=== PATIENT | male | born 1950 | race Caucasian/White ===

== ENCOUNTER 2022-04-12 21:32 | Inpatient (IN) ==
--- NOTE | 2022-04-12 21:48 | DR.DIZZY ---
HPI Time seen Time Seen by Provider: 04/12/22 21:45 HPI Comment HPI Comment: PATIENT IS 71YR OLD MALE WITH HISTORY OF DM, HTN, COPD AND ARTHRTIS IN ER VIA EMS WITH SUDDEN ONSET IF DIZZINESS, ATAXIA, NAUSEA AND GENERALIZED WEAKNESS. PATIENT WENT TO THE KITCHEN TO MAKE SANDWICK AND STARTED TO FEEL DIZZY AND IMBALANCE. SLIGHT HEADACHE PRESENT AND HE IS NAUSEATED. NO FEVER, DYSURIA, VOMITING OR DIARRHEA. SLIGHT NONPRODUCTIVE COUGH. Complaint Chief Complaint Doctor Comments: DIZZINESS AND GENERALIZED WEAKNESS FOR FEW HOURS. COVID-19 Coronavirus risk:travel/contact w/high risk person: No Has patient experienced Coronavirus symptoms: No Nurses Notes Reviewed Nurses Notes Review: Yes Source History Provided: Patient Mode of Arrival Mode of Arrival: EMS Timing Came on: Suddenly Duration Duration: Constant Duration: Hours Location of Weakness Weakness Location: Generalized Context Onset: With light exertion History of: DM Stroke Symptoms: Dizziness Severity Severity: Normal activity level Modifying factors Worsens: Change in Position Associated signs and symptoms Associated Signs and Symptoms: Imbalance, Weak, Headache and Nausea Other history Other history: HTN, DM, COPD, ARTHRTIS/GOUT. PMH PMH Past Medical History: Arthritis, COPD, Diabetes, Gout and Hypertension Past Surgical History: Yes Surgical History: Ortho Surgery and Other Family History Family Medical History: Diabetes Mellitus, Cancer, [place], Heart Failure and Hypertension Social History Do you use any recreational Drugs:: No ROS Review of Systems Constitutional: See HPI, Weakness and Fatigue; negative Fever Eyes: No Symptoms Reported and See HPI; negative Blurred Vision and Diplopia ENTM: See HPI and Nose Congestion; negative Nose Discharge Respiratoy: See HPI and Non-Productive Cough; negative Short of Breath and Wheez ing Cardiovascular: No Symptoms Reported and See HPI; negative Chest Pain Gastrointestinal/Abdominal: See HPI, Abdominal Pain and Nausea; negative Diarrhea and Vomiting Genitourinary: No Symptoms Reported and See HPI; negative Dysuria Neurological: See HPI, Headache, Weakness and Dizziness Musculoskeletal: See HPI and Back Pain (CHRONIC) Integumentary: No Symptoms Reported and See HPI; negative Rash Hematologic/Lymphatic: Easy Bruising Endocrine: No Symptoms Reported and See HPI; negative Increased Thirst and Increased Urine Psychiatric: No Symptoms Reported and See HPI All Other Systems: Reviewed and Negative PE Vital Signs Vitals: Temperature 98.4 F Pulse Rate [Left Radial] 58 Pulse Rate 73 Respiratory Rate 18 Blood Pressure [Right Arm] 185/86 Blood Pressure [Left Arm] 135/65 Blood Pressure 130/63 O2 Sat by Pulse Oximetry 98 General Limitations: No Limitations General Appearance: Alert and In Distress Head Head Exam: Normal Inspection and Atraumatic Eyes Eye exam: Normal Appearance and PERRL; negative Scleral Icterus and Conjunctival Injection Pupils: Regular, Round: Bilateral and Reactive: Bilateral Sclera/Conjunctival: Normal Inspection: Bilateral ENT ENT Exam: Normal Exam, Normal Oropharynx, Normal External Ear Exam and TM's Normal Bilaterally Neck Neck Exam: Normal Inspection, Full ROM and Trachea Midline; negative Tenderness Chest Chest Inspection: Normal Inspection and Symmetric Chest Wall Rise; negative Tenderness Respiratory Respiratory Exam: Normal Lung Sounds Bilat; negative Accessory Muscle Use, Chest Wall Tenderness and Respiratory Distress Respiratory Exam: Bilateral: Rhonchi and Lower: Rhonchi Cardiovascular Cardiovascular Exam: Regular Rate, Normal Rhythm and Normal Heart Sounds; negative Systolic Murmur and Diastolic Murmur Abdominal Exam Abdominal Exam: Normal Inspection, Normal Bowel Sounds and Soft; negative Tenderness Rectal Rectal Exam: Deferred Extremeties Extremities Exam: Normal Inspection and Full ROM Back Back Exam: Normal Inspection and Full ROM Neurologic Neurological Exam: Alert and Oriented X3 Patient Oriented To: Person, Place and Time Speech: Fluid Speech Cranial Nerve Exam: EOM Function (II, III, IV, ): Normal, Facial Sensation (V): Normal, Facial Palsy (VII): Normal, Gag reflex (XI): Normal and Tongue Deviation: Normal Motor Strength - LUE: 5/5 Motor Strength - RUE: 5/5 Motor Strength - LLE: 5/5 Motor Strength - RLE: 5/5 Upper Motor Neuron Exam: Babinski Sign: Normal Psychiatric Psychiatric Exam: Normal Affect and Normal Mood Skin Skin Exam: Warm, Dry, Intact and Normal Color MDM Additional Information Obtained Additional Information Obtained From: Old Records Differential Diagnosis Differential Diagnosis: Anemia, CVA, Dehydration, Dysrhythmia, Electrolyte disorder, Hypoglycemia, Labyrinthitis, Myocardial infarction, TIA, Central Vertigo and Other (HYPOTENSION.) Differential Diagnosis Comment: OTITIS MEDIA, UTI, PNEUMONIA, COPD. COURSE Treatment Treatment: SEE ORDERS DONE WHILE PATIENT WAS IN ER. Education/Counseling Education/Counseling: Patient Educated On: Diagnosis and Needs for Follow Up Education Comments: DISCUSSED PATIENT WITH DR. EMMANUEL. HE WILL ADMIT PATIENT. ROR Labs Reviewed Laboratory Results Reviewed?: Yes Result Diagrams: 04/15/22 04:18 04/15/22 04:18 Laboratory: WBC 6.9 X10^3/uL (3.6-10.0) 04/12/22 22:04 RBC 3.58 X10^6/uL (4.7-6.0) L 04/12/22 22:04 Hgb 11.1 g/dL (13.5-18.0) L 04/12/22 22:04 Hct 32.2 % (42.0-54.0) L 04/12/22 22:04 MCV 89.9 fL (80.0-100.0) 04/12/22 22:04 MCH 31.0 pg (27.0-34.0) 04/12/22 22:04 MCHC 34.5 g/dL (33.0-35.0) 04/12/22 22:04 RDW 16.5 % (11.6-16.5) 04/12/22 22:04 Plt Count 175 X10^3/uL (150.0-450.0) 04/12/22 22:04 MPV 8.0 fL (7.4-11.0) 04/12/22 22:04 Neut % (Auto) 56.1 % (42.0-75.0) 04/12/22 22:04 Lymph % (Auto) 25.5 % (21.0-51.0) 04/12/22 22:04 [place] % (Auto) 11.2 % (0.0-13.0) 04/12/22 22:04 Eos % (Auto) 6.4 % (0.9-2.9) H 04/12/22 22:04 Baso % (Auto) 0.8 % (0.2-1.0) 04/12/22 22:04 Neut # (Auto) 3.9 x10^3/uL (2.2-4.8) 04/12/22 22:04 Lymph # (Auto) 1.8 X10^3/uL (1.3-2.9) 04/12/22 22:04 [place] # (Auto) 0.8 x10^3/uL (0.3-0.8) 04/12/22 22:04 Eos # (Auto) 0.4 x10^3/uL (0.0-0.2) H 04/12/22 22:04 Baso # (Auto) 0.1 X10^3/uL (0.0-0.1) 04/12/22 22:04 Absolute Nucleated RBC 0.1 /100WBC 04/12/22 22:04 Sodium 135 mmol/L (136-145) L 04/12/22 22:04 Corrected Sodium 138 mmol/L (136-145) 04/12/22 22:04 Potassium 3.9 mmol/L (3.5-5.1) 04/12/22 22:04 Chloride 99 mmol/L (98-107) 04/12/22 22:04 Carbon Dioxide 26.6 mmol/L (21-32) 04/12/22 22:04 BUN 66 mg/dL (7-18) H 04/12/22 22:04 Creatinine 3.56 mg/dL (0.70-1.30) H 04/12/22 22:04 Est GFR (MDRD) Af Amer 22 (>60) L 04/12/22 22:04 Est GFR (MDRD) Non-Af 18 (>60) L 04/12/22 22:04 Glucose 221 mg/dL (65-99) H 04/12/22 22:04 Calcium 8.7 mg/dL (8.5-10.1) 04/12/22 22:04 Corrected Calcium 9.3 mg/dL (8.5-10.1) 04/12/22 22:04 Total Bilirubin 0.60 mg/dL (0.2-1.0) 04/12/22 22:04 AST 13 Units/L (15-37) L 04/12/22 22:04 ALT 25 Units/L (12-78) 04/12/22 22:04 Alkaline Phosphatase 98 Units/L (46-116) 04/12/22 22:04 Creatine Kinase 48 Units/L (39-308) 04/12/22 22:04 CK-MB (CK-2) 0.7 ng/mL (0-4.0) 04/12/22 22:04 CK/CKMB % Calc 1.5 % (<4) 04/12/22 22:04 Troponin I High Sens 18.9 ng/L (4.0-60.0) 04/12/22 22:04 B-Natriuretic Peptide 42.8 pg/mL (0-79) 04/12/22 22:04 Total Protein 6.5 g/dL (6.4-8.2) 04/12/22 22:04 Albumin 3.2 g/dL (3.4-5.0) L 04/12/22 22:04 Globulin 3.3 g/dL (2.5-4.5) 04/12/22 22:04 Albumin/Globulin Ratio 1.0 Ratio (1.1-2.1) L 04/12/22 22:04 SARS-CoV-2 (PCR) Negative (NEGATIVE) 04/13/22 00:57 EKG Rate: 62 [place]: Normal Rhythm: NSR Block: RBBB Hypertrophy: None ST: Nonsp Opioid Opioid Risk Tool Age (Petr box if 16-45): No History of Preadolescent Sexual Abuse: No Total: 0 Total Score Risk Category: Low Risk Copyright: Beckett predicting aberrant behaviors Diagnosis Discharge Problem: Acute hypotension, Acute dehydration, Renal insufficiency Syncope Qualifiers: Syncope type: unspecified Qualified Code(s): R55 - Syncope and collapse Instructions Instructions: Food Choices for Gastroesophageal Reflux Disease, Adult Heartburn Near-Syncope, [id number] Near-Syncope Syncope, [id number] Forms: Excuse From Work or School Precautions for COVID19 [facility] Social Distancing
[2022-04-12 22:11] LABS: BASOPHILS # (AUTO) 0.1 X10^3/uL (0.0-0.1); BASOPHILS % (AUTO) 0.8 % (0.2-1.0); EOSINOPHILS # (AUTO) 0.4 x10^3/uL (0.0-0.2); EOSINOPHILS % (AUTO) 6.4 % (0.9-2.9); HEMATOCRIT 32.2 % (42.0-54.0); HEMOGLOBIN 11.1 g/dL (13.5-18.0); LYMPHOCYTES # (AUTO) 1.8 X10^3/uL (1.3-2.9); LYMPHOCYTES % (AUTO) 25.5 % (21.0-51.0); MEAN CORPUSCULAR HGB CONC 34.5 g/dL (33.0-35.0); MEAN CORPUSCULAR VOLUME 89.9 fL (80.0-100.0); MONOCYTES # (AUTO) 0.8 x10^3/uL (0.3-0.8); MONOCYTES % (AUTO) 11.2 % (0.0-13.0); NEUTROPHILS # (AUTO) 3.9 x10^3/uL (2.2-4.8); NEUTROPHILS % (AUTO) 56.1 % (42.0-75.0); RED BLOOD COUNT 3.58 X10^6/uL (4.7-6.0); RED CELL DISTRIBUTION WIDTH 16.5 % (11.6-16.5); WHITE BLOOD COUNT 6.9 X10^3/uL (3.6-10.0)
[2022-04-12 22:18] LABS: CALCIUM 8.7 mg/dL (8.5-10.1); CARBON DIOXIDE 26.6 mmol/L (21-32); CREATININE 3.56 mg/dL (0.70-1.30)
[2022-04-12 23:00] LABS: CKMB % 1.5 % (<4); CREATINE KINASE MB 0.7 ng/mL (0-4.0)
[2022-04-12 23:11] LABS: ALBUMIN 3.2 g/dL (3.4-5.0); COR CA(FOR HYPOALB) 9.3 mg/dL (8.5-10.1); TOTAL PROTEIN 6.5 g/dL (6.4-8.2)
[2022-04-12] MEDS: NS 1,000 ML IV 1,000 ML IV SCH (23:40)
[2022-04-12] MEDS ORDERED: NS 1,000 ML IV 1,000 ML ONE (23:42)
[2022-04-13] MEDS ORDERED: ZOFRAN INJ 4 MG VIAL IVP PRN (02:45)
[2022-04-13] MEDS ORDERED: NS 1,000 ML IV 1,000 ML IV SCH (03:00)
[2022-04-13 04:09] VITALS: BMI 30.8
[2022-04-13 05:26] LABS: ALBUMIN 2.9 g/dL (3.4-5.0); BASOPHILS # (AUTO) 0.1 X10^3/uL (0.0-0.1); CALCIUM 8.3 mg/dL (8.5-10.1); CARBON DIOXIDE 26.3 mmol/L (21-32); COR CA(FOR HYPOALB) 9.2 mg/dL (8.5-10.1); CREATININE 2.89 mg/dL (0.70-1.30); EOSINOPHILS # (AUTO) 0.5 x10^3/uL (0.0-0.2); EOSINOPHILS % (AUTO) 8.1 % (0.9-2.9); HEMATOCRIT 30.8 % (42.0-54.0); HEMOGLOBIN 10.7 g/dL (13.5-18.0); LYMPHOCYTES # (AUTO) 1.9 X10^3/uL (1.3-2.9); MEAN CORPUSCULAR HEMOGLOBIN 31.2 pg (27.0-34.0); MEAN CORPUSCULAR HGB CONC 34.8 g/dL (33.0-35.0); MEAN CORPUSCULAR VOLUME 89.7 fL (80.0-100.0); MEAN PLATELET VOLUME 8.4 fL (7.4-11.0); MONOCYTES # (AUTO) 0.7 x10^3/uL (0.3-0.8); MONOCYTES % (AUTO) 10.6 % (0.0-13.0); NEUTROPHILS # (AUTO) 3.4 x10^3/uL (2.2-4.8); NEUTROPHILS % (AUTO) 51.3 % (42.0-75.0); RED BLOOD COUNT 3.43 X10^6/uL (4.7-6.0); TOTAL PROTEIN 5.9 g/dL (6.4-8.2); WHITE BLOOD COUNT 6.7 X10^3/uL (3.6-10.0)
[2022-04-13 05:35] LABS: CKMB % 2.3 % (<4); CREATINE KINASE 43 Units/L (39-308); CREATINE KINASE MB < 1.0 ng/mL (0-4.0)
[2022-04-13] MEDS: NS 1,000 ML IV 1,000 ML IV SCH ×3 (06:44→23:14)
--- NOTE | 2022-04-13 08:51 | DR.H&P ---
H&P History & Physical for Day of: H&P Date: 04/13/22 Chief Complaint Chief Complaint: dizziness, weakness Allergies Allergies Allergy/AdvReac Type Severity Reaction Status Date / Time No Known Drug Allergies Allergy Verified 07/14/21 10:44 History of Present Illness History of Present Illness: Mr Wells is a 71y/o male with a PMH of Type 2 diabetes, HTN, CAD and GERD presented with dizziness and generalized weakness. He states he was standing up in the kitchen when he felt lightheaded. He did not pass out. He recently had cholecystectomy about a week ago in [place]. He reports not eating well since being discharged. He denies nausea or vomiting, reports some diarrhea. Denies fever or chills. He has a hx of DM, not on insulin, reports FSBG being elevated lately. He sees Dr Maria and had a stress test in January. Denies chest pain or SOB. He is feeling better this morning, ate his breakfast. Labs reviewed Stress test results reviewed, EF 50% no myocardial ischemia Plan: continue hydration with NS, monitor renal function. Follow one more set of cardiac enzymes. Resume home medications, hold nephrotoxic medicines. Order carotid U/S. Will check anemia panel. PT/OT as tolerated. Monitor AM labs. Past Medical History Past Medical History: Arthritis, COPD, Diabetes, Gout and Hypertension Past Surgical History Surgical History: Cholecystectomy Family History Family Medical History: Diabetes Mellitus, Cancer, [place], Sudden Cardiac and Hypertension Social History Does patient currently use any type of tobacco product: No Have you used tobacco products in the last 12 months: No Type of Tobacco Use: None Alcohol Use: None Drug Use: None Prescription drug monitoring program results: PDMP reviewed and no concerns i dentified Medications Home Medications: No Known Drug Allergies Allergy (Verified 07/14/21 10:44) CONTINUE taking the following medications allopurinol 200 mg PO DAILY 04/13/22 [History] aspirin 81 mg PO DAILY 04/13/22 [History] atorvastatin 40 mg PO QHS 04/13/22 [History] carvedilol 25 mg PO BID 04/13/22 [History] chlorthalidone 25 mg PO DAILY 04/13/22 [History] famotidine 40 mg PO DAILY 04/13/22 [History] furosemide 40 mg PO DAILY 04/13/22 [History] glipizide 10 mg PO QHS 04/13/22 [History] glipizide 20 mg PO QAM 04/13/22 [History] losartan 25 mg PO BID 04/13/22 [History] pioglitazone 15 mg PO DAILY 04/13/22 [History] Labs Result Diagrams: 04/13/22 04:35 04/13/22 04:35 Labs: Laboratory WBC 6.7 X10^3/uL (3.6-10.0) 04/13/22 04:35 RBC 3.43 X10^6/uL (4.7-6.0) L 04/13/22 04:35 Hgb 10.7 g/dL (13.5-18.0) L 04/13/22 04:35 Hct 30.8 % (42.0-54.0) L 04/13/22 04:35 MCV 89.7 fL (80.0-100.0) 04/13/22 04:35 MCH 31.2 pg (27.0-34.0) 04/13/22 04:35 MCHC 34.8 g/dL (33.0-35.0) 04/13/22 04:35 RDW 16.0 % (11.6-16.5) 04/13/22 04:35 Plt Count 174 X10^3/uL (150.0-450.0) 04/13/22 04:35 MPV 8.4 fL (7.4-11.0) 04/13/22 04:35 Neut % (Auto) 51.3 % (42.0-75.0) 04/13/22 04:35 Lymph % (Auto) 29.0 % (21.0-51.0) 04/13/22 04:35 [place] % (Auto) 10.6 % (0.0-13.0) 04/13/22 04:35 Eos % (Auto) 8.1 % (0.9-2.9) H 04/13/22 04:35 Baso % (Auto) 1.0 % (0.2-1.0) 04/13/22 04:35 Neut # (Auto) 3.4 x10^3/uL (2.2-4.8) 04/13/22 04:35 Lymph # (Auto) 1.9 X10^3/uL (1.3-2.9) 04/13/22 04:35 [place] # (Auto) 0.7 x10^3/uL (0.3-0.8) 04/13/22 04:35 Eos # (Auto) 0.5 x10^3/uL (0.0-0.2) H 04/13/22 04:35 Baso # (Auto) 0.1 X10^3/uL (0.0-0.1) 04/13/22 04:35 Absolute Nucleated RBC 0.0 /100WBC 04/13/22 04:35 Sodium 136 mmol/L (136-145) 04/13/22 04:35 Corrected Sodium 137 mmol/L (136-145) 04/13/22 04:35 Potassium 3.6 mmol/L (3.5-5.1) 04/13/22 04:35 Chloride 100 mmol/L (98-107) 04/13/22 04:35 Carbon Dioxide 26.3 mmol/L (21-32) 04/13/22 04:35 BUN 68 mg/dL (7-18) H 04/13/22 04:35 Creatinine 2.89 mg/dL (0.70-1.30) H 04/13/22 04:35 Est GFR (MDRD) Af Amer 28 (>60) L 04/13/22 04:35 Est GFR (MDRD) Non-Af 23 (>60) L 04/13/22 04:35 Glucose 147 mg/dL (65-99) H 04/13/22 04:35 POC Glucose (mg/dL) 144 mg/dL (65-99) H 04/13/22 05:18 Calcium 8.3 mg/dL (8.5-10.1) L 04/13/22 04:35 Corrected Calcium 9.2 mg/dL (8.5-10.1) 04/13/22 04:35 Total Bilirubin 0.50 mg/dL (0.2-1.0) 04/13/22 04:35 AST 14 Units/L (15-37) L 04/13/22 04:35 ALT 21 Units/L (12-78) 04/13/22 04:35 Alkaline Phosphatase 88 Units/L (46-116) 04/13/22 04:35 Creatine Kinase 43 Units/L (39-308) 04/13/22 04:35 CK-MB (CK-2) < 1.0 ng/mL (0-4.0) 04/13/22 04:35 CK/CKMB % Calc 2.3 % (<4) 04/13/22 04:35 Troponin I High Sens 25.5 ng/L (4.0-60.0) 04/13/22 04:35 B-Natriuretic Peptide 42.8 pg/mL (0-79) 04/12/22 22:04 Total Protein 5.9 g/dL (6.4-8.2) L 04/13/22 04:35 Albumin 2.9 g/dL (3.4-5.0) L 04/13/22 04:35 Globulin 3.0 g/dL (2.5-4.5) 04/13/22 04:35 Albumin/Globulin Ratio 1.0 Ratio (1.1-2.1) L 04/13/22 04:35 SARS-CoV-2 (PCR) Negative (NEGATIVE) 04/13/22 00:57 Review of Systems Constitutional: Weakness Eyes: No Symptoms Reported ENT: No Symptoms Reported Respiratory: No Symptoms Reported Cardiovascular: Light Headedness Gastrointestinal: Nausea and Diarrhea Genitourinary: No Symptoms Reported Musculoskeletal: No Symptoms Reported Skin: No Symptoms Reported Neurological: No Symptoms Reported Physical Exam Vital Signs: Temperature 97.8 F Pulse Rate [Left Radial] 69 Pulse Rate 73 Respiratory Rate 20 Blood Pressure [Right Arm] 185/86 Blood Pressure [Left Arm] 164/76 Blood Pressure 130/63 O2 Sat by Pulse Oximetry 95 Oriented: Normal Eyes: Normal Ear: Normal Nose: Normal Throat: Normal Respiratory: Diminished Throughout Cardiovascular: Normal and Edema Auscultation: Bowel Sounds: Normal Palpation: Normal Tenderness: Normal Skin: Decreased Turgur Musculoskeletal: Normal Psychiatric: Normal Mood Description: Calm Affect: Normal Speech Pattern: Clear and Appropriate Assessment/Plan (1) Pre-syncope: Status: Acute (2) AMARJIT (acute kidney injury): Status: Acute (3) Acute dehydration: Status: Acute (4) Acute hypotension: Status: Acute (5) Acute on chronic renal failure: Qualifiers: Acute renal failure type: unspecified Chronic kidney disease stage: unspecified stage Qualified Code(s): N17.9 - Acute kidney failure, unspecified; N18.9 - Chronic kidney disease, unspecified Status: Acute (6) History of cholecystectomy: Status: Acute (7) Type 2 diabetes mellitus: Qualifiers: Diabetes mellitus complication status: without complication Diabetes mellitus long-term insulin use: without manager intermediate use Qualified Code(s): E11.9 - Type 2 diabetes mellitus without complications Status: Acute (8) GERD (gastroesophageal reflux disease): Qualifiers: Esophagitis presence: esophagitis presence not specified Qualified Code(s): K21.9 - Gastro-esophageal reflux disease without esophagitis Status: Acute Review H&P Reviewed: Yes Patient was examined?: Yes
[2022-04-13] MEDS: ASPIRIN EC 81 MG PO SCH (10:13)
[2022-04-13] MEDS: COREG TAB 25 MG PO SCH ×2 (10:13→20:27)
[2022-04-13] MEDS: LOVENOX INJ 30 MG SYR SC SCH (10:13)
[2022-04-13] MEDS: PEPCID TAB 40 MG PO SCH (10:14)
[2022-04-13 11:26] LABS: CKMB % 2.4 % (<4); CREATINE KINASE 42 Units/L (39-308); CREATINE KINASE MB < 1.0 ng/mL (0-4.0)
--- NOTE | 2022-04-13 15:59 | VAS ---
HISTORYDIZZINESS, PRE-SYNCOPEConcern for carotid artery stenosis.EXAM: BILATERAL DOPPLER CAROTID ULTRASOUND EXAMTechnique: Multiple palmer scale and color flow Doppler images of the right and left carotid arterial system were obtained.The vertebral arterial system was evaluated as well.Findings:Nonocclusive color flow Doppler is seen throughout the right and left carotid arterial system.No hemodynamically significant carotid arterial stenosis is seen based on velocity criteria. There is moderate to severe bilateral carotid atherosclerosis and mixed atherosclerotic plaque formation of the bilateral carotid bulbs and ICAs with associated intimal thickening but [without] evidence for high-grade stenosis (>70%) or occlusion of the carotid arteries. The right and left vertebral artery demonstrate antegrade flow.IMPRESSION:Moderate to severe bilateral carotid atherosclerosis and mixed atherosclerotic plaque formation of the bilateral carotid bulbs and [in both] ICAs with [id number] associated carotid intimal thickening but without evidence for high-grade stenosis or occlusion of the carotid arteries, based on Doppler velocity criteria. Appropriate, antegrade, vertebral arterial flow.Peak right ICA velocity: 107 centimeter/seconds.Peak right CCA velocity: 91 centimeter/seconds.Peak left ICA velocity: 101 centimeter/seconds.Peak left CCA velocity: 105 centimeter/seconds.Right ICA to CCA ratio: 1.7.Left ICA to CCA ratio: 1.4.Electronically signed by: BORA YANG III (April 13, 2022 15:58:25)
[2022-04-13] MEDS: SNACK - Diabetic Appropriate PO SCH (20:27)
[2022-04-13] MEDS: LIPITOR TAB 40 MG PO SCH (20:28)
[2022-04-13] MEDS ORDERED: GLUCOTROL PO SCH (21:00)
[2022-04-14 05:20] LABS: BASOPHILS # (AUTO) 0.1 X10^3/uL (0.0-0.1); BASOPHILS % (AUTO) 0.9 % (0.2-1.0); EOSINOPHILS # (AUTO) 0.6 x10^3/uL (0.0-0.2); EOSINOPHILS % (AUTO) 8.2 % (0.9-2.9); HEMOGLOBIN 10.5 g/dL (13.5-18.0); LYMPHOCYTES # (AUTO) 1.8 X10^3/uL (1.3-2.9); LYMPHOCYTES % (AUTO) 26.2 % (21.0-51.0); MEAN CORPUSCULAR HEMOGLOBIN 31.3 pg (27.0-34.0); MEAN CORPUSCULAR HGB CONC 34.9 g/dL (33.0-35.0); MEAN CORPUSCULAR VOLUME 89.8 fL (80.0-100.0); MEAN PLATELET VOLUME 7.9 fL (7.4-11.0); MONOCYTES # (AUTO) 0.9 x10^3/uL (0.3-0.8); MONOCYTES % (AUTO) 12.2 % (0.0-13.0); NEUTROPHILS # (AUTO) 3.7 x10^3/uL (2.2-4.8); NEUTROPHILS % (AUTO) 52.5 % (42.0-75.0); RED BLOOD COUNT 3.34 X10^6/uL (4.7-6.0); RED CELL DISTRIBUTION WIDTH 16.3 % (11.6-16.5)
[2022-04-14 05:38] LABS: ALBUMIN 2.7 g/dL (3.4-5.0); CALCIUM 7.8 mg/dL (8.5-10.1); CARBON DIOXIDE 26.7 mmol/L (21-32); COR CA(FOR HYPOALB) 8.8 mg/dL (8.5-10.1); CREATININE 1.49 mg/dL (0.70-1.30); TOTAL PROTEIN 5.5 g/dL (6.4-8.2)
[2022-04-14] MEDS: NS 1,000 ML IV 1,000 ML IV SCH ×2 (07:35→18:28)
[2022-04-14] MEDS: COREG TAB 25 MG PO SCH ×2 (09:41→21:22)
[2022-04-14] MEDS: COZAAR PO SCH (09:41)
[2022-04-14] MEDS: ASPIRIN EC 81 MG PO SCH (09:42)
[2022-04-14] MEDS: GLUCOTROL PO SCH ×2 (09:42→21:22)
[2022-04-14] MEDS: PEPCID TAB 40 MG PO SCH (09:43)
[2022-04-14] MEDS: LOVENOX INJ 30 MG SYR SC SCH (09:44)
--- NOTE | 2022-04-14 14:29 | PCM.PROG ---
Progress Note Progress Note for Day of Date of Exam: 04/14/22 Subjective Subjective: Patient seen at bedside, no events overnight. He does feel slightly better. He denies N/V/D. His appetite has improved. He still feels dizzy when standing up and ambulating to the bathroom. Labs reviewed: renal function improved Carotid U/S results reviewed and discussed with patient Plan: consult PT/OT, decrease IVF to 75cc/hr. Increase glipizide to 10 mg BID. Resume losartan but 25 mg daily only. Advised patient to work with therapy and try to ambulate in the room and sit on the recliner. Encouraged PO intake. Monitor AM labs. Past Medical Family Social History Past Med/Fam/Surg Hx: No changes since H&P Allergies: Allergies No Known Drug Allergies Allergy (Verified 07/14/21 10:44) Review of Systems ROS: No change since H&P Vital Signs and I&O's Vital Signs: Temperature 98.2 F Pulse Rate [Left Radial] 58 Pulse Rate 73 Respiratory Rate 20 Blood Pressure [Right Arm] 185/86 Blood Pressure [Left Arm] 145/67 Blood Pressure 130/63 O2 Sat by Pulse Oximetry 98 Intake and Output: Intake & Output 04/11/22 04/12/22 04/13/22 04/14/22 23:59 23:59 23:59 23:59 Intake Total 3300 / 3300 1200 / 1200 Balance 3300 / 3300 1200 / 1200 Physical Exam Oriented: Normal Eyes: Normal Ear: Normal Nose: Normal Throat: Normal Respiratory: Normal Cardiovascular: Normal and Edema Auscultation: Bowel Sounds: Normal Tenderness: Normal and Other (incision sites noted, some brusing around the site, no signs of infection ) Skin: Decreased Turgur Musculoskeletal: Normal Psychiatric: Normal Mood Description: Calm Affect: Normal Speech Pattern: Clear and Appropriate Laboratory and Diagnostics Result Diagrams: 04/14/22 05:10 04/14/22 05:10 Labs: Laboratory WBC 7.0 X10^3/uL (3.6-10.0) 04/14/22 05:10 RBC 3.34 X10^6/uL (4.7-6.0) L 04/14/22 05:10 Hgb 10.5 g/dL (13.5-18.0) L 04/14/22 05:10 Hct 30.0 % (42.0-54.0) L 04/14/22 05:10 MCV 89.8 fL (80.0-100.0) 04/14/22 05:10 MCH 31.3 pg (27.0-34.0) 04/14/22 05:10 MCHC 34.9 g/dL (33.0-35.0) 04/14/22 05:10 RDW 16.3 % (11.6-16.5) 04/14/22 05:10 Plt Count 165 X10^3/uL (150.0-450.0) 04/14/22 05:10 MPV 7.9 fL (7.4-11.0) 04/14/22 05:10 Neut % (Auto) 52.5 % (42.0-75.0) 04/14/22 05:10 Lymph % (Auto) 26.2 % (21.0-51.0) 04/14/22 05:10 [place] % (Auto) 12.2 % (0.0-13.0) 04/14/22 05:10 Eos % (Auto) 8.2 % (0.9-2.9) H 04/14/22 05:10 Baso % (Auto) 0.9 % (0.2-1.0) 04/14/22 05:10 Neut # (Auto) 3.7 x10^3/uL (2.2-4.8) 04/14/22 05:10 Lymph # (Auto) 1.8 X10^3/uL (1.3-2.9) 04/14/22 05:10 [place] # (Auto) 0.9 x10^3/uL (0.3-0.8) H 04/14/22 05:10 Eos # (Auto) 0.6 x10^3/uL (0.0-0.2) H 04/14/22 05:10 Baso # (Auto) 0.1 X10^3/uL (0.0-0.1) 04/14/22 05:10 Absolute Nucleated RBC 0.0 /100WBC 04/14/22 05:10 Sodium 139 mmol/L (136-145) 04/14/22 05:10 Corrected Sodium 140 mmol/L (136-145) 04/14/22 05:10 Potassium 3.8 mmol/L (3.5-5.1) 04/14/22 05:10 Chloride 107 mmol/L (98-107) 04/14/22 05:10 Carbon Dioxide 26.7 mmol/L (21-32) 04/14/22 05:10 BUN 49 mg/dL (7-18) H 04/14/22 05:10 Creatinine 1.49 mg/dL (0.70-1.30) H 04/14/22 05:10 Est GFR (MDRD) Af Amer 60 (>60) 04/14/22 05:10 Est GFR (MDRD) Non-Af 49 (>60) L 04/14/22 05:10 Glucose 127 mg/dL (65-99) H 04/14/22 05:10 POC Glucose (mg/dL) 202 mg/dL (65-99) H 04/14/22 11:22 Calcium 7.8 mg/dL (8.5-10.1) L 04/14/22 05:10 Corrected Calcium 8.8 mg/dL (8.5-10.1) 04/14/22 05:10 Iron 44 ug/dL (50-175) L 04/13/22 04:35 Transferrin 169 mg/dL (202-364) L 04/13/22 04:35 Ferritin 514 ng/mL (26-388) H 04/13/22 04:35 Total Bilirubin 0.30 mg/dL (0.2-1.0) 04/14/22 05:10 AST 14 Units/L (15-37) L 04/14/22 05:10 ALT 21 Units/L (12-78) 04/14/22 05:10 Alkaline Phosphatase 86 Units/L (46-116) 04/14/22 05:10 Creatine Kinase 42 Units/L (39-308) 04/13/22 10:50 CK-MB (CK-2) < 1.0 ng/mL (0-4.0) 04/13/22 10:50 CK/CKMB % Calc 2.4 % (<4) 04/13/22 10:50 Troponin I High Sens 25.7 ng/L (4.0-60.0) 04/13/22 10:50 B-Natriuretic Peptide 42.8 pg/mL (0-79) 04/12/22 22:04 Total Protein 5.5 g/dL (6.4-8.2) L 04/14/22 05:10 Albumin 2.7 g/dL (3.4-5.0) L 04/14/22 05:10 Globulin 2.8 g/dL (2.5-4.5) 04/14/22 05:10 Albumin/Globulin Ratio 1.0 Ratio (1.1-2.1) L 04/14/22 05:10 Vitamin B12 730 pg/mL (193-986) 04/13/22 04:35 Folate 11.1 ng/mL (>8.6) 04/13/22 04:35 SARS-CoV-2 (PCR) Negative (NEGATIVE) 04/13/22 00:57 Plan (1) Pre-syncope: Status: Acute (2) AMARJIT (acute kidney injury): Status: Acute (3) Acute dehydration: Status: Acute (4) Acute hypotension: Status: Acute (5) Acute on chronic renal failure: Status: Acute Qualifiers: Acute renal failure type: unspecified Chronic kidney disease stage: unspecified stage Qualified Code(s): N17.9 - Acute kidney failure, unspecified; N18.9 - Chronic kidney disease, unspecified (6) History of cholecystectomy: Status: Acute (7) Type 2 diabetes mellitus: Status: Acute Qualifiers: Diabetes mellitus complication status: without complication 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
[2022-04-14] MEDS: SNACK - Diabetic Appropriate PO SCH (20:00)
[2022-04-14] MEDS: LIPITOR TAB 40 MG PO SCH (21:22)
[2022-04-15] MEDS: NS 1,000 ML IV 1,000 ML IV SCH ×2 (00:20→07:44)
[2022-04-15 04:51] LABS: BASOPHILS # (AUTO) 0.1 X10^3/uL (0.0-0.1); BASOPHILS % (AUTO) 1.1 % (0.2-1.0); EOSINOPHILS # (AUTO) 0.5 x10^3/uL (0.0-0.2); HEMATOCRIT 28.8 % (42.0-54.0); HEMOGLOBIN 10.3 g/dL (13.5-18.0); LYMPHOCYTES # (AUTO) 1.7 X10^3/uL (1.3-2.9); LYMPHOCYTES % (AUTO) 28.2 % (21.0-51.0); MEAN CORPUSCULAR HEMOGLOBIN 31.6 pg (27.0-34.0); MEAN CORPUSCULAR HGB CONC 35.6 g/dL (33.0-35.0); MEAN PLATELET VOLUME 8.2 fL (7.4-11.0); MONOCYTES # (AUTO) 0.7 x10^3/uL (0.3-0.8); MONOCYTES % (AUTO) 12.1 % (0.0-13.0); NEUTROPHILS % (AUTO) 49.6 % (42.0-75.0); RED BLOOD COUNT 3.24 X10^6/uL (4.7-6.0)
[2022-04-15 05:18] LABS: ALANINE AMINOTRANSFERASE 22 Units/L (12-78); ALBUMIN 2.6 g/dL (3.4-5.0); ALKALINE PHOSPHATASE 94 Units/L (46-116); ASPARTATE AMINO TRANSFERASE 15 Units/L (15-37); BLOOD UREA NITROGEN 37 mg/dL (7-18); CALCIUM 7.5 mg/dL (8.5-10.1); CARBON DIOXIDE 23.7 mmol/L (21-32); CHLORIDE 109 mmol/L (98-107); COR CA(FOR HYPOALB) 8.6 mg/dL (8.5-10.1); COR NA(FOR HYPERGLY) 141 mmol/L (136-145); CREATININE 1.32 mg/dL (0.70-1.30); SODIUM 140 mmol/L (136-145); TOTAL PROTEIN 5.5 g/dL (6.4-8.2); eGFR NON BLACK RACES 57 (>60)
[2022-04-15] MEDS: COREG TAB 25 MG PO SCH (08:14)
[2022-04-15] MEDS: COZAAR PO SCH (08:14)
[2022-04-15] MEDS: ASPIRIN EC 81 MG PO SCH (08:14)
[2022-04-15] MEDS: LOVENOX INJ 30 MG SYR SC SCH (08:15)
[2022-04-15] MEDS: GLUCOTROL PO SCH (08:15)
[2022-04-15] MEDS: PEPCID TAB 40 MG PO SCH (08:15)
--- NOTE | 2022-04-15 08:48 | W.DIS.FURT ---
Summary of Discharge Discharge Summary of Date Date of Exam: 04/15/22 Admission Date Date of Admission: 04/12/22 Admission Diagnosis Patient Problems (Updated 04/16/22 @ 10:11 by Cindy Ng) Acute hypotension (Acute) I95.9 Acute dehydration (Acute) E86.0 Hospital Course: Mr Wells is a 71y/o male with a PMH of Type 2 diabetes, HTN, CAD and GERD presented with dizziness and generalized weakness. He states he was standing up in the kitchen when he felt lightheaded. He did not pass out. He recently had cholecystectomy about a week ago in [place]. He reports not eating well since being discharged. He denies nausea or vomiting, reports some diarrhea. Denies fever or chills. He has a hx of DM, not on insulin, reports FSBG being elevated lately. He sees Dr Maria and had a stress test in January. Denies chest pain or SOB. ER work up showed worsening renal function with Cr 3.53. Cardiac enzymes were negative. He was started on IV hydration. Carotid U/S was also done which showed moderate plaque burden with no high grade stenosis. His renal function improved with hydration and he was tolerating PO intake. PT/OT was also consulted and patient was able to ambulate. He was stable for discharge. Patient's chlorthalidone was held on discharge. He sees Dr Yadav (nephro), will follow up with him and PCP as scheduled. He will need a repeat BMP to follow renal function. Vital Signs: Vital Signs (72 hours) 04/12/22 21:33 04/12/22 23:30 04/13/22 02:17 Temperature 98.4 F 98.4 F Pulse Rate 66 73 Pulse Rate [Left Radial] 58 L Respiratory Rate 20 16 18 Blood Pressure 123/61 130/63 Blood Pressure [Left Arm] 135/65 O2 Sat by Pulse Oximetry 96 98 98 04/13/22 02:50 04/13/22 08:00 04/13/22 12:00 Temperature 97.8 F 97.1 F L 98.0 F Pulse Rate Pulse Rate [Left Radial] 69 65 80 Respiratory Rate 20 18 18 Blood Pressure Blood Pressure [Left Arm] 164/76 136/64 139/69 O2 Sat by Pulse Oximetry 95 95 96 04/13/22 16:00 04/13/22 20:00 04/13/22 23:38 Temperature 98.1 F 98.0 F 98.2 F Pulse Rate Pulse Rate [Left Radial] 76 71 73 Respiratory Rate 18 20 18 Blood Pressure Blood Pressure [Left Arm] 142/68 145/67 152/81 O2 Sat by Pulse Oximetry 99 98 97 04/14/22 03:31 04/14/22 08:00 04/14/22 12:00 Temperature 98.1 F 98.1 F 98.2 F Pulse Rate Pulse Rate [Left Radial] 56 L 72 58 L Respiratory Rate 20 18 20 Blood Pressure Blood Pressure [Left Arm] 162/74 165/71 145/67 O2 Sat by Pulse Oximetry 96 97 98 04/14/22 16:00 04/14/22 20:00 04/15/22 00:00 Temperature 98.1 F 97.8 F 97.6 F Pulse Rate Pulse Rate [Left Radial] 57 L 71 71 Respiratory Rate 20 20 20 Blood Pressure Blood Pressure [Left Arm] 135/65 163/76 162/72 O2 Sat by Pulse Oximetry 99 98 97 04/15/22 04:00 Temperature 97.6 F Pulse Rate Pulse Rate [Left Radial] 71 Respiratory Rate 20 Blood Pressure Blood Pressure [Left Arm] 152/70 O2 Sat by Pulse Oximetry 98 Labs: Laboratory Last Values WBC 6.0 X10^3/uL (3.6-10.0) 04/15/22 04:18 RBC 3.24 X10^6/uL (4.7-6.0) L 04/15/22 04:18 Hgb 10.3 g/dL (13.5-18.0) L 04/15/22 04:18 Hct 28.8 % (42.0-54.0) L 04/15/22 04:18 MCV 89.0 fL (80.0-100.0) 04/15/22 04:18 MCH 31.6 pg (27.0-34.0) 04/15/22 04:18 MCHC 35.6 g/dL (33.0-35.0) H 04/15/22 04:18 RDW 16.0 % (11.6-16.5) 04/15/22 04:18 Plt Count 162 X10^3/uL (150.0-450.0) 04/15/22 04:18 MPV 8.2 fL (7.4-11.0) 04/15/22 04:18 Neut % (Auto) 49.6 % (42.0-75.0) 04/15/22 04:18 Lymph % (Auto) 28.2 % (21.0-51.0) 04/15/22 04:18 [place] % (Auto) 12.1 % (0.0-13.0) 04/15/22 04:18 Eos % (Auto) 9.0 % (0.9-2.9) H 04/15/22 04:18 Baso % (Auto) 1.1 % (0.2-1.0) H 04/15/22 04:18 Neut # (Auto) 3.0 x10^3/uL (2.2-4.8) 04/15/22 04:18 Lymph # (Auto) 1.7 X10^3/uL (1.3-2.9) 04/15/22 04:18 [place] # (Auto) 0.7 x10^3/uL (0.3-0.8) 04/15/22 04:18 Eos # (Auto) 0.5 x10^3/uL (0.0-0.2) H 04/15/22 04:18 Baso # (Auto) 0.1 X10^3/uL (0.0-0.1) 04/15/22 04:18 Absolute Nucleated RBC 0.0 /100WBC 04/15/22 04:18 Sodium 140 mmol/L (136-145) 04/15/22 04:18 Corrected Sodium 141 mmol/L (136-145) 04/15/22 04:18 Potassium 4.0 mmol/L (3.5-5.1) 04/15/22 04:18 Chloride 109 mmol/L (98-107) H 04/15/22 04:18 Carbon Dioxide 23.7 mmol/L (21-32) 04/15/22 04:18 BUN 37 mg/dL (7-18) H 04/15/22 04:18 Creatinine 1.32 mg/dL (0.70-1.30) H 04/15/22 04:18 Est GFR (MDRD) Af Amer > 60 (>60) 04/15/22 04:18 Est GFR (MDRD) Non-Af 57 (>60) L 04/15/22 04:18 Glucose 148 mg/dL (65-99) H 04/15/22 04:18 POC Glucose (mg/dL) 125 mg/dL (65-99) H 04/15/22 05:56 Calcium 7.5 mg/dL (8.5-10.1) L 04/15/22 04:18 Corrected Calcium 8.6 mg/dL (8.5-10.1) 04/15/22 04:18 Iron 44 ug/dL (50-175) L 04/13/22 04:35 Transferrin 169 mg/dL (202-364) L 04/13/22 04:35 Ferritin 514 ng/mL (26-388) H 04/13/22 04:35 Total Bilirubin 0.30 mg/dL (0.2-1.0) 04/15/22 04:18 AST 15 Units/L (15-37) 04/15/22 04:18 ALT 22 Units/L (12-78) 04/15/22 04:18 Alkaline Phosphatase 94 Units/L (46-116) 04/15/22 04:18 Creatine Kinase 42 Units/L (39-308) 04/13/22 10:50 CK-MB (CK-2) < 1.0 ng/mL (0-4.0) 04/13/22 10:50 CK/CKMB % Calc 2.4 % (<4) 04/13/22 10:50 Troponin I High Sens 25.7 ng/L (4.0-60.0) 04/13/22 10:50 B-Natriuretic Peptide 42.8 pg/mL (0-79) 04/12/22 22:04 Total Protein 5.5 g/dL (6.4-8.2) L 04/15/22 04:18 Albumin 2.6 g/dL (3.4-5.0) L 04/15/22 04:18 Globulin 2.9 g/dL (2.5-4.5) 04/15/22 04:18 Albumin/Globulin Ratio 0.9 Ratio (1.1-2.1) L 04/15/22 04:18 Vitamin B12 730 pg/mL (193-986) 04/13/22 04:35 Folate 11.1 ng/mL (>8.6) 04/13/22 04:35 SARS-CoV-2 (PCR) Negative (NEGATIVE) 04/13/22 00:57 Reason For Visit: SYNCOPAL EPISODE, HYPOTENSION, DEHYDRATION, RENAL Discharge Date Discharge Date: 04/15/22 Discharge Diagnosis All Active Problems (Updated 04/16/22 @ 10:11 by Cindy Ng) Pre-syncope (Acute) GERD (gastroesophageal reflux disease) (Chronic) Type 2 diabetes mellitus (Chronic) History of cholecystectomy (Acute) Acute on chronic renal failure (Acute) Acute hypotension (Acute) Acute dehydration (Acute) Plan of Treatment: Continue with present treatment and follow up plan. Pt is to keep follow up appointment as instructed and take medications as ordered. Discharge Medications Discharge Medications: No Known Drug Allergies Allergy (Verified 07/14/21 10:44) CONTINUE taking the following medications aspirin 81 mg PO DAILY 04/13/22 [History] atorvastatin 40 mg PO QHS 04/13/22 [History] carvedilol 25 mg PO BID 04/13/22 [History] famotidine 40 mg PO DAILY 04/13/22 [History] furosemide 40 mg PO DAILY 04/13/22 [History] glipizide 10 mg PO QHS 04/13/22 [History] glipizide 20 mg PO QAM 04/13/22 [History] losartan 25 mg PO BID 04/13/22 [History] pioglitazone 15 mg PO DAILY 04/13/22 [History] Follow up and Referral Follow Up: 1 Week (PCP) Discharge Disposition Discharge Disposition: Home Discharge Condition: Stable Discharge Plan Discharge Plan Hospital Course: Mr Wells is a 71y/o male with a PMH of Type 2 diabetes, HTN, CAD and GERD presented with dizziness and generalized weakness. He states he was standing up in the kitchen when he felt lightheaded. He did not pass out. He recently had cholecystectomy about a week ago in [place]. He reports not eating well since being discharged. He denies nausea or vomiting, reports some diarrhea. Denies fever or chills. He has a hx of DM, not on insulin, reports FSBG being elevated lately. He sees Dr Maria and had a stress test in January. Denies chest pain or SOB. ER work up showed worsening renal function with Cr 3.53. Cardiac enzymes were negative. He was started on IV hydration. Carotid U/S was also done which showed moderate plaque burden with no high grade stenosis. His renal function improved with hydration and he was tolerating PO intake. PT/OT was also consulted and patient was able to ambulate. He was stable for discharge. Patient's chlorthalidone was held on discharge. He sees Dr Yadav (nephro), will follow up with him and PCP as scheduled. He will need a repeat BMP to follow renal function. Patient Disposition: 01 HOME, SELF-CARE Condition: Stable Health Concerns: Post Hospitalization: new medications and changes needed to prevent readmission or further decline. Pt educated and given instructions on all concerns. Plan of Treatment: Continue with present treatment and follow up plan. Pt is to keep follow up appointment as instructed and take medications as ordered. Prescription drug monitoring program results: PDMP reviewed and no concerns identified Prescriptions: Continued furosemide 40 mg tablet 40 mg PO DAILY RF: 0 pioglitazone 15 mg tablet 15 mg PO DAILY RF: 0 atorvastatin 40 mg tablet 40 mg PO QHS RF: 0 carvedilol 25 mg tablet 25 mg PO BID RF: 0 glipizide 10 mg tablet 10 mg PO QHS RF: 0 glipizide 10 mg tablet 20 mg PO QAM RF: 0 famotidine 40 mg tablet 40 mg PO DAILY RF: 0 losartan 25 mg tablet 25 mg PO BID RF: 0 aspirin 81 mg Tablet 81 mg PO DAILY RF: 0 Discontinued chlorthalidone 25 mg tablet 25 mg PO DAILY RF: 0 allopurinol 100 mg tablet 200 mg PO DAILY RF: 0 Follow ups/Referrals Follow ups/Referrals: CLARA WONG [Primary Care Provider] - 04/21/22 1:30 pm MIKE YADAV [REFERRING] - 04/22/22 10:45 am Instructions Instructions: Food Choices for Gastroesophageal Reflux Disease, Adult, Heartburn, Near-Syncope, [id number], Near-Syncope, Syncope, [id number] Activity Restrictions/Additional Instructions: Do not take chlorthalidone and allopurinol until seen by Sary Wong, need to repeat BMP to follow renal function Can resume all other home medications as prescribed Stand Alone Forms: Excuse From Work or School, Precautions for COVID19, [facility], Patient Portal, Social Distancing
[2022-04-15 11:22] VITALS: BP 173/77
== END 2022-04-15 11:10 | disposition home or self-care (01) | DRG 312 ==
LOC: ER 21:32 → MED/SURG 04-13 02:20
PROVIDERS: ADMIT Family Medicine; ATTEND Family Medicine
DX: N13.2 Hydronephrosis with renal and ureteral calculous obstruction; K21.9 Gastro-esophageal reflux disease without esophagitis; N17.8 Other acute kidney failure; I13.0 Hypertensive heart and chronic kidney disease with heart failure and stage 1 through stage 4 chronic kidney disease, or unspecified chronic kidney disease; E83.52 Hypercalcemia; R55 Syncope and collapse; Z20.822 Contact with and (suspected) exposure to COVID-19; R26.89 Other abnormalities of gait and mobility; Z79.899 Other long term (current) drug therapy; I95.89 Other hypotension; E86.0 Dehydration; E11.65 Type 2 diabetes mellitus with hyperglycemia; R79.89 Other specified abnormal findings of blood chemistry

== ENCOUNTER 2023-05-30 12:20 | Observation (INO) ==
--- NOTE | 2023-05-30 13:20 | DR.GENAD ---
HPI Time Seen Time Seen by Provider: 05/30/23 13:19 PCP Primary Care Physician: Sary Wong Complaint/Symptoms Chief Complaint:: Pt states he has fluid build up in his legs, feet and hands. He noticed it last week. Pt says HR has been running from 48 -60. HR currently 71 in triage. Pt says 02 has dropped into the 70's a few times this past week. Denies ever being prescribed home 02. Current 02 96% on room air. Pt says he has a PMH of COPD and PNA. PT goes to pulmonary rehab twice a week. Self Treatment fo Chief Complaint: Nebs Source History Provided: Patient Mode of Arrival Mode of Arrival: Ambulatory Timing Onset of Chief Complaint: 05/23/23 PMH PMH Past Medical History: Yes Past Medical History: Arthritis, CHF, COPD, Diabetes, Gout and Hypertension Past Surgical History: Yes Surgical History: Cholecystectomy, Joint Replacement and Ortho Surgery Past Surgical History Comment: Ortho Back, bilat knee replacement, cataracts Family History History of Family Medical Conditions: Yes Family Medical History: Diabetes Mellitus and Cancer Social History Have you used tobacco products in the last 12 months: No Type of Tobacco Use: None Alcohol Use: None Do you use any recreational Drugs:: No Lives With: Spouse Lives Where: Home Infectious screening In the last 2 months have you had wt loss of >10#?: NO Have you traveled outside the country in the last 6 months?: No Isolation: Standard PE Vital Signs Vitals: Vital Signs Pulse Rate [Right] 84 Pulse Rate [Right] 87 Pulse Rate [Right] 75 Respiratory Rate 20 Respiratory Rate 20 Respiratory Rate 18 Blood Pressure [Right Arm] 152/79 Blood Pressure [Right Arm] 169/80 O2 Sat by Pulse Oximetry 92 O2 Sat by Pulse Oximetry 90 ROR Labs Reviewed Result Diagrams: 06/01/23 04:15 06/01/23 04:15 Laboratory: WBC 4.9 X10^3/uL (3.6-10.0) 05/30/23 14:10 RBC 3.19 X10^6/uL (4.7-6.0) L 05/30/23 14:10 Hgb 9.5 g/dL (13.5-18.0) L 05/30/23 14:10 Hct 27.7 % (42.0-54.0) L 05/30/23 14:10 MCV 86.9 fL (80.0-100.0) 05/30/23 14:10 MCH 29.6 pg (27.0-34.0) 05/30/23 14:10 MCHC 34.1 g/dL (33.0-35.0) 05/30/23 14:10 RDW 16.1 % (11.6-16.5) 05/30/23 14:10 Plt Count 177 X10^3/uL (150.0-450.0) 05/30/23 14:10 MPV 8.2 fL (7.4-11.0) 05/30/23 14:10 Neut % (Auto) 68.8 % (42.0-75.0) 05/30/23 14:10 Lymph % (Auto) 16.5 % (21.0-51.0) L 05/30/23 14:10 [place] % (Auto) 8.3 % (0.0-13.0) 05/30/23 14:10 Eos % (Auto) 4.6 % (0.9-2.9) H 05/30/23 14:10 Baso % (Auto) 1.8 % (0.2-1.0) H 05/30/23 14:10 Neut # (Auto) 3.4 x10^3/uL (2.2-4.8) 05/30/23 14:10 Lymph # (Auto) 0.8 X10^3/uL (1.3-2.9) L 05/30/23 14:10 [place] # (Auto) 0.4 x10^3/uL (0.3-0.8) 05/30/23 14:10 Eos # (Auto) 0.2 x10^3/uL (0.0-0.2) 05/30/23 14:10 Baso # (Auto) 0.1 X10^3/uL (0.0-0.1) 05/30/23 14:10 Absolute Nucleated RBC 0.0 /100WBC 05/30/23 14:10 Sodium 143 mmol/L (136-145) 05/30/23 14:10 Corrected Sodium 146 mmol/L (136-145) H 05/30/23 14:10 Potassium 4.4 mmol/L (3.5-5.1) 05/30/23 14:10 Chloride 105 mmol/L (98-107) 05/30/23 14:10 Carbon Dioxide 25.0 mmol/L (21-32) 05/30/23 14:10 BUN 48 mg/dL (7-18) H 05/30/23 14:10 Creatinine 1.84 mg/dL (0.70-1.30) H 05/30/23 14:10 Est GFR (MDRD) Af Amer 47 (>60) L 05/30/23 14:10 Est GFR (MDRD) Non-Af 39 (>60) L 05/30/23 14:10 Glucose 223 mg/dL (65-99) H 05/30/23 14:10 Calcium 8.2 mg/dL (8.5-10.1) L 05/30/23 14:10 Corrected Calcium TNP 05/30/23 14:10 Total Bilirubin 1.00 mg/dL (0.2-1.0) 05/30/23 14:10 AST 15 Units/L (15-37) 05/30/23 14:10 ALT 17 Units/L (12-78) 05/30/23 14:10 Alkaline Phosphatase 111 Units/L (46-116) 05/30/23 14:10 Creatine Kinase 89 Units/L (39-308) 05/30/23 14:10 Troponin I High Sens 22.7 ng/L (4.0-60.0) 05/30/23 14:10 B-Natriuretic Peptide 1410 pg/mL (0-79) H* 05/30/23 14:10 Total Protein 6.7 g/dL (6.4-8.2) 05/30/23 14:10 Albumin 3.7 g/dL (3.4-5.0) 05/30/23 14:10 Globulin 3.0 g/dL (2.5-4.5) 05/30/23 14:10 Albumin/Globulin Ratio 1.2 Ratio (1.1-2.1) 05/30/23 14:10 Opioid Opioid Risk Tool Age (Petr box if 16-45): No History of Preadolescent Sexual Abuse: No Total: 0 Total Score Risk Category: Low Risk Copyright: Sujit SIM predicting aberrant behaviors Discharge Plan Diagnosis Discharge Problem: CHF (congestive heart failure) Qualifiers: Heart failure type: unspecified Heart failure chronicity: acute on chronic Qualified Code(s): I50.9 - Heart failure, unspecified Discharge Plan Patient Disposition: ADMITTED INPATIENT Condition: Stable
[2023-05-30] MEDS ORDERED: LASIX IVP ONE ×2 (13:59→14:03)
[2023-05-30] MEDS ORDERED: LASIX ONE (14:03)
--- NOTE | 2023-05-30 14:16 | EKG ---
Test Reason : CHF Blood Pressure : */* mmHG Vent. Rate : 73 BPM Atrial Rate : 73 BPM P-R Int : 136 ms QRS Dur : 168 ms QT Int : 490 ms P-R-T Axes : 32 -29 85 degrees QTc Int : 539 ms Normal sinus rhythm Right bundle branch block Abnormal ECG No previous ECGs available Confirmed by Kenji Maria ([id number]) on 05/31/2023 5:51:53 PM Referred By: Confirmed By: Kenji Maria
[2023-05-30 14:22] LABS: BASOPHILS # (AUTO) 0.1 X10^3/uL (0.0-0.1); EOSINOPHILS # (AUTO) 0.2 x10^3/uL (0.0-0.2); MEAN CORPUSCULAR HEMOGLOBIN 29.6 pg (27.0-34.0); MEAN CORPUSCULAR HGB CONC 34.1 g/dL (33.0-35.0); MONOCYTES # (AUTO) 0.4 x10^3/uL (0.3-0.8); PLATELET COUNT 177 X10^3/uL (150.0-450.0); WHITE BLOOD COUNT 4.9 X10^3/uL (3.6-10.0)
[2023-05-30 14:25] LABS: BASOPHILS % (AUTO) 1.8 % (0.2-1.0); EOSINOPHILS % (AUTO) 4.6 % (0.9-2.9); HEMATOCRIT 27.7 % (42.0-54.0); HEMOGLOBIN 9.5 g/dL (13.5-18.0); LYMPHOCYTES # (AUTO) 0.8 X10^3/uL (1.3-2.9); LYMPHOCYTES % (AUTO) 16.5 % (21.0-51.0); MEAN CORPUSCULAR VOLUME 86.9 fL (80.0-100.0); MEAN PLATELET VOLUME 8.2 fL (7.4-11.0); MONOCYTES % (AUTO) 8.3 % (0.0-13.0); NEUTROPHILS # (AUTO) 3.4 x10^3/uL (2.2-4.8); NEUTROPHILS % (AUTO) 68.8 % (42.0-75.0); RED BLOOD COUNT 3.19 X10^6/uL (4.7-6.0); RED CELL DISTRIBUTION WIDTH 16.1 % (11.6-16.5)
[2023-05-30 14:35] LABS: ALANINE AMINOTRANSFERASE 17 Units/L (12-78); ALBUMIN 3.7 g/dL (3.4-5.0); ALKALINE PHOSPHATASE 111 Units/L (46-116); ASPARTATE AMINO TRANSFERASE 15 Units/L (15-37); BLOOD UREA NITROGEN 48 mg/dL (7-18); CALCIUM 8.2 mg/dL (8.5-10.1); CHLORIDE 105 mmol/L (98-107); COR NA(FOR HYPERGLY) 146 mmol/L (136-145); CREATINE KINASE 89 Units/L (39-308); CREATININE 1.84 mg/dL (0.70-1.30); GLUCOSE 223 mg/dL (65-99); POTASSIUM 4.4 mmol/L (3.5-5.1); SODIUM 143 mmol/L (136-145); TOTAL PROTEIN 6.7 g/dL (6.4-8.2); eGFR NON BLACK RACES 39 (>60)
[2023-05-30 23:11] VITALS: BMI 45.1
--- NOTE | 2023-05-31 01:00 | RAD ---
HISTORYfluid build up in his legs, feet and hands. Pt says HR has been running from 48 -60. HR currently 71 in triage. Pt says he has a PMH of COPD and PNA. PT goes to pulmonary rehab twice a week.STUDYCHEST, 1 VIEWCOMPARISONBanner [facility] Centeruary 2021TECHNIQUEChest radiographic imaging, AP portable projection, 1 imageFINDINGSModerate cardiomegaly.Hazy peripheral bilateral airspace opacities in the midlung.Mild increased interstitial markings.No pleural effusion.No pneumothorax.No acute osseous abnormality.IMPRESSIONFindings could represent mild acute cardiogenic edema and/or chronic changes. Hazy peripheral airspace opacities could be related to pulmonary edema; although a superimposed infectious process cannot be excluded.Electronically signed by: Adelso Campbell (May 31, 2023 00:59:08)
[2023-05-31 05:10] LABS: BASOPHILS # (AUTO) 0.1 X10^3/uL (0.0-0.1); BASOPHILS % (AUTO) 1.7 % (0.2-1.0); EOSINOPHILS # (AUTO) 0.3 x10^3/uL (0.0-0.2); EOSINOPHILS % (AUTO) 5.4 % (0.9-2.9); HEMATOCRIT 26.2 % (42.0-54.0); LYMPHOCYTES % (AUTO) 20.3 % (21.0-51.0); MEAN CORPUSCULAR HEMOGLOBIN 29.5 pg (27.0-34.0); MEAN CORPUSCULAR HGB CONC 34.4 g/dL (33.0-35.0); MEAN CORPUSCULAR VOLUME 85.8 fL (80.0-100.0); MEAN PLATELET VOLUME 8.3 fL (7.4-11.0); MONOCYTES # (AUTO) 0.5 x10^3/uL (0.3-0.8); MONOCYTES % (AUTO) 9.7 % (0.0-13.0); NEUTROPHILS % (AUTO) 62.9 % (42.0-75.0); PLATELET COUNT 191 X10^3/uL (150.0-450.0); RED BLOOD COUNT 3.05 X10^6/uL (4.7-6.0); RED CELL DISTRIBUTION WIDTH 15.9 % (11.6-16.5); WHITE BLOOD COUNT 4.8 X10^3/uL (3.6-10.0)
[2023-05-31 05:11] LABS: CALCIUM 8.7 mg/dL (8.5-10.1); CARBON DIOXIDE 24.8 mmol/L (21-32); CREATININE 1.53 mg/dL (0.70-1.30); POTASSIUM 3.6 mmol/L (3.5-5.1)
[2023-05-31] MEDS ORDERED: PHARMACY CONSULT - POTASSIUM & MAGNESIUM XX SCH (06:00)
[2023-05-31] MEDS ORDERED: LASIX IVP SCH (09:00)
[2023-05-31] MEDS ORDERED: PEPCID TAB 40 MG PO SCH (09:00)
[2023-05-31] MEDS ORDERED: PATIENT'S HOME MEDICATION (Magnesium Oxide 400 mg magnesium Tablet) PO SCH (09:00)
[2023-05-31] MEDS ORDERED: MICRO K EXTEN CAP 10 MEQ PO SCH (09:00)
[2023-05-31] MEDS: MAG-OX TAB PO SCH ×2 (09:04→20:30)
[2023-05-31] MEDS: PriLOSEC PO SCH (09:04)
[2023-05-31] MEDS: ACTOS PO SCH (09:04)
[2023-05-31] MEDS: AMARYL TAB 4 MG PO SCH ×2 (09:05→20:33)
[2023-05-31] MEDS: COREG TAB 25 MG PO SCH ×2 (09:05→20:30)
[2023-05-31] MEDS: LASIX IVP SCH ×2 (09:16→20:29)
[2023-05-31] MEDS: AMLODIPINE VALSARTAN PO SCH ×2 (09:44→12:58)
--- NOTE | 2023-05-31 17:06 | DR.H&P ---
H&P - History & Physical for Day of: H&P Date: 05/31/23 - Chief Complaint Chief Complaint: SHORT OF BREATH, SWELLING - History of Present Illness History of Present Illness: IS A 72 YEAR OLD PATIENT OF PAT makr. HE PRESENTED TO THE ER WITH COMPLAINTS OF SWELLING OF LOWER EXTREMITIES AND HIS HANDS. HE REPORTS THAT HIS SYMPTOMS STARTED LAST WEEK. HE REPORTS THAT HIS HR HAS BEEN RUNNING 48-60 BPM AND THAT HIS OXYGEN SATURATIONS HAVE BEEN IN THE 70s AND 80s. HE DENIES THE USE OF HOME OXYGEN. HIS PMH INCLUDES ARTHRITIS, CHF, COPD, DIABETES, GOUT, HTN, CHOLECYSTECTOMY, BACK SURGERY, BILATERAL KNEE REPLACEMENTS, CATARACTS. ON EXAMINATION, BILATERAL LUNGS WERE NOTED WITH RHONCHI. ON ARRIVAL, HIS VITALS WERE: 97.7-71-19-93%-130/60. LABS WERE OBTAINED. WBC 4.9, RBC 3.19, HGB 9.5, HCT 27.7, PLT COUNT 177, SODIUM 143, POTASSIUM 4.4, CHLORIDE 105, CARBON DIOXIDE 25.0, BUN 48, CREATININE 1.84, GLUCOSE 223, CALCIUM 8.2, AST 15, ALT 17, ALK PHOS 111, CREATINE KINASE 89, TROPONIN 22.7, BNP 1410, TOTAL PROTEIN 6.7, ALBUMIN 3.7. A CHEST XRAY WAS OBTAINED AND REVEALED: Findings could represent mild acute cardiogenic edema and/or chronic changes. Hazy peripheral airspace opacities could be related to pulmonary edema; although a superimposed infectious process cannot be excluded. EKG REVEALED NORMAL SINUS RHYTHM WITH HR 73 BPM. WHILE IN THE ER, HIS OXYGEN SATURATIONS DROPPED TO 88- 90%. HE WAS PLACED ON OXYGEN VIA NASAL CANNUAL AT 2 LPM. SATURATIONS INCREASED TO 97%. IN THE ER, HE WAS GIVEN LASIX 60MG IV X 1 DOSE. HE WAS ADMITTED TO THE HOSPITAL OBSERVATION STATUS FOR FURTHER EVALUATION AND TREATMENT OF CHF AND EDEMA. HE WAS STARTED ON LASIX 40MG IV BID. HIS HOME MEDICATIONS OF ECOTRIN, LIPITOR, COREG, PLAVIX, FERROUS GLUCONATE, AMARYL, MAG OX, PRILOSEC, AND ACTOS WERE RESUMED. OTHERWISE, WE PLAN TO FOLLOW UP WITH AM LABS AND CONTINUE TO MONITOR. TIME SPENT ON CLINICAL ASSESSMENT, REVIEWING LABS AND IMAGING, DECISION MAKING, AND DOCUMENTATION GREATER THAN 75 MINUTES. - Past Medical History Past Medical History: Hypertension, Diabetes, COPD, Arthritis, Gout, CHF - Past Surgical History Surgical History: Ortho Surgery - Family History Family Medical History: Diabetes Mellitus, Cancer - Social History Have you used tobacco products in the last 12 months: No Type of Tobacco Use: None Alcohol Use: None Drug Use: None - Review of Systems Constitutional: Weakness Eyes: No Symptoms Reported ENT: No Symptoms Reported Respiratory: Shortness of Breath Cardiovascular: Edema (BILATERAL LOWER EXTREMITIES ) Gastrointestinal: No Symptoms Reported Genitourinary: No Symptoms Reported Musculoskeletal: No Symptoms Reported Skin: No Symptoms Reported Neurological: Weakness - Physical Exam Vital Signs: Vital Signs Temperature 97.2 F Pulse Rate 72 Pulse Rate 63 Pulse Rate 71 Pulse Rate 75 Pulse Rate 75 Pulse Rate 79 Pulse Rate 81 Pulse Rate 78 Pulse Rate 80 Respiratory Rate 14 Respiratory Rate 25 Respiratory Rate 14 Respiratory Rate 17 Respiratory Rate 17 Respiratory Rate 19 Respiratory Rate 17 Respiratory Rate 15 Respiratory Rate 24 Blood Pressure 142/73 Blood Pressure 147/72 Blood Pressure 136/65 Blood Pressure 161/76 Blood Pressure 162/79 Blood Pressure 162/78 Blood Pressure 157/76 Blood Pressure 144/70 O2 Sat by Pulse Oximetry 93 O2 Sat by Pulse Oximetry 92 O2 Sat by Pulse Oximetry 92 O2 Sat by Pulse Oximetry 93 O2 Sat by Pulse Oximetry 93 O2 Sat by Pulse Oximetry 92 O2 Sat by Pulse Oximetry 86 O2 Sat by Pulse Oximetry 93 O2 Sat by Pulse Oximetry 90 Oriented: Normal Eyes: Normal Ear: Normal Nose: Normal Throat: Normal Respiratory: Rhonchi Throughout Cardiovascular: Edema (BLE T+ PITTING EDEMA ) : Normal Auscultation: Bowel Sounds: Normal Palpation: Normal Tenderness: Normal Skin: Normal Musculoskeletal: Back:Lumbar, Tender Psychiatric: Normal Affect: Quiet Speech Pattern: Clear - Assessment/Plan (1) CHF (congestive heart failure) Qualifiers: Heart failure type: unspecified Heart failure chronicity: acute on chronic Qualified Code(s): I50.9 - Heart failure, unspecified Status: Acute Plan: ADMIT, SUPPLEMENTAL OXYGEN, LASIX 40MG IV BID, CONTINUE HOME MEDS (2) Edema Qualifiers: Edema type: unspecified Qualified Code(s): R60.9 - Edema, unspecified Status: Acute (3) GERD (gastroesophageal reflux disease) Qualifiers: Esophagitis presence: esophagitis presence not specified Qualified Code(s): K21.9 - Gastro-esophageal reflux disease without esophagitis Status: Chronic (4) Type 2 diabetes mellitus Qualifiers: Diabetes mellitus fci insulin use: without fci use Diabetes mellitus complication status: without complication Qualified Code(s): E11.9 - Type 2 diabetes mellitus without complications Status: Chronic Plan: CONTINUE AMARYL, CONTINUE ACTOS (5) HTN (hypertension) Qualifiers: Hypertension type: primary hypertension Qualified Code(s): I10 - Essential (primary) hypertension Status: Chronic Plan: STABLE. CONTINUE COREG, ECOTRIN (6) COPD (chronic obstructive pulmonary disease) Qualifiers: COPD type: unspecified COPD Qualified Code(s): J44.9 - Chronic obstructive pulmonary disease, unspecified Status: Acute - Allergies Allergies/Adverse Reactions: Allergies Allergy/AdvReac Type Severity Reaction Status Date / Time No Known Drug Allergies Allergy Verified 07/14/21 10:44 - Medications Home Medications: Home Medications Medication Instructions Recorded Confirmed atorvastatin 40 mg tablet 40 mg PO QHS 04/13/22 05/30/23 carvedilol 25 mg tablet 25 mg PO BID 04/13/22 05/30/23 famotidine 40 mg tablet 40 mg PO QAM 04/13/22 05/30/23 pioglitazone 15 mg tablet 15 mg PO QAM 04/13/22 05/30/23 amlodipine 10 mg-valsartan 160 mg 1 tab PO QAM 05/30/23 05/30/23 tablet aspirin 81 mg tablet,delayed 81 mg PO QPM 05/30/23 05/30/23 release ferrous sulfate 324 mg (65 mg 324 mg PO QPM 05/30/23 05/30/23 iron) tablet,delayed release glimepiride 4 mg tablet 4 mg PO BID 05/30/23 05/30/23 magnesium oxide 400 mg PO BID 05/30/23 05/30/23 omeprazole 40 mg capsule,delayed 40 mg PO QAM 05/30/23 05/30/23 release torsemide 20 mg tablet 20 mg PO QAM 05/30/23 05/30/23
[2023-05-31] MEDS ORDERED: SNACK - Diabetic Appropriate PO SCH (20:00)
[2023-05-31] MEDS ORDERED: FERROUS GLUCONATE PO SCH (21:00)
[2023-05-31] MEDS ORDERED: FERROUS SULFATE PO SCH (21:00)
[2023-05-31] MEDS ORDERED: ASPIRIN EC 81 MG PO SCH (21:00)
[2023-05-31] MEDS ORDERED: LIPITOR TAB 40 MG PO SCH (21:00)
[2023-05-31] MEDS ORDERED: [UNRECOGNIZED DRUG - OTHER] PO SCH (21:00)
[2023-06-01 04:35] VITALS: TEMP 98.3
[2023-06-01 05:41] LABS: BASOPHILS # (AUTO) 0.1 X10^3/uL (0.0-0.1); BASOPHILS % (AUTO) 1.9 % (0.2-1.0); EOSINOPHILS # (AUTO) 0.2 x10^3/uL (0.0-0.2); HEMATOCRIT 26.3 % (42.0-54.0); HEMOGLOBIN 9.2 g/dL (13.5-18.0); LYMPHOCYTES # (AUTO) 1.2 X10^3/uL (1.3-2.9); LYMPHOCYTES % (AUTO) 22.1 % (21.0-51.0); MEAN CORPUSCULAR HEMOGLOBIN 29.6 pg (27.0-34.0); MEAN CORPUSCULAR HGB CONC 34.9 g/dL (33.0-35.0); MEAN CORPUSCULAR VOLUME 84.9 fL (80.0-100.0); MEAN PLATELET VOLUME 8.4 fL (7.4-11.0); MONOCYTES # (AUTO) 0.6 x10^3/uL (0.3-0.8); MONOCYTES % (AUTO) 10.7 % (0.0-13.0); NEUTROPHILS # (AUTO) 3.4 x10^3/uL (2.2-4.8); NEUTROPHILS % (AUTO) 62.3 % (42.0-75.0); PLATELET COUNT 182 X10^3/uL (150.0-450.0); RED CELL DISTRIBUTION WIDTH 16.3 % (11.6-16.5); WHITE BLOOD COUNT 5.4 X10^3/uL (3.6-10.0)
[2023-06-01 05:52] LABS: BLOOD UREA NITROGEN 35 mg/dL (7-18); CALCIUM 8.5 mg/dL (8.5-10.1); CARBON DIOXIDE 27.1 mmol/L (21-32); CHLORIDE 107 mmol/L (98-107); CREATININE 1.58 mg/dL (0.70-1.30); GLUCOSE 96 mg/dL (65-99); POTASSIUM 3.6 mmol/L (3.5-5.1); SODIUM 143 mmol/L (136-145); eGFR NON BLACK RACES 46 (>60)
[2023-06-01] MEDS: AMARYL TAB 4 MG PO SCH (08:17)
[2023-06-01] MEDS: LASIX IVP SCH (08:17)
[2023-06-01] MEDS: COREG TAB 25 MG PO SCH (08:17)
[2023-06-01] MEDS: ACTOS PO SCH (08:17)
[2023-06-01] MEDS: PriLOSEC PO SCH (08:18)
[2023-06-01] MEDS: AMLODIPINE VALSARTAN PO SCH (08:18)
[2023-06-01] MEDS: MAG-OX TAB PO SCH (08:18)
[2023-06-01] MEDS ORDERED: PEPCID TAB 20 MG PO SCH (09:00)
[2023-06-01] MEDS ORDERED: AMLODIPINE VALSARTAN PO SCH (09:00)
[2023-06-01] MEDS ORDERED: DIOVAN TAB 160 MG PO SCH (09:00)
[2023-06-01] MEDS ORDERED: NORVASC TAB 10 MG PO SCH (09:00)
[2023-06-01 11:17] VITALS: BP 146/76; PULSE 76; RESP 16; O2SAT 98
[2023-06-01 22:32] LABS: ALANINE AMINOTRANSFERASE 14 Units/L (12-78); ALBUMIN 3.2 g/dL (3.4-5.0); ALKALINE PHOSPHATASE 80 Units/L (46-116); ASPARTATE AMINO TRANSFERASE 14 Units/L (15-37); COR CA(FOR HYPOALB) 9.1 mg/dL (8.5-10.1)
--- NOTE | 2023-06-01 22:52 | RAD ---
HISTORYSOB Relevant Clinical InformationSTUDYCHEST, 1 [id number]/03/2023. 12/03/2021.FINDINGSThe trachea is midline. The cardiac silhouette is enlarged but stable. There is atherosclerosis in the tortuous aorta. There are chronic coarsened interstitial markings similar to the earlier study. There is no focal airspace opacity and no pleural effusion. The bony thorax is unremarkable.IMPRESSION1. Stable cardiomegaly. 2. Persistent prominence of the interstitial markings. Question chronic interstitial lung disease versus mild edema.Electronically signed by: Bertram No (Jun 01, 2023 22:51:08)
== END 2023-06-01 11:25 | disposition home health service (06) ==
LOC: ER 12:20 → ICU 12:20
PROVIDERS: ADMIT Internal Medicine; ATTEND Internal Medicine

== ENCOUNTER 2023-09-29 10:51 | Inpatient (IN) ==
--- NOTE | 2023-09-29 11:32 | EKG ---
Test Reason : SOB Blood Pressure : */* mmHG Vent. Rate : 70 BPM Atrial Rate : 70 BPM P-R Int : 162 ms QRS Dur : 168 ms QT Int : 472 ms P-R-T Axes : 20 -33 127 degrees QTc Int : 509 ms Normal sinus rhythm Left axis deviation Right bundle branch block T wave abnormality, consider lateral ischemia Abnormal ECG When compared with ECG of 30-MAY-2023 14:14, Inverted T waves have replaced nonspecific T wave abnormality in Anterolateral leads Referred By: Confirmed By:
[2023-09-29 11:35] LABS: BASOPHILS # (AUTO) 0.2 X10^3/uL (0.0-0.1); EOSINOPHILS # (AUTO) 0.4 x10^3/uL (0.0-0.2); EOSINOPHILS % (AUTO) 7.6 % (0.9-2.9); HEMATOCRIT 29.9 % (42.0-54.0); LYMPHOCYTES # (AUTO) 0.7 X10^3/uL (1.3-2.9); LYMPHOCYTES % (AUTO) 12.5 % (21.0-51.0); MEAN CORPUSCULAR HEMOGLOBIN 30.4 pg (27.0-34.0); MEAN CORPUSCULAR HGB CONC 33.3 g/dL (33.0-35.0); MEAN CORPUSCULAR VOLUME 91.1 fL (80.0-100.0); MEAN PLATELET VOLUME 8.9 fL (7.4-11.0); MONOCYTES # (AUTO) 0.3 x10^3/uL (0.3-0.8); NEUTROPHILS # (AUTO) 4.1 x10^3/uL (2.2-4.8); NEUTROPHILS % (AUTO) 70.9 % (42.0-75.0); PLATELET COUNT 157 X10^3/uL (150.0-450.0); RED BLOOD COUNT 3.29 X10^6/uL (4.7-6.0); RED CELL DISTRIBUTION WIDTH 20.7 % (11.6-16.5); WHITE BLOOD COUNT 5.8 X10^3/uL (3.6-10.0)
--- NOTE | 2023-09-29 11:35 | DR.SOBA ---
HPI Time Seen Time Seen by Provider: 09/29/23 11:33 Primary Care Physician Primary Care Physician: Sary Wong Complaints Chief Complaint Doctors Comments: 72-year-old male brought in by EMS for evaluation. Having worsening shortness of breath over the past few days. Does have a history of congestive heart failure. Has had worsening swelling of his l ower extremities, with a weight gain. Shortness of breath worse with exertion. Better with rest. Denies any fever, chills, upper respiratory symptoms. No significant coughing. Denies any bowel or bladder issues. Has recently established with Dr. Flaherty, cardiology. Chief Complaint:: Pt presents to ER via EMS stretcher w/ c/o shortness of breath, increasing over "last few days". Uses home O2 at HS at home, placed on 2L per EMS d/t O2 sats low on arrival. Pt denies pain at this time COVID-19 Coronavirus risk:travel/contact w/high risk person: No Has patient experienced Coronavirus symptoms: Yes Coronavirus symptoms experienced: Shortness of Breath Reviewed Nurses Notes Reviewed: Yes Source History Provided: Patient, Family Member and EMS Mode of Arrival Mode of Arrival: EMS Timing Onset of Chief Complaint: 09/29/23 PMH PMH Past Medical History: Yes Past Medical History: Arthritis, CHF, COPD, Diabetes, Dyslipidemia, GERD, Gout, Hypertension, Kidney Stones and Renal Disease Past Surgical History: Yes Surgical History: Cholecystectomy and Ortho Surgery Past Surgical History Comment: cataracts Family History History of Family Medical Conditions: Yes Family Medical History: Diabetes Mellitus and Cancer Social History Does patient currently use any type of tobacco product: No Have you used tobacco products in the last 12 months: No Type of Tobacco Use: None Does any household member use tobacco: No Alcohol Use: None Do you use any recreational Drugs:: No Lives With: Spouse Lives Where: Home Travel Risk Coronavirus risk:travel/contact w/high risk person: No Has patient experienced Coronavirus symptoms: Yes Coronavirus symptoms experienced: Shortness of Breath Infectious screening In the last 2 months have you had wt loss of >10#?: NO Have you had fever, night sweats or hemotysis?: No Have you traveled outside the country in the last 6 months?: No Isolation: Standard ROS Review of Systems Constitutional: Weakness Eyes: No Symptoms Reported ENTM: No Symptoms Reported Respiratoy: Short of Breath Cardiovascular: No Symptoms Reported Gastrointestinal/Abdominal: No Symptoms Reported Genitourinary: No Symptoms Reported Neurological: No Symptoms Reported Musculoskeletal: No Symptoms Reported Integumentary: No Symptoms Reported Hematologic/Lymphatic: No Symptoms Reported All Other Systems: Reviewed and Negative PE Vital Signs Vitals: Vital Signs Pulse Rate 56 Pulse Rate 62 Pulse Rate 66 Pulse Rate 69 Pulse Rate 70 Pulse Rate 70 Pulse Rate 73 Pulse Rate 77 Pulse Rate 74 Pulse Rate 75 Respiratory Rate 20 Blood Pressure 174/93 Blood Pressure 165/92 Blood Pressure 163/89 Blood Pressure 179/101 Blood Pressure 183/98 Blood Pressure 183/98 O2 Sat by Pulse Oximetry 99 O2 Sat by Pulse Oximetry 97 O2 Sat by Pulse Oximetry 95 O2 Sat by Pulse Oximetry 96 O2 Sat by Pulse Oximetry 97 O2 Sat by Pulse Oximetry 97 O2 Sat by Pulse Oximetry 97 O2 Sat by Pulse Oximetry 98 O2 Sat by Pulse Oximetry 97 O2 Sat by Pulse Oximetry 95 General General Appearance: Alert and In No Apparent Distress Eyes Eye exam: PERRL and EOMI ENT ENT Exam: Mucous Membranes Moist Neck Neck Exam: Normal Inspection Respiratory Respiratory Exam: Other (Has bibasilar rales); negative Accessory Muscle Use or Respiratory Distress Cardiovascular Cardiovascular Exam: Regular Rate, Normal Rhythm and Normal Heart Sounds Abdominal Exam Abdominal Exam: Normal Bowel Sounds, Soft and Tenderness Extremities Extremities Exam: Normal Inspection and Edema (+3 pitting edema bilateral lower exts) Back Back Exam: Normal Inspection Neurologic Neurological Exam: Alert, Oriented X3 and CN II-XII Intact; negative Motor Sensory Deficit Skin Skin Exam: Warm and Dry COURSE Treatment Treatment: 72-year-old male with worsening shortness of breath, edema over the past few days. Does have a history of congestive heart failure. Work-up initiated. Chest x-ray shows congestive heart failure. BNP elevated at 4270. Troponins negative. Given IV furosemide here, recommend admission. Notified his clinical support manager Dr. Flaherty, he will see him tomorrow. Will admit to medicine, Dr. Stovall engineering production liaison. [facility] Labs Reviewed Laboratory Results Reviewed?: Yes 09/29/23 11:30 09/29/23 11:30 Laboratory: WBC 5.8 X10^3/uL (3.6-10.0) 09/29/23 11:30 RBC 3.29 X10^6/uL (4.7-6.0) L 09/29/23 11:30 Hgb 10.0 g/dL (13.5-18.0) L 09/29/23 11:30 Hct 29.9 % (42.0-54.0) L 09/29/23 11:30 MCV 91.1 fL (80.0-100.0) 09/29/23 11:30 MCH 30.4 pg (27.0-34.0) 09/29/23 11:30 MCHC 33.3 g/dL (33.0-35.0) 09/29/23 11:30 RDW 20.7 % (11.6-16.5) H 09/29/23 11:30 Plt Count 157 X10^3/uL (150.0-450.0) 09/29/23 11:30 Plt Count Comment Adequate (ADEQUATE) 09/29/23 11:30 MPV 8.9 fL (7.4-11.0) 09/29/23 11:30 Neut % (Auto) 70.9 % (42.0-75.0) 09/29/23 11:30 Lymph % (Auto) 12.5 % (21.0-51.0) L 09/29/23 11:30 [place] % (Auto) 6.0 % (0.0-13.0) 09/29/23 11:30 Eos % (Auto) 7.6 % (0.9-2.9) H 09/29/23 11:30 Baso % (Auto) 3.0 % (0.2-1.0) H 09/29/23 11:30 Neut # (Auto) 4.1 x10^3/uL (2.2-4.8) 09/29/23 11:30 Lymph # (Auto) 0.7 X10^3/uL (1.3-2.9) L 09/29/23 11:30 [place] # (Auto) 0.3 x10^3/uL (0.3-0.8) 09/29/23 11:30 Eos # (Auto) 0.4 x10^3/uL (0.0-0.2) H 09/29/23 11:30 Baso # (Auto) 0.2 X10^3/uL (0.0-0.1) H 09/29/23 11:30 Absolute Nucleated RBC 0.2 /100WBC 09/29/23 11:30 Plt Morphology Comment Normal (NORMAL) 09/29/23 11:30 RBC Morphology Abnormal (NORMAL) 09/29/23 11:30 Anisocytosis 1+ A 09/29/23 11:30 Teresa Cells 1+ A 09/29/23 11:30 Sodium 141 mmol/L (136-145) 09/29/23 11:30 Corrected Sodium 142 mmol/L (136-145) 09/29/23 11:30 Potassium 3.7 mmol/L (3.5-5.1) 09/29/23 11:30 Chloride 105 mmol/L (98-107) 09/29/23 11:30 Carbon Dioxide 26.3 mmol/L (21-32) 09/29/23 11:30 BUN 27 mg/dL (7-18) H 09/29/23 11:30 Creatinine 1.57 mg/dL (0.70-1.30) H 09/29/23 11:30 Est GFR (MDRD) Af Amer 56 (>60) L 09/29/23 11:30 Est GFR (MDRD) Non-Af 46 (>60) L 09/29/23 11:30 Glucose 147 mg/dL (65-99) H 09/29/23 11:30 Calcium 7.2 mg/dL (8.5-10.1) L 09/29/23 11:30 Corrected Calcium 8.1 mg/dL (8.5-10.1) L 09/29/23 11:30 Total Bilirubin 1.60 mg/dL (0.2-1.0) H 09/29/23 11:30 AST 17 Units/L (15-37) 09/29/23 11:30 ALT 14 Units/L (12-78) 09/29/23 11:30 Alkaline Phosphatase 117 Units/L (46-116) H 09/29/23 11:30 Creatine Kinase 76 Units/L (39-308) 09/29/23 11:30 Troponin I High Sens 27.0 ng/L (4.0-60.0) 09/29/23 11:30 B-Natriuretic Peptide 4270 pg/mL (0-79) H 09/29/23 11:30 Total Protein 6.1 g/dL (6.4-8.2) L 09/29/23 11:30 Albumin 2.9 g/dL (3.4-5.0) L 09/29/23 11:30 Globulin 3.2 g/dL (2.5-4.5) 09/29/23 11:30 Albumin/Globulin Ratio 0.9 Ratio (1.1-2.1) L 09/29/23 11:30 SARS CoV-2 RNA Rapid YASMINE Negative (NEGATIVE) 09/29/23 11:44 Has mild anemia, hemoglobin 10.0. Elevated BNP, EKG Rate: 71 [place]: LAD Opioid Opioid Risk Tool Age (Petr box if 16-45): No History of Preadolescent Sexual Abuse: No Total: 0 Total Score Risk Category: Low Risk Copyright: Sujit SIM predicting aberrant behaviors Discharge Plan Diagnosis Discharge Problem: Acute exacerbation of CHF (congestive heart failure) Discharge Plan Patient Disposition: 09 ADMITTED INPATIENT Condition: Stable Orders to Discharge Patient Discharge Orders: Transfer (Routine); Ordered 09/29/23 Ordered By: Og Montoya
[2023-09-29 11:46] LABS: ANISOCYTOSIS 1+; BURR CELLS 1+; PLATELET MORPHOLOGY COMMENT NORMAL (NORMAL)
[2023-09-29 11:53] LABS: ALBUMIN 2.9 g/dL (3.4-5.0); CALCIUM 7.2 mg/dL (8.5-10.1); CARBON DIOXIDE 26.3 mmol/L (21-32); COR CA(FOR HYPOALB) 8.1 mg/dL (8.5-10.1); CREATININE 1.57 mg/dL (0.70-1.30); POTASSIUM 3.7 mmol/L (3.5-5.1); TOTAL PROTEIN 6.1 g/dL (6.4-8.2)
[2023-09-29] MEDS ORDERED: LASIX IVP ONE ×2 (12:28→12:31)
--- NOTE | 2023-09-29 14:34 | RAD ---
EXAM:CHEST, 1 VIEWHISTORY:SOB X 1 WEEK; Uses home O2 at HS at home, placed on 2L per EMS d/t O2 sats low on arrival.COMPARISON:06/01/2023FINDINGS:Th e lungs are not as well inflated as on prior baseline study. Linear areas in the right lung base are probably focal scarring, unchanged from prior study. No evidence for pneumonia or pleural effusion.Cardiomegaly is unchanged. There are calcifications in the arteries consistent with atherosclerosis.Degenerative changes in the right shoulder and to a lesser extent the left shoulder.IMPRESSION:1. No acute lung findings2. Stable right basilar focal scarring3. Stable cardiomegalyTHIS IS AN ELECTRONICALLY VERIFIED FINAL [id number]/29/2023 2:31 PM - Electronically signed by Yazan Morejon MD
[2023-09-29 15:05] VITALS: BMI 34.1
[2023-09-29] MEDS ORDERED: LASIX IVP SCH (17:00)
[2023-09-29] MEDS ORDERED: PULMICORT NEB TX 0.5 MG NEB ONE (19:53)
[2023-09-29] MEDS ORDERED: XOPENEX 1.25 MG/3 ML NEBULE NEB ONE (19:53)
[2023-09-29] MEDS: PULMICORT NEB TX 0.5 MG NEB SCH (20:03)
[2023-09-29] MEDS: XOPENEX 1.25 MG/3 ML NEBULE NEB SCH (20:03)
[2023-09-29] MEDS: ENTRESTO 49/51 MG TABLET PO SCH (20:12)
[2023-09-29] MEDS: AMARYL TAB 4 MG PO SCH (20:13)
[2023-09-29] MEDS: COREG TAB 25 MG PO SCH (20:13)
[2023-09-29] MEDS: ASPIRIN EC 81 MG PO SCH (20:13)
[2023-09-29] MEDS: DEMADEX PO SCH (20:13)
[2023-09-29] MEDS: FERROUS GLUCONATE PO SCH (20:13)
[2023-09-29] MEDS: SNACK - Diabetic Appropriate PO SCH (20:16)
[2023-09-29] MEDS ORDERED: MAG-OX TAB PO SCH (21:00)
[2023-09-30] MEDS: XOPENEX 1.25 MG/3 ML NEBULE NEB SCH ×4 (05:22→21:23)
[2023-09-30 05:25] LABS: BASOPHILS # (AUTO) 0.1 X10^3/uL (0.0-0.1); BASOPHILS % (AUTO) 1.8 % (0.2-1.0); EOSINOPHILS # (AUTO) 0.4 x10^3/uL (0.0-0.2); EOSINOPHILS % (AUTO) 7.1 % (0.9-2.9); HEMATOCRIT 28.3 % (42.0-54.0); HEMOGLOBIN 9.5 g/dL (13.5-18.0); LYMPHOCYTES # (AUTO) 0.9 X10^3/uL (1.3-2.9); LYMPHOCYTES % (AUTO) 15.2 % (21.0-51.0); MEAN CORPUSCULAR HEMOGLOBIN 30.1 pg (27.0-34.0); MEAN CORPUSCULAR HGB CONC 33.4 g/dL (33.0-35.0); MEAN CORPUSCULAR VOLUME 90.1 fL (80.0-100.0); MEAN PLATELET VOLUME 9.2 fL (7.4-11.0); MONOCYTES # (AUTO) 0.3 x10^3/uL (0.3-0.8); MONOCYTES % (AUTO) 5.2 % (0.0-13.0); NEUTROPHILS % (AUTO) 70.7 % (42.0-75.0); PLATELET COUNT 147 X10^3/uL (150.0-450.0); RED BLOOD COUNT 3.15 X10^6/uL (4.7-6.0); RED CELL DISTRIBUTION WIDTH 20.7 % (11.6-16.5); WHITE BLOOD COUNT 5.6 X10^3/uL (3.6-10.0)
[2023-09-30 05:42] LABS: ALBUMIN 2.8 g/dL (3.4-5.0); CALCIUM 7.1 mg/dL (8.5-10.1); CARBON DIOXIDE 27.9 mmol/L (21-32); COR CA(FOR HYPOALB) 8.1 mg/dL (8.5-10.1); CREATININE 1.64 mg/dL (0.70-1.30); POTASSIUM 3.5 mmol/L (3.5-5.1); TOTAL PROTEIN 5.8 g/dL (6.4-8.2)
[2023-09-30 05:53] LABS: ANISOCYTOSIS 1+; BURR CELLS PRESENT; PLATELET MORPHOLOGY COMMENT NORMAL (NORMAL)
[2023-09-30] MEDS: PULMICORT NEB TX 0.5 MG NEB SCH ×2 (08:29→21:23)
--- NOTE | 2023-09-30 08:47 | DR.CONSULT ---
CONSULT Consultation for Day of: Date: 09/30/23 Chief Complaint Chief Complaint: sob/edema Allergies Allergies Allergy/AdvReac Type Severity Reaction Status Date / Time No Known Drug Allergies Allergy Verified 09/19/23 13:28 History of Present Illness History of Present Illness: well known to me- was supposed to get cath ( ef 45% last cath 25 years ago- last garry stress : scar)- edema got better off catos/amlodipine and added entresto- cr 1.5 usually- last week- torsemide not causing diuresis as it usually did so wt up/ more sob/more edema- labs in ER: [id number] ,ct 1.57ekg: nsr rbbb cxr: CM- given iv lasix in er: -600- feels alittle better. k 3.5 Past Medical History Past Medical History: Arthritis, CHF, COPD, Diabetes, Dyslipidemia, GERD, Gout, Hypertension, Kidney Stones and Renal Disease Past Surgical History Surgical History: Cholecystectomy and Ortho Surgery Family History Family Medical History: Diabetes Mellitus and Cancer Social History Does patient currently use any type of tobacco product: No Have you used tobacco products in the last 12 months: No Type of Tobacco Use: None How many years tobacco product used: 20 Does any household member use tobacco: No Alcohol Use: None Drug Use: None Medications Home Medications: No Known Drug Allergies Allergy (Verified 09/19/23 13:28) CONTINUE taking the following medications atorvastatin 40 mg tablet 40 mg PO QDAY 09/29/23 [History] carvedilol 25 mg tablet 25 mg PO BID 09/29/23 [History] famotidine 40 mg tablet 40 mg PO QDAY 09/29/23 [History] glimepiride 4 mg tablet 4 mg PO BID 09/29/23 [History] omeprazole 40 mg capsule,delayed release 40 mg PO QDAY 09/29/23 [History] sacubitril 49 mg-valsartan 51 mg tablet (Entresto) 1 tab PO BID 09/29/23 [ History] torsemide 20 mg tablet 20 mg PO BID 09/29/23 [History] Physical Exam Vital Signs: Vital Signs Temperature 97.8 F Temperature 97.8 F Temperature 98.4 F Pulse Rate [Right Radial] 78 Pulse Rate [Right Radial] 78 Pulse Rate [Right Radial] 72 Respiratory Rate 20 Respiratory Rate 20 Respiratory Rate 20 Blood Pressure [Right Arm] 167/93 Blood Pressure [Right Arm] 136/79 O2 Sat by Pulse Oximetry 93 O2 Sat by Pulse Oximetry 94 alert ox3 nad elevated jvd, few crackles rrr soft jose antonio 1-2 plus edema other labs noted; low albumin2.8, hct 28 Plan (1) Acute exacerbation of CHF (congestive heart failure): Status: Acute Plan: back on bb/entresto- needs iv diureisis- replete K (2) Cardiomyopathy: Status: Acute (3) HTN (hypertension): Status: Chronic Qualifiers: Hypertension type: primary hypertension Qualified Code(s): I10 - Essential (primary) hypertension
[2023-09-30] MEDS: MAG-OX TAB PO SCH ×2 (08:57→20:42)
[2023-09-30] MEDS: AMARYL TAB 4 MG PO SCH ×2 (08:57→20:41)
[2023-09-30] MEDS: PriLOSEC PO SCH (08:59)
[2023-09-30] MEDS: PEPCID TAB 20 MG PO SCH (08:59)
[2023-09-30] MEDS: COREG TAB 25 MG PO SCH ×2 (08:59→20:42)
[2023-09-30] MEDS: ENTRESTO 49/51 MG TABLET PO SCH ×2 (08:59→20:43)
[2023-09-30] MEDS ORDERED: K-DUR TAB 20 MEQ PO NR (09:00)
[2023-09-30] MEDS ORDERED: LASIX IVP SCH (09:00)
[2023-09-30] MEDS: LIPITOR TAB 40 MG PO SCH (09:00)
[2023-09-30] MEDS: DEMADEX PO SCH ×2 (09:29→20:41)
[2023-09-30] MEDS: FERROUS GLUCONATE PO SCH (20:41)
[2023-09-30] MEDS: SNACK - Diabetic Appropriate PO SCH (20:43)
[2023-09-30] MEDS: ASPIRIN EC 81 MG PO SCH (20:43)
--- NOTE | 2023-09-30 21:54 | DR.H&P ---
H&P History & Physical for Day of: H&P Date: 09/30/23 Chief Complaint Chief Complaint: Shortness of breath Lower extremity edema Allergies Allergies Allergy/AdvReac Type Severity Reaction Status Date / Time No Known Drug Allergies Allergy Verified 09/19/23 13:28 History of Present Illness History of Present Illness: Patient is a 72-year-old male with a past medical history of CHF (EF+32%), hypertension, diabetes, COPD, presenting with increased shortness of breath and lower extremity edema for the past 2 to 3 days. He reports that symptoms have been progressively worsening. Labs/imaging: WBC 5.6, hemoglobin 9.5, platelets 147, sodium 140, potassium 3.5, creatinine 1.64, glucose 167, echo was performed on May/2023 that showed an ejection fraction of 32%. Checks x-ray no acute cardiopulmonary findings. BNP 4270. Patient was admitted for CHF exacerbation. He was started on IV Lasix 40 mg. This morning he was evaluated by cardiologyDrLashae Flaherty. Recommended another dose of IV Lasix and to continue home diuretics. Patient shows significant improvement this morning with breathing and lower extremity edema has significantly improved. We will restart home medications. Cardiology reports patient is stable and if continued improvement can be discharged over the weekend. Continue to closely monitor and follow-up labs in the morning. Past Medical History Past Medical History: Arthritis, CHF, COPD, Diabetes, Dyslipidemia, GERD, Gout, Hypertension, Kidney Stones and Renal Disease Past Surgical History Surgical History: Cholecystectomy and Ortho Surgery Family History Family Medical History: Diabetes Mellitus and Cancer Social History Does patient currently use any type of tobacco product: No Have you used tobacco products in the last 12 months: No Type of Tobacco Use: None How many years tobacco product used: 20 Does any household member use tobacco: No Alcohol Use: None Drug Use: None Medications Home Medications: Home Medications Medication Instructions Recorded Confirmed Type aspirin 81 mg tablet,delayed 81 mg PO QPM 05/30/23 09/29/23 History release ferrous sulfate 324 mg (65 mg 324 mg PO QPM 05/30/23 09/29/23 History iron) tablet,delayed release magnesium oxide 400 mg PO BID 05/30/23 09/29/23 History atorvastatin 40 mg tablet 40 mg PO QDAY 09/29/23 09/29/23 History carvedilol 25 mg tablet 25 mg PO BID 09/29/23 09/29/23 History famotidine 40 mg tablet 40 mg PO QDAY 09/29/23 09/29/23 History glimepiride 4 mg tablet 4 mg PO BID 09/29/23 09/29/23 History omeprazole 40 mg capsule,delayed 40 mg PO QDAY 09/29/23 09/29/23 History release sacubitril 49 mg-valsartan 51 mg 1 tab PO BID 09/29/23 09/29/23 History tablet (Entresto) torsemide 20 mg tablet 20 mg PO BID 09/29/23 09/29/23 History Labs 09/30/23 04:31 09/30/23 04:31 Labs: Laboratory WBC 5.6 X10^3/uL (3.6-10.0) 09/30/23 04:31 RBC 3.15 X10^6/uL (4.7-6.0) L 09/30/23 04:31 Hgb 9.5 g/dL (13.5-18.0) L 09/30/23 04:31 Hct 28.3 % (42.0-54.0) L 09/30/23 04:31 MCV 90.1 fL (80.0-100.0) 09/30/23 04:31 MCH 30.1 pg (27.0-34.0) 09/30/23 04:31 MCHC 33.4 g/dL (33.0-35.0) 09/30/23 04:31 RDW 20.7 % (11.6-16.5) H 09/30/23 04:31 Plt Count 147 X10^3/uL (150.0-450.0) L 09/30/23 04:31 Plt Count Comment Decreased (ADEQUATE) 09/30/23 04:31 MPV 9.2 fL (7.4-11.0) 09/30/23 04:31 Neut % (Auto) 70.7 % (42.0-75.0) 09/30/23 04:31 Lymph % (Auto) 15.2 % (21.0-51.0) L 09/30/23 04:31 [place] % (Auto) 5.2 % (0.0-13.0) 09/30/23 04:31 Eos % (Auto) 7.1 % (0.9-2.9) H 09/30/23 04:31 Baso % (Auto) 1.8 % (0.2-1.0) H 09/30/23 04:31 Neut # (Auto) 4.0 x10^3/uL (2.2-4.8) 09/30/23 04:31 Lymph # (Auto) 0.9 X10^3/uL (1.3-2.9) L 09/30/23 04:31 [place]manuel # (Auto) 0.3 x10^3/uL (0.3-0.8) 09/30/23 04:31 Eos # (Auto) 0.4 x10^3/uL (0.0-0.2) H 09/30/23 04:31 Baso # (Auto) 0.1 X10^3/uL (0.0-0.1) 09/30/23 04:31 Absolute Nucleated RBC 0.1 /100WBC 09/30/23 04:31 Plt Morphology Comment Normal (NORMAL) 09/30/23 04:31 RBC Morphology Abnormal (NORMAL) 09/30/23 04:31 Anisocytosis 1+ A 09/30/23 04:31 [place] Cells Present 09/30/23 04:31 Sodium 140 mmol/L (136-145) 09/30/23 04:31 Corrected Sodium 142 mmol/L (136-145) 09/30/23 04:31 Potassium 3.5 mmol/L (3.5-5.1) 09/30/23 04:31 Chloride 104 mmol/L (98-107) 09/30/23 04:31 Carbon Dioxide 27.9 mmol/L (21-32) 09/30/23 04:31 BUN 30 mg/dL (7-18) H 09/30/23 04:31 Creatinine 1.64 mg/dL (0.70-1.30) H 09/30/23 04:31 Est GFR (MDRD) Af Amer 53 (>60) L 09/30/23 04:31 Est GFR (MDRD) Non-Af 44 (>60) L 09/30/23 04:31 Glucose 167 mg/dL (65-99) H 09/30/23 04:31 POC Glucose (mg/dL) 164 mg/dL (65-99) H 09/30/23 11:29 Calcium 7.1 mg/dL (8.5-10.1) L 09/30/23 04:31 Corrected Calcium 8.1 mg/dL (8.5-10.1) L 09/30/23 04:31 Magnesium 1.1 mg/dL (2.0-2.9) L 09/30/23 04:31 Total Bilirubin 1.30 mg/dL (0.2-1.0) H 09/30/23 04:31 AST 15 Units/L (15-37) 09/30/23 04:31 ALT 15 Units/L (12-78) 09/30/23 04:31 Alkaline Phosphatase 101 Units/L (46-116) 09/30/23 04:31 Creatine Kinase 76 Units/L (39-308) 09/29/23 11:30 Troponin I High Sens 27.0 ng/L (4.0-60.0) 09/29/23 11:30 B-Natriuretic Peptide 4270 pg/mL (0-79) H 09/29/23 11:30 Total Protein 5.8 g/dL (6.4-8.2) L 09/30/23 04:31 Albumin 2.8 g/dL (3.4-5.0) L 09/30/23 04:31 Globulin 3.0 g/dL (2.5-4.5) 09/30/23 04:31 Albumin/Globulin Ratio 0.9 Ratio (1.1-2.1) L 09/30/23 04:31 SARS CoV-2 RNA Rapid YASMINE Negative (NEGATIVE) 09/29/23 11:44 Review of Systems Constitutional: No Symptoms Reported Eyes: No Symptoms Reported ENT: No Symptoms Reported Respiratory: Shortness of Breath Cardiovascular: Edema Gastrointestinal: No Symptoms Reported Genitourinary: No Symptoms Reported Musculoskeletal: No Symptoms Reported Skin: No Symptoms Reported Neurological: No Symptoms Reported Physical Exam Vital Signs: Vital Signs Temperature 97.8 F Temperature 97.8 F Temperature 97.8 F Pulse Rate [Right Radial] 66 Pulse Rate [Right Radial] 78 Pulse Rate [Right Radial] 78 Pulse Rate 71 Respiratory Rate 18 Respiratory Rate 20 Respiratory Rate 20 Blood Pressure [Right Arm] 137/75 Blood Pressure [Right Arm] 167/93 O2 Sat by Pulse Oximetry 96 O2 Sat by Pulse Oximetry 94 O2 Sat by Pulse Oximetry 93 Oriented: Normal Eyes: Normal Ear: Normal Nose: Normal Throat: Normal Respiratory: Clear Throughout Cardiovascular: Normal : Normal Auscultation: Bowel Sounds: Normal Palpation: Normal Tenderness: Normal Skin: Normal Musculoskeletal: Normal Psychiatric: Normal Mood Description: Calm and Appropriate Affect: Normal Speech Pattern: Clear and Appropriate Assessment/Plan (1) Acute exacerbation of CHF (congestive heart failure): Status: Acute (2) Cardiomyopathy: Status: Acute (3) HTN (hypertension): Qualifiers: Hypertension type: primary hypertension Qualified Code(s): I10 - Essential (primary) hypertension Status: Chronic Review H&P Reviewed: Yes Patient was examined?: Yes
[2023-10-01] MEDS: XOPENEX 1.25 MG/3 ML NEBULE NEB SCH ×4 (05:49→20:55)
[2023-10-01 06:12] LABS: BASOPHILS # (AUTO) 0.1 X10^3/uL (0.0-0.1); BASOPHILS % (AUTO) 1.4 % (0.2-1.0); EOSINOPHILS # (AUTO) 0.3 x10^3/uL (0.0-0.2); EOSINOPHILS % (AUTO) 6.1 % (0.9-2.9); HEMATOCRIT 28.2 % (42.0-54.0); HEMOGLOBIN 9.4 g/dL (13.5-18.0); LYMPHOCYTES # (AUTO) 0.8 X10^3/uL (1.3-2.9); LYMPHOCYTES % (AUTO) 13.7 % (21.0-51.0); MEAN CORPUSCULAR HEMOGLOBIN 30.4 pg (27.0-34.0); MEAN CORPUSCULAR HGB CONC 33.5 g/dL (33.0-35.0); MEAN CORPUSCULAR VOLUME 90.9 fL (80.0-100.0); MEAN PLATELET VOLUME 9.3 fL (7.4-11.0); MONOCYTES # (AUTO) 0.4 x10^3/uL (0.3-0.8); MONOCYTES % (AUTO) 7.4 % (0.0-13.0); NEUTROPHILS % (AUTO) 71.4 % (42.0-75.0); PLATELET COUNT 138 X10^3/uL (150.0-450.0); RED CELL DISTRIBUTION WIDTH 21.1 % (11.6-16.5); WHITE BLOOD COUNT 5.7 X10^3/uL (3.6-10.0)
[2023-10-01 06:23] LABS: ALBUMIN 2.6 g/dL (3.4-5.0); CARBON DIOXIDE 29.5 mmol/L (21-32); COR CA(FOR HYPOALB) 8.1 mg/dL (8.5-10.1); CREATININE 1.61 mg/dL (0.70-1.30); MAGNESIUM 1.2 mg/dL (2.0-2.9); POTASSIUM 3.5 mmol/L (3.5-5.1); TOTAL PROTEIN 5.6 g/dL (6.4-8.2)
[2023-10-01] MEDS ORDERED: CONSULT PHARMACY - POTASSIUM & MAGNESIUM XX SCH (07:00)
[2023-10-01 07:48] LABS: PLATELET MORPHOLOGY COMMENT NORMAL (NORMAL)
[2023-10-01 07:49] LABS: ANISOCYTOSIS 1+; BURR CELLS 1+; OVALOCYTES SLIGHT; STOMATOCYTES SLIGHT; TEAR DROP CELLS SLIGHT
[2023-10-01] MEDS ORDERED: K-DUR TAB 20 MEQ PO SCH (08:00)
[2023-10-01] MEDS: MAG-OX TAB PO SCH ×3 (08:05→10:54)
[2023-10-01] MEDS: AMARYL TAB 4 MG PO SCH ×2 (08:05→20:20)
[2023-10-01] MEDS: PEPCID TAB 20 MG PO SCH ×2 (08:06→09:06)
[2023-10-01] MEDS: COREG TAB 25 MG PO SCH ×2 (08:06→20:19)
[2023-10-01] MEDS: ENTRESTO 49/51 MG TABLET PO SCH ×3 (08:07→20:28)
[2023-10-01] MEDS: DEMADEX PO SCH ×2 (08:07→20:20)
[2023-10-01] MEDS: LIPITOR TAB 40 MG PO SCH ×2 (08:07→20:20)
[2023-10-01] MEDS: PULMICORT NEB TX 0.5 MG NEB SCH ×2 (08:48→20:55)
[2023-10-01] MEDS: PriLOSEC PO SCH (09:07)
[2023-10-01] MEDS ORDERED: ENTRESTO 24/26 MG TABLET PO SCH (09:45)
[2023-10-01] MEDS ORDERED: ENTRESTO 49/51 MG TABLET PO ONE (10:45)
[2023-10-01] MEDS: FARXIGA PO SCH (10:54)
[2023-10-01] MEDS: ASPIRIN EC 81 MG PO SCH (20:20)
[2023-10-01] MEDS: FERROUS GLUCONATE PO SCH (20:20)
[2023-10-01] MEDS: SNACK - Diabetic Appropriate PO SCH (20:30)
[2023-10-01] MEDS ORDERED: MAG-OX TAB PO SCH (21:00)
[2023-10-02 04:22] VITALS: RESP 20
[2023-10-02 05:22] LABS: BASOPHILS # (AUTO) 0.1 X10^3/uL (0.0-0.1); BASOPHILS % (AUTO) 1.1 % (0.2-1.0); EOSINOPHILS # (AUTO) 0.3 x10^3/uL (0.0-0.2); EOSINOPHILS % (AUTO) 5.2 % (0.9-2.9); HEMATOCRIT 27.3 % (42.0-54.0); HEMOGLOBIN 9.1 g/dL (13.5-18.0); LYMPHOCYTES # (AUTO) 0.7 X10^3/uL (1.3-2.9); LYMPHOCYTES % (AUTO) 11.3 % (21.0-51.0); MEAN CORPUSCULAR HEMOGLOBIN 30.3 pg (27.0-34.0); MEAN CORPUSCULAR HGB CONC 33.4 g/dL (33.0-35.0); MEAN CORPUSCULAR VOLUME 90.9 fL (80.0-100.0); MEAN PLATELET VOLUME 9.3 fL (7.4-11.0); MONOCYTES # (AUTO) 0.5 x10^3/uL (0.3-0.8); MONOCYTES % (AUTO) 8.5 % (0.0-13.0); NEUTROPHILS # (AUTO) 4.6 x10^3/uL (2.2-4.8); NEUTROPHILS % (AUTO) 73.9 % (42.0-75.0); PLATELET COUNT 148 X10^3/uL (150.0-450.0); RED CELL DISTRIBUTION WIDTH 21.2 % (11.6-16.5); WHITE BLOOD COUNT 6.2 X10^3/uL (3.6-10.0)
[2023-10-02 05:36] LABS: ANISOCYTOSIS 1+; PLATELET MORPHOLOGY COMMENT NORMAL (NORMAL)
[2023-10-02 05:37] LABS: BURR CELLS PRESENT; OVALOCYTES PRESENT
[2023-10-02 05:41] LABS: ALBUMIN 2.5 g/dL (3.4-5.0); CALCIUM 7.1 mg/dL (8.5-10.1); CARBON DIOXIDE 31.2 mmol/L (21-32); COR CA(FOR HYPOALB) 8.3 mg/dL (8.5-10.1); CREATININE 1.68 mg/dL (0.70-1.30); POTASSIUM 3.9 mmol/L (3.5-5.1); TOTAL PROTEIN 5.5 g/dL (6.4-8.2)
[2023-10-02] MEDS: XOPENEX 1.25 MG/3 ML NEBULE NEB SCH (05:57)
[2023-10-02] MEDS ORDERED: CONSULT PHARMACY - POTASSIUM & MAGNESIUM XX SCH (06:00)
[2023-10-02] MEDS: PULMICORT NEB TX 0.5 MG NEB SCH (08:35)
[2023-10-02] MEDS: DEMADEX PO SCH (08:45)
[2023-10-02] MEDS: PriLOSEC PO SCH (08:46)
[2023-10-02] MEDS: ENTRESTO 49/51 MG TABLET PO SCH (08:46)
[2023-10-02] MEDS: MAG-OX TAB PO SCH ×2 (08:47→08:48)
[2023-10-02] MEDS: LIPITOR TAB 40 MG PO SCH (08:47)
[2023-10-02] MEDS: AMARYL TAB 4 MG PO SCH (08:47)
[2023-10-02] MEDS: COREG TAB 25 MG PO SCH (08:47)
[2023-10-02] MEDS: PEPCID TAB 20 MG PO SCH (08:47)
[2023-10-02] MEDS: FARXIGA PO SCH (09:16)
[2023-10-02 09:17] VITALS: BP 141/71; PULSE 69; TEMP 99.4; O2SAT 95
[2023-10-02] MEDS ORDERED: MAG-OX TAB PO SCH (21:00)
== END 2023-10-02 10:00 | disposition home or self-care (01) | DRG 293 ==
LOC: ER 10:51 → MED/SURG 12:49
PROVIDERS: ADMIT Family Medicine; ATTEND Family Medicine
DX: M94.0 Chondrocostal junction syndrome [Tietze]; I42.8 Other cardiomyopathies; I11.0 Hypertensive heart disease with heart failure; Z20.822 Contact with and (suspected) exposure to COVID-19; R60.0 Localized edema; I50.9 Heart failure, unspecified; R06.02 Shortness of breath

== ENCOUNTER 2023-10-02 18:03 | Inpatient (IN) ==
--- NOTE | 2023-10-02 18:18 | DR.CP ---
HPI Time Seen Time Seen by Provider: 10/02/23 18:18 Complaint Chief Complaint Doctor Comments: 72-year-old male brought in via EMS for evaluation. Patient was seen here 3 days ago, admitted to the hospital for exacerbation of congestive heart failure. Patient was discharged from the hospital this a.m., reportedly feeling about the same. Since going home, patient feeling worse. Having generalized weakness, shortness of breath, worse with exertion. Now having some substernal chest pain, radiating to the left arm. Chest pain worse with coughing, better with rest. Patient now hoarse today. No fever, chills, bowel or bladder issues. Family had helped him out of the bathroom this evening. Reviewed Nurses Notes Review: Yes Source History Provided: Patient and Family Member PMH PMH Past Medical History: Arthritis, CHF, COPD, Diabetes, Dyslipidemia, GERD, Gout, Hypertension, Kidney Stones and Renal Disease Past Surgical History: Yes Surgical History: Cholecystectomy and Ortho Surgery Family History Family Medical History: Diabetes Mellitus and Cancer Social History Do you use any recreational Drugs:: No ROS Review of Systems Constitutional: Malaise and Weakness Eyes: No Symptoms Reported ENTM: No Symptoms Reported Respiratoy: Dry Cough and Short of Breath Cardiovascular: Chest Pain Gastrointestinal/Abdominal: No Symptoms Reported Genitourinary: No Symptoms Reported Neurological: Weakness Musculoskeletal: No Symptoms Reported Integumentary: No Symptoms Reported All Other Systems: Reviewed and Negative PE Vitals Vitals: Vital Signs Temperature 98.1 F Pulse Rate 61 Pulse Rate 74 Pulse Rate 78 Pulse Rate 74 Pulse Rate 77 Pulse Rate 80 Pulse Rate 79 Pulse Rate 83 Pulse Rate 78 Pulse Rate 75 Pulse Rate 77 Respiratory Rate 15 Respiratory Rate 12 Respiratory Rate 13 Respiratory Rate 13 Respiratory Rate 15 Respiratory Rate 14 Respiratory Rate 18 Respiratory Rate 18 Respiratory Rate 20 Respiratory Rate 17 Respiratory Rate 15 Blood Pressure 151/70 O2 Sat by Pulse Oximetry 98 O2 Sat by Pulse Oximetry 99 O2 Sat by Pulse Oximetry 97 O2 Sat by Pulse Oximetry 97 O2 Sat by Pulse Oximetry 98 O2 Sat by Pulse Oximetry 97 O2 Sat by Pulse Oximetry 97 O2 Sat by Pulse Oximetry 97 O2 Sat by Pulse Oximetry 96 O2 Sat by Pulse Oximetry 97 O2 Sat by Pulse Oximetry 96 General General Appearance: Alert, In No Apparent Distress and Other (appears weak) Eyes Eye exam: PERRL and EOMI ENT ENT Exam: Mucous Membranes Moist Respiratory Respiratory Exam: Other (decreased breath sounds at the bases. ) Cardiovascular Cardiovascular Exam: Regular Rate, Normal Rhythm and Normal Heart Sounds Abdominal Exam Abdominal Exam: Normal Bowel Sounds and Soft; negative Tenderness Extremities Extremities Exam: Edema (3+ bilateral lower exts.) Neurologic Neurological Exam: Alert, Oriented X3 and CN II-XII Intact; negative Motor Sensory Deficit Skin Skin Exam: Warm and Dry COURSE Treatment Treatment: 72-year-old male discharged this a.m. after being mated for exacerbation of CHF. Patient feeling worse on discharge. Now having chest pa in, worse with coughing. Has good pulse ox on O2 at the present time. Work-up initiated EKG without acute ischemic changes. Pt given IV lasix here. 1942 - patient had a brief run of V. tach on the monitor, 125 to 150 bpm, lasted few seconds. Labs showed the BNP to be higher than recent, greater than 5,000 (but is on Entresto). Chest x-ray with cardiomegaly and degree of pulmonary vascular congestion. Troponin is normal. Discussed with Dr. Jenkins, covering for admissions, will admit. Will consult with patient's information technology coordinator, Dr. Flaherty. [facility] Labs Reviewed 10/02/23 18:33 10/02/23 18:33 Laboratory: WBC 7.2 X10^3/uL (3.6-10.0) 10/02/23 18: RBC 3.35 X10^6/uL (4.7-6.0) L 10/02/23 18:33 Hgb 10.2 g/dL (13.5-18.0) L 10/02/23 18: Hct 30.4 % (42.0-54.0) L 10/02/23 18: MCV 90.7 fL (80.0-100.0) 10/02/23 18: MCH 30.3 pg (27.0-34.0) 10/02/23 18: MCHC 33.4 g/dL (33.0-35.0) 10/02/23 18: RDW 20.5 % (11.6-16.5) H 10/02/23 18: Plt Count 139 X10^3/uL (150.0-450.0) L 10/02/23 18: Plt Count Comment Decreased (ADEQUATE) 10/02/23 18: MPV 8.8 fL (7.4-11.0) 10/02/23 18: Neut % (Auto) 76.8 % (42.0-75.0) H 10/02/23 18: Lymph % (Auto) 10.4 % (21.0-51.0) L 10/02/23 18: [place] % (Auto) 7.9 % (0.0-13.0) 10/02/23 18: Eos % (Auto) 3.0 % (0.9-2.9) H 10/02/23 18: Baso % (Auto) 1.9 % (0.2-1.0) H 10/02/23 18: Neut # (Auto) 5.5 x10^3/uL (2.2-4.8) H 10/02/23 18: Lymph # (Auto) 0.7 X10^3/uL (1.3-2.9) L 10/02/23 18: [place] # (Auto) 0.6 x10^3/uL (0.3-0.8) 10/02/23 18: Eos # (Auto) 0.2 x10^3/uL (0.0-0.2) 10/02/23 18: Baso # (Auto) 0.1 X10^3/uL (0.0-0.1) 10/02/23 18: Absolute Nucleated RBC 0.0 /100WBC 10/02/23 18: Plt Morphology Comment Normal (NORMAL) 10/02/23 18: RBC Morphology Abnormal (NORMAL) 10/02/23 18: Anisocytosis 1+ A 10/02/23 18: Ovalocytes Present 10/02/23 18: [place] Cells Present 10/02/23 18: Sodium 139 mmol/L (136-145) 10/02/23 18: Corrected Sodium 140 mmol/L (136-145) 10/02/23 18: Potassium 4.1 mmol/L (3.5-5.1) 10/02/23 18: Chloride 102 mmol/L (98-107) 10/02/23 18: Carbon Dioxide 32.5 mmol/L (21-32) H 10/02/23 18:33 BUN 31 mg/dL (7-18) H 10/02/23 18:33 Creatinine 1.57 mg/dL (0.70-1.30) H 10/02/23 18:33 Est GFR (MDRD) Af Amer 56 (>60) L 10/02/23 18:33 Est GFR (MDRD) Non-Af 46 (>60) L 10/02/23 18:33 Glucose 145 mg/dL (65-99) H 10/02/23 18:33 Calcium 7.6 mg/dL (8.5-10.1) L 10/02/23 18:33 Corrected Calcium 8.6 mg/dL (8.5-10.1) 10/02/23 18:33 Total Bilirubin 1.40 mg/dL (0.2-1.0) H 10/02/23 18:33 AST 10 Units/L (15-37) L 10/02/23 18:33 ALT 11 Units/L (12-78) L 10/02/23 18:33 Alkaline Phosphatase 107 Units/L (46-116) 10/02/23 18:33 Troponin I High Sens 24.1 ng/L (4.0-60.0) 10/02/23 18:33 B-Natriuretic Peptide > 5000 pg/mL (0-79) H 10/02/23 18:33 Total Protein 6.2 g/dL (6.4-8.2) L 10/02/23 18:33 Albumin 2.8 g/dL (3.4-5.0) L 10/02/23 18:33 Globulin 3.4 g/dL (2.5-4.5) 10/02/23 18:33 Albumin/Globulin Ratio 0.8 Ratio (1.1-2.1) L 10/02/23 18:33 EKG Rate: 83 [place]: LAD Rhythm: NSR Block: RBBB ST: Nonsp (with baseline artifact) Opioid Opioid Risk Tool Age (Petr box if 16-45): No History of Preadolescent Sexual Abuse: No Total: 0 Total Score Risk Category: Low Risk Copyright: Sujit SIM predicting aberrant behaviors Discharge Plan Diagnosis Discharge Problem: Acute exacerbation of CHF (congestive heart failure), Chest pain, Ventricular tachycardia (paroxysmal) Discharge Plan Patient Disposition: ADMITTED INPATIENT Condition: Stable Orders to Discharge Patient Discharge Orders: Transfer (Routine); Ordered 10/02/23 Ordered By: Og Montoya
--- NOTE | 2023-10-02 18:26 | EKG ---
Test Reason : chest pain Blood Pressure : */* mmHG Vent. Rate : 83 BPM Atrial Rate : 83 BPM P-R Int : 130 ms QRS Dur : 164 ms QT Int : 450 ms P-R-T Axes : 42 -37 145 degrees QTc Int : 528 ms Suspicious for coarse atrial fibrillation with a regular ventricular response. Left axis deviation Right bundle branch block T wave abnormality, consider lateral ischemia Abnormal ECG Rule out digoxin toxicity. When compared with ECG of 29-SEP-2023 11:30, No significant change was found Confirmed by Kenji Maria ([id number]) on 10/03/2023 10:01:12 AM Referred By: Confirmed By: Kenji Maria
[2023-10-02] MEDS ORDERED: LASIX IVP ONE ×2 (18:28→18:53)
[2023-10-02 18:42] LABS: BASOPHILS # (AUTO) 0.1 X10^3/uL (0.0-0.1); BASOPHILS % (AUTO) 1.9 % (0.2-1.0); EOSINOPHILS # (AUTO) 0.2 x10^3/uL (0.0-0.2); HEMATOCRIT 30.4 % (42.0-54.0); HEMOGLOBIN 10.2 g/dL (13.5-18.0); LYMPHOCYTES # (AUTO) 0.7 X10^3/uL (1.3-2.9); LYMPHOCYTES % (AUTO) 10.4 % (21.0-51.0); MEAN CORPUSCULAR HEMOGLOBIN 30.3 pg (27.0-34.0); MEAN CORPUSCULAR HGB CONC 33.4 g/dL (33.0-35.0); MEAN CORPUSCULAR VOLUME 90.7 fL (80.0-100.0); MEAN PLATELET VOLUME 8.8 fL (7.4-11.0); MONOCYTES # (AUTO) 0.6 x10^3/uL (0.3-0.8); MONOCYTES % (AUTO) 7.9 % (0.0-13.0); NEUTROPHILS # (AUTO) 5.5 x10^3/uL (2.2-4.8); NEUTROPHILS % (AUTO) 76.8 % (42.0-75.0); PLATELET COUNT 139 X10^3/uL (150.0-450.0); RED BLOOD COUNT 3.35 X10^6/uL (4.7-6.0); RED CELL DISTRIBUTION WIDTH 20.5 % (11.6-16.5); WHITE BLOOD COUNT 7.2 X10^3/uL (3.6-10.0)
--- NOTE | 2023-10-02 18:43 | RAD ---
EXAM:CHEST, 1 VIEWHISTORY:chest pains, sob; chf, copdCOMPARISON:Similar to September 29, 2023.FINDINGS:Moderate cardiomegaly.No acute airspace disease.No pneumothorax or effusion.The bony thorax appears age appropriate.IMPRESSION:Moderate cardiomegaly similar.THIS IS AN ELECTRONICALLY VERIFIED FINAL [id number]/02/2023 6:39 PM - Electronically signed by Sai Thorpe DO
[2023-10-02 18:56] LABS: ANISOCYTOSIS 1+; BURR CELLS PRESENT; OVALOCYTES PRESENT; PLATELET MORPHOLOGY COMMENT NORMAL (NORMAL)
[2023-10-02 18:57] LABS: ALANINE AMINOTRANSFERASE 11 Units/L (12-78); ALBUMIN 2.8 g/dL (3.4-5.0); ALKALINE PHOSPHATASE 107 Units/L (46-116); ASPARTATE AMINO TRANSFERASE 10 Units/L (15-37); BLOOD UREA NITROGEN 31 mg/dL (7-18); CALCIUM 7.6 mg/dL (8.5-10.1); CARBON DIOXIDE 32.5 mmol/L (21-32); CHLORIDE 102 mmol/L (98-107); COR CA(FOR HYPOALB) 8.6 mg/dL (8.5-10.1); COR NA(FOR HYPERGLY) 140 mmol/L (136-145); CREATININE 1.57 mg/dL (0.70-1.30); GLUCOSE 145 mg/dL (65-99); POTASSIUM 4.1 mmol/L (3.5-5.1); SODIUM 139 mmol/L (136-145); TOTAL PROTEIN 6.2 g/dL (6.4-8.2); eGFR NON BLACK RACES 46 (>60)
[2023-10-02] MEDS ORDERED: CONSULT PHARMACY - POTASSIUM & MAGNESIUM XX SCH (21:03)
[2023-10-02 21:10] VITALS: BMI 33.5
[2023-10-02] MEDS ORDERED: MAG-OX TAB PO SCH (21:30)
[2023-10-02] MEDS: ASPIRIN EC 81 MG PO SCH (21:52)
[2023-10-02] MEDS: COREG TAB 25 MG PO SCH (21:52)
[2023-10-02] MEDS: AMARYL TAB 4 MG PO SCH (21:52)
[2023-10-03 05:34] LABS: BASOPHILS % (AUTO) 0.6 % (0.2-1.0); EOSINOPHILS # (AUTO) 0.2 x10^3/uL (0.0-0.2); EOSINOPHILS % (AUTO) 4.7 % (0.9-2.9); HEMATOCRIT 27.1 % (42.0-54.0); LYMPHOCYTES # (AUTO) 0.8 X10^3/uL (1.3-2.9); LYMPHOCYTES % (AUTO) 15.2 % (21.0-51.0); MEAN CORPUSCULAR HGB CONC 33.2 g/dL (33.0-35.0); MEAN CORPUSCULAR VOLUME 90.6 fL (80.0-100.0); MEAN PLATELET VOLUME 9.3 fL (7.4-11.0); MONOCYTES # (AUTO) 0.5 x10^3/uL (0.3-0.8); MONOCYTES % (AUTO) 10.6 % (0.0-13.0); NEUTROPHILS # (AUTO) 3.6 x10^3/uL (2.2-4.8); NEUTROPHILS % (AUTO) 68.9 % (42.0-75.0); PLATELET COUNT 135 X10^3/uL (150.0-450.0); RED BLOOD COUNT 2.99 X10^6/uL (4.7-6.0); RED CELL DISTRIBUTION WIDTH 20.7 % (11.6-16.5); WHITE BLOOD COUNT 5.2 X10^3/uL (3.6-10.0)
[2023-10-03 05:37] LABS: ANISOCYTOSIS 1+; BURR CELLS PRESENT; OVALOCYTES PRESENT; PLATELET MORPHOLOGY COMMENT NORMAL (NORMAL)
[2023-10-03 05:45] LABS: ALANINE AMINOTRANSFERASE 7 Units/L (12-78); ALBUMIN 2.4 g/dL (3.4-5.0); ALKALINE PHOSPHATASE 93 Units/L (46-116); ASPARTATE AMINO TRANSFERASE 14 Units/L (15-37); BLOOD UREA NITROGEN 31 mg/dL (7-18); CALCIUM 7.7 mg/dL (8.5-10.1); CARBON DIOXIDE 32.3 mmol/L (21-32); CHLORIDE 102 mmol/L (98-107); COR NA(FOR HYPERGLY) 140 mmol/L (136-145); CREATININE 1.39 mg/dL (0.70-1.30); GLUCOSE 155 mg/dL (65-99); MAGNESIUM 1.6 mg/dL (2.0-2.9); POTASSIUM 3.7 mmol/L (3.5-5.1); SODIUM 139 mmol/L (136-145); TOTAL PROTEIN 5.6 g/dL (6.4-8.2); eGFR NON BLACK RACES 53 (>60)
[2023-10-03] MEDS ORDERED: CONSULT PHARMACY - POTASSIUM & MAGNESIUM XX SCH (06:00)
[2023-10-03] MEDS: AMARYL TAB 4 MG PO SCH ×2 (06:00→16:50)
[2023-10-03] MEDS ORDERED: ALBUMIN HUMAN 25%- 100 ML 100 ML IV ONE (07:06)
[2023-10-03] MEDS ORDERED: K-DUR TAB 20 MEQ PO SCH (08:00)
[2023-10-03] MEDS: LASIX IVP SCH ×2 (08:13→16:50)
[2023-10-03] MEDS: RHINOCORT ALLERGY NASAL SPRAY ENOSTRIL SCH ×2 (08:17→11:26)
[2023-10-03] MEDS: LIPITOR TAB 40 MG PO SCH (08:18)
[2023-10-03] MEDS: PriLOSEC PO SCH (08:18)
[2023-10-03] MEDS: PEPCID TAB 40 MG PO SCH (08:18)
[2023-10-03] MEDS: COREG TAB 25 MG PO SCH ×2 (08:18→20:09)
[2023-10-03] MEDS: ENTRESTO 49/51 MG TABLET PO SCH ×2 (08:18→20:09)
[2023-10-03] MEDS: MAG-OX TAB PO SCH ×3 (08:19→20:08)
[2023-10-03] MEDS ORDERED: LASIX IVP ONE (09:00)
[2023-10-03] MEDS ORDERED: DEMADEX PO SCH (09:00)
[2023-10-03] MEDS: FARXIGA PO SCH (09:34)
--- NOTE | 2023-10-03 09:58 | NOTE.SOAP ---
Soap Note Note for Day of Date of Exam: 10/03/23 Subjective Data Subjective Data: d/ana over weekend but came back few hours later with weak/sob/cp- NS VT was noted in er- albs to note: hct 27,cr 1.39, bnp >5000,trop negative, albumin 2.4. UA: 3-4 plus protein Objective Data Objective Data: 130/70 p 78 elevated jvd/ crackles bases, 2 plus edema Assessment Assessment: CHF, complicated by low albumin due to proteinuria, ef 40% - stress last year w scar- last cath 25 years ago- now NS VT Plan Plan: add isosorbide/hydralazine- cont iv diuresis- set up transfer to [facility] so dr guardado can get involved and look at proteinuria- and mikulic to cath when out of chf
[2023-10-03] MEDS: APRESOLINE TAB 10 MG PO SCH ×2 (13:56→21:03)
[2023-10-03] MEDS ORDERED: NovoLIN R (or HumuLIN R) SC PRN (16:24)
[2023-10-03] MEDS ORDERED: SNACK - Diabetic Appropriate PO SCH (20:00)
[2023-10-03] MEDS: ASPIRIN EC 81 MG PO SCH (20:09)
[2023-10-03] MEDS ORDERED: FERROUS GLUCONATE PO SCH (21:00)
[2023-10-04 05:12] LABS: BASOPHILS # (AUTO) 0.1 X10^3/uL (0.0-0.1); EOSINOPHILS # (AUTO) 0.3 x10^3/uL (0.0-0.2); EOSINOPHILS % (AUTO) 5.1 % (0.9-2.9); LYMPHOCYTES % (AUTO) 18.2 % (21.0-51.0); MEAN CORPUSCULAR HEMOGLOBIN 30.1 pg (27.0-34.0); MEAN CORPUSCULAR HGB CONC 33.5 g/dL (33.0-35.0); MEAN PLATELET VOLUME 9.3 fL (7.4-11.0); MONOCYTES # (AUTO) 0.6 x10^3/uL (0.3-0.8); MONOCYTES % (AUTO) 11.6 % (0.0-13.0); NEUTROPHILS # (AUTO) 3.5 x10^3/uL (2.2-4.8); NEUTROPHILS % (AUTO) 63.1 % (42.0-75.0); PLATELET COUNT 143 X10^3/uL (150.0-450.0); RED CELL DISTRIBUTION WIDTH 19.2 % (11.6-16.5); WHITE BLOOD COUNT 5.5 X10^3/uL (3.6-10.0)
[2023-10-04] MEDS: APRESOLINE TAB 10 MG PO SCH (05:22)
[2023-10-04 05:26] LABS: ALANINE AMINOTRANSFERASE 7 Units/L (12-78); ALBUMIN 2.6 g/dL (3.4-5.0); ALKALINE PHOSPHATASE 86 Units/L (46-116); ASPARTATE AMINO TRANSFERASE 10 Units/L (15-37); BLOOD UREA NITROGEN 34 mg/dL (7-18); CALCIUM 7.8 mg/dL (8.5-10.1); CARBON DIOXIDE 32.8 mmol/L (21-32); CHLORIDE 100 mmol/L (98-107); COR CA(FOR HYPOALB) 8.9 mg/dL (8.5-10.1); CREATININE 1.57 mg/dL (0.70-1.30); GLUCOSE 103 mg/dL (65-99); MAGNESIUM 1.8 mg/dL (2.0-2.9); POTASSIUM 3.7 mmol/L (3.5-5.1); SODIUM 136 mmol/L (136-145); TOTAL PROTEIN 5.8 g/dL (6.4-8.2); eGFR NON BLACK RACES 46 (>60)
[2023-10-04] MEDS: AMARYL TAB 4 MG PO SCH (06:07)
[2023-10-04] MEDS ORDERED: CONSULT PHARMACY - POTASSIUM & MAGNESIUM XX SCH (07:00)
[2023-10-04] MEDS: COREG TAB 25 MG PO SCH (08:47)
[2023-10-04] MEDS: LIPITOR TAB 40 MG PO SCH (08:47)
[2023-10-04] MEDS: MAG-OX TAB PO SCH (08:47)
[2023-10-04] MEDS: PriLOSEC PO SCH (08:47)
[2023-10-04] MEDS: PEPCID TAB 40 MG PO SCH (08:47)
[2023-10-04] MEDS: FARXIGA PO SCH (08:47)
[2023-10-04] MEDS: LASIX IVP SCH (08:48)
[2023-10-04] MEDS: RHINOCORT ALLERGY NASAL SPRAY ENOSTRIL SCH (08:48)
[2023-10-04] MEDS: ENTRESTO 49/51 MG TABLET PO SCH (08:48)
[2023-10-04] MEDS ORDERED: K-DUR TAB 20 MEQ PO SCH (09:00)
[2023-10-04] MEDS ORDERED: IMDUR PO SCH (09:00)
[2023-10-04 09:50] VITALS: BP 134/75; PULSE 67; RESP 18; TEMP 98; O2SAT 98
[2023-10-04] MEDS ORDERED: MAG-OX TAB PO SCH (10:00)
== END 2023-10-04 09:00 | disposition short-term general hospital (02) | DRG 292 ==
LOC: SUPCPDRO → ER 18:03 → MED/SURG 18:03 → OBSVTOIN 20:23 → MED/SURG 20:47
PROVIDERS: ADMIT Obstetrics & Gynecology Obstetrics; ATTEND Obstetrics & Gynecology Obstetrics
DX: R53.1 Weakness; R07.89 Other chest pain; R06.02 Shortness of breath; I50.9 Heart failure, unspecified; R73.09 Other abnormal glucose; I47.29 Other ventricular tachycardia; I11.0 Hypertensive heart disease with heart failure

== ENCOUNTER 2024-11-02 01:59 | Observation (INO) ==
[2024-11-02 02:48] LABS: BASOPHILS % (AUTO) 0.4 % (0.2-1.0); EOSINOPHILS % (AUTO) 0.3 % (0.9-2.9); HEMATOCRIT 29.4 % (42.0-54.0); HEMOGLOBIN 10.3 g/dL (13.5-18.0); LYMPHOCYTES # (AUTO) 0.6 X10^3/uL (1.3-2.9); LYMPHOCYTES % (AUTO) 11.7 % (21.0-51.0); MEAN CORPUSCULAR HEMOGLOBIN 30.5 pg (27.0-34.0); MEAN PLATELET VOLUME 8.3 fL (7.4-11.0); MONOCYTES # (AUTO) 0.7 x10^3/uL (0.3-0.8); MONOCYTES % (AUTO) 12.5 % (0.0-13.0); NEUTROPHILS # (AUTO) 3.9 x10^3/uL (2.2-4.8); NEUTROPHILS % (AUTO) 75.1 % (42.0-75.0); PLATELET COUNT 156 X10^3/uL (150.0-450.0); RED BLOOD COUNT 3.38 X10^6/uL (4.7-6.0); RED CELL DISTRIBUTION WIDTH 14.9 % (11.6-16.5); WHITE BLOOD COUNT 5.2 X10^3/uL (3.6-10.0)
[2024-11-02 02:59] LABS: ALANINE AMINOTRANSFERASE 10 Units/L (12-78); ALBUMIN 2.6 g/dL (3.4-5.0); ALKALINE PHOSPHATASE 69 Units/L (46-116); ASPARTATE AMINO TRANSFERASE 13 Units/L (15-37); BLOOD UREA NITROGEN 73 mg/dL (7-18); CALCIUM 6.4 mg/dL (8.5-10.1); CARBON DIOXIDE 24.7 mmol/L (21-32); CHLORIDE 102 mmol/L (98-107); COR CA(FOR HYPOALB) 7.5 mg/dL (8.5-10.1); CREATININE 3.23 mg/dL (0.70-1.30); SODIUM 139 mmol/L (136-145); eGFR NON BLACK RACES 20 (>60)
[2024-11-02 03:02] LABS: GLUCOSE 44 mg/dL (65-99); POTASSIUM 2.8 mmol/L (3.5-5.1)
[2024-11-02] MEDS: D50W ABBOJECT SYR IV ONE ×2 (03:30→12:44)
[2024-11-02] MEDS: NS 500 ML IV 500 ML IV ONE (03:41)
[2024-11-02] MEDS: K-RIDER 10 MEQ/100 ML WATER 10 MEQ/100 ML BAG IV ONE ×2 (03:42→04:56)
[2024-11-02] MEDS: MAGNESIUM SULFATE 1 GRAM/100 mL PREMIX 1 G/100 ML BAG IV SCH (03:42)
--- NOTE | 2024-11-02 04:09 | CT ---
PROCEDURE: Ct Chest without IV Contrast. HISTORY: Fall with left-sided pain. TECHNIQUE: Axial images were performed through the chest without the administration of IV contrast wi th multiplanar reformations . Dose reduction techniques including Automated Exposure Control (AEC) an d adjustment of mA and kV were utilized. COMPARISON: None. TECHNICAL QUALITY: Satisfactory. FINDINGS: Mild athero sclerotic calcifications thoracic aorta with no aneurysm or vascular trauma. No hemomediastinum or pneumomediastinum. Normal-sized heart with no pericardial fluid. Diffuse coronary artery calcifications. Some scar versus atelectasis both lung bases. No pulmonary contusion, hemothorax, or pneumothorax. Visualized upper abdomen shows no solid organ trauma. Small amount of ascites adjacent to the liver laterally. Multiple small bilateral renal cortical cysts with some appearing hemorrhagic. Previous cholecystectomy. No acute bony abnormality. IMPRESSION: 1. No posttraumatic change identified. 2. Diffuse coronary artery calcifications. 3. Some scar versus atelectasis lung bases. 4. Small amount of ascites adjacent to the right lobe of the liver laterally that is appeared since p revious CTA abdomen pelvis 12/29/2021. THIS IS AN ELECTRONICALLY VERIFIED FINAL REPORT 11/02/2024 4:06 AM - Electronically signed by Gera Britton MD
--- NOTE | 2024-11-02 05:49 | RAD ---
PROCEDURE: Left Knee 3 Views. HISTORY: Patient brought in via [facility] with the C/O left shoulder, rib, and left knee from a f all at 1800pm yesterday afternoon.; HTN, DM, RENAL DISEASE, COPD, GERD, GOUT, CHF SX: [place], LEFT KNE E REPLACEMENT . TECHNIQUE: Left AP, lateral, and oblique views. COMPARISON: None. TECHNICAL QUALITY: Satisfactory. FINDINGS: Total knee arthroplasty with anatomical alignment. No joint fluid. No fracture or dislocation. Atherosclerosis posterior to the knee. IMPRESSION: 1. No acute bony abnormality. 2. Right knee arthroplasty with anatomical alignment. THIS IS AN ELECTRONICALLY VERIFIED FINAL REPORT 11/02/2024 5:46 AM - Electronically signed by Gera Britton MD
--- NOTE | 2024-11-02 05:50 | RAD ---
EXAM: Left shoulder two views HISTORY: Fall yesterday with left shoulder pain COMPARISON: None available. TECHNICAL QUALITY: Satisfactory TECHNIQUE: Left AP internal and external rotation views FINDINGS: No fracture or dislocation. Subacromial narrowing may be related to rotator cuff disease. Mild spur formation off the humeral head and at the AC joint. No soft tissue abnormality IMPRESSION: No acute bony abnormality. Osteoarthritic changes. Rotator cuff disease THIS IS AN ELECTRONICALLY VERIFIED FINAL REPORT 11/02/2024 5:47 AM - Electronically signed by Gera Britton MD
[2024-11-02 06:33] LABS: ALANINE AMINOTRANSFERASE 9 Units/L (12-78); ALBUMIN 2.4 g/dL (3.4-5.0); ALKALINE PHOSPHATASE 66 Units/L (46-116); ASPARTATE AMINO TRANSFERASE 14 Units/L (15-37); BLOOD UREA NITROGEN 76 mg/dL (7-18); CALCIUM 6.4 mg/dL (8.5-10.1); CARBON DIOXIDE 24.4 mmol/L (21-32); CHLORIDE 103 mmol/L (98-107); COR CA(FOR HYPOALB) 7.7 mg/dL (8.5-10.1); CREATININE 3.24 mg/dL (0.70-1.30); GLUCOSE 104 mg/dL (65-99); MAGNESIUM 1.5 mg/dL (2.0-2.9); POTASSIUM 3.2 mmol/L (3.5-5.1); SODIUM 139 mmol/L (136-145); TOTAL PROTEIN 5.7 g/dL (6.4-8.2); eGFR NON BLACK RACES 20 (>60)
--- NOTE | 2024-11-02 06:34 | DR.EXTPAIN ---
HPI Time seen Time Seen by Provider: 11/02/24 03:48 PCP Primary Care Physician: Sary Wong HPI Comment HPI Comment: Patient states he has been feeling a little bit weak for the last for 5 days. He states yesterday afternoon he had a fall and he hit his shoulder ribs and knee. He states he has had some diarrhea which has been improving. He was diagnosed with gout last Tuesday but feels like he is recovered from that part it is just a weakness at this point. Complaint/Symptoms Chief Complaint:: Patient brought in via [facility] with the C/O left shoulder, rib, knee from a fall at 1800pm yesterday afternoon. Patient stated that he was reaching for the light switch and lost his balance. Patinet stated that he has had increased weakness and diarrhea for the last week. Patient stated that he was dx with the FLU last Tuesday10/29/24. Self Treatment fo Chief Complaint: N/A COVID-19 Coronavirus risk:travel/contact w/high risk person: No Has patient experienced Coronavirus symptoms: No Source History Provided: Patient and EMS Mode of arrival Mode of Arrival: EMS Timing Onset of Chief Complaint: 10/29/24 PMH PMH Past Medical History: Yes Past Medical History: Arthritis, CHF, COPD, Diabetes, Dyslipidemia, GERD, Gout, Hypertension, Kidney Stones and Renal Disease Past Surgical History: Yes Surgical History: Cholecystectomy, Joint Replacement and Ortho Surgery Past Surgical History Comment: Bilateral Cateract, Bilateral Knee Replacements, Carpal Tunnel bilateral wrist. Family History History of Family Medical Conditions: Yes Family Medical History: Diabetes Mellitus, Cancer and Hypertension Social History Does patient currently use any type of tobacco product: No Have you used tobacco products in the last 12 months: No Type of Tobacco Use: None Does any household member use tobacco: No Alcohol Use: None Do you use any recreational Drugs:: No Lives With: Spouse Lives Where: Home Travel Risk Coronavirus risk:travel/contact w/high risk person: No Has patient experienced Coronavirus symptoms: No Infectious screening In the last 2 months have you had wt loss of >10#?: NO Have you had fever, night sweats or hemotysis?: No Have you traveled outside the country in the last 6 months?: No Isolation: Droplet ROS Review of Systems Constitutional: Weakness (Generalized weakness) Eyes: No Symptoms Reported ENTM: No Symptoms Reported Respiratoy: No Symptoms Reported Cardiovascular: No Symptoms Reported Gastrointestinal/Abdominal: No Symptoms Reported Genitourinary: No Symptoms Reported Neurological: No Symptoms Reported Musculoskeletal: No Symptoms Reported Integumentary: No Symptoms Reported Hematologic/Lymphatic: No Symptoms Reported Endocrine: No Symptoms Reported Psychiatric: No Symptoms Reported All Other Systems: Reviewed and Negative PE Vital Signs Vitals: Vital Signs Temperature 97.8 F Pulse Rate [Left] 65 Pulse Rate [Left] 64 Pulse Rate [Left] 68 Pulse Rate [Left] 68 Pulse Rate [Left] 67 Pulse Rate [Left] 67 Pulse Rate [Left] 66 Pulse Rate [Left] 67 Pulse Rate 64 Pulse Rate 68 Pulse Rate 69 Pulse Rate 70 Respiratory Rate 14 Respiratory Rate 14 Respiratory Rate 14 Respiratory Rate 14 Respiratory Rate 14 Respiratory Rate 17 Respiratory Rate 17 Respiratory Rate 17 Respiratory Rate 20 Blood Pressure [Right Arm] 178/80 Blood Pressure [Right Arm] 163/81 Blood Pressure [Right Arm] 156/77 Blood Pressure [Right Arm] 171/81 Blood Pressure [Right Arm] 170/79 Blood Pressure [Right Arm] 195/87 Blood Pressure [Right Arm] 189/85 Blood Pressure [Right Arm] 184/82 Blood Pressure 188/87 Blood Pressure 177/81 Blood Pressure 168/83 Blood Pressure 168/83 O2 Sat by Pulse Oximetry 97 O2 Sat by Pulse Oximetry 97 O2 Sat by Pulse Oximetry 97 O2 Sat by Pulse Oximetry 97 O2 Sat by Pulse Oximetry 97 O2 Sat by Pulse Oximetry 96 O2 Sat by Pulse Oximetry 96 O2 Sat by Pulse Oximetry 97 O2 Sat by Pulse Oximetry 95 O2 Sat by Pulse Oximetry 95 O2 Sat by Pulse Oximetry 95 O2 Sat by Pulse Oximetry 95 General Limitations: No Limitations General Appearance: Alert and In No Apparent Distress Head Head Exam: Normal Inspection Eyes Eye exam: Normal Appearance ENT ENT Exam: Normal Exam Neck Neck Exam: Normal Inspection Chest Chest Inspection: Normal Inspection Respiratory Respiratory Exam: Normal Lung Sounds Bilat Cardiovascular Cardiovascular Exam: Regular Rate and Normal Rhythm Abdominal Exam Abdominal Exam: Normal Inspection, Normal Bowel Sounds and Soft Extremities Extremities Exam: Normal Inspection Back Back Exam: Normal Inspection Neurological Neurological Exam: Alert, Oriented X3 and CN II-XII Intact Psychiatric Psychiatric Exam: Normal Affect and Normal Mood Skin Skin Exam: Warm, Dry, Intact and Normal Color COURSE Consultation Called: 07:10 Consultation Comments: Discussed case with Dr. Stovall. Patient with el ectrolyte disbalance and BNP elevated. Dr. Stovall is agreeable to admission. [facility] Labs Reviewed 11/02/24 02:38 11/02/24 06:05 Laboratory: WBC 5.2 X10^3/uL (3.6-10.0) 11/02/24 02:38 RBC 3.38 X10^6/uL (4.7-6.0) L 11/02/24 02:38 Hgb 10.3 g/dL (13.5-18.0) L 11/02/24 02:38 Hct 29.4 % (42.0-54.0) L 11/02/24 02:38 MCV 87.0 fL (80.0-100.0) 11/02/24 02:38 MCH 30.5 pg (27.0-34.0) 11/02/24 02:38 MCHC 35.0 g/dL (33.0-35.0) 11/02/24 02:38 RDW 14.9 % (11.6-16.5) 11/02/24 02:38 Plt Count 156 X10^3/uL (150.0-450.0) 11/02/24 02:38 MPV 8.3 fL (7.4-11.0) 11/02/24 02:38 Neut % (Auto) 75.1 % (42.0-75.0) H 11/02/24 02:38 Lymph % (Auto) 11.7 % (21.0-51.0) L 11/02/24 02:38 [place] % (Auto) 12.5 % (0.0-13.0) 11/02/24 02:38 Eos % (Auto) 0.3 % (0.9-2.9) L 11/02/24 02:38 Baso % (Auto) 0.4 % (0.2-1.0) 11/02/24 02:38 Neut # (Auto) 3.9 x10^3/uL (2.2-4.8) 11/02/24 02:38 Lymph # (Auto) 0.6 X10^3/uL (1.3-2.9) L 11/02/24 02:38 [place] # (Auto) 0.7 x10^3/uL (0.3-0.8) 11/02/24 02:38 Eos # (Auto) 0.0 x10^3/uL (0.0-0.2) 11/02/24 02:38 Baso # (Auto) 0.0 X10^3/uL (0.0-0.1) 11/02/24 02:38 Absolute Nucleated RBC 0.1 /100WBC 11/02/24 02:38 Sodium 139 mmol/L (136-145) 11/02/24 06:05 Corrected Sodium TNP 11/02/24 06:05 Potassium 3.2 mmol/L (3.5-5.1) L 11/02/24 06:05 Chloride 103 mmol/L (98-107) 11/02/24 06:05 Carbon Dioxide 24.4 mmol/L (21-32) 11/02/24 06:05 BUN 76 mg/dL (7-18) H 11/02/24 06:05 Creatinine 3.24 mg/dL (0.70-1.30) H 11/02/24 06:05 Est GFR (MDRD) Af Amer 24 (>60) L 11/02/24 06:05 Est GFR (MDRD) Non-Af 20 (>60) L 11/02/24 06:05 Glucose 104 mg/dL (65-99) H 11/02/24 06:05 POC Glucose (mg/dL) 96 mg/dL (65-99) 11/02/24 05:18 Lactic Acid 0.7 mmol/L (0.4-2.0) 11/02/24 03:40 Calcium 6.4 mg/dL (8.5-10.1) L 11/02/24 06:05 Corrected Calcium 7.7 mg/dL (8.5-10.1) L 11/02/24 06:05 Magnesium 1.5 mg/dL (2.0-2.9) L 11/02/24 06:05 Total Bilirubin 0.40 mg/dL (0.2-1.0) 11/02/24 06:05 AST 14 Units/L (15-37) L 11/02/24 06:05 ALT 9 Units/L (12-78) L 11/02/24 06:05 Alkaline Phosphatase 66 Units/L (46-116) 11/02/24 06:05 B-Natriuretic Peptide 971 pg/mL (0-79) H 11/02/24 03:40 Total Protein 5.7 g/dL (6.4-8.2) L 11/02/24 06:05 Albumin 2.4 g/dL (3.4-5.0) L 11/02/24 06:05 Globulin 3.3 g/dL (2.5-4.5) 11/02/24 06:05 Albumin/Globulin Ratio 0.7 Ratio (1.1-2.1) L 11/02/24 06:05 SARS-CoV-2 (PCR) Negative (NEGATIVE) 11/02/24 02:17 Influenza Type A (PCR) Negative (NEGATIVE) 11/02/24 02:17 Influenza Type B (PCR) Negative (NEGATIVE) 11/02/24 02:17 RSV (PCR) Negative (NEGATIVE) 11/02/24 02:17 Opioid Opioid Risk Tool Age (Petr box if 16-45): No History of Preadolescent Sexual Abuse: No Total: 0 Total Score Risk Category: Low Risk Copyright: Sujit SIM predicting aberrant behaviors Discharge Plan Diagnosis Discharge Problem: CHF (congestive heart failure), Hypomagnesemia, Hypokalemia Discharge Plan Patient Disposition: 09 ADMITTED INPATIENT Condition: Stable Prescriptions: No Action isosorbide mononitrate 30 mg tablet extended release 24 hr 30 mg PO QAM torsemide 20 mg tablet 20 mg PO BID glimepiride 4 mg tablet 4 mg PO QDAY dapagliflozin propanediol [Farxiga] 10 mg tablet 10 mg PO QDAY hydralazine 50 mg tablet 25 mg PO BID Entresto 49-51 mg tablet 1 tab PO BID Qty: 60 12RF aspirin 81 mg Tablet,Delayed Release (Dr/Ec) 81 mg PO QPM atorvastatin 40 mg tablet 40 mg PO QPM carvedilol 25 mg tablet 25 mg PO BID famotidine 40 mg tablet 40 mg PO QAM omeprazole 40 mg capsule,delayed release(DR/EC) 40 mg PO QAM docusate sodium 100 mg Tablet 100 mg PO BID PRN diphenoxylate-atropine 2.5-0.025 mg tablet 1 tab PO Q6H ondansetron 4 mg tablet,disintegrating 4 mg PO Q6H PRN tizanidine 4 mg tablet 4 mg PO QPM Health Concerns: Post Hospitalization: new medications and changes needed to prevent readmission or further decline. Pt educated and given instructions on all concerns. Plan of Treatment: Continue with present treatment and follow up plan. Pt is to keep follow up appointment as instructed and take medications as ordered. Orders to Discharge Patient Discharge Orders: Transfer (Routine); Ordered 11/02/24 Ordered By: Magno Bravo Follow ups/Referrals Follow ups/Referrals: CLARA WONG [Primary Care Provider] - 3 days Instructions Stand Alone Forms: Find Help Web Site, Post Hospital Follow Up Care
[2024-11-02] MEDS ORDERED: ZOFRAN ODT PO PRN (07:54)
[2024-11-02] MEDS: CONSULT PHARMACY - POTASSIUM & MAGNESIUM XX SCH (08:07)
[2024-11-02] MEDS: D50W ABBOJECT SYR ONE (08:07)
[2024-11-02] MEDS: COREG TAB 25 MG PO SCH (09:52)
[2024-11-02] MEDS: PEPCID TAB 20 MG PO SCH (09:52)
[2024-11-02] MEDS: AMARYL TAB 4 MG PO SCH (09:52)
[2024-11-02] MEDS: APRESOLINE TAB 25 MG PO SCH (09:52)
[2024-11-02] MEDS: ENTRESTO 49/51 MG TABLET PO SCH (09:52)
[2024-11-02] MEDS: IMDUR PO SCH (09:52)
[2024-11-02] MEDS: NS 1,000 ML IV 1,000 ML IV SCH (09:52)
[2024-11-02] MEDS: NORCO 5/325 MG TAB PO PRN (09:57)
[2024-11-02 12:23] LABS: ALANINE AMINOTRANSFERASE 9 Units/L (12-78); ALBUMIN 2.3 g/dL (3.4-5.0); ALKALINE PHOSPHATASE 65 Units/L (46-116); ASPARTATE AMINO TRANSFERASE 14 Units/L (15-37); BLOOD UREA NITROGEN 75 mg/dL (7-18); CALCIUM 6.3 mg/dL (8.5-10.1); CARBON DIOXIDE 25.2 mmol/L (21-32); CHLORIDE 104 mmol/L (98-107); COR CA(FOR HYPOALB) 7.7 mg/dL (8.5-10.1); CREATININE 3.08 mg/dL (0.70-1.30); SODIUM 139 mmol/L (136-145); TOTAL PROTEIN 5.4 g/dL (6.4-8.2); eGFR NON BLACK RACES 21 (>60)
[2024-11-02 12:26] LABS: GLUCOSE 44 mg/dL (65-99)
[2024-11-02] MEDS: NS + KCL 40 MEQ/L 1,000 ML with MAGNESIUM SULFATE 50% INJ VIAL 1 G IV SCH (13:05)
[2024-11-02] MEDS ORDERED: ZOFRAN INJ 4 MG VIAL ONE (16:07)
[2024-11-02] MEDS: ZOFRAN INJ 4 MG VIAL IVP PRN (16:10)
--- NOTE | 2024-11-02 17:26 | DR.H&P ---
H&P History & Physical for Day of: H&P Date: 11/02/24 Chief Complaint Chief Complaint: generalized weakness History of Present Illness History of Present Illness: Mr Wells is a 73y/o male with a PMH of CHF, CAD, DM, HTN, HLD, CKD presented with worsening weakness. ER work up showed low K and Mag. He has a hx of severe CHF. He was admitted for electrolytes replacement and PT. Labs/imaging reviewed Na 139 K 3.2 Mag 1.5 Cr: 3.24 Plan: replace electrolytes as per protocol. Monitor fluid balance and signs of fluid overload. Resume home meds. Monitor vitals. Monitor AM labs/imaging. PT/OT as tolerated. Past Medical History Past Medical History: Arthritis, CHF, COPD, Diabetes, Dyslipidemia, GERD, Gout, Hypertension, Kidney Stones and Renal Disease Past Surgical History Surgical History: Cholecystectomy, Joint Replacement and Ortho Surgery Family History Family Medical History: Diabetes Mellitus, Cancer and Hypertension Social History Does patient currently use any type of tobacco product: No Have you used tobacco products in the last 12 months: No Type of Tobacco Use: None Does any household member use tobacco: No Alcohol Use: None Drug Use: None Medications Home Medications: Home Medications Medication Instructions Recorded Confirmed Type aspirin 81 mg tablet,delayed 81 mg PO QPM 05/30/23 11/02/24 History release atorvastatin 40 mg tablet 40 mg PO QPM 09/29/23 11/02/24 History carvedilol 25 mg tablet 25 mg PO BID 09/29/23 11/02/24 History famotidine 40 mg tablet 40 mg PO QAM 09/29/23 11/02/24 History omeprazole 40 mg capsule,delayed 40 mg PO QAM 09/29/23 11/02/24 History release isosorbide mononitrate 30 mg 30 mg PO QAM 10/17/23 11/02/24 History tablet,extended release 24 hr docusate sodium 100 mg tablet 100 mg PO BID PRN 11/02/23 11/02/24 History torsemide 20 mg tablet 20 mg PO BID 04/03/24 11/02/24 History dapagliflozin propanediol 10 mg 10 mg PO QDAY 08/13/24 11/02/24 History tablet (Farxiga) glimepiride 4 mg tablet 4 mg PO QDAY 08/13/24 11/02/24 History hydralazine 50 mg tablet 25 mg PO BID 10/15/24 11/02/24 History diphenoxylate-atropine 2.5 1 tab PO Q6H 11/02/24 11/02/24 History mg-0.025 mg tablet ondansetron 4 mg disintegrating 4 mg PO Q6H PRN 11/02/24 11/02/24 History tablet tizanidine 4 mg tablet 4 mg PO QPM 11/02/24 11/02/24 History Allergies Allergies Allergy/AdvReac Type Severity Reaction Status Date / Time No Known Drug Allergies Allergy Verified 11/02/24 03:10 Labs 11/02/24 02:38 11/02/24 11:59 Labs: Laboratory WBC 5.2 X10^3/uL (3.6-10.0) 11/02/24 02:38 RBC 3.38 X10^6/uL (4.7-6.0) L 11/02/24 02:38 Hgb 10.3 g/dL (13.5-18.0) L 11/02/24 02:38 Hct 29.4 % (42.0-54.0) L 11/02/24 02:38 MCV 87.0 fL (80.0-100.0) 11/02/24 02:38 MCH 30.5 pg (27.0-34.0) 11/02/24 02:38 MCHC 35.0 g/dL (33.0-35.0) 11/02/24 02:38 RDW 14.9 % (11.6-16.5) 11/02/24 02:38 Plt Count 156 X10^3/uL (150.0-450.0) 11/02/24 02:38 MPV 8.3 fL (7.4-11.0) 11/02/24 02:38 Neut % (Auto) 75.1 % (42.0-75.0) H 11/02/24 02:38 Lymph % (Auto) 11.7 % (21.0-51.0) L 11/02/24 02:38 [place] % (Auto) 12.5 % (0.0-13.0) 11/02/24 02:38 Eos % (Auto) 0.3 % (0.9-2.9) L 11/02/24 02:38 Baso % (Auto) 0.4 % (0.2-1.0) 11/02/24 02:38 Neut # (Auto) 3.9 x10^3/uL (2.2-4.8) 11/02/24 02:38 Lymph # (Auto) 0.6 X10^3/uL (1.3-2.9) L 11/02/24 02:38 [place] # (Auto) 0.7 x10^3/uL (0.3-0.8) 11/02/24 02:38 Eos # (Auto) 0.0 x10^3/uL (0.0-0.2) 11/02/24 02:38 Baso # (Auto) 0.0 X10^3/uL (0.0-0.1) 11/02/24 02:38 Absolute Nucleated RBC 0.1 /100WBC 11/02/24 02:38 Sodium 139 mmol/L (136-145) 11/02/24 11:59 Corrected Sodium TNP 11/02/24 11:59 Potassium 3.0 mmol/L (3.5-5.1) L 11/02/24 11:59 Chloride 104 mmol/L (98-107) 11/02/24 11:59 Carbon Dioxide 25.2 mmol/L (21-32) 11/02/24 11:59 BUN 75 mg/dL (7-18) H 11/02/24 11:59 Creatinine 3.08 mg/dL (0.70-1.30) H 11/02/24 11:59 Est GFR (MDRD) Af Amer 26 (>60) L 11/02/24 11:59 Est GFR (MDRD) Non-Af 21 (>60) L 11/02/24 11:59 Glucose 44 mg/dL (65-99) L* 11/02/24 11:59 POC Glucose (mg/dL) 137 mg/dL (65-99) H 11/02/24 13:01 Lactic Acid 0.7 mmol/L (0.4-2.0) 11/02/24 03:40 Calcium 6.3 mg/dL (8.5-10.1) L 11/02/24 11:59 Corrected Calcium 7.7 mg/dL (8.5-10.1) L 11/02/24 11:59 Magnesium 1.3 mg/dL (2.0-2.9) L 11/02/24 11:59 Total Bilirubin 0.40 mg/dL (0.2-1.0) 11/02/24 11:59 AST 14 Units/L (15-37) L 11/02/24 11:59 ALT 9 Units/L (12-78) L 11/02/24 11:59 Alkaline Phosphatase 65 Units/L (46-116) 11/02/24 11:59 B-Natriuretic Peptide 971 pg/mL (0-79) H 11/02/24 03:40 Total Protein 5.4 g/dL (6.4-8.2) L 11/02/24 11:59 Albumin 2.3 g/dL (3.4-5.0) L 11/02/24 11:59 Globulin 3.1 g/dL (2.5-4.5) 11/02/24 11:59 Albumin/Globulin Ratio 0.7 Ratio (1.1-2.1) L 11/02/24 11:59 SARS-CoV-2 (PCR) Negative (NEGATIVE) 11/02/24 02:17 Influenza Type A (PCR) Negative (NEGATIVE) 11/02/24 02:17 Influenza Type B (PCR) Negative (NEGATIVE) 11/02/24 02:17 RSV (PCR) Negative (NEGATIVE) 11/02/24 02:17 Review of Systems Constitutional: Weakness Eyes: No Symptoms Reported Respiratory: Shortness of Breath Cardiovascular: No Symptoms Reported Gastrointestinal: No Symptoms Reported Genitourinary: No Symptoms Reported Musculoskeletal: No Symptoms Reported Skin: No Symptoms Reported Neurological: No Symptoms Reported Physical Exam Vital Signs: Vital Signs Temperature 97.8 F Temperature 97.9 F Pulse Rate 53 Pulse Rate 68 Respiratory Rate 14 Respiratory Rate 16 Respiratory Rate 12 Respiratory Rate 16 Blood Pressure 98/55 Blood Pressure 116/61 O2 Sat by Pulse Oximetry 97 O2 Sat by Pulse Oximetry 97 Oriented: Normal Respiratory: Diminished Throughout Cardiovascular: Normal Auscultation: Bowel Sounds: Normal Palpation: Normal Tenderness: Normal Skin: Normal Musculoskeletal: Normal Psychiatric: Normal Mood Description: Calm Affect: Normal Speech Pattern: Clear and Appropriate Assessment/Plan (1) Hypomagnesemia: Status: Acute (2) Hypokalemia: Status: Acute (3) CAD (coronary artery disease): Qualifiers: Coronary Disease-Associated Artery/Lesion type: unspecified vessel or lesion type Associated angina: unspecified whether angina present Status: Chronic (4) Cardiomyopathy: Status: Chronic (5) Renal insufficiency: Status: Acute Review H&P Reviewed: Yes Patient was examined?: Yes
[2024-11-02] MEDS: SNACK - Diabetic Appropriate PO SCH (20:28)
[2024-11-02] MEDS: LIPITOR TAB 40 MG PO SCH (20:52)
[2024-11-02] MEDS: DEMADEX PO SCH (20:52)
[2024-11-02] MEDS: ASPIRIN EC 81 MG PO SCH (20:52)
[2024-11-02] MEDS: ZANAFLEX PO SCH (20:53)
[2024-11-03] MEDS: D50W ABBOJECT SYR IV ONE (05:19)
[2024-11-03 05:36] LABS: BASOPHILS % (AUTO) 0.8 % (0.2-1.0); EOSINOPHILS # (AUTO) 0.2 x10^3/uL (0.0-0.2); EOSINOPHILS % (AUTO) 4.2 % (0.9-2.9); HEMOGLOBIN 9.3 g/dL (13.5-18.0); LYMPHOCYTES # (AUTO) 1.1 X10^3/uL (1.3-2.9); LYMPHOCYTES % (AUTO) 28.5 % (21.0-51.0); MEAN CORPUSCULAR HEMOGLOBIN 30.1 pg (27.0-34.0); MEAN CORPUSCULAR HGB CONC 34.4 g/dL (33.0-35.0); MEAN CORPUSCULAR VOLUME 87.5 fL (80.0-100.0); MONOCYTES # (AUTO) 0.7 x10^3/uL (0.3-0.8); MONOCYTES % (AUTO) 16.9 % (0.0-13.0); NEUTROPHILS # (AUTO) 1.9 x10^3/uL (2.2-4.8); NEUTROPHILS % (AUTO) 49.6 % (42.0-75.0); PLATELET COUNT 160 X10^3/uL (150.0-450.0); RED BLOOD COUNT 3.09 X10^6/uL (4.7-6.0); RED CELL DISTRIBUTION WIDTH 15.2 % (11.6-16.5); WHITE BLOOD COUNT 3.9 X10^3/uL (3.6-10.0)
[2024-11-03 05:49] LABS: ALANINE AMINOTRANSFERASE 10 Units/L (12-78); ALBUMIN 2.2 g/dL (3.4-5.0); ALKALINE PHOSPHATASE 66 Units/L (46-116); ASPARTATE AMINO TRANSFERASE 9 Units/L (15-37); BLOOD UREA NITROGEN 81 mg/dL (7-18); CALCIUM 6.5 mg/dL (8.5-10.1); CARBON DIOXIDE 22.9 mmol/L (21-32); CHLORIDE 104 mmol/L (98-107); COR CA(FOR HYPOALB) 7.9 mg/dL (8.5-10.1); CREATININE 3.23 mg/dL (0.70-1.30); GLUCOSE 60 mg/dL (65-99); MAGNESIUM 1.5 mg/dL (2.0-2.9); POTASSIUM 3.5 mmol/L (3.5-5.1); SODIUM 139 mmol/L (136-145); TOTAL PROTEIN 5.4 g/dL (6.4-8.2); eGFR NON BLACK RACES 20 (>60)
[2024-11-03] MEDS: MAG-OX TAB PO SCH (10:22)
[2024-11-03] MEDS: KLOR-CON 10 MEQ TAB PO SCH (10:22)
[2024-11-03 10:51] VITALS: BP 128/60; PULSE 58; TEMP 98.9; O2SAT 95
[2024-11-03 12:38] VITALS: RESP 12
[2024-11-03 12:53] VITALS: BMI 34.8
[2024-11-03] MEDS: CONSULT PHARMACY - POTASSIUM & MAGNESIUM XX SCH (16:35)
--- NOTE | 2024-11-06 13:05 | W.DIS.FURT ---
Summary of Discharge Discharge Summary of Date Date of Exam: 11/03/24 Admission Date Date of Admission: 11/02/24 Admission Diagnosis Patient Problems (Updated 11/05/24 @ 11:29 by Cindy Ng MD) Hypomagnesemia (Acute) E83.42 Hypokalemia (Acute) E87.6 CHF (congestive heart failure) (Acute) I50.9 Hospital Course: Patient is a 73y/o male with a PMH of CHF, CAD, DM, HTN, HLD, CKD admitted for electrolytes abnormalities. Electrolytes were replaced as per protocol. Patient responded well to treatments. He was discharged in stable condition, instructed to follow up with pcp in 1 week. Vital Signs: Vital Signs (72 hours) 11/02/24 02:08 11/02/24 02:09 11/02/24 02:30 Temperature 97.8 F Pulse Rate 70 69 68 Pulse Rate [Left] Respiratory Rate 20 Blood Pressure 168/83 168/83 177/81 Blood Pressure [Right Arm] O2 Sat by Pulse Oximetry 95 95 95 Oxygen Delivery Method Room Air Room Air Room Air 11/02/24 03:00 11/02/24 03:15 11/02/24 03:30 Temperature Pulse Rate 64 Pulse Rate [Left] 67 66 Respiratory Rate 17 17 Blood Pressure 188/87 Blood Pressure [Right Arm] 184/82 189/85 O2 Sat by Pulse Oximetry 95 97 96 Oxygen Delivery Method Room Air Room Air Room Air 11/02/24 04:00 11/02/24 04:30 11/02/24 05:00 Temperature Pulse Rate Pulse Rate [Left] 67 67 68 Respiratory Rate 17 14 14 Blood Pressure Blood Pressure [Right Arm] 195/87 170/79 171/81 O2 Sat by Pulse Oximetry 96 97 97 Oxygen Delivery Method Room Air Room Air Room Air 11/02/24 05:30 11/02/24 06:00 11/02/24 06:30 Temperature Pulse Rate Pulse Rate [Left] 68 64 65 Respiratory Rate 14 14 14 Blood Pressure Blood Pressure [Right Arm] 156/77 163/81 178/80 O2 Sat by Pulse Oximetry 97 97 97 Oxygen Delivery Method Room Air Room Air Room Air 11/02/24 09:57 11/02/24 10:57 11/02/24 08:00 Temperature 97.7 F Pulse Rate 76 Pulse Rate [Left] Respiratory Rate 16 12 19 Blood Pressure 181/86 Blood Pressure [Right Arm] O2 Sat by Pulse Oximetry 95 Oxygen Delivery Method Room Air 11/02/24 12:00 11/02/24 08:35 11/02/24 16:00 Temperature 97.9 F 97.8 F Pulse Rate 68 53 L Pulse Rate [Left] Respiratory Rate 16 14 Blood Pressure 116/61 98/55 Blood Pressure [Right Arm] O2 Sat by Pulse Oximetry 97 97 Oxygen Delivery Method Room Air Room Air Room Air 11/02/24 19:00 11/02/24 19:15 11/02/24 19:21 Temperature Pulse Rate 54 L 49 L Pulse Rate [Left] Respiratory Rate 18 16 Blood Pressure 101/56 Blood Pressure [Right Arm] O2 Sat by Pulse Oximetry 96 95 Oxygen Delivery Method 11/02/24 19:21 11/02/24 20:00 11/02/24 20:00 Temperature 97.8 F Pulse Rate 54 L 52 L Pulse Rate [Left] Respiratory Rate 13 13 Blood Pressure 109/58 Blood Pressure [Right Arm] O2 Sat by Pulse Oximetry 96 97 Oxygen Delivery Method 11/02/24 20:18 11/02/24 19:00 11/02/24 19:55 Temperature Pulse Rate 57 L Pulse Rate [Left] Respiratory Rate 13 Blood Pressure Blood Pressure [Right Arm] O2 Sat by Pulse Oximetry 95 Oxygen Delivery Method Room Air 11/02/24 21:18 11/02/24 21:00 11/02/24 22:00 Temperature Pulse Rate 67 56 L Pulse Rate [Left] Respiratory Rate 12 27 H 16 Blood Pressure Blood Pressure [Right Arm] O2 Sat by Pulse Oximetry 95 96 Oxygen Delivery Method 11/02/24 23:00 11/03/24 00:00 11/03/24 00:01 Temperature 97.9 F Pulse Rate 54 L 55 L Pulse Rate [Left] Respiratory Rate 17 12 Blood Pressure 129/60 Blood Pressure [Right Arm] O2 Sat by Pulse Oximetry 95 95 Oxygen Delivery Method 11/03/24 01:00 11/03/24 02:00 11/03/24 02:00 Temperature Pulse Rate 56 L 57 L Pulse Rate [Left] Respiratory Rate 12 12 Blood Pressure 131/63 Blood Pressure [Right Arm] O2 Sat by Pulse Oximetry 95 94 L Oxygen Delivery Method 11/03/24 03:00 11/03/24 04:00 11/03/24 04:00 Temperature 98.0 F Pulse Rate 55 L 55 L Pulse Rate [Left] Respiratory Rate 10 L 10 L Blood Pressure 117/56 Blood Pressure [Right Arm] O2 Sat by Pulse Oximetry 94 L 94 L Oxygen Delivery Method 11/03/24 05:00 11/03/24 10:22 11/03/24 07:00 Temperature Pulse Rate 59 L 53 L Pulse Rate [Left] Respiratory Rate 12 16 13 Blood Pressure Blood Pressure [Right Arm] O2 Sat by Pulse Oximetry 93 L 95 Oxygen Delivery Method 11/03/24 08:00 11/03/24 08:00 11/03/24 08:00 Temperature 98.9 F Pulse Rate 69 Pulse Rate [Left] Respiratory Rate 22 Blood Pressure 121/58 121/58 Blood Pressure [Right Arm] O2 Sat by Pulse Oximetry 95 Oxygen Delivery Method 11/03/24 09:00 11/03/24 10:00 11/03/24 10:10 Temperature Pulse Rate 57 L 58 L Pulse Rate [Left] Respiratory Rate 15 17 Blood Pressure 128/60 Blood Pressure [Right Arm] O2 Sat by Pulse Oximetry 96 96 Oxygen Delivery Method 11/03/24 10:10 11/03/24 10:10 Temperature Pulse Rate 58 L Pulse Rate [Left] Respiratory Rate 16 Blood Pressure 128/60 Blood Pressure [Right Arm] O2 Sat by Pulse Oximetry 95 Oxygen Delivery Method Labs: Laboratory Last Values WBC 3.9 X10^3/uL (3.6-10.0) 11/03/24 04:21 RBC 3.09 X10^6/uL (4.7-6.0) L 11/03/24 04:21 Hgb 9.3 g/dL (13.5-18.0) L 11/03/24 04:21 Hct 27.0 % (42.0-54.0) L 11/03/24 04:21 MCV 87.5 fL (80.0-100.0) 11/03/24 04:21 MCH 30.1 pg (27.0-34.0) 11/03/24 04:21 MCHC 34.4 g/dL (33.0-35.0) 11/03/24 04:21 RDW 15.2 % (11.6-16.5) 11/03/24 04:21 Plt Count 160 X10^3/uL (150.0-450.0) 11/03/24 04:21 MPV 9.0 fL (7.4-11.0) 11/03/24 04:21 Neut % (Auto) 49.6 % (42.0-75.0) 11/03/24 04:21 Lymph % (Auto) 28.5 % (21.0-51.0) 11/03/24 04:21 [place]ha % (Auto) 16.9 % (0.0-13.0) H 11/03/24 04:21 Eos % (Auto) 4.2 % (0.9-2.9) H 11/03/24 04:21 Baso % (Auto) 0.8 % (0.2-1.0) 11/03/24 04:21 Neut # (Auto) 1.9 x10^3/uL (2.2-4.8) L 11/03/24 04:21 Lymph # (Auto) 1.1 X10^3/uL (1.3-2.9) L 11/03/24 04:21 [place] # (Auto) 0.7 x10^3/uL (0.3-0.8) 11/03/24 04:21 Eos # (Auto) 0.2 x10^3/uL (0.0-0.2) 11/03/24 04:21 Baso # (Auto) 0.0 X10^3/uL (0.0-0.1) 11/03/24 04:21 Absolute Nucleated RBC 0.0 /100WBC 11/03/24 04:21 Sodium 139 mmol/L (136-145) 11/03/24 04:21 Corrected Sodium TNP 11/03/24 04:21 Potassium 3.5 mmol/L (3.5-5.1) 11/03/24 04:21 Chloride 104 mmol/L (98-107) 11/03/24 04:21 Carbon Dioxide 22.9 mmol/L (21-32) 11/03/24 04:21 BUN 81 mg/dL (7-18) H 11/03/24 04:21 Creatinine 3.23 mg/dL (0.70-1.30) H 11/03/24 04:21 Est GFR (MDRD) Af Amer 24 (>60) L 11/03/24 04:21 Est GFR (MDRD) Non-Af 20 (>60) L 11/03/24 04:21 Glucose 60 mg/dL (65-99) L 11/03/24 04:21 POC Glucose (mg/dL) 84 mg/dL (65-99) 11/03/24 11:13 Lactic Acid 0.7 mmol/L (0.4-2.0) 11/02/24 03:40 Calcium 6.5 mg/dL (8.5-10.1) L 11/03/24 04:21 Corrected Calcium 7.9 mg/dL (8.5-10.1) L 11/03/24 04:21 Magnesium 1.5 mg/dL (2.0-2.9) L 11/03/24 04:21 Total Bilirubin 0.40 mg/dL (0.2-1.0) 11/03/24 04:21 AST 9 Units/L (15-37) L 11/03/24 04:21 ALT 10 Units/L (12-78) L 11/03/24 04:21 Alkaline Phosphatase 66 Units/L (46-116) 11/03/24 04:21 B-Natriuretic Peptide 971 pg/mL (0-79) H 11/02/24 03:40 Total Protein 5.4 g/dL (6.4-8.2) L 11/03/24 04:21 Albumin 2.2 g/dL (3.4-5.0) L 11/03/24 04:21 Globulin 3.2 g/dL (2.5-4.5) 11/03/24 04:21 Albumin/Globulin Ratio 0.7 Ratio (1.1-2.1) L 11/03/24 04:21 SARS-CoV-2 (PCR) Negative (NEGATIVE) 11/02/24 02:17 Influenza Type A (PCR) Negative (NEGATIVE) 11/02/24 02:17 Influenza Type B (PCR) Negative (NEGATIVE) 11/02/24 02:17 RSV (PCR) Negative (NEGATIVE) 11/02/24 02:17 Reason For Visit: CHF EXACERBATION, HYPOKALEMIA, HYPOMAGNESEMIA Discharge Date Discharge Date: 11/03/24 Discharge Diagnosis All Active Problems (Updated 11/05/24 @ 11:29 by Cindy Ng MD) CKD (chronic kidney disease) (Chronic) ZITA (obstructive sleep apnea) (Chronic) Physical deconditioning (Acute) Generalized weakness (Acute) Hypomagnesemia (Acute) Hypokalemia (Acute) Acute hyperkalemia (Acute) Hyperkalemia (Acute) CAD (coronary artery disease) (Chronic) Acute exacerbation of CHF (congestive heart failure) (Acute) Chest pain (Acute) Ventricular tachycardia (paroxysmal) (Acute) Acute exacerbation of CHF (congestive heart failure) (Acute) Fall (Acute) Closed rib fracture (Acute) Fracture of lumbar spine (Acute) Hematoma (Acute) Cardiomyopathy (Chronic) Syncope (Acute) Renal insufficiency (Acute) Left upper extremity swelling (Acute) Left upper limb pain (Acute) Edema (Acute) Elevated blood uric acid level (Acute) CHF (congestive heart failure) (Acute) HTN (hypertension) (Chronic) COPD (chronic obstructive pulmonary disease) (Chronic) Hypertension (Acute) COPD (chronic obstructive pulmonary disease) (Acute) Pre-syncope (Acute) GERD (gastroesophageal reflux disease) (Chronic) Type 2 diabetes mellitus (Chronic) History of cholecystectomy (Acute) Acute on chronic renal failure (Acute) Acute hypotension (Acute) Acute dehydration (Acute) Plan of Treatment: Continue with present treatment and follow up plan. Pt is to keep follow up appointment as instructed and take medications as ordered. Discharge Medications Discharge Medications: No Known Drug Allergies Allergy (Verified 11/02/24 03:10) CONTINUE taking the following medications diphenoxylate-atropine 2.5 mg-0.025 mg tablet 1 tab PO Q6H 11/02/24 [History] ondansetron 4 mg disintegrating tablet 4 mg PO Q6H PRN 11/02/24 [History] tizanidine 4 mg tablet 4 mg PO QPM 11/02/24 [History] Discharge Plan Discharge Plan Hospital Course: Patient is a 73y/o male with a PMH of CHF, CAD, DM, HTN, HLD, CKD admitted for electrolytes abnormalities. Electrolytes were replaced as per protocol. Patient responded well to treatments. He was discharged in stable condition, instructed to follow up with pcp in 1 week. Patient Disposition: 01 HOME, SELF-CARE Condition: Stable Health Concerns: Post Hospitalization: new medications and changes needed to prevent readmission or further decline. Pt educated and given instructions on all concerns. Plan of Treatment: Continue with present treatment and follow up plan. Pt is to keep follow up appointment as instructed and take medications as ordered. Prescriptions: New Magnesium (oxide/AA chelate) 300 mg Capsule 2 cap PO 2XD Qty: 6 0RF Rx Instructions: Take 2 caps (600 mg) twice a day for 3 days Continued isosorbide mononitrate 30 mg tablet extended release 24 hr 30 mg PO QAM torsemide 20 mg tablet 20 mg PO BID glimepiride 4 mg tablet 4 mg PO QDAY dapagliflozin propanediol [Farxiga] 10 mg tablet 10 mg PO QDAY hydralazine 50 mg tablet 25 mg PO BID Entresto 49-51 mg tablet 1 tab PO BID Qty: 60 12RF aspirin 81 mg Tablet,Delayed Release (Dr/Ec) 81 mg PO QPM atorvastatin 40 mg tablet 40 mg PO QPM carvedilol 25 mg tablet 25 mg PO BID famotidine 40 mg tablet 40 mg PO QAM omeprazole 40 mg capsule,delayed release(DR/EC) 40 mg PO QAM docusate sodium 100 mg Tablet 100 mg PO BID PRN diphenoxylate-atropine 2.5-0.025 mg tablet 1 tab PO Q6H ondansetron 4 mg tablet,disintegrating 4 mg PO Q6H PRN tizanidine 4 mg tablet 4 mg PO QPM Orders to Discharge Patient Discharge Orders: Discharge (Routine); Ordered 11/03/24 Ordered By: David Stovall Follow ups/Referrals Follow ups/Referrals: CLARA HARDEN [Primary Care Provider] - 3 days Instructions Instructions: Fall Prevention in the Home, Adult, [id number], Hypomagnesemia, Hypokalemia, Chronic Kidney Disease, Adult, Dehydration, Older Adult, [id number], Acute Pain, Adult Stand Alone Forms: Excuse From Work or School, Find Help Web Site, Post Hospital Follow Up Care
== END 2024-11-03 15:00 | disposition home or self-care (01) ==
LOC: ICU 01:59 → ER 01:59 → ICU 08:21
PROVIDERS: ADMIT Family Medicine; ATTEND Family Medicine
DX: N18.9 Chronic kidney disease, unspecified; M25.512 Pain in left shoulder; I42.9 Cardiomyopathy, unspecified; R53.1 Weakness; Z03.818 Encounter for observation for suspected exposure to other biological agents ruled out; I25.10 Atherosclerotic heart disease of native coronary artery without angina pectoris; E83.42 Hypomagnesemia; I50.9 Heart failure, unspecified; I13.0 Hypertensive heart and chronic kidney disease with heart failure and stage 1 through stage 4 chronic kidney disease, or unspecified chronic kidney disease; M25.562 Pain in left knee; W18.39XA Other fall on same level, initial encounter; N17.8 Other acute kidney failure; E87.6 Hypokalemia

== ENCOUNTER 2024-11-03 17:24 | Inpatient (IN) ==
--- NOTE | 2024-11-03 17:37 | DR.EXTPAIN ---
HPI Time seen Time Seen by Provider: 11/03/24 17:36 PMH PMH Past Medical History: Arthritis, CHF, COPD, Diabetes, Dyslipidemia, GERD, Gout, Hypertension, Kidney Stones and Renal Disease Past Surgical History: Yes Surgical History: Cholecystectomy, Joint Replacement and Ortho Surgery Family History Family Medical History: Diabetes Mellitus, Cancer and Hypertension Social History Do you use any recreational Drugs:: No PE Vital Signs Vitals: Vital Signs Temperature 97.3 F Pulse Rate 80 Pulse Rate 77 Pulse Rate 74 Pulse Rate 75 Pulse Rate 73 Pulse Rate 72 Respiratory Rate 20 Respiratory Rate 20 Respiratory Rate 20 Respiratory Rate 20 Respiratory Rate 18 Respiratory Rate 18 Blood Pressure 141/76 Blood Pressure 137/70 Blood Pressure 137/67 Blood Pressure 138/71 Blood Pressure 152/69 Blood Pressure 140/72 O2 Sat by Pulse Oximetry 96 O2 Sat by Pulse Oximetry 97 O2 Sat by Pulse Oximetry 98 O2 Sat by Pulse Oximetry 97 O2 Sat by Pulse Oximetry 93 O2 Sat by Pulse Oximetry 97 ROR Labs Reviewed 11/03/24 17:53 11/03/24 17:53 Laboratory: WBC 4.7 X10^3/uL (3.6-10.0) 11/03/24 17:53 RBC 3.57 X10^6/uL (4.7-6.0) L 11/03/24 17:53 Hgb 10.8 g/dL (13.5-18.0) L 11/03/24 17:53 Hct 31.5 % (42.0-54.0) L 11/03/24 17:53 MCV 88.2 fL (80.0-100.0) 11/03/24 17:53 MCH 30.2 pg (27.0-34.0) 11/03/24 17:53 MCHC 34.3 g/dL (33.0-35.0) 11/03/24 17:53 RDW 15.0 % (11.6-16.5) 11/03/24 17:53 Plt Count 206 X10^3/uL (150.0-450.0) 11/03/24 17:53 MPV 8.7 fL (7.4-11.0) 11/03/24 17:53 Neut % (Auto) 51.0 % (42.0-75.0) 11/03/24 17:53 Lymph % (Auto) 26.6 % (21.0-51.0) 11/03/24 17:53 [place] % (Auto) 17.0 % (0.0-13.0) H 11/03/24 17:53 Eos % (Auto) 4.8 % (0.9-2.9) H 11/03/24 17:53 Baso % (Auto) 0.6 % (0.2-1.0) 11/03/24 17:53 Neut # (Auto) 2.4 x10^3/uL (2.2-4.8) 11/03/24 17:53 Lymph # (Auto) 1.2 X10^3/uL (1.3-2.9) L 11/03/24 17:53 [place] # (Auto) 0.8 x10^3/uL (0.3-0.8) 11/03/24 17:53 Eos # (Auto) 0.2 x10^3/uL (0.0-0.2) 11/03/24 17:53 Baso # (Auto) 0.0 X10^3/uL (0.0-0.1) 11/03/24 17:53 Absolute Nucleated RBC 0.0 /100WBC 11/03/24 17:53 Sodium 135 mmol/L (136-145) L 11/03/24 17:53 Corrected Sodium 136 mmol/L (136-145) 11/03/24 17:53 Potassium 3.9 mmol/L (3.5-5.1) 11/03/24 17:53 Chloride 100 mmol/L (98-107) 11/03/24 17:53 Carbon Dioxide 22.6 mmol/L (21-32) 11/03/24 17:53 BUN 81 mg/dL (7-18) H 11/03/24 17:53 Creatinine 3.72 mg/dL (0.70-1.30) H 11/03/24 17:53 Est GFR (MDRD) Af Amer 21 (>60) L 11/03/24 17:53 Est GFR (MDRD) Non-Af 17 (>60) L 11/03/24 17:53 Glucose 125 mg/dL (65-99) H 11/03/24 17:53 Calcium 7.1 mg/dL (8.5-10.1) L 11/03/24 17:53 Corrected Calcium 8.2 mg/dL (8.5-10.1) L 11/03/24 17:53 Magnesium 1.4 mg/dL (2.0-2.9) L 11/03/24 12:45 Total Bilirubin 0.50 mg/dL (0.2-1.0) 11/03/24 17:53 AST 13 Units/L (15-37) L 11/03/24 17:53 ALT 11 Units/L (12-78) L 11/03/24 17:53 Alkaline Phosphatase 80 Units/L (46-116) 11/03/24 17:53 Creatine Kinase 176 Units/L (39-308) 11/03/24 17:53 Troponin I High Sens 53.2 ng/L (4.0-60.0) 11/03/24 17:53 Total Protein 6.3 g/dL (6.4-8.2) L 11/03/24 17:53 Albumin 2.6 g/dL (3.4-5.0) L 11/03/24 17:53 Globulin 3.7 g/dL (2.5-4.5) 11/03/24 17:53 Albumin/Globulin Ratio 0.7 Ratio (1.1-2.1) L 11/03/24 17:53 Specimen Type Clean catch urine 11/03/24 19:12 Urine Color Yellow (YELLOW) 11/03/24 19:12 Urine Appearance Clear (CLEAR) 11/03/24 19:12 Urine pH 5.0 (5.0 - 8.0) 11/03/24 19:12 Ur Specific [place] 1.015 (1.000-1.030) 11/03/24 19:12 Urine Protein 2+ (NEGATIVE) 11/03/24 19:12 Urine Glucose (UA) Negative (NEGATIVE) 11/03/24 19:12 Urine Ketones Negative (NEGATIVE) 11/03/24 19:12 Urine Blood Negative (NEGATIVE) 11/03/24 19:12 Urine Nitrite Negative (NEGATIVE) 11/03/24 19:12 Urine Bilirubin 1+ (NEGATIVE) 11/03/24 19:12 Urine Urobilinogen Normal (NORMAL) 11/03/24 19:12 Ur Leukocyte Esterase Negative (NEGATIVE) 11/03/24 19:12 Urine RBC 0-2 /HPF (0-3) 11/03/24 19:12 Urine WBC 0-2 /HPF (0-5) 11/03/24 19:12 Ur Squamous Epith Cells Few /HPF (NEGATIVE) 11/03/24 19:12 Urine Bacteria Trace /HPF (NEGATIVE) 11/03/24 19:12 Hyaline Casts Rare /LPF (NEGATIVE) 11/03/24 19:12 Urine Mucus Few /HPF (NEGATIVE) 11/03/24 19:12 Ur Culture Indicated? No/not indicated 11/03/24 19:12 Opioid Opioid Risk Tool Age (Petr box if 16-45): No History of Preadolescent Sexual Abuse: No Total: 0 Total Score Risk Category: Low Risk Copyright: Sujit SIM predicting aberrant behaviors Discharge Plan Diagnosis Discharge Problem: Generalized weakness Discharge Plan Patient Disposition: 01 HOME, SELF-CARE Condition: Stable Prescriptions: No Action isosorbide mononitrate 30 mg tablet extended release 24 hr 30 mg PO QAM torsemide 20 mg tablet 20 mg PO BID glimepiride 4 mg tablet 4 mg PO QDAY dapagliflozin propanediol [Farxiga] 10 mg tablet 10 mg PO QDAY hydralazine 50 mg tablet 25 mg PO BID Entresto 49-51 mg tablet 1 tab PO BID Qty: 60 12RF aspirin 81 mg Tablet,Delayed Release (Dr/Ec) 81 mg PO QPM atorvastatin 40 mg tablet 40 mg PO QPM carvedilol 25 mg tablet 25 mg PO BID famotidine 40 mg tablet 40 mg PO QAM omeprazole 40 mg capsule,delayed release(DR/EC) 40 mg PO QAM docusate sodium 100 mg Tablet 100 mg PO BID PRN diphenoxylate-atropine 2.5-0.025 mg tablet 1 tab PO Q6H ondansetron 4 mg tablet,disintegrating 4 mg PO Q6H PRN tizanidine 4 mg tablet 4 mg PO QPM Magnesium (oxide/AA chelate) 300 mg Capsule 2 cap PO 2XD Qty: 6 0RF Rx Instructions: Take 2 caps (600 mg) twice a day for 3 days Health Concerns: Post Hospitalization: new medications and changes needed to prevent readmission or further decline. Pt educated and given instructions on all concerns. Plan of Treatment: Continue with present treatment and follow up plan. Pt is to keep follow up appointment as instructed and take medications as ordered. Orders to Discharge Patient Discharge Orders: Transfer (Routine); Ordered 11/03/24 Ordered By: FLRO LAGUNAS Instructions Stand Alone Forms: Find Help Web Site, Post Hospital Follow Up Care
[2024-11-03 18:10] LABS: BASOPHILS % (AUTO) 0.6 % (0.2-1.0); EOSINOPHILS # (AUTO) 0.2 x10^3/uL (0.0-0.2); EOSINOPHILS % (AUTO) 4.8 % (0.9-2.9); HEMATOCRIT 31.5 % (42.0-54.0); HEMOGLOBIN 10.8 g/dL (13.5-18.0); LYMPHOCYTES # (AUTO) 1.2 X10^3/uL (1.3-2.9); LYMPHOCYTES % (AUTO) 26.6 % (21.0-51.0); MEAN CORPUSCULAR HEMOGLOBIN 30.2 pg (27.0-34.0); MEAN CORPUSCULAR HGB CONC 34.3 g/dL (33.0-35.0); MEAN CORPUSCULAR VOLUME 88.2 fL (80.0-100.0); MEAN PLATELET VOLUME 8.7 fL (7.4-11.0); MONOCYTES # (AUTO) 0.8 x10^3/uL (0.3-0.8); NEUTROPHILS # (AUTO) 2.4 x10^3/uL (2.2-4.8); PLATELET COUNT 206 X10^3/uL (150.0-450.0); RED BLOOD COUNT 3.57 X10^6/uL (4.7-6.0); WHITE BLOOD COUNT 4.7 X10^3/uL (3.6-10.0)
--- NOTE | 2024-11-03 18:12 | EKG ---
Test Reason : near syncopy Blood Pressure : */* mmHG Vent. Rate : 72 BPM Atrial Rate : 72 BPM P-R Int : 122 ms QRS Dur : 160 ms QT Int : 478 ms P-R-T Axes : 35 -53 86 degrees QTc Int : 523 ms Normal sinus rhythm Possible Left atrial enlargement Right bundle branch block Left anterior fascicular block Bifascicular block T wave abnormality, consider lateral ischemia Abnormal ECG When compared with ECG of 02-NOV-2023 21:58, Nonspecific T wave abnormality now evident in Anterior leads Confirmed by Luis Flaherty MD ([id number]) on 11/05/2024 7:34:56 AM Referred By: Confirmed By: Luis Flaherty MD
[2024-11-03 18:22] LABS: ALBUMIN 2.6 g/dL (3.4-5.0); CALCIUM 7.1 mg/dL (8.5-10.1); CARBON DIOXIDE 22.6 mmol/L (21-32); COR CA(FOR HYPOALB) 8.2 mg/dL (8.5-10.1); CREATININE 3.72 mg/dL (0.70-1.30); POTASSIUM 3.9 mmol/L (3.5-5.1); TOTAL PROTEIN 6.3 g/dL (6.4-8.2)
[2024-11-03 19:22] LABS: BILIRUBIN,URINE 1+ (NEGATIVE); BLOOD/HEMOGLOBIN,URINE NEGATIVE (NEGATIVE); GLUCOSE, URINE NEGATIVE (NEGATIVE); KETONES,URINE NEGATIVE (NEGATIVE); LEUKOCYTE ESTERASE ,URINE NEGATIVE (NEGATIVE); NITRITES,URINE NEGATIVE (NEGATIVE); PROTEIN,URINE 2+ (NEGATIVE); UROBILINOGEN,URINE NORMAL (NORMAL)
[2024-11-03 19:24] LABS: APPEARANCE,URINE CLEAR (CLEAR); COLOR,URINE YELLOW (YELLOW)
[2024-11-03 19:30] LABS: BACTERIA,URINE TRACE /HPF (NEGATIVE); HYALINE CASTS, URINE RARE /LPF (NEGATIVE); RBC,URINE 0-2 /HPF (0-3); SQUAMOUS EPITHELIAL CELL,UR FEW /HPF (NEGATIVE)
[2024-11-03] MEDS: MAGNESIUM SULFATE 1 GRAM/100 mL PREMIX 1 G/100 ML BAG IV ONE (23:24)
[2024-11-04 00:31] VITALS: BMI 35.2
[2024-11-04] MEDS: NS 1,000 ML IV 1,000 ML IV SCH (00:44)
[2024-11-04 05:29] LABS: BASOPHILS % (AUTO) 0.8 % (0.2-1.0); EOSINOPHILS # (AUTO) 0.2 x10^3/uL (0.0-0.2); EOSINOPHILS % (AUTO) 5.2 % (0.9-2.9); HEMATOCRIT 27.5 % (42.0-54.0); HEMOGLOBIN 9.5 g/dL (13.5-18.0); LYMPHOCYTES # (AUTO) 1.2 X10^3/uL (1.3-2.9); MEAN CORPUSCULAR HEMOGLOBIN 30.3 pg (27.0-34.0); MEAN CORPUSCULAR HGB CONC 34.5 g/dL (33.0-35.0); MEAN CORPUSCULAR VOLUME 87.8 fL (80.0-100.0); MONOCYTES # (AUTO) 0.6 x10^3/uL (0.3-0.8); MONOCYTES % (AUTO) 17.5 % (0.0-13.0); NEUTROPHILS # (AUTO) 1.5 x10^3/uL (2.2-4.8); NEUTROPHILS % (AUTO) 43.5 % (42.0-75.0); PLATELET COUNT 170 X10^3/uL (150.0-450.0); RED BLOOD COUNT 3.13 X10^6/uL (4.7-6.0); RED CELL DISTRIBUTION WIDTH 14.8 % (11.6-16.5); WHITE BLOOD COUNT 3.5 X10^3/uL (3.6-10.0)
[2024-11-04 05:38] LABS: ALBUMIN 2.3 g/dL (3.4-5.0); CALCIUM 7.1 mg/dL (8.5-10.1); CARBON DIOXIDE 23.5 mmol/L (21-32); COR CA(FOR HYPOALB) 8.5 mg/dL (8.5-10.1); CREATININE 3.35 mg/dL (0.70-1.30); MAGNESIUM 1.7 mg/dL (2.0-2.9); POTASSIUM 3.7 mmol/L (3.5-5.1); TOTAL PROTEIN 5.5 g/dL (6.4-8.2)
[2024-11-04 05:58] LABS: BAND NEUTROPHILS % 2 % (0-10); PLATELET MORPHOLOGY COMMENT NORMAL (NORMAL)
[2024-11-04 05:59] LABS: BURR CELLS PRESENT
[2024-11-04] MEDS: CONSULT PHARMACY - POTASSIUM & MAGNESIUM XX SCH (08:18)
[2024-11-04] MEDS ORDERED: KLOR-CON 10 MEQ TAB PO SCH (09:00)
[2024-11-04] MEDS ORDERED: K-DUR TAB 20 MEQ PO SCH (09:00)
[2024-11-04] MEDS ORDERED: MAG-OX TAB PO ONE (09:00)
[2024-11-04] MEDS: NS + KCL 20 MEQ/L 1,000 ML with MAGNESIUM SULFATE 50% INJ VIAL 1 G IV SCH (09:33)
[2024-11-04] MEDS: COREG TAB 25 MG PO SCH (10:03)
[2024-11-04] MEDS: ENTRESTO 49/51 MG TABLET PO SCH (10:03)
[2024-11-04] MEDS: DEMADEX PO SCH (10:03)
[2024-11-04] MEDS: NORCO 5/325 MG TAB PO PRN (10:04)
--- NOTE | 2024-11-04 10:57 | DR.H&P ---
H&P History & Physical for Day of: H&P Date: 11/04/24 Chief Complaint Chief Complaint: weakness History of Present Illness History of Present Illness: Pt is a 73y/o male with a PMH of CHF, CAD, DM, HTN, HLD, CKD presented after being discharged earlier in the day. Per patient, when he got home he felt weak and had difficulty ambulating. He reports that his daughter and son were there but were unable to assist him. He was brought back to the ER. Workup was normal for his baseline, except for the weakness. Labs/imaging: WBC 3.5, hemoglobin 9.5, platelets 170, sodium 138, potassium 3.7, creatinine 3.35, glucose 131, UA negative. Patient was admitted for generalized weakness. Will get physical therapy to evaluate. Restart home medications. Otherwise continue current treatment plan. Continue to monitor. Past Medical History Past Medical History: Arthritis, CHF, COPD, Diabetes, Dyslipidemia, GERD, Gout, Hypertension, Kidney Stones and Renal Disease Past Surgical History Surgical History: Cholecystectomy, Joint Replacement and Ortho Surgery Family History Family Medical History: Diabetes Mellitus, [place], Coronary Artery Disease and Hypertension Social History Does patient currently use any type of tobacco product: No Have you used tobacco products in the last 12 months: No Type of Tobacco Use: None Does any household member use tobacco: No Alcohol Use: None Drug Use: None Medications Home Medications: Home Medications Medication Instructions Recorded Confirmed Type aspirin 81 mg tablet,delayed 81 mg PO QPM 05/30/23 11/04/24 History release atorvastatin 40 mg tablet 40 mg PO QPM 09/29/23 11/04/24 History carvedilol 25 mg tablet 25 mg PO BID 09/29/23 11/04/24 History famotidine 40 mg tablet 40 mg PO QAM 09/29/23 11/04/24 History omeprazole 40 mg capsule,delayed 40 mg PO QAM 09/29/23 11/04/24 History release isosorbide mononitrate 30 mg 30 mg PO QAM 10/17/23 11/04/24 History tablet,extended release 24 hr docusate sodium 100 mg tablet 100 mg PO BID PRN 11/02/23 11/04/24 History torsemide 20 mg tablet 20 mg PO BID 04/03/24 11/04/24 History dapagliflozin propanediol 10 mg 10 mg PO QDAY 08/13/24 11/04/24 History tablet (Farxiga) glimepiride 4 mg tablet 4 mg PO QDAY 08/13/24 11/04/24 History hydralazine 50 mg tablet 25 mg PO BID 10/15/24 11/04/24 History diphenoxylate-atropine 2.5 1 tab PO Q6H 11/02/24 11/04/24 History mg-0.025 mg tablet ondansetron 4 mg disintegrating 4 mg PO Q6H PRN 11/02/24 11/04/24 History tablet tizanidine 4 mg tablet 4 mg PO QPM 11/02/24 11/04/24 History Allergies Allergies Allergy/AdvReac Type Severity Reaction Status Date / Time No Known Drug Allergies Allergy Verified 11/02/24 03:10 Labs 11/04/24 04:18 11/04/24 04:18 Labs: Laboratory WBC 3.5 X10^3/uL (3.6-10.0) L 11/04/24 04:18 RBC 3.13 X10^6/uL (4.7-6.0) L 11/04/24 04:18 Hgb 9.5 g/dL (13.5-18.0) L 11/04/24 04:18 Hct 27.5 % (42.0-54.0) L 11/04/24 04:18 MCV 87.8 fL (80.0-100.0) 11/04/24 04:18 MCH 30.3 pg (27.0-34.0) 11/04/24 04:18 MCHC 34.5 g/dL (33.0-35.0) 11/04/24 04:18 RDW 14.8 % (11.6-16.5) 11/04/24 04:18 Plt Count 170 X10^3/uL (150.0-450.0) 11/04/24 04:18 Plt Count Comment Adequate (ADEQUATE) 11/04/24 04:18 MPV 9.0 fL (7.4-11.0) 11/04/24 04:18 Neut % (Auto) 43.5 % (42.0-75.0) 11/04/24 04:18 Lymph % (Auto) 33.0 % (21.0-51.0) 11/04/24 04:18 [place] % (Auto) 17.5 % (0.0-13.0) H 11/04/24 04:18 Eos % (Auto) 5.2 % (0.9-2.9) H 11/04/24 04:18 Baso % (Auto) 0.8 % (0.2-1.0) 11/04/24 04:18 Neut # (Auto) 1.5 x10^3/uL (2.2-4.8) L 11/04/24 04:18 Lymph # (Auto) 1.2 X10^3/uL (1.3-2.9) L 11/04/24 04:18 [place] # (Auto) 0.6 x10^3/uL (0.3-0.8) 11/04/24 04:18 Eos # (Auto) 0.2 x10^3/uL (0.0-0.2) 11/04/24 04:18 Baso # (Auto) 0.0 X10^3/uL (0.0-0.1) 11/04/24 04:18 Absolute Nucleated RBC 0.0 /100WBC 11/04/24 04:18 Total Counted 100 11/04/24 04:18 Neutrophils % (Manual) 45 % (39-76) 11/04/24 04:18 Band Neutrophils % 2 % (0-10) 11/04/24 04:18 Lymphocytes % (Manual) 32 % (13-43) 11/04/24 04:18 Monocytes % (Manual) 15 % (4-9) H 11/04/24 04:18 Eosinophils % (Manual) 6 % (0-6) 11/04/24 04:18 Plt Morphology Comment Normal (NORMAL) 11/04/24 04:18 RBC Morphology Abnormal (NORMAL) 11/04/24 04:18 [place] Cells Present 11/04/24 04:18 Acanthocytes (Spur) Present 11/04/24 04:18 Sodium 137 mmol/L (136-145) 11/04/24 04:18 Corrected Sodium 138 mmol/L (136-145) 11/04/24 04:18 Potassium 3.7 mmol/L (3.5-5.1) 11/04/24 04:18 Chloride 103 mmol/L (98-107) 11/04/24 04:18 Carbon Dioxide 23.5 mmol/L (21-32) 11/04/24 04:18 BUN 85 mg/dL (7-18) H 11/04/24 04:18 Creatinine 3.35 mg/dL (0.70-1.30) H 11/04/24 04:18 Est GFR (MDRD) Af Amer 23 (>60) L 11/04/24 04:18 Est GFR (MDRD) Non-Af 19 (>60) L 11/04/24 04:18 Glucose 131 mg/dL (65-99) H 11/04/24 04:18 POC Glucose (mg/dL) 120 mg/dL (65-99) H 11/04/24 05:20 Calcium 7.1 mg/dL (8.5-10.1) L 11/04/24 04:18 Corrected Calcium 8.5 mg/dL (8.5-10.1) 11/04/24 04:18 Magnesium 1.7 mg/dL (2.0-2.9) L 11/04/24 04:18 Total Bilirubin 0.40 mg/dL (0.2-1.0) 11/04/24 04:18 AST 10 Units/L (15-37) L 11/04/24 04:18 ALT 10 Units/L (12-78) L 11/04/24 04:18 Alkaline Phosphatase 77 Units/L (46-116) 11/04/24 04:18 Creatine Kinase 176 Units/L (39-308) 11/03/24 17:53 Troponin I High Sens 53.2 ng/L (4.0-60.0) 11/03/24 17:53 Total Protein 5.5 g/dL (6.4-8.2) L 11/04/24 04:18 Albumin 2.3 g/dL (3.4-5.0) L 11/04/24 04:18 Globulin 3.2 g/dL (2.5-4.5) 11/04/24 04:18 Albumin/Globulin Ratio 0.7 Ratio (1.1-2.1) L 11/04/24 04:18 Specimen Type Clean catch urine 11/03/24 19:12 Urine Color Yellow (YELLOW) 11/03/24 19:12 Urine Appearance Clear (CLEAR) 11/03/24 19:12 Urine pH 5.0 (5.0 - 8.0) 11/03/24 19:12 Ur Specific [place] 1.015 (1.000-1.030) 11/03/24 19:12 Urine Protein 2+ (NEGATIVE) 11/03/24 19:12 Urine Glucose (UA) Negative (NEGATIVE) 11/03/24 19:12 Urine Ketones Negative (NEGATIVE) 11/03/24 19:12 Urine Blood Negative (NEGATIVE) 11/03/24 19:12 Urine Nitrite Negative (NEGATIVE) 11/03/24 19:12 Urine Bilirubin 1+ (NEGATIVE) 11/03/24 19:12 Urine Urobilinogen Normal (NORMAL) 11/03/24 19:12 Ur Leukocyte Esterase Negative (NEGATIVE) 11/03/24 19:12 Urine RBC 0-2 /HPF (0-3) 11/03/24 19:12 Urine WBC 0-2 /HPF (0-5) 11/03/24 19:12 Ur Squamous Epith Cells Few /HPF (NEGATIVE) 11/03/24 19:12 Urine Bacteria Trace /HPF (NEGATIVE) 11/03/24 19:12 Hyaline Casts Rare /LPF (NEGATIVE) 11/03/24 19:12 Urine Mucus Few /HPF (NEGATIVE) 11/03/24 19:12 Ur Culture Indicated? No/not indicated 11/03/24 19:12 Review of Systems Constitutional: Weakness Eyes: No Symptoms Reported ENT: No Symptoms Reported Respiratory: Shortness of Breath Cardiovascular: No Symptoms Reported Gastrointestinal: No Symptoms Reported Genitourinary: No Symptoms Reported Musculoskeletal: No Symptoms Reported Skin: No Symptoms Reported Neurological: No Symptoms Reported Physical Exam Vital Signs: Vital Signs Temperature 97.9 F Temperature 98.8 F Pulse Rate 76 Pulse Rate 78 Pulse Rate 61 Pulse Rate 82 Pulse Rate 62 Pulse Rate 72 Respiratory Rate 18 Respiratory Rate 13 Respiratory Rate 16 Respiratory Rate 17 Respiratory Rate 20 Respiratory Rate 18 Respiratory Rate 16 Blood Pressure 154/70 Blood Pressure 160/71 Blood Pressure 165/67 Blood Pressure 146/68 Blood Pressure 139/70 Blood Pressure 152/72 O2 Sat by Pulse Oximetry 100 O2 Sat by Pulse Oximetry 100 O2 Sat by Pulse Oximetry 98 O2 Sat by Pulse Oximetry 100 O2 Sat by Pulse Oximetry 100 O2 Sat by Pulse Oximetry 100 Oriented: Normal Eyes: Normal Ear: Normal Nose: Normal Throat: Normal Respiratory: Diminished Throughout Cardiovascular: Normal : Normal Auscultation: Bowel Sounds: Normal Palpation: Normal Tenderness: Normal Skin: Normal Musculoskeletal: Normal Psychiatric: Normal Mood Description: Calm and Appropriate Affect: Normal Speech Pattern: Clear and Appropriate Assessment/Plan (1) Generalized weakness: Status: Acute Plan: Will have physical therapy evaluate. Patient will likely need rehab or fpc placement. (2) Physical deconditioning: Status: Acute Review H&P Reviewed: Yes Patient was examined?: Yes
[2024-11-04] MEDS: ZANAFLEX PO SCH (20:23)
[2024-11-04] MEDS: LIPITOR TAB 40 MG PO SCH (20:23)
[2024-11-04] MEDS: ASPIRIN EC 81 MG PO SCH (20:23)
[2024-11-04] MEDS: SNACK - Diabetic Appropriate PO SCH (20:23)
[2024-11-04] MEDS: APRESOLINE TAB 25 MG PO SCH (20:23)
[2024-11-04] MEDS: NovoLIN R (or HumuLIN R) SUBCUT PRN (20:37)
[2024-11-05 05:24] LABS: BASOPHILS % (AUTO) 0.5 % (0.2-1.0); EOSINOPHILS # (AUTO) 0.2 x10^3/uL (0.0-0.2); HEMATOCRIT 24.7 % (42.0-54.0); HEMOGLOBIN 8.5 g/dL (13.5-18.0); LYMPHOCYTES # (AUTO) 1.3 X10^3/uL (1.3-2.9); LYMPHOCYTES % (AUTO) 30.9 % (21.0-51.0); MEAN CORPUSCULAR HEMOGLOBIN 30.6 pg (27.0-34.0); MEAN CORPUSCULAR HGB CONC 34.5 g/dL (33.0-35.0); MEAN CORPUSCULAR VOLUME 88.6 fL (80.0-100.0); MEAN PLATELET VOLUME 8.8 fL (7.4-11.0); MONOCYTES # (AUTO) 0.8 x10^3/uL (0.3-0.8); MONOCYTES % (AUTO) 18.2 % (0.0-13.0); NEUTROPHILS # (AUTO) 1.9 x10^3/uL (2.2-4.8); NEUTROPHILS % (AUTO) 45.4 % (42.0-75.0); PLATELET COUNT 185 X10^3/uL (150.0-450.0); RED BLOOD COUNT 2.79 X10^6/uL (4.7-6.0); RED CELL DISTRIBUTION WIDTH 15.1 % (11.6-16.5); WHITE BLOOD COUNT 4.2 X10^3/uL (3.6-10.0)
--- NOTE | 2024-11-05 05:25 | RAD ---
EXAM: CHEST, 1 VIEW HISTORY: exertional dyspnea; COMPARISON: 11/03/2023 FINDINGS: The cardiomediastinal silhouette is stable. Hypoventilatory exam without acute airspace disease. No pneumothorax or effusion. No acute osseous abnormality. IMPRESSION: No acute cardiopulmonary disease. THIS IS AN ELECTRONICALLY VERIFIED FINAL REPORT 11/05/2024 5:21 AM - Electronically signed by Dominick Rodríguez MD
[2024-11-05 05:34] LABS: CALCIUM 7.4 mg/dL (8.5-10.1); CARBON DIOXIDE 21.8 mmol/L (21-32); CREATININE 3.5 mg/dL (0.70-1.30); MAGNESIUM 1.8 mg/dL (2.0-2.9); POTASSIUM 4.3 mmol/L (3.5-5.1); TOTAL PROTEIN 5.2 g/dL (6.4-8.2)
[2024-11-05 06:31] LABS: BAND NEUTROPHILS % 2 % (0-10)
[2024-11-05 06:32] LABS: BURR CELLS SLIGHT; PLATELET MORPHOLOGY COMMENT NORMAL (NORMAL)
[2024-11-05] MEDS ORDERED: CONSULT PHARMACY - POTASSIUM & MAGNESIUM XX SCH (07:00)
[2024-11-05] MEDS: AMARYL TAB 4 MG PO SCH (08:45)
[2024-11-05] MEDS: IMDUR PO SCH (08:47)
[2024-11-05] MEDS: MAG-OX TAB PO SCH (08:47)
[2024-11-05] MEDS: PriLOSEC PO SCH (08:47)
[2024-11-05] MEDS: PEPCID TAB 20 MG PO SCH (08:47)
--- NOTE | 2024-11-05 11:29 | PCM.PROG ---
Progress Note Progress Note for Day of Date of Exam: 11/05/24 Subjective Subjective: Patient seen at bedside, no acute events overnight. He did work with PT today and ambulated some. Daughter also present during rounds, she is trying to get patient placed in long-term. He is currently on 2L NC. 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 O2 sats drop to low 90s or 80s during sleep or exertion. He is wheezing a little bit today. Labs/imaging reviewed: -WBC 4.2 Hgb 8.5 K 4.3 Mag 1.8 Cr 3.50 -CXR: neg -Blood Cx (-) Plan: Wean O2 as tolerated, repeat CXR, add nebs and pulmicort. Encouraged IS. Continue current medications. PT/OT as tolerated. Replace electrolytes as per protocol. CM to work on placement as per family. Monitor AM labs/imaging. Past Medical Family Social History Allergies: Allergies No Known Drug Allergies Allergy (Verified 11/02/24 03:10) Vital Signs and I&O's Vital Signs: Vital Signs Temperature 97.9 F Temperature 98.2 F Pulse Rate 72 Pulse Rate 69 Respiratory Rate 21 Respiratory Rate 17 Blood Pressure 124/59 Blood Pressure 106/54 O2 Sat by Pulse Oximetry 99 O2 Sat by Pulse Oximetry 100 Intake and Output: Intake & Output 11/02/24 11/03/24 11/04/24 11/05/24 23:59 23:59 23:59 23:59 Intake Total 1819 / 1819 553 / 553 Output Total 1450 / 1450 400 / 400 Balance 369 / 369 153 / 153 Physical Exam Oriented: Normal Eyes: Normal Ear: Normal Nose: Normal Throat: Normal Respiratory: Wheezes Cardiovascular: Edema Auscultation: Bowel Sounds: Normal Palpation: Normal Tenderness: Normal Skin: Normal Musculoskeletal: Normal Psychiatric: Normal Mood Description: Calm and Appropriate Affect: Normal Speech Pattern: Clear and Appropriate Laboratory and Diagnostics 11/05/24 04:03 11/05/24 04:03 Labs: Laboratory WBC 4.2 X10^3/uL (3.6-10.0) 11/05/24 04:03 RBC 2.79 X10^6/uL (4.7-6.0) L 11/05/24 04:03 Hgb 8.5 g/dL (13.5-18.0) L 11/05/24 04:03 Hct 24.7 % (42.0-54.0) L 11/05/24 04:03 MCV 88.6 fL (80.0-100.0) 11/05/24 04:03 MCH 30.6 pg (27.0-34.0) 11/05/24 04:03 MCHC 34.5 g/dL (33.0-35.0) 11/05/24 04:03 RDW 15.1 % (11.6-16.5) 11/05/24 04:03 Plt Count 185 X10^3/uL (150.0-450.0) 11/05/24 04:03 Plt Count Comment Adequate (ADEQUATE) 11/05/24 04:03 MPV 8.8 fL (7.4-11.0) 11/05/24 04:03 Neut % (Auto) 45.4 % (42.0-75.0) 11/05/24 04:03 Lymph % (Auto) 30.9 % (21.0-51.0) 11/05/24 04:03 [place] % (Auto) 18.2 % (0.0-13.0) H 11/05/24 04:03 Eos % (Auto) 5.0 % (0.9-2.9) H 11/05/24 04:03 Baso % (Auto) 0.5 % (0.2-1.0) 11/05/24 04:03 Neut # (Auto) 1.9 x10^3/uL (2.2-4.8) L 11/05/24 04:03 Lymph # (Auto) 1.3 X10^3/uL (1.3-2.9) 11/05/24 04:03 [place] # (Auto) 0.8 x10^3/uL (0.3-0.8) 11/05/24 04:03 Eos # (Auto) 0.2 x10^3/uL (0.0-0.2) 11/05/24 04:03 Baso # (Auto) 0.0 X10^3/uL (0.0-0.1) 11/05/24 04:03 Absolute Nucleated RBC 0.1 /100WBC 11/05/24 04:03 Total Counted 100 11/05/24 04:03 Neutrophils % (Manual) 50 % (39-76) 11/05/24 04:03 Band Neutrophils % 2 % (0-10) 11/05/24 04:03 Lymphocytes % (Manual) 24 % (13-43) 11/05/24 04:03 Monocytes % (Manual) 15 % (4-9) H 11/05/24 04:03 Eosinophils % (Manual) 9 % (0-6) H 11/05/24 04:03 Plt Morphology Comment Normal (NORMAL) 11/05/24 04:03 RBC Morphology Abnormal (NORMAL) 11/05/24 04:03 Teresa Cells Slight A 11/05/24 04:03 Acanthocytes (Spur) Present 11/04/24 04:18 Sodium 135 mmol/L (136-145) L 11/05/24 04:03 Corrected Sodium 136 mmol/L (136-145) 11/05/24 04:03 Potassium 4.3 mmol/L (3.5-5.1) 11/05/24 04:03 Chloride 102 mmol/L (98-107) 11/05/24 04:03 Carbon Dioxide 21.8 mmol/L (21-32) 11/05/24 04:03 BUN 89 mg/dL (7-18) H 11/05/24 04:03 Creatinine 3.50 mg/dL (0.70-1.30) H 11/05/24 04:03 Est GFR (MDRD) Af Amer 22 (>60) L 11/05/24 04:03 Est GFR (MDRD) Non-Af 18 (>60) L 11/05/24 04:03 Glucose 123 mg/dL (65-99) H 11/05/24 04:03 POC Glucose (mg/dL) 116 mg/dL (65-99) H 11/05/24 05:29 Calcium 7.4 mg/dL (8.5-10.1) L 11/05/24 04:03 Corrected Calcium 9.0 mg/dL (8.5-10.1) 11/05/24 04:03 Magnesium 1.8 mg/dL (2.0-2.9) L 11/05/24 04:03 Total Bilirubin 0.30 mg/dL (0.2-1.0) 11/05/24 04:03 AST 11 Units/L (15-37) L 11/05/24 04:03 ALT 9 Units/L (12-78) L 11/05/24 04:03 Alkaline Phosphatase 80 Units/L (46-116) 11/05/24 04:03 Creatine Kinase 176 Units/L (39-308) 11/03/24 17:53 Troponin I High Sens 53.2 ng/L (4.0-60.0) 11/03/24 17:53 Total Protein 5.2 g/dL (6.4-8.2) L 11/05/24 04:03 Albumin 2.0 g/dL (3.4-5.0) L 11/05/24 04:03 Globulin 3.2 g/dL (2.5-4.5) 11/05/24 04:03 Albumin/Globulin Ratio 0.6 Ratio (1.1-2.1) L 11/05/24 04:03 Specimen Type Clean catch urine 11/03/24 19:12 Urine Color Yellow (YELLOW) 11/03/24 19:12 Urine Appearance Clear (CLEAR) 11/03/24 19:12 Urine pH 5.0 (5.0 - 8.0) 11/03/24 19:12 Ur Specific [place] 1.015 (1.000-1.030) 11/03/24 19:12 Urine Protein 2+ (NEGATIVE) 11/03/24 19:12 Urine Glucose (UA) Negative (NEGATIVE) 11/03/24 19:12 Urine Ketones Negative (NEGATIVE) 11/03/24 19:12 Urine Blood Negative (NEGATIVE) 11/03/24 19:12 Urine Nitrite Negative (NEGATIVE) 11/03/24 19:12 Urine Bilirubin 1+ (NEGATIVE) 11/03/24 19:12 Urine Urobilinogen Normal (NORMAL) 11/03/24 19:12 Ur Leukocyte Esterase Negative (NEGATIVE) 11/03/24 19:12 Urine RBC 0-2 /HPF (0-3) 11/03/24 19:12 Urine WBC 0-2 /HPF (0-5) 11/03/24 19:12 Ur Squamous Epith Cells Few /HPF (NEGATIVE) 11/03/24 19:12 Urine Bacteria Trace /HPF (NEGATIVE) 11/03/24 19:12 Hyaline Casts Rare /LPF (NEGATIVE) 11/03/24 19:12 Urine Mucus Few /HPF (NEGATIVE) 11/03/24 19:12 Ur Culture Indicated? No/not indicated 11/03/24 19:12 Plan (1) Generalized weakness: Status: Acute (2) Hypomagnesemia: Status: Acute (3) Physical deconditioning: Status: Acute (4) COPD (chronic obstructive pulmonary disease): Status: Chronic Qualifiers: COPD type: unspecified COPD Qualified Code(s): J44.9 - Chronic obstructive pulmonary disease, unspecified (5) ZITA (obstructive sleep apnea): Status: Chronic (6) CKD (chronic kidney disease): Status: Chronic Qualifiers: Chronic kidney disease stage: unspecified stage Qualified Code(s): N18.9 - Chronic kidney disease, unspecified
[2024-11-05] MEDS: FARXIGA PO SCH (12:00)
[2024-11-05] MEDS: DUONEB 0.5 MG/3 MG (3 mL) NEB SCH (13:25)
[2024-11-05] MEDS: PULMICORT NEB TX 0.5 MG NEB SCH (13:25)
[2024-11-05] MEDS: DEMADEX PO SCH (17:19)
[2024-11-05] MEDS: SNACK - Diabetic Appropriate PO SCH (20:29)
--- NOTE | 2024-11-06 04:54 | RAD ---
EXAM:CHEST, 1 VIEWHISTORY:sob; HTN, DM, RENAL DISEASE, COPD, GERD, GOUT, CHF SX: [place], LEFT KNEE REPLACEMENTCOMPARISON:11/03/2024FINDINGS: .br.br without acute airspace disease. No pneumothorax or effusion.No acute osseous abnormality.IMPRESSION:No acute cardiopulmonary disease.THIS IS AN ELECTRONICALLY VERIFIED FINAL VVFUFB0011/06/2024 4:51 AM - Electronically signed by Dominick Rodríguez MD
[2024-11-06 05:33] LABS: BASOPHILS % (AUTO) 0.7 % (0.2-1.0); EOSINOPHILS # (AUTO) 0.4 x10^3/uL (0.0-0.2); EOSINOPHILS % (AUTO) 8.4 % (0.9-2.9); HEMATOCRIT 23.8 % (42.0-54.0); HEMOGLOBIN 8.2 g/dL (13.5-18.0); LYMPHOCYTES # (AUTO) 1.1 X10^3/uL (1.3-2.9); LYMPHOCYTES % (AUTO) 27.4 % (21.0-51.0); MEAN CORPUSCULAR HEMOGLOBIN 30.4 pg (27.0-34.0); MEAN CORPUSCULAR HGB CONC 34.7 g/dL (33.0-35.0); MEAN CORPUSCULAR VOLUME 87.6 fL (80.0-100.0); MEAN PLATELET VOLUME 8.4 fL (7.4-11.0); MONOCYTES # (AUTO) 0.8 x10^3/uL (0.3-0.8); MONOCYTES % (AUTO) 19.5 % (0.0-13.0); NEUTROPHILS # (AUTO) 1.8 x10^3/uL (2.2-4.8); PLATELET COUNT 200 X10^3/uL (150.0-450.0); RED BLOOD COUNT 2.71 X10^6/uL (4.7-6.0); RED CELL DISTRIBUTION WIDTH 14.7 % (11.6-16.5); WHITE BLOOD COUNT 4.2 X10^3/uL (3.6-10.0)
[2024-11-06 05:44] LABS: ALANINE AMINOTRANSFERASE 15 Units/L (12-78); ALKALINE PHOSPHATASE 77 Units/L (46-116); ASPARTATE AMINO TRANSFERASE 11 Units/L (15-37); BLOOD UREA NITROGEN 90 mg/dL (7-18); CALCIUM 7.8 mg/dL (8.5-10.1); CARBON DIOXIDE 21.2 mmol/L (21-32); CHLORIDE 104 mmol/L (98-107); COR CA(FOR HYPOALB) 9.4 mg/dL (8.5-10.1); CREATININE 3.33 mg/dL (0.70-1.30); GLUCOSE 96 mg/dL (65-99); MAGNESIUM 1.7 mg/dL (2.0-2.9); POTASSIUM 4.1 mmol/L (3.5-5.1); SODIUM 137 mmol/L (136-145); TOTAL PROTEIN 5.2 g/dL (6.4-8.2); eGFR NON BLACK RACES 19 (>60)
[2024-11-06] MEDS ORDERED: CONSULT PHARMACY - POTASSIUM & MAGNESIUM XX SCH (07:00)
[2024-11-06] MEDS: MAG-OX TAB PO SCH (08:34)
--- NOTE | 2024-11-06 10:17 | PCM.PROG ---
Progress Note Progress Note for Day of Date of Exam: 11/06/24 Subjective Subjective: Patient seen at bedside, no acute events overnight. He is feeling better. He has been working with PT. He states his breathing is better, he is on room air. He is awaiting rehab placement. Labs/imaging reviewed: -WBC 4.2 Hgb 8.2 K 4.1 Mag 1.7 Cr 3.33 -CXR: neg -Blood Cx (-) Plan: Continue current treatment. Wean O2 as tolerated, continue nebs/pulmicort. Encouraged IS. Will order anemia panel. Continue current medications. PT/OT as tolerated. Replace electrolytes as per protocol. Awaiting SNF placement. Monitor AM labs/imaging. Past Medical Family Social History Allergies: Allergies No Known Drug Allergies Allergy (Verified 11/02/24 03:10) Vital Signs and I&O's Vital Signs: Vital Signs Temperature 98.1 F Temperature 98.0 F Pulse Rate 74 Pulse Rate 72 Pulse Rate 71 Pulse Rate 54 Pulse Rate 53 Pulse Rate 53 Pulse Rate 56 Pulse Rate 53 Pulse Rate 55 Pulse Rate 58 Pulse Rate 62 Pulse Rate 55 Pulse Rate 56 Pulse Rate 56 Pulse Rate 60 Pulse Rate 56 Pulse Rate 57 Pulse Rate 56 Pulse Rate 58 Pulse Rate 61 Pulse Rate 59 Respiratory Rate 23 Respiratory Rate 20 Respiratory Rate 18 Respiratory Rate 9 Respiratory Rate 12 Respiratory Rate 10 Respiratory Rate 10 Respiratory Rate 11 Respiratory Rate 10 Respiratory Rate 11 Respiratory Rate 10 Respiratory Rate 11 Respiratory Rate 10 Respiratory Rate 10 Respiratory Rate 11 Respiratory Rate 11 Respiratory Rate 11 Respiratory Rate 11 Respiratory Rate 12 Respiratory Rate 16 Blood Pressure 127/58 Blood Pressure 126/57 Blood Pressure 100/54 Blood Pressure 104/53 Blood Pressure 143/66 O2 Sat by Pulse Oximetry 100 O2 Sat by Pulse Oximetry 100 O2 Sat by Pulse Oximetry 100 O2 Sat by Pulse Oximetry 99 O2 Sat by Pulse Oximetry 98 O2 Sat by Pulse Oximetry 97 O2 Sat by Pulse Oximetry 97 O2 Sat by Pulse Oximetry 97 O2 Sat by Pulse Oximetry 97 O2 Sat by Pulse Oximetry 100 O2 Sat by Pulse Oximetry 100 O2 Sat by Pulse Oximetry 97 O2 Sat by Pulse Oximetry 97 O2 Sat by Pulse Oximetry 99 O2 Sat by Pulse Oximetry 100 O2 Sat by Pulse Oximetry 99 O2 Sat by Pulse Oximetry 99 O2 Sat by Pulse Oximetry 99 O2 Sat by Pulse Oximetry 98 O2 Sat by Pulse Oximetry 99 O2 Sat by Pulse Oximetry 98 Intake and Output: Intake & Output 11/03/24 11/04/24 11/05/24 11/06/24 23:59 23:59 23:59 23:59 Intake Total 1819 / 1819 1414 / 1414 328 / 328 Output Total 1450 / 1450 1650 / 1650 200 / 200 Balance 369 / 369 -236 / -236 128 / 128 Physical Exam Oriented: Normal Eyes: Normal Ear: Normal Nose: Normal Throat: Normal Respiratory: Generalized and Diminished Cardiovascular: Edema Auscultation: Bowel Sounds: Normal Palpation: Normal Tenderness: Normal Skin: Normal Musculoskeletal: Normal Psychiatric: Normal Mood Description: Calm and Appropriate Affect: Normal Speech Pattern: Clear and Appropriate Laboratory and Diagnostics 11/06/24 04:20 11/06/24 04:20 Labs: Laboratory WBC 4.2 X10^3/uL (3.6-10.0) 11/06/24 04:20 RBC 2.71 X10^6/uL (4.7-6.0) L 11/06/24 04:20 Hgb 8.2 g/dL (13.5-18.0) L 11/06/24 04:20 Hct 23.8 % (42.0-54.0) L 11/06/24 04:20 MCV 87.6 fL (80.0-100.0) 11/06/24 04:20 MCH 30.4 pg (27.0-34.0) 11/06/24 04:20 MCHC 34.7 g/dL (33.0-35.0) 11/06/24 04:20 RDW 14.7 % (11.6-16.5) 11/06/24 04:20 Plt Count 200 X10^3/uL (150.0-450.0) 11/06/24 04:20 Plt Count Comment Adequate (ADEQUATE) 11/05/24 04:03 MPV 8.4 fL (7.4-11.0) 11/06/24 04:20 Neut % (Auto) 44.0 % (42.0-75.0) 11/06/24 04:20 Lymph % (Auto) 27.4 % (21.0-51.0) 11/06/24 04:20 [place] % (Auto) 19.5 % (0.0-13.0) H 11/06/24 04:20 Eos % (Auto) 8.4 % (0.9-2.9) H 11/06/24 04:20 Baso % (Auto) 0.7 % (0.2-1.0) 11/06/24 04:20 Neut # (Auto) 1.8 x10^3/uL (2.2-4.8) L 11/06/24 04:20 Lymph # (Auto) 1.1 X10^3/uL (1.3-2.9) L 11/06/24 04:20 [place] # (Auto) 0.8 x10^3/uL (0.3-0.8) 11/06/24 04:20 Eos # (Auto) 0.4 x10^3/uL (0.0-0.2) H 11/06/24 04:20 Baso # (Auto) 0.0 X10^3/uL (0.0-0.1) 11/06/24 04:20 Absolute Nucleated RBC 0.0 /100WBC 11/06/24 04:20 Total Counted 100 11/05/24 04:03 Neutrophils % (Manual) 50 % (39-76) 11/05/24 04:03 Band Neutrophils % 2 % (0-10) 11/05/24 04:03 Lymphocytes % (Manual) 24 % (13-43) 11/05/24 04:03 Monocytes % (Manual) 15 % (4-9) H 11/05/24 04:03 Eosinophils % (Manual) 9 % (0-6) H 11/05/24 04:03 Plt Morphology Comment Normal (NORMAL) 11/05/24 04:03 RBC Morphology Abnormal (NORMAL) 11/05/24 04:03 Teresa Cells Slight A 11/05/24 04:03 Acanthocytes (Spur) Present 11/04/24 04:18 Sodium 137 mmol/L (136-145) 11/06/24 04:20 Corrected Sodium TNP 11/06/24 04:20 Potassium 4.1 mmol/L (3.5-5.1) 11/06/24 04:20 Chloride 104 mmol/L (98-107) 11/06/24 04:20 Carbon Dioxide 21.2 mmol/L (21-32) 11/06/24 04:20 BUN 90 mg/dL (7-18) H 11/06/24 04:20 Creatinine 3.33 mg/dL (0.70-1.30) H 11/06/24 04:20 Est GFR (MDRD) Af Amer 23 (>60) L 11/06/24 04:20 Est GFR (MDRD) Non-Af 19 (>60) L 11/06/24 04:20 Glucose 96 mg/dL (65-99) 11/06/24 04:20 POC Glucose (mg/dL) 84 mg/dL (65-99) 11/06/24 05:14 Calcium 7.8 mg/dL (8.5-10.1) L 11/06/24 04:20 Corrected Calcium 9.4 mg/dL (8.5-10.1) 11/06/24 04:20 Magnesium 1.7 mg/dL (2.0-2.9) L 11/06/24 04:20 Total Bilirubin 0.30 mg/dL (0.2-1.0) 11/06/24 04:20 AST 11 Units/L (15-37) L 11/06/24 04:20 ALT 15 Units/L (12-78) 11/06/24 04:20 Alkaline Phosphatase 77 Units/L (46-116) 11/06/24 04:20 Creatine Kinase 176 Units/L (39-308) 11/03/24 17:53 Troponin I High Sens 53.2 ng/L (4.0-60.0) 11/03/24 17:53 Total Protein 5.2 g/dL (6.4-8.2) L 11/06/24 04:20 Albumin 2.0 g/dL (3.4-5.0) L 11/06/24 04:20 Globulin 3.2 g/dL (2.5-4.5) 11/06/24 04:20 Albumin/Globulin Ratio 0.6 Ratio (1.1-2.1) L 11/06/24 04:20 Specimen Type Clean catch urine 11/03/24 19:12 Urine Color Yellow (YELLOW) 11/03/24 19:12 Urine Appearance Clear (CLEAR) 11/03/24 19:12 Urine pH 5.0 (5.0 - 8.0) 11/03/24 19:12 Ur Specific [place] 1.015 (1.000-1.030) 11/03/24 19:12 Urine Protein 2+ (NEGATIVE) 11/03/24 19:12 Urine Glucose (UA) Negative (NEGATIVE) 11/03/24 19:12 Urine Ketones Negative (NEGATIVE) 11/03/24 19:12 Urine Blood Negative (NEGATIVE) 11/03/24 19:12 Urine Nitrite Negative (NEGATIVE) 11/03/24 19:12 Urine Bilirubin 1+ (NEGATIVE) 11/03/24 19:12 Urine Urobilinogen Normal (NORMAL) 11/03/24 19:12 Ur Leukocyte Esterase Negative (NEGATIVE) 11/03/24 19:12 Urine RBC 0-2 /HPF (0-3) 11/03/24 19:12 Urine WBC 0-2 /HPF (0-5) 11/03/24 19:12 Ur Squamous Epith Cells Few /HPF (NEGATIVE) 11/03/24 19:12 Urine Bacteria Trace /HPF (NEGATIVE) 11/03/24 19:12 Hyaline Casts Rare /LPF (NEGATIVE) 11/03/24 19:12 Urine Mucus Few /HPF (NEGATIVE) 11/03/24 19:12 Ur Culture Indicated? No/not indicated 11/03/24 19:12 Plan (1) Generalized weakness: Status: Acute (2) Hypomagnesemia: Status: Acute (3) Physical deconditioning: Status: Acute (4) COPD (chronic obstructive pulmonary disease): Status: Chronic Qualifiers: COPD type: unspecified COPD Qualified Code(s): J44.9 - Chronic obstructive pulmonary disease, unspecified (5) ZITA (obstructive sleep apnea): Status: Chronic (6) CKD (chronic kidney disease): Status: Chronic Qualifiers: Chronic kidney disease stage: unspecified stage Qualified Code(s): N18.9 - Chronic kidney disease, unspecified
[2024-11-06 10:54] LABS: IRON 21 ug/dL (50-175); TOTAL IRON BINDING CAPACITY 110 ug/dL (250-450)
[2024-11-06] MEDS: COLACE CAP 100 MG PO PRN (20:55)
[2024-11-07 05:54] LABS: BASOPHILS % (AUTO) 0.5 % (0.2-1.0); EOSINOPHILS # (AUTO) 0.5 x10^3/uL (0.0-0.2); EOSINOPHILS % (AUTO) 8.2 % (0.9-2.9); HEMATOCRIT 24.2 % (42.0-54.0); HEMOGLOBIN 8.5 g/dL (13.5-18.0); LYMPHOCYTES # (AUTO) 1.2 X10^3/uL (1.3-2.9); LYMPHOCYTES % (AUTO) 20.6 % (21.0-51.0); MEAN CORPUSCULAR HEMOGLOBIN 30.7 pg (27.0-34.0); MEAN CORPUSCULAR VOLUME 87.6 fL (80.0-100.0); MEAN PLATELET VOLUME 8.2 fL (7.4-11.0); MONOCYTES # (AUTO) 1.1 x10^3/uL (0.3-0.8); NEUTROPHILS # (AUTO) 3.1 x10^3/uL (2.2-4.8); NEUTROPHILS % (AUTO) 51.7 % (42.0-75.0); PLATELET COUNT 230 X10^3/uL (150.0-450.0); RED BLOOD COUNT 2.76 X10^6/uL (4.7-6.0); RED CELL DISTRIBUTION WIDTH 14.7 % (11.6-16.5); WHITE BLOOD COUNT 5.9 X10^3/uL (3.6-10.0)
[2024-11-07 05:58] LABS: CARBON DIOXIDE 22.6 mmol/L (21-32); COR CA(FOR HYPOALB) 9.6 mg/dL (8.5-10.1); CREATININE 3.07 mg/dL (0.70-1.30); POTASSIUM 4.2 mmol/L (3.5-5.1); TOTAL PROTEIN 5.5 g/dL (6.4-8.2)
[2024-11-07] MEDS: APRESOLINE TAB 25 MG PO SCH (09:19)
[2024-11-07] MEDS: PROCRIT or EPOGEN VIAL 10,000 UNITS SC SCH (09:20)
[2024-11-07] MEDS: NS 100 ML IV 100 ML with VENOFER 100 MG IV ONE (09:56)
[2024-11-08 04:14] VITALS: TEMP 97.4
[2024-11-08 05:12] LABS: BASOPHILS # (AUTO) 0.1 X10^3/uL (0.0-0.1); BASOPHILS % (AUTO) 0.7 % (0.2-1.0); EOSINOPHILS # (AUTO) 0.4 x10^3/uL (0.0-0.2); HEMATOCRIT 26.2 % (42.0-54.0); HEMOGLOBIN 9.1 g/dL (13.5-18.0); LYMPHOCYTES # (AUTO) 1.4 X10^3/uL (1.3-2.9); MEAN CORPUSCULAR HEMOGLOBIN 30.4 pg (27.0-34.0); MEAN CORPUSCULAR HGB CONC 34.9 g/dL (33.0-35.0); MEAN CORPUSCULAR VOLUME 87.3 fL (80.0-100.0); MEAN PLATELET VOLUME 7.9 fL (7.4-11.0); MONOCYTES % (AUTO) 14.7 % (0.0-13.0); NEUTROPHILS # (AUTO) 4.3 x10^3/uL (2.2-4.8); NEUTROPHILS % (AUTO) 59.6 % (42.0-75.0); PLATELET COUNT 266 X10^3/uL (150.0-450.0); RED BLOOD COUNT 3.01 X10^6/uL (4.7-6.0); RED CELL DISTRIBUTION WIDTH 14.7 % (11.6-16.5); WHITE BLOOD COUNT 7.1 X10^3/uL (3.6-10.0)
[2024-11-08 05:27] LABS: ALANINE AMINOTRANSFERASE 30 Units/L (12-78); ALBUMIN 2.2 g/dL (3.4-5.0); ALKALINE PHOSPHATASE 89 Units/L (46-116); ASPARTATE AMINO TRANSFERASE 18 Units/L (15-37); BLOOD UREA NITROGEN 83 mg/dL (7-18); CALCIUM 8.3 mg/dL (8.5-10.1); CARBON DIOXIDE 21.5 mmol/L (21-32); CHLORIDE 105 mmol/L (98-107); COR CA(FOR HYPOALB) 9.7 mg/dL (8.5-10.1); CREATININE 2.86 mg/dL (0.70-1.30); GLUCOSE 80 mg/dL (65-99); MAGNESIUM 1.7 mg/dL (2.0-2.9); POTASSIUM 4.1 mmol/L (3.5-5.1); SODIUM 138 mmol/L (136-145); TOTAL PROTEIN 5.9 g/dL (6.4-8.2); eGFR NON BLACK RACES 23 (>60)
[2024-11-08] MEDS: NS + KCL 20 MEQ/L 1,000 ML with MAGNESIUM SULFATE 50% INJ VIAL 2 G IV SCH (08:25)
[2024-11-08] MEDS: MAG-OX TAB PO SCH (08:26)
[2024-11-08 08:39] VITALS: BP 181/88
[2024-11-08 09:12] VITALS: PULSE 76; O2SAT 100
[2024-11-08 09:28] VITALS: RESP 18
[2024-11-08] MEDS: CONSULT PHARMACY - POTASSIUM & MAGNESIUM XX SCH (10:32)
== END 2024-11-08 10:50 | DRG 683 ==
LOC: ER 17:24 → ICU 17:24
PROVIDERS: ADMIT Family Medicine; ATTEND Family Medicine
DX: I12.9 Hypertensive chronic kidney disease with stage 1 through stage 4 chronic kidney disease, or unspecified chronic kidney disease; N18.9 Chronic kidney disease, unspecified; E83.42 Hypomagnesemia; E11.22 Type 2 diabetes mellitus with diabetic chronic kidney disease; D63.1 Anemia in chronic kidney disease; E78.5 Hyperlipidemia, unspecified; E87.1 Hypo-osmolality and hyponatremia; J44.9 Chronic obstructive pulmonary disease, unspecified; I25.10 Atherosclerotic heart disease of native coronary artery without angina pectoris; R06.02 Shortness of breath; K21.9 Gastro-esophageal reflux disease without esophagitis; R53.1 Weakness; R26.89 Other abnormalities of gait and mobility; R53.81 Other malaise; G47.33 Obstructive sleep apnea (adult) (pediatric); N17.8 Other acute kidney failure; R55 Syncope and collapse; E11.65 Type 2 diabetes mellitus with hyperglycemia

== ENCOUNTER 2025-03-12 13:24 | Observation (INO) ==
[2025-03-12 13:38] VITALS: BMI 35.3
--- NOTE | 2025-03-12 13:46 | EKG ---
Test Reason : dyspnea Blood Pressure : */* mmHG Vent. Rate : 73 BPM Atrial Rate : 73 BPM P-R Int : 146 ms QRS Dur : 164 ms QT Int : 494 ms P-R-T Axes : 75 240 98 degrees QTc Int : 544 ms Sinus rhythm with frequent premature ventricular complexes Right bundle branch block Abnormal ECG When compared with ECG of 03-NOV-2024 17:59, premature ventricular complexes are now present Left anterior fascicular block is no longer present T wave inversion no longer evident in Lateral leads Confirmed by Luis Flaherty MD ([id number]) on 03/13/2025 7:34:31 AM Referred By: Confirmed By: Luis Flaherty MD
[2025-03-12 13:53] LABS: BASOPHILS # (AUTO) 0.1 X10^3/uL (0.0-0.1); BASOPHILS % (AUTO) 1.5 % (0.2-1.0); EOSINOPHILS # (AUTO) 0.3 x10^3/uL (0.0-0.2); EOSINOPHILS % (AUTO) 3.8 % (0.9-2.9); HEMATOCRIT 25.8 % (42.0-54.0); HEMOGLOBIN 8.5 g/dL (13.5-18.0); LYMPHOCYTES # (AUTO) 0.9 X10^3/uL (1.3-2.9); LYMPHOCYTES % (AUTO) 12.8 % (21.0-51.0); MEAN CORPUSCULAR HEMOGLOBIN 29.1 pg (27.0-34.0); MEAN CORPUSCULAR HGB CONC 33.1 g/dL (33.0-35.0); MONOCYTES # (AUTO) 0.5 x10^3/uL (0.3-0.8); MONOCYTES % (AUTO) 7.1 % (0.0-13.0); NEUTROPHILS % (AUTO) 74.8 % (42.0-75.0); PLATELET COUNT 132 X10^3/uL (150.0-450.0); RED BLOOD COUNT 2.93 X10^6/uL (4.7-6.0); RED CELL DISTRIBUTION WIDTH 20.8 % (11.6-16.5); WHITE BLOOD COUNT 6.7 X10^3/uL (3.6-10.0)
[2025-03-12] MEDS: LASIX IVP ONE (13:53)
[2025-03-12 13:59] LABS: INR 1.24 (0.8-1.3)
--- NOTE | 2025-03-12 14:03 | RAD ---
EXAM: CHEST, PA/LAT ADULT HISTORY: Shortness of Breath; COMPARISON: No relevant prior studies were available for comparison at the time of interpretation. TECHNIQUE: CHEST, PA/LAT ADULT FINDINGS: Chest: Lines and tubes: None Mediastinum: Cardiomegaly. Pulmonary vessels: Pulmonary vasculature is prominent. Lung gates: Patchy opacities are seen Pleura: No effusion. No pneumothorax. Bones and soft tissues: No acute osseous or soft tissue abnormality. IMPRESSION: 1. Findings suggest heart failure THIS IS AN ELECTRONICALLY VERIFIED FINAL REPORT 03/12/2025 1:59 PM - Electronically signed by John Mendoza MD
[2025-03-12 14:08] LABS: ALANINE AMINOTRANSFERASE 18 Units/L (12-78); ALBUMIN 3.2 g/dL (3.4-5.0); ALKALINE PHOSPHATASE 125 Units/L (46-116); ASPARTATE AMINO TRANSFERASE 16 Units/L (15-37); BLOOD UREA NITROGEN 49 mg/dL (7-18); CALCIUM 8.1 mg/dL (8.5-10.1); CHLORIDE 106 mmol/L (98-107); COR CA(FOR HYPOALB) 8.7 mg/dL (8.5-10.1); CREATINE KINASE 60 Units/L (39-308); CREATININE 2.99 mg/dL (0.70-1.30); GLUCOSE 98 mg/dL (65-99); MAGNESIUM 1.1 mg/dL (2.0-2.9); POTASSIUM 4.5 mmol/L (3.5-5.1); SODIUM 142 mmol/L (136-145); TOTAL PROTEIN 6.6 g/dL (6.4-8.2); eGFR NON BLACK RACES 22 (>60)
[2025-03-12 14:11] LABS: ANISOCYTOSIS 1+; PLATELET MORPHOLOGY COMMENT NORMAL (NORMAL)
--- NOTE | 2025-03-12 15:16 | DR.SOBA ---
HPI Time Seen Time Seen by Provider: 03/12/25 13:26 Primary Care Physician Primary Care Physician: Sary Harden Complaints Chief Complaint Doctors Comments: 74 yo M, hx of CHF, c/o increasing fluid retention over the past 5-6 days. States he is on torsemide, and has not missed any doses of diuretic. States he became short of breath the past 24h with in creasing severity. Denies other complaints. Chief Complaint:: EMS reports patient has been having shortness of breath with exertion and lying flat. however he is not having SOB at this time. Patient states that the home health nurse wanted him to be checked out. COVID-19 Coronavirus risk:travel/contact w/high risk person: No Has patient experienced Coronavirus symptoms: No Source History Provided: Patient and EMS Mode of Arrival Mode of Arrival: Ambulatory Timing Onset of Chief Complaint: 03/08/25 PMH PMH Past Medical History: Yes Past Medical History: Arthritis, CHF, COPD, Diabetes, Dyslipidemia, GERD, Gout, Hypertension, Kidney Stones and Renal Disease Past Surgical History: Yes Surgical History: Cholecystectomy, Joint Replacement and Ortho Surgery Family History History of Family Medical Conditions: Yes Family Medical History: Diabetes Mellitus, Cancer and Hypertension Social History Type of Tobacco Use: Cigarettes Alcohol Use: None Do you use any recreational Drugs:: No Lives With: Alone Lives Where: Home Travel Risk Coronavirus risk:travel/contact w/high risk person: No Has patient experienced Coronavirus symptoms: No Infectious screening Have you traveled outside the country in the last 6 months?: No Isolation: Standard ROS Review of Systems Respiratoy: Short of Breath Cardiovascular: Edema All Other Systems: Reviewed and Negative PE Vital Signs Vitals: Vital Signs Temperature 97.7 F Pulse Rate 65 Pulse Rate 66 Pulse Rate 63 Pulse Rate 63 Pulse Rate 76 Respiratory Rate 13 Respiratory Rate 12 Respiratory Rate 15 Respiratory Rate 20 Blood Pressure 203/87 O2 Sat by Pulse Oximetry 99 O2 Sat by Pulse Oximetry 100 O2 Sat by Pulse Oximetry 100 O2 Sat by Pulse Oximetry 100 O2 Sat by Pulse Oximetry 100 General Limitations: No Limitations General Appearance: Alert and In No Apparent Distress Head Head Exam: Normal Inspection Eyes Eye exam: Normal Appearance ENT ENT Exam: Normal Exam Neck Neck Exam: Normal Inspection Chest Chest Inspection: Normal Inspection Respiratory Respiratory Exam: Normal Lung Sounds Bilat Respiratory Exam: Bilateral: Clear to Auscultation Cardiovascular Cardiovascular Exam: Regular Rate and Normal Rhythm Extremities Extremities Exam: Edema (2+ pitting edema in bilat lower ext) Back Back Exam: Normal Inspection Neurologic Neurological Exam: Alert and Oriented X3 Psychiatric Psychiatric Exam: Normal Affect and Normal Mood Skin Skin Exam: Warm, Dry, Intact and Normal Color ROR Labs Reviewed 03/12/25 13:40 03/12/25 13:40 Laboratory: WBC 6.7 X10^3/uL (3.6-10.0) 03/12/25 13:40 RBC 2.93 X10^6/uL (4.7-6.0) L 03/12/25 13:40 Hgb 8.5 g/dL (13.5-18.0) L 03/12/25 13:40 Hct 25.8 % (42.0-54.0) L 03/12/25 13:40 MCV 88.0 fL (80.0-100.0) 03/12/25 13:40 MCH 29.1 pg (27.0-34.0) 03/12/25 13:40 MCHC 33.1 g/dL (33.0-35.0) 03/12/25 13:40 RDW 20.8 % (11.6-16.5) H 03/12/25 13:40 Plt Count 132 X10^3/uL (150.0-450.0) L 03/12/25 13:40 Plt Count Comment Decreased (ADEQUATE) 03/12/25 13:40 MPV 9.0 fL (7.4-11.0) 03/12/25 13:40 Neut % (Auto) 74.8 % (42.0-75.0) 03/12/25 13:40 Lymph % (Auto) 12.8 % (21.0-51.0) L 03/12/25 13:40 [place] % (Auto) 7.1 % (0.0-13.0) 03/12/25 13:40 Eos % (Auto) 3.8 % (0.9-2.9) H 03/12/25 13:40 Baso % (Auto) 1.5 % (0.2-1.0) H 03/12/25 13:40 Neut # (Auto) 5.0 x10^3/uL (2.2-4.8) H 03/12/25 13:40 Lymph # (Auto) 0.9 X10^3/uL (1.3-2.9) L 03/12/25 13:40 [place] # (Auto) 0.5 x10^3/uL (0.3-0.8) 03/12/25 13:40 Eos # (Auto) 0.3 x10^3/uL (0.0-0.2) H 03/12/25 13:40 Baso # (Auto) 0.1 X10^3/uL (0.0-0.1) 03/12/25 13:40 Absolute Nucleated RBC 0.1 /100WBC 03/12/25 13:40 Plt Morphology Comment Normal (NORMAL) 03/12/25 13:40 RBC Morphology Abnormal (NORMAL) 03/12/25 13:40 Anisocytosis 1+ A 03/12/25 13:40 PT 15.3 SECONDS (11.8-14.3) 03/12/25 13:40 INR Target Range - 03/12/25 13:40 INR 1.24 (0.8-1.3) 03/12/25 13:40 APTT 29.2 SECONDS (22.9-36.5) 03/12/25 13:40 PTT Comment - 03/12/25 13:40 Sodium 142 mmol/L (136-145) 03/12/25 13:40 Corrected Sodium TNP 03/12/25 13:40 Potassium 4.5 mmol/L (3.5-5.1) 03/12/25 13:40 Chloride 106 mmol/L (98-107) 03/12/25 13:40 Carbon Dioxide 25.0 mmol/L (21-32) 03/12/25 13:40 BUN 49 mg/dL (7-18) H 03/12/25 13:40 Creatinine 2.99 mg/dL (0.70-1.30) H 03/12/25 13:40 Est GFR (MDRD) Af Amer 26 (>60) L 03/12/25 13:40 Est GFR (MDRD) Non-Af 22 (>60) L 03/12/25 13:40 Glucose 98 mg/dL (65-99) 03/12/25 13:40 Calcium 8.1 mg/dL (8.5-10.1) L 03/12/25 13:40 Corrected Calcium 8.7 mg/dL (8.5-10.1) 03/12/25 13:40 Magnesium 1.1 mg/dL (2.0-2.9) L 03/12/25 13:40 Total Bilirubin 1.10 mg/dL (0.2-1.0) H 03/12/25 13:40 AST 16 Units/L (15-37) 03/12/25 13:40 ALT 18 Units/L (12-78) 03/12/25 13:40 Alkaline Phosphatase 125 Units/L (46-116) H 03/12/25 13:40 Creatine Kinase 60 Units/L (39-308) 03/12/25 13:40 Troponin I High Sens 24.4 ng/L (4.0-60.0) 03/12/25 13:40 B-Natriuretic Peptide 3400 pg/mL (0-79) H 03/12/25 13:40 Total Protein 6.6 g/dL (6.4-8.2) 03/12/25 13:40 Albumin 3.2 g/dL (3.4-5.0) L 03/12/25 13:40 Globulin 3.4 g/dL (2.5-4.5) 03/12/25 13:40 Albumin/Globulin Ratio 0.9 Ratio (1.1-2.1) L 03/12/25 13:40 Opioid Opioid Risk Tool Age (Petr box if 16-45): No History of Preadolescent Sexual Abuse: No Total: 0 Total Score Risk Category: Low Risk Copyright: Sujit SIM predicting aberrant behaviors Discharge Plan Diagnosis Discharge Problem: Acute exacerbation of CHF (congestive heart failure), Pulmonary edema, Hypoxia Discharge Plan Patient Disposition: 09 ADMITTED INPATIENT Condition: Stable Prescriptions: No Action isosorbide mononitrate 30 mg tablet extended release 24 hr 30 mg PO QAM torsemide 20 mg tablet 20 mg PO BID glimepiride 4 mg tablet 4 mg PO QDAY hydralazine 50 mg tablet 50 mg PO BID Entresto 49-51 mg tablet 1 tab PO BID Qty: 60 12RF omeprazole magnesium 20 mg tablet,delayed release (DR/EC) 20 mg PO QDAY valsartan 80 mg tablet 80 mg PO BID saxagliptin 5 mg tablet 5 mg PO QDAY aspirin 81 mg Tablet,Delayed Release (Dr/Ec) 81 mg PO QPM atorvastatin 40 mg tablet 40 mg PO QPM carvedilol 25 mg tablet 25 mg PO BID famotidine 40 mg tablet 40 mg PO QDAY ergocalciferol (vitamin D2) [Vitamin D2] 1,250 mcg (50,000 unit) capsule 1,250 mcg PO 2XW Health Concerns: Post Hospitalization: new medications and changes needed to prevent readmission or further decline. Pt educated and given instructions on all concerns. Plan of Treatment: Continue with present treatment and follow up plan. Pt is to keep follow up appointment as instructed and take medications as ordered. Orders to Discharge Patient Discharge Orders: Transfer (Routine); Ordered 03/12/25 Ordered By: Abhijeet Webb Follow ups/Referrals Follow ups/Referrals: CLARA HARDEN [Primary Care Provider] - 3 days Instructions Stand Alone Forms: Find Help Web Site, Post Hospital Follow Up Care
[2025-03-12] MEDS ORDERED: CONSULT PHARMACY - POTASSIUM & MAGNESIUM XX SCH (17:00)
[2025-03-12] MEDS: LASIX IVP SCH (17:31)
[2025-03-12] MEDS ORDERED: NS 250 ML IV 250 ML IV ONE (20:17)
[2025-03-12] MEDS: ASPIRIN EC 81 MG PO SCH (20:27)
[2025-03-12] MEDS: LIPITOR TAB 40 MG PO SCH (20:28)
[2025-03-12] MEDS: COREG TAB 25 MG PO SCH (20:28)
[2025-03-12] MEDS: ENTRESTO 49/51 MG TABLET PO SCH (20:28)
[2025-03-12] MEDS: MAGNESIUM SULFATE 1 GRAM/100 mL PREMIX 1 G/100 ML BAG IV SCH (20:29)
[2025-03-12] MEDS ORDERED: DEMADEX PO SCH (21:00)
[2025-03-13] MEDS: PATIENT'S HOME MEDICATION (Hydralazine 50 mg tablet) PO SCH (02:43)
[2025-03-13 05:12] LABS: BASOPHILS # (AUTO) 0.1 X10^3/uL (0.0-0.1); BASOPHILS % (AUTO) 1.7 % (0.2-1.0); EOSINOPHILS # (AUTO) 0.4 x10^3/uL (0.0-0.2); EOSINOPHILS % (AUTO) 6.5 % (0.9-2.9); HEMATOCRIT 24.8 % (42.0-54.0); HEMOGLOBIN 8.5 g/dL (13.5-18.0); LYMPHOCYTES # (AUTO) 0.9 X10^3/uL (1.3-2.9); LYMPHOCYTES % (AUTO) 15.5 % (21.0-51.0); MEAN CORPUSCULAR HEMOGLOBIN 29.7 pg (27.0-34.0); MEAN CORPUSCULAR HGB CONC 34.2 g/dL (33.0-35.0); MEAN CORPUSCULAR VOLUME 86.8 fL (80.0-100.0); MEAN PLATELET VOLUME 9.3 fL (7.4-11.0); MONOCYTES # (AUTO) 0.5 x10^3/uL (0.3-0.8); MONOCYTES % (AUTO) 8.4 % (0.0-13.0); NEUTROPHILS # (AUTO) 3.9 x10^3/uL (2.2-4.8); NEUTROPHILS % (AUTO) 67.9 % (42.0-75.0); PLATELET COUNT 135 X10^3/uL (150.0-450.0); RED BLOOD COUNT 2.86 X10^6/uL (4.7-6.0); RED CELL DISTRIBUTION WIDTH 20.9 % (11.6-16.5); WHITE BLOOD COUNT 5.7 X10^3/uL (3.6-10.0)
[2025-03-13 05:13] LABS: INR 1.24 (0.8-1.3)
[2025-03-13 05:16] LABS: ANISOCYTOSIS 1+; PLATELET MORPHOLOGY COMMENT NORMAL (NORMAL)
[2025-03-13 05:29] LABS: ALANINE AMINOTRANSFERASE 18 Units/L (12-78); ALBUMIN 3.1 g/dL (3.4-5.0); ALKALINE PHOSPHATASE 115 Units/L (46-116); ASPARTATE AMINO TRANSFERASE 15 Units/L (15-37); BLOOD UREA NITROGEN 47 mg/dL (7-18); CALCIUM 8.2 mg/dL (8.5-10.1); CARBON DIOXIDE 26.1 mmol/L (21-32); CHLORIDE 105 mmol/L (98-107); CHOL/HDL RATIO 2.3 (0.0-5.0); CHOLESTEROL 97 mg/dL (0-200); COR CA(FOR HYPOALB) 8.9 mg/dL (8.5-10.1); CREATININE 2.92 mg/dL (0.70-1.30); GLUCOSE 102 mg/dL (65-99); HDL CHOLESTEROL 42 mg/dL (40-60); POTASSIUM 3.9 mmol/L (3.5-5.1); SODIUM 141 mmol/L (136-145); TOTAL PROTEIN 6.5 g/dL (6.4-8.2); TRIGLYCERIDES 91 mg/dL (0-150); eGFR NON BLACK RACES 22 (>60)
[2025-03-13] MEDS: NS 100 ML IV 100 ML with VENOFER 100 MG IV ONE (09:01)
[2025-03-13] MEDS: PROCRIT or EPOGEN VIAL 10,000 UNITS SC ONE (09:01)
[2025-03-13] MEDS: PEPCID TAB 40 MG PO SCH (09:02)
[2025-03-13] MEDS: APRESOLINE TAB 25 MG PO SCH (09:02)
[2025-03-13] MEDS: PriLOSEC PO SCH (09:02)
[2025-03-13] MEDS: IMDUR PO SCH (09:02)
[2025-03-13] MEDS: AMARYL TAB 4 MG PO SCH (09:02)
[2025-03-13] MEDS: SAXAGLIPTIN 5 MG PO SCH (09:06)
--- NOTE | 2025-03-13 15:56 | RAD ---
EXAM:CHEST, 1 VIEWHISTORY:DYSPNEA; HTN, DM, RENAL DISEASE, COPD, GERD, GOUT, CHF SX: [place], ORTHOCOMPARISON:03/12/2025TECHNIQUE:AP portableFINDINGS:Stable prominent cardiac silhouette. Low lung volumes. Mild increased hazy bilateral airspace opacities. No large pleural effusion or visible pneumothorax.IMPRESSION:Low lung volumes and mild increased hazy bilateral airspace opacities.THIS IS AN ELECTRONICALLY VERIFIED FINAL REPORT03/13/2025 3:52 PM - Electronically signed by Alex Decker MD
[2025-03-13] MEDS: SNACK - Diabetic Appropriate PO SCH (21:19)
[2025-03-14 04:43] LABS: HEMOGLOBIN 8.2 g/dL (13.5-18.0); LYMPHOCYTES # (AUTO) 0.8 X10^3/uL (1.3-2.9); MONOCYTES # (AUTO) 0.5 x10^3/uL (0.3-0.8); NEUTROPHILS # (AUTO) 3.6 x10^3/uL (2.2-4.8); WHITE BLOOD COUNT 5.3 X10^3/uL (3.6-10.0)
[2025-03-14 04:49] LABS: ALANINE AMINOTRANSFERASE 17 Units/L (12-78); ALBUMIN 2.8 g/dL (3.4-5.0); ALKALINE PHOSPHATASE 115 Units/L (46-116); ASPARTATE AMINO TRANSFERASE 14 Units/L (15-37); BLOOD UREA NITROGEN 48 mg/dL (7-18); CALCIUM 8.3 mg/dL (8.5-10.1); CARBON DIOXIDE 26.8 mmol/L (21-32); CHLORIDE 105 mmol/L (98-107); COR CA(FOR HYPOALB) 9.3 mg/dL (8.5-10.1); CREATININE 2.95 mg/dL (0.70-1.30); GLUCOSE 90 mg/dL (65-99); MAGNESIUM 1.9 mg/dL (2.0-2.9); POTASSIUM 3.9 mmol/L (3.5-5.1); SODIUM 141 mmol/L (136-145); eGFR NON BLACK RACES 22 (>60)
[2025-03-14 04:57] LABS: BASOPHILS % (AUTO) 0.8 % (0.2-1.0); EOSINOPHILS # (AUTO) 0.3 x10^3/uL (0.0-0.2); EOSINOPHILS % (AUTO) 5.9 % (0.9-2.9); HEMATOCRIT 24.6 % (42.0-54.0); LYMPHOCYTES % (AUTO) 15.7 % (21.0-51.0); MEAN CORPUSCULAR HEMOGLOBIN 29.1 pg (27.0-34.0); MEAN CORPUSCULAR HGB CONC 33.5 g/dL (33.0-35.0); MEAN CORPUSCULAR VOLUME 86.8 fL (80.0-100.0); MEAN PLATELET VOLUME 9.7 fL (7.4-11.0); MONOCYTES % (AUTO) 9.4 % (0.0-13.0); NEUTROPHILS % (AUTO) 68.2 % (42.0-75.0); PLATELET COUNT 123 X10^3/uL (150.0-450.0); RED BLOOD COUNT 2.83 X10^6/uL (4.7-6.0); RED CELL DISTRIBUTION WIDTH 21.2 % (11.6-16.5)
[2025-03-14 04:59] LABS: ANISOCYTOSIS 1+; PLATELET MORPHOLOGY COMMENT NORMAL (NORMAL)
[2025-03-14] MEDS: MAGNESIUM SULFATE 1 GRAM/100 mL PREMIX 1 G/100 ML BAG IV SCH (09:25)
[2025-03-14 12:20] VITALS: BP 138/74; PULSE 68; RESP 17; TEMP 97.9; O2SAT 98
== END 2025-03-14 12:55 | disposition home health service (06) ==
LOC: ER 13:24 → MED/SURG 13:24
PROVIDERS: ADMIT Obstetrics & Gynecology Obstetrics; ATTEND Obstetrics & Gynecology Obstetrics
DX: Z99.81 Dependence on supplemental oxygen; I50.9 Heart failure, unspecified; E78.5 Hyperlipidemia, unspecified; R06.09 Other forms of dyspnea; E11.65 Type 2 diabetes mellitus with hyperglycemia; E80.6 Other disorders of bilirubin metabolism; R06.02 Shortness of breath; E83.42 Hypomagnesemia; I11.0 Hypertensive heart disease with heart failure; K21.9 Gastro-esophageal reflux disease without esophagitis; I45.10 Unspecified right bundle-branch block; J44.9 Chronic obstructive pulmonary disease, unspecified; R94.31 Abnormal electrocardiogram [ECG] [EKG]

== ENCOUNTER 2025-03-21 14:55 | Inpatient (IN) ==
[2025-03-21] MEDS ORDERED: MAG-OX TAB ONE (15:12)
[2025-03-21] MEDS: LASIX IVP ONE (15:17)
[2025-03-21] MEDS: MAG-OX TAB PO ONE (15:18)
--- NOTE | 2025-03-21 15:18 | EKG ---
Test Reason : sob Blood Pressure : */* mmHG Vent. Rate : 73 BPM Atrial Rate : 73 BPM P-R Int : 188 ms QRS Dur : 166 ms QT Int : 476 ms P-R-T Axes : 33 -34 76 degrees QTc Int : 524 ms Normal sinus rhythm Left axis deviation Right bundle branch block Abnormal ECG When compared with ECG of 12-MAR-2025 13:37, premature ventricular complexes are no longer present QRS axis shifted right Inverted T waves have replaced nonspecific T wave abnormality in Anterior leads Confirmed by Luis Flaherty MD ([id number]) on 03/21/2025 5:44:40 PM Referred By: Confirmed By: Luis Flaherty MD
[2025-03-21 16:50] LABS: BILIRUBIN,URINE NEGATIVE (NEGATIVE); BLOOD/HEMOGLOBIN,URINE NEGATIVE (NEGATIVE); GLUCOSE, URINE NEGATIVE (NEGATIVE); KETONES,URINE NEGATIVE (NEGATIVE); LEUKOCYTE ESTERASE ,URINE NEGATIVE (NEGATIVE); NITRITES,URINE NEGATIVE (NEGATIVE); PROTEIN,URINE 2+ (NEGATIVE); UROBILINOGEN,URINE NORMAL (NORMAL)
[2025-03-21 16:51] LABS: BASOPHILS # (AUTO) 0.1 X10^3/uL (0.0-0.1); BASOPHILS % (AUTO) 1.5 % (0.2-1.0); EOSINOPHILS # (AUTO) 0.5 x10^3/uL (0.0-0.2); EOSINOPHILS % (AUTO) 9.6 % (0.9-2.9); HEMATOCRIT 26.1 % (42.0-54.0); HEMOGLOBIN 8.6 g/dL (13.5-18.0); LYMPHOCYTES # (AUTO) 0.7 X10^3/uL (1.3-2.9); LYMPHOCYTES % (AUTO) 13.6 % (21.0-51.0); MEAN CORPUSCULAR HEMOGLOBIN 29.5 pg (27.0-34.0); MEAN CORPUSCULAR VOLUME 89.6 fL (80.0-100.0); MONOCYTES # (AUTO) 0.4 x10^3/uL (0.3-0.8); MONOCYTES % (AUTO) 7.8 % (0.0-13.0); NEUTROPHILS # (AUTO) 3.5 x10^3/uL (2.2-4.8); NEUTROPHILS % (AUTO) 67.5 % (42.0-75.0); PLATELET COUNT 131 X10^3/uL (150.0-450.0); RED BLOOD COUNT 2.91 X10^6/uL (4.7-6.0); RED CELL DISTRIBUTION WIDTH 19.6 % (11.6-16.5); WHITE BLOOD COUNT 5.2 X10^3/uL (3.6-10.0)
[2025-03-21 16:52] LABS: APPEARANCE,URINE CLEAR (CLEAR); COLOR,URINE YELLOW (YELLOW)
[2025-03-21 16:56] LABS: BACTERIA,URINE NEGATIVE /HPF (NEGATIVE); RBC,URINE NONE SEEN /HPF (0-3); SQUAMOUS EPITHELIAL CELL,UR RARE /HPF (NEGATIVE)
[2025-03-21 17:09] LABS: ALBUMIN 3.3 g/dL (3.4-5.0); CALCIUM 8.9 mg/dL (8.5-10.1); CARBON DIOXIDE 26.9 mmol/L (21-32); COR CA(FOR HYPOALB) 9.5 mg/dL (8.5-10.1); CREATININE 3.23 mg/dL (0.70-1.30); MAGNESIUM 1.8 mg/dL (2.0-2.9); POTASSIUM 4.7 mmol/L (3.5-5.1); TOTAL PROTEIN 6.7 g/dL (6.4-8.2)
--- NOTE | 2025-03-21 17:57 | DR.SOBA ---
HPI Time Seen Time Seen by Provider: 03/21/25 15:11 Primary Care Physician Primary Care Physician: Sary Wong HPI Comment HPI Comment: Patient getting short of breath that is gradually worsening since last visit as well as feeling weaker. Patient was seen by Sary Wong today and labs revealed BNP of 4000. Patient denies chest pain. Complaints Chief Complaint:: Patient states he has been getting weaker and weaker since last visit. He complains of mild SOB. He saw Sary Wong today and she said between his labs and physical assessment he needed to come to the ER for evaluation. COVID-19 Coronavirus risk:travel/contact w/high risk person: No Has patient experienced Coronavirus symptoms: No Source History Provided: Patient and Family Member Mode of Arrival Mode of Arrival: Wheelchair Timing Onset of Chief Complaint: 03/12/25 PMH PMH Past Medical History: Yes Past Medical History: Arthritis, CHF, COPD, Diabetes, Dyslipidemia, GERD, Gout, Hypertension, Kidney Stones and Renal Disease Past Surgical History: Yes Surgical History: Cholecystectomy and Ortho Surgery Family History History of Family Medical Conditions: Yes Family Medical History: Diabetes Mellitus and Hypertension Social History Does patient currently use any type of tobacco product: No Have you used tobacco products in the last 12 months: No Type of Tobacco Use: None Does any household member use tobacco: No Alcohol Use: None Do you use any recreational Drugs:: No Lives With: Alone Lives Where: Home Travel Risk Coronavirus risk:travel/contact w/high risk person: No Has patient experienced Coronavirus symptoms: No Infectious screening In the last 2 months have you had wt loss of >10#?: NO Have you had fever, night sweats or hemotysis?: No Have you traveled outside the country in the last 6 months?: No Isolation: Standard ROS Review of Systems Constitutional: See HPI and Weakness; negative Fever Eyes: No Symptoms Reported ENTM: No Symptoms Reported Respiratoy: See HPI (No cough) and Short of Breath; negative Wheezing Cardiovascular: See HPI and Edema; negative Chest Pain, Palpitations or Syncope Gastrointestinal/Abdominal: No Symptoms Reported Genitourinary: No Symptoms Reported Neurological: No Symptoms Reported Musculoskeletal: No Symptoms Reported Integumentary: No Symptoms Reported Hematologic/Lymphatic: No Symptoms Reported Endocrine: No Symptoms Reported Psychiatric: No Symptoms Reported All Other Systems: Reviewed and Negative PE Vital Signs Vitals: Vital Signs Temperature 97.5 F Pulse Rate 76 Pulse Rate 72 Pulse Rate 71 Pulse Rate 73 Pulse Rate 76 Pulse Rate 71 Pulse Rate 75 Pulse Rate 70 Pulse Rate 73 Pulse Rate 74 Pulse Rate 78 Pulse Rate 77 Pulse Rate 80 Pulse Rate 82 Respiratory Rate 22 Blood Pressure 152/85 O2 Sat by Pulse Oximetry 94 O2 Sat by Pulse Oximetry 93 O2 Sat by Pulse Oximetry 94 O2 Sat by Pulse Oximetry 93 O2 Sat by Pulse Oximetry 95 O2 Sat by Pulse Oximetry 94 O2 Sat by Pulse Oximetry 95 O2 Sat by Pulse Oximetry 96 O2 Sat by Pulse Oximetry 94 O2 Sat by Pulse Oximetry 94 O2 Sat by Pulse Oximetry 93 O2 Sat by Pulse Oximetry 95 O2 Sat by Pulse Oximetry 95 O2 Sat by Pulse Oximetry 96 General Limitations: No Limitations General Appearance: Alert and In No Apparent Distress Head Head Exam: Normal Inspection Eyes Eye exam: Normal Appearance ENT ENT Exam: Normal Exam Neck Neck Exam: Normal Inspection Chest Chest Inspection: Normal Inspection Respiratory Respiratory Exam: Respiratory Distress Respiratory Exam: Bilateral: Crackles Cardiovascular Cardiovascular Exam: Regular Rate and Normal Rhythm Abdominal Exam Abdominal Exam: Normal Inspection, Normal Bowel Sounds and Soft Extremities Extremities Exam: Edema (Bilateral 2+ edema) Back Back Exam: Normal Inspection Neurologic Neurological Exam: Alert and Oriented X3 Psychiatric Psychiatric Exam: Normal Affect and Normal Mood Skin Skin Exam: Warm, Dry, Intact and Normal Color COURSE Treatment Treatment: Shortness of breath improved with Lasix. Discussed results of workup with patient and family. Consultation Called: 18:53 Consultation Comments: Discussed case with Dr. New and she is agreeable to admission. ROR Labs Reviewed 03/21/25 16:41 03/21/25 16:41 Laboratory: WBC 5.2 X10^3/uL (3.6-10.0) 03/21/25 16:41 RBC 2.91 X10^6/uL (4.7-6.0) L 03/21/25 16:41 Hgb 8.6 g/dL (13.5-18.0) L 03/21/25 16:41 Hct 26.1 % (42.0-54.0) L 03/21/25 16:41 MCV 89.6 fL (80.0-100.0) 03/21/25 16:41 MCH 29.5 pg (27.0-34.0) 03/21/25 16:41 MCHC 33.0 g/dL (33.0-35.0) 03/21/25 16:41 RDW 19.6 % (11.6-16.5) H 03/21/25 16:41 Plt Count 131 X10^3/uL (150.0-450.0) L 03/21/25 16:41 MPV 9.0 fL (7.4-11.0) 03/21/25 16:41 Neut % (Auto) 67.5 % (42.0-75.0) 03/21/25 16:41 Lymph % (Auto) 13.6 % (21.0-51.0) L 03/21/25 16:41 [place] % (Auto) 7.8 % (0.0-13.0) 03/21/25 16:41 Eos % (Auto) 9.6 % (0.9-2.9) H 03/21/25 16:41 Baso % (Auto) 1.5 % (0.2-1.0) H 03/21/25 16:41 Neut # (Auto) 3.5 x10^3/uL (2.2-4.8) 03/21/25 16:41 Lymph # (Auto) 0.7 X10^3/uL (1.3-2.9) L 03/21/25 16:41 [place] # (Auto) 0.4 x10^3/uL (0.3-0.8) 03/21/25 16:41 Eos # (Auto) 0.5 x10^3/uL (0.0-0.2) H 03/21/25 16:41 Baso # (Auto) 0.1 X10^3/uL (0.0-0.1) 03/21/25 16:41 Absolute Nucleated RBC 0.0 /100WBC 03/21/25 16:41 Sodium 145 mmol/L (136-145) 03/21/25 16:41 Corrected Sodium 145 mmol/L (136-145) 03/21/25 16:41 Potassium 4.7 mmol/L (3.5-5.1) 03/21/25 16:41 Chloride 109 mmol/L (98-107) H 03/21/25 16:41 Carbon Dioxide 26.9 mmol/L (21-32) 03/21/25 16:41 BUN 49 mg/dL (7-18) H 03/21/25 16:41 Creatinine 3.23 mg/dL (0.70-1.30) H 03/21/25 16:41 Est GFR (MDRD) Af Amer 24 (>60) L 03/21/25 16:41 Est GFR (MDRD) Non-Af 20 (>60) L 03/21/25 16:41 Glucose 111 mg/dL (65-99) H 03/21/25 16:41 Calcium 8.9 mg/dL (8.5-10.1) 03/21/25 16:41 Corrected Calcium 9.5 mg/dL (8.5-10.1) 03/21/25 16:41 Magnesium 1.8 mg/dL (2.0-2.9) L 03/21/25 16:41 Total Bilirubin 1.10 mg/dL (0.2-1.0) H 03/21/25 16:41 AST 11 Units/L (15-37) L 03/21/25 16:41 ALT 10 Units/L (12-78) L 03/21/25 16:41 Alkaline Phosphatase 114 Units/L (46-116) 03/21/25 16:41 Troponin I High Sens 21.3 ng/L (4.0-60.0) 03/21/25 16:41 B-Natriuretic Peptide 3580 pg/mL (0-79) H 03/21/25 16:41 Total Protein 6.7 g/dL (6.4-8.2) 03/21/25 16:41 Albumin 3.3 g/dL (3.4-5.0) L 03/21/25 16:41 Globulin 3.4 g/dL (2.5-4.5) 03/21/25 16:41 Albumin/Globulin Ratio 1.0 Ratio (1.1-2.1) L 03/21/25 16:41 Specimen Type Clean catch urine 03/21/25 16:38 Urine Color Yellow (YELLOW) 03/21/25 16:38 Urine Appearance Clear (CLEAR) 03/21/25 16:38 Urine pH 7.0 (5.0 - 8.0) 03/21/25 16:38 Ur Specific [place] 1.010 (1.000-1.030) 03/21/25 16:38 Urine Protein 2+ (NEGATIVE) 03/21/25 16:38 Urine Glucose (UA) Negative (NEGATIVE) 03/21/25 16:38 Urine Ketones Negative (NEGATIVE) 03/21/25 16:38 Urine Blood Negative (NEGATIVE) 03/21/25 16:38 Urine Nitrite Negative (NEGATIVE) 03/21/25 16:38 Urine Bilirubin Negative (NEGATIVE) 03/21/25 16:38 Urine Urobilinogen Normal (NORMAL) 03/21/25 16:38 Ur Leukocyte Esterase Negative (NEGATIVE) 03/21/25 16:38 Urine RBC None seen /HPF (0-3) 03/21/25 16:38 Urine WBC None seen /HPF (0-5) 03/21/25 16:38 Ur Squamous Epith Cells Rare /HPF (NEGATIVE) 03/21/25 16:38 Urine Bacteria Negative /HPF (NEGATIVE) 03/21/25 16:38 Ur Culture Indicated? No/not indicated 03/21/25 16:38 Opioid Opioid Risk Tool Age (Petr box if 16-45): No History of Preadolescent Sexual Abuse: No Total: 0 Total Score Risk Category: Low Risk Copyright: Sujit SIM predicting aberrant behaviors Discharge Plan Diagnosis Discharge Problem: Acute exacerbation of CHF (congestive heart failure), CKD (chronic kidney disease), Chronic anemia Discharge Plan Patient Disposition: 09 ADMITTED INPATIENT Condition: Stable Prescriptions: No Action isosorbide mononitrate 30 mg tablet extended release 24 hr 30 mg PO QAM torsemide 20 mg tablet 20 mg PO BID glimepiride 4 mg tablet 4 mg PO QDAY hydralazine 50 mg tablet 50 mg PO BID Entresto 49-51 mg tablet 1 tab PO BID Qty: 60 12RF omeprazole magnesium 20 mg tablet,delayed release (DR/EC) 20 mg PO QDAY saxagliptin 5 mg tablet 5 mg PO QDAY aspirin 81 mg Tablet,Delayed Release (Dr/Ec) 81 mg PO QPM atorvastatin 40 mg tablet 40 mg PO QPM carvedilol 25 mg tablet 25 mg PO BID famotidine 40 mg tablet 40 mg PO QDAY ergocalciferol (vitamin D2) [Vitamin D2] 1,250 mcg (50,000 unit) capsule 1,250 mcg PO 2XW Health Concerns: Post Hospitalization: new medications and changes needed to prevent readmission or further decline. Pt educated and given instructions on all concerns. Plan of Treatment: Continue with present treatment and follow up plan. Pt is to keep follow up appointment as instructed and take medications as ordered. Orders to Discharge Patient Discharge Orders: Transfer (Routine); Ordered 03/21/25 Ordered By: Magno Bravo Follow ups/Referrals Follow ups/Referrals: CLARA WONG [Primary Care Provider] - 3 days Instructions Stand Alone Forms: Find Help Web Site, Post Hospital Follow Up Care
--- NOTE | 2025-03-21 18:07 | RAD ---
EXAM:CHEST, PA/LAT ADULTHISTORY:chest pain;COMPARISON:03/13/2025FINDINGS:The trachea is midline. The cardiac silhouette is enlarged with a tortuous thoracic aorta . The lungs are clear without focal infiltrate or effusion. The bony thorax is unremarkable.IMPRESSION:No acute cardiopulmonary disease.THIS IS AN ELECTRONICALLY VERIFIED FINAL REPORT03/21/2025 6:04 PM - Electronically signed by Tyson Corea MD
[2025-03-21 22:19] VITALS: BMI 35.3
[2025-03-21] MEDS: LIPITOR TAB 40 MG PO SCH (22:28)
[2025-03-21] MEDS: ASPIRIN EC 81 MG PO SCH (22:28)
[2025-03-21] MEDS: APRESOLINE TAB 25 MG PO SCH (22:28)
[2025-03-21] MEDS: ENTRESTO 49/51 MG TABLET PO SCH (22:29)
[2025-03-21] MEDS: COREG TAB 25 MG PO SCH (22:29)
[2025-03-21] MEDS: SNACK - Diabetic Appropriate PO SCH (22:30)
[2025-03-22 06:24] LABS: BASOPHILS # (AUTO) 0.1 X10^3/uL (0.0-0.1); BASOPHILS % (AUTO) 1.3 % (0.2-1.0); EOSINOPHILS # (AUTO) 0.5 x10^3/uL (0.0-0.2); EOSINOPHILS % (AUTO) 9.1 % (0.9-2.9); HEMATOCRIT 22.8 % (42.0-54.0); HEMOGLOBIN 7.7 g/dL (13.5-18.0); LYMPHOCYTES # (AUTO) 0.7 X10^3/uL (1.3-2.9); LYMPHOCYTES % (AUTO) 14.1 % (21.0-51.0); MEAN CORPUSCULAR HEMOGLOBIN 30.1 pg (27.0-34.0); MEAN CORPUSCULAR HGB CONC 33.9 g/dL (33.0-35.0); MEAN CORPUSCULAR VOLUME 88.9 fL (80.0-100.0); MEAN PLATELET VOLUME 9.9 fL (7.4-11.0); MONOCYTES # (AUTO) 0.4 x10^3/uL (0.3-0.8); MONOCYTES % (AUTO) 8.1 % (0.0-13.0); NEUTROPHILS # (AUTO) 3.4 x10^3/uL (2.2-4.8); NEUTROPHILS % (AUTO) 67.4 % (42.0-75.0); PLATELET COUNT 111 X10^3/uL (150.0-450.0); RED BLOOD COUNT 2.57 X10^6/uL (4.7-6.0); RED CELL DISTRIBUTION WIDTH 19.5 % (11.6-16.5); WHITE BLOOD COUNT 5.1 X10^3/uL (3.6-10.0)
[2025-03-22 06:35] LABS: ALANINE AMINOTRANSFERASE 12 Units/L (12-78); ALBUMIN 2.9 g/dL (3.4-5.0); ALKALINE PHOSPHATASE 103 Units/L (46-116); ASPARTATE AMINO TRANSFERASE 10 Units/L (15-37); BLOOD UREA NITROGEN 49 mg/dL (7-18); CALCIUM 8.3 mg/dL (8.5-10.1); CARBON DIOXIDE 23.4 mmol/L (21-32); CHLORIDE 109 mmol/L (98-107); CHOL/HDL RATIO 2.1 (0.0-5.0); CHOLESTEROL 93 mg/dL (0-200); COR CA(FOR HYPOALB) 9.2 mg/dL (8.5-10.1); CREATININE 3.02 mg/dL (0.70-1.30); GLUCOSE 108 mg/dL (65-99); HDL CHOLESTEROL 45 mg/dL (40-60); MAGNESIUM 1.7 mg/dL (2.0-2.9); POTASSIUM 4.3 mmol/L (3.5-5.1); SODIUM 144 mmol/L (136-145); TRIGLYCERIDES 70 mg/dL (0-150); eGFR NON BLACK RACES 22 (>60)
[2025-03-22] MEDS ORDERED: CONSULT PHARMACY - POTASSIUM & MAGNESIUM XX SCH (07:00)
--- NOTE | 2025-03-22 08:15 | RAD ---
EXAM:CHEST, 1 VIEWHISTORY:Shortness of breathCOMPARISON:03/21/2025FINDINGS:The trachea is midline. The cardiac silhouette is unremarkable . The lungs are clear without focal infiltrate or effusion. The bony thorax is unremarkable.IMPRESSION:No acute cardiopulmonary disease.THIS IS AN ELECTRONICALLY VERIFIED FINAL REPORT03/22/2025 8:12 AM - Electronically signed by Tyson Corea MD
[2025-03-22] MEDS: PriLOSEC PO SCH (10:15)
[2025-03-22] MEDS: LASIX IVP SCH (10:15)
[2025-03-22] MEDS: AMARYL TAB 4 MG PO SCH (10:15)
[2025-03-22] MEDS: IMDUR PO SCH (10:15)
[2025-03-22] MEDS: PEPCID TAB 20 MG PO SCH (10:15)
[2025-03-22] MEDS: MAG-OX TAB PO ONE (10:24)
[2025-03-22] MEDS: MAG-OX TAB ONE (12:04)
[2025-03-22] MEDS: SAXAGLIPTIN 5 MG PO SCH (14:57)
[2025-03-23 05:11] LABS: BASOPHILS # (AUTO) 0.1 X10^3/uL (0.0-0.1); EOSINOPHILS # (AUTO) 0.6 x10^3/uL (0.0-0.2); LYMPHOCYTES # (AUTO) 0.8 X10^3/uL (1.3-2.9); RED CELL DISTRIBUTION WIDTH 19.3 % (11.6-16.5)
[2025-03-23] MEDS: D50W ABBOJECT SYR IV ONE (05:21)
[2025-03-23 05:24] LABS: ALANINE AMINOTRANSFERASE 7 Units/L (12-78); ALBUMIN 2.9 g/dL (3.4-5.0); ALKALINE PHOSPHATASE 104 Units/L (46-116); ASPARTATE AMINO TRANSFERASE 12 Units/L (15-37); BLOOD UREA NITROGEN 51 mg/dL (7-18); CALCIUM 8.5 mg/dL (8.5-10.1); CARBON DIOXIDE 21.6 mmol/L (21-32); CHLORIDE 108 mmol/L (98-107); COR CA(FOR HYPOALB) 9.4 mg/dL (8.5-10.1); GLUCOSE 67 mg/dL (65-99); MAGNESIUM 1.6 mg/dL (2.0-2.9); POTASSIUM 4.3 mmol/L (3.5-5.1); SODIUM 141 mmol/L (136-145); eGFR NON BLACK RACES 23 (>60)
[2025-03-23 05:27] LABS: BASOPHILS % (AUTO) 1.3 % (0.2-1.0); EOSINOPHILS % (AUTO) 11.3 % (0.9-2.9); HEMOGLOBIN 8.2 g/dL (13.5-18.0); LYMPHOCYTES % (AUTO) 14.8 % (21.0-51.0); MEAN CORPUSCULAR HEMOGLOBIN 30.3 pg (27.0-34.0); MEAN PLATELET VOLUME 9.9 fL (7.4-11.0); MONOCYTES # (AUTO) 0.4 x10^3/uL (0.3-0.8); MONOCYTES % (AUTO) 7.4 % (0.0-13.0); NEUTROPHILS # (AUTO) 3.7 x10^3/uL (2.2-4.8); NEUTROPHILS % (AUTO) 65.2 % (42.0-75.0); PLATELET COUNT 116 X10^3/uL (150.0-450.0); WHITE BLOOD COUNT 5.7 X10^3/uL (3.6-10.0)
[2025-03-23 06:32] LABS: PLATELET MORPHOLOGY COMMENT NORMAL (NORMAL)
[2025-03-23 06:33] LABS: ANISOCYTOSIS SLIGHT; SCHISTOCYTES PRESENT
--- NOTE | 2025-03-23 09:23 | DR.H&P ---
H&P History & Physical for Day of: H&P Date: 03/22/25 Chief Complaint Chief Complaint: shortness of breath weakness History of Present Illness History of Present Illness: Patient is a 4-year-old male with a past medical history of CHF, COPD, type 2 diabetes mellitus, hypertension, presenting with weakness and shortness of breath. He does have a well-known history of CHF. Echo in 2024 shows ejection fraction of 30 to 35%. Labs/imaging: WBC 5.1, hemoglobin 7.7, platelets 111, sodium 144, potassium 4.3, creatinine 3.02, g lucose 108, troponin negative, BNP 3580, chest x-ray negative, UA negative. Patient was admitted for CHF exacerbation. Will continue with IV Lasix 20 mg twice daily. Restart home medications. Otherwise continue with current treatment plan. Continue closely monitoring follow-up labs/imaging. Past Medical History Past Medical History: Arthritis, CHF, COPD, Diabetes, Dyslipidemia, GERD, Gout, Hypertension, Kidney Stones and Renal Disease Past Surgical History Surgical History: Cholecystectomy and Ortho Surgery Family History Family Medical History: Diabetes Mellitus, Cancer and OR Social History Does patient currently use any type of tobacco product: No Have you used tobacco products in the last 12 months: No Type of Tobacco Use: None Does any household member use tobacco: No Alcohol Use: None Drug Use: None Medications Home Medications: Home Medications Medication Instructions Recorded Confirmed Type aspirin 81 mg tablet,delayed 81 mg PO QPM 05/30/23 03/21/25 History release atorvastatin 40 mg tablet 40 mg PO QPM 09/29/23 03/21/25 History carvedilol 25 mg tablet 25 mg PO BID 09/29/23 03/21/25 History isosorbide mononitrate 30 mg 30 mg PO QAM 10/17/23 03/21/25 History tablet,extended release 24 hr torsemide 20 mg tablet 20 mg PO BID 04/03/24 03/21/25 History glimepiride 4 mg tablet 4 mg PO QDAY 08/13/24 03/21/25 History hydralazine 50 mg tablet 50 mg PO BID 10/15/24 03/21/25 History omeprazole magnesium 20 mg 20 mg PO QDAY 02/25/25 03/21/25 History tablet,delayed release saxagliptin 5 mg tablet 5 mg PO QDAY 02/25/25 03/21/25 History ergocalciferol (vitamin D2) 1,250 1,250 mcg PO 2XW 03/12/25 03/21/25 History mcg (50,000 unit) capsule (Vitamin D2) famotidine 40 mg tablet 40 mg PO QDAY 03/12/25 03/21/25 History Allergies Allergies Allergy/AdvReac Type Severity Reaction Status Date / Time No Known Drug Allergies Allergy Verified 03/12/25 13:48 Labs 03/23/25 04:11 03/23/25 04:11 Labs: Laboratory WBC 5.7 X10^3/uL (3.6-10.0) 03/23/25 04:11 RBC 2.70 X10^6/uL (4.7-6.0) L 03/23/25 04:11 Hgb 8.2 g/dL (13.5-18.0) L 03/23/25 04:11 Hct 24.0 % (42.0-54.0) L 03/23/25 04:11 MCV 89.0 fL (80.0-100.0) 03/23/25 04:11 MCH 30.3 pg (27.0-34.0) 03/23/25 04:11 MCHC 34.0 g/dL (33.0-35.0) 03/23/25 04:11 RDW 19.3 % (11.6-16.5) H 03/23/25 04:11 Plt Count 116 X10^3/uL (150.0-450.0) L 03/23/25 04:11 Plt Count Comment Decreased (ADEQUATE) 03/23/25 04:11 MPV 9.9 fL (7.4-11.0) 03/23/25 04:11 Neut % (Auto) 65.2 % (42.0-75.0) 03/23/25 04:11 Lymph % (Auto) 14.8 % (21.0-51.0) L 03/23/25 04:11 [place] % (Auto) 7.4 % (0.0-13.0) 03/23/25 04:11 Eos % (Auto) 11.3 % (0.9-2.9) H 03/23/25 04:11 Baso % (Auto) 1.3 % (0.2-1.0) H 03/23/25 04:11 Neut # (Auto) 3.7 x10^3/uL (2.2-4.8) 03/23/25 04:11 Lymph # (Auto) 0.8 X10^3/uL (1.3-2.9) L 03/23/25 04:11 [place] # (Auto) 0.4 x10^3/uL (0.3-0.8) 03/23/25 04:11 Eos # (Auto) 0.6 x10^3/uL (0.0-0.2) H 03/23/25 04:11 Baso # (Auto) 0.1 X10^3/uL (0.0-0.1) 03/23/25 04:11 Absolute Nucleated RBC 0.2 /100WBC 03/23/25 04:11 Plt Morphology Comment Normal (NORMAL) 03/23/25 04:11 RBC Morphology Abnormal (NORMAL) 03/23/25 04:11 Anisocytosis Slight A 03/23/25 04:11 Acanthocytes (Spur) Present 03/23/25 04:11 Schistocytes Present 03/23/25 04:11 Sodium 141 mmol/L (136-145) 03/23/25 04:11 Corrected Sodium TNP 03/23/25 04:11 Potassium 4.3 mmol/L (3.5-5.1) 03/23/25 04:11 Chloride 108 mmol/L (98-107) H 03/23/25 04:11 Carbon Dioxide 21.6 mmol/L (21-32) 03/23/25 04:11 BUN 51 mg/dL (7-18) H 03/23/25 04:11 Creatinine 2.90 mg/dL (0.70-1.30) H 03/23/25 04:11 Est GFR (MDRD) Af Amer 27 (>60) L 03/23/25 04:11 Est GFR (MDRD) Non-Af 23 (>60) L 03/23/25 04:11 Glucose 67 mg/dL (65-99) 03/23/25 04:11 POC Glucose (mg/dL) 73 mg/dL (65-99) 03/23/25 06:21 Calcium 8.5 mg/dL (8.5-10.1) 03/23/25 04:11 Corrected Calcium 9.4 mg/dL (8.5-10.1) 03/23/25 04:11 Magnesium 1.6 mg/dL (2.0-2.9) L 03/23/25 04:11 Total Bilirubin 0.90 mg/dL (0.2-1.0) 03/23/25 04:11 AST 12 Units/L (15-37) L 03/23/25 04:11 ALT 7 Units/L (12-78) L 03/23/25 04:11 Alkaline Phosphatase 104 Units/L (46-116) 03/23/25 04:11 Troponin I High Sens 21.3 ng/L (4.0-60.0) 03/21/25 16:41 B-Natriuretic Peptide 3580 pg/mL (0-79) H 03/21/25 16:41 Total Protein 6.0 g/dL (6.4-8.2) L 03/23/25 04:11 Albumin 2.9 g/dL (3.4-5.0) L 03/23/25 04:11 Globulin 3.1 g/dL (2.5-4.5) 03/23/25 04:11 Albumin/Globulin Ratio 0.9 Ratio (1.1-2.1) L 03/23/25 04:11 Triglycerides 70 mg/dL (0-150) 03/22/25 05:18 Cholesterol 93 mg/dL (0-200) 03/22/25 05:18 LDL Cholesterol, Calc 34 mg/dL (0-100) 03/22/25 05:18 HDL Cholesterol 45 mg/dL (40-60) 03/22/25 05:18 Cholesterol/HDL Ratio 2.1 (0.0-5.0) 03/22/25 05:18 Specimen Type Clean catch urine 03/21/25 16:38 Urine Color Yellow (YELLOW) 03/21/25 16:38 Urine Appearance Clear (CLEAR) 03/21/25 16:38 Urine pH 7.0 (5.0 - 8.0) 03/21/25 16:38 Ur Specific [place] 1.010 (1.000-1.030) 03/21/25 16:38 Urine Protein 2+ (NEGATIVE) 03/21/25 16:38 Urine Glucose (UA) Negative (NEGATIVE) 03/21/25 16:38 Urine Ketones Negative (NEGATIVE) 03/21/25 16:38 Urine Blood Negative (NEGATIVE) 03/21/25 16:38 Urine Nitrite Negative (NEGATIVE) 03/21/25 16:38 Urine Bilirubin Negative (NEGATIVE) 03/21/25 16:38 Urine Urobilinogen Normal (NORMAL) 03/21/25 16:38 Ur Leukocyte Esterase Negative (NEGATIVE) 03/21/25 16:38 Urine RBC None seen /HPF (0-3) 03/21/25 16:38 Urine WBC None seen /HPF (0-5) 03/21/25 16:38 Ur Squamous Epith Cells Rare /HPF (NEGATIVE) 03/21/25 16:38 Urine Bacteria Negative /HPF (NEGATIVE) 03/21/25 16:38 Ur Culture Indicated? No/not indicated 03/21/25 16:38 Review of Systems Constitutional: Weakness Eyes: No Symptoms Reported ENT: No Symptoms Reported Respiratory: Shortness of Breath Cardiovascular: No Symptoms Reported Gastrointestinal: No Symptoms Reported Genitourinary: No Symptoms Reported Musculoskeletal: No Symptoms Reported Skin: No Symptoms Reported Neurological: No Symptoms Reported Physical Exam Vital Signs: Vital Signs Temperature 97.4 F Pulse Rate [Left Radial] 69 Respiratory Rate 17 Blood Pressure [Left Arm] 149/79 O2 Sat by Pulse Oximetry 97 Oriented: Normal Eyes: Normal Ear: Normal Nose: Normal Throat: Normal Respiratory: Diminished Throughout Cardiovascular: Normal : Normal Auscultation: Bowel Sounds: Normal Palpation: Normal Tenderness: Normal Skin: Normal Musculoskeletal: Normal Psychiatric: Normal Mood Description: Calm and Appropriate Affect: Normal Speech Pattern: Clear and Appropriate Assessment/Plan (1) Acute exacerbation of CHF (congestive heart failure): Qualifiers: Heart failure type: systolic Qualified Code(s): I50.23 - Acute on chronic systolic (congestive) heart failure Status: Acute Plan: Continue with IV Lasix. (2) Hypoxia: Status: Acute (3) CKD (chronic kidney disease): Qualifiers: Chronic kidney disease stage: unspecified stage Qualified Code(s): N18.9 - Chronic kidney disease, unspecified Status: Chronic (4) ZITA (obstructive sleep apnea): Status: Chronic Review H&P Reviewed: Yes Patient was examined?: Yes
--- NOTE | 2025-03-23 11:01 | PCM.PROG ---
Progress Note Progress Note for Day of Date of Exam: 03/23/25 Subjective Subjective: Patient seen at bedside, no acute events overnight. He is feeling better. He is currently on 2 L nasal cannula. He does use home oxygen. He is currently admitted for CHF exacerbation and weakness. He is on IV Lasix. Labs/imaging reviewed: - WBC 5.7 hemoglobin 8.2 potassium 4.3 creatinine 2.90 magnesium 1.6 - Chest x-ray no acute changes Plan: Continue telemetry, continue diuresis with IV Lasix. Monitor daily weight, strict I's and O's. Continue home medications. Wean O2 as tolerated. Ambulate as tolerated. Replace electrolytes as per protocol. Monitor a.m. labs and imaging. Possible discharge tomorrow. Past Medical Family Social History Allergies: Allergies No Known Drug Allergies Allergy (Verified 03/12/25 13:48) Vital Signs and I&O's Vital Signs: Vital Signs Temperature 97.7 F Temperature 97.4 F Pulse Rate [Left Radial] 70 Pulse Rate [Left Radial] 69 Respiratory Rate 20 Respiratory Rate 20 Respiratory Rate 17 Blood Pressure [Left Arm] 140/72 Blood Pressure [Left Arm] 149/79 O2 Sat by Pulse Oximetry 98 O2 Sat by Pulse Oximetry 97 Intake and Output: Intake & Output 03/20/25 03/21/25 03/22/25 03/23/25 23:59 23:59 23:59 23:59 Intake Total 1017 / 1017 425 / 425 Output Total 400 / 400 2275 / 2275 Balance -380 / -380 -1258 / -1258 425 / 425 Physical Exam Oriented: Normal Eyes: Normal Ear: Normal Nose: Normal Throat: Normal Respiratory: Generalized and Rales Cardiovascular: Normal and Edema Auscultation: Bowel Sounds: Normal Palpation: Normal Tenderness: Normal Skin: Normal Musculoskeletal: Normal Psychiatric: Normal Mood Description: Calm and Appropriate Affect: Normal Speech Pattern: Clear and Appropriate Laboratory and Diagnostics 03/23/25 04:11 03/23/25 04:11 Labs: Laboratory WBC 5.7 X10^3/uL (3.6-10.0) 03/23/25 04:11 RBC 2.70 X10^6/uL (4.7-6.0) L 03/23/25 04:11 Hgb 8.2 g/dL (13.5-18.0) L 03/23/25 04:11 Hct 24.0 % (42.0-54.0) L 03/23/25 04:11 MCV 89.0 fL (80.0-100.0) 03/23/25 04:11 MCH 30.3 pg (27.0-34.0) 03/23/25 04:11 MCHC 34.0 g/dL (33.0-35.0) 03/23/25 04:11 RDW 19.3 % (11.6-16.5) H 03/23/25 04:11 Plt Count 116 X10^3/uL (150.0-450.0) L 03/23/25 04:11 Plt Count Comment Decreased (ADEQUATE) 03/23/25 04:11 MPV 9.9 fL (7.4-11.0) 03/23/25 04:11 Neut % (Auto) 65.2 % (42.0-75.0) 03/23/25 04:11 Lymph % (Auto) 14.8 % (21.0-51.0) L 03/23/25 04:11 [place] % (Auto) 7.4 % (0.0-13.0) 03/23/25 04:11 Eos % (Auto) 11.3 % (0.9-2.9) H 03/23/25 04:11 Baso % (Auto) 1.3 % (0.2-1.0) H 03/23/25 04:11 Neut # (Auto) 3.7 x10^3/uL (2.2-4.8) 03/23/25 04:11 Lymph # (Auto) 0.8 X10^3/uL (1.3-2.9) L 03/23/25 04:11 [place] # (Auto) 0.4 x10^3/uL (0.3-0.8) 03/23/25 04:11 Eos # (Auto) 0.6 x10^3/uL (0.0-0.2) H 03/23/25 04:11 Baso # (Auto) 0.1 X10^3/uL (0.0-0.1) 03/23/25 04:11 Absolute Nucleated RBC 0.2 /100WBC 03/23/25 04:11 Plt Morphology Comment Normal (NORMAL) 03/23/25 04:11 RBC Morphology Abnormal (NORMAL) 03/23/25 04:11 Anisocytosis Slight A 03/23/25 04:11 Acanthocytes (Spur) Present 03/23/25 04:11 Schistocytes Present 03/23/25 04:11 Sodium 141 mmol/L (136-145) 03/23/25 04:11 Corrected Sodium TNP 03/23/25 04:11 Potassium 4.3 mmol/L (3.5-5.1) 03/23/25 04:11 Chloride 108 mmol/L (98-107) H 03/23/25 04:11 Carbon Dioxide 21.6 mmol/L (21-32) 03/23/25 04:11 BUN 51 mg/dL (7-18) H 03/23/25 04:11 Creatinine 2.90 mg/dL (0.70-1.30) H 03/23/25 04:11 Est GFR (MDRD) Af Amer 27 (>60) L 03/23/25 04:11 Est GFR (MDRD) Non-Af 23 (>60) L 03/23/25 04:11 Glucose 67 mg/dL (65-99) 03/23/25 04:11 POC Glucose (mg/dL) 73 mg/dL (65-99) 03/23/25 06:21 Calcium 8.5 mg/dL (8.5-10.1) 03/23/25 04:11 Corrected Calcium 9.4 mg/dL (8.5-10.1) 03/23/25 04:11 Magnesium 1.6 mg/dL (2.0-2.9) L 03/23/25 04:11 Total Bilirubin 0.90 mg/dL (0.2-1.0) 03/23/25 04:11 AST 12 Units/L (15-37) L 03/23/25 04:11 ALT 7 Units/L (12-78) L 03/23/25 04:11 Alkaline Phosphatase 104 Units/L (46-116) 03/23/25 04:11 Troponin I High Sens 21.3 ng/L (4.0-60.0) 03/21/25 16:41 B-Natriuretic Peptide 3580 pg/mL (0-79) H 03/21/25 16:41 Total Protein 6.0 g/dL (6.4-8.2) L 03/23/25 04:11 Albumin 2.9 g/dL (3.4-5.0) L 03/23/25 04:11 Globulin 3.1 g/dL (2.5-4.5) 03/23/25 04:11 Albumin/Globulin Ratio 0.9 Ratio (1.1-2.1) L 03/23/25 04:11 Triglycerides 70 mg/dL (0-150) 03/22/25 05:18 Cholesterol 93 mg/dL (0-200) 03/22/25 05:18 LDL Cholesterol, Calc 34 mg/dL (0-100) 03/22/25 05:18 HDL Cholesterol 45 mg/dL (40-60) 03/22/25 05:18 Cholesterol/HDL Ratio 2.1 (0.0-5.0) 03/22/25 05:18 Specimen Type Clean catch urine 03/21/25 16:38 Urine Color Yellow (YELLOW) 03/21/25 16:38 Urine Appearance Clear (CLEAR) 03/21/25 16:38 Urine pH 7.0 (5.0 - 8.0) 03/21/25 16:38 Ur Specific [place] 1.010 (1.000-1.030) 03/21/25 16:38 Urine Protein 2+ (NEGATIVE) 03/21/25 16:38 Urine Glucose (UA) Negative (NEGATIVE) 03/21/25 16:38 Urine Ketones Negative (NEGATIVE) 03/21/25 16:38 Urine Blood Negative (NEGATIVE) 03/21/25 16:38 Urine Nitrite Negative (NEGATIVE) 03/21/25 16:38 Urine Bilirubin Negative (NEGATIVE) 03/21/25 16:38 Urine Urobilinogen Normal (NORMAL) 03/21/25 16:38 Ur Leukocyte Esterase Negative (NEGATIVE) 03/21/25 16:38 Urine RBC None seen /HPF (0-3) 03/21/25 16:38 Urine WBC None seen /HPF (0-5) 03/21/25 16:38 Ur Squamous Epith Cells Rare /HPF (NEGATIVE) 03/21/25 16:38 Urine Bacteria Negative /HPF (NEGATIVE) 03/21/25 16:38 Ur Culture Indicated? No/not indicated 03/21/25 16:38 Plan (1) Acute exacerbation of CHF (congestive heart failure): Status: Acute Qualifiers: Heart failure type: systolic Qualified Code(s): I50.23 - Acute on chronic systolic (congestive) heart failure (2) Hypoxia: Status: Acute (3) CKD (chronic kidney disease): Status: Chronic Qualifiers: Chronic kidney disease stage: unspecified stage Qualified Code(s): N18.9 - Chronic kidney disease, unspecified (4) ZITA (obstructive sleep apnea): Status: Chronic (5) Hypomagnesemia: Status: Acute (6) Chronic anemia: Status: Chronic (7) Generalized weakness: Status: Acute
[2025-03-23] MEDS: MAG-OX TAB PO SCH (12:51)
[2025-03-24] MEDS: CATAPRES TAB 0.1 MG PO ONE (00:13)
[2025-03-24] MEDS: APRESOLINE INJ 20 MG VIAL IVP ONE ×2 (01:32→04:33)
[2025-03-24] MEDS: D50W ABBOJECT SYR IVP ONE (05:53)
[2025-03-24 06:20] LABS: BASOPHILS # (AUTO) 0.1 X10^3/uL (0.0-0.1); BASOPHILS % (AUTO) 1.3 % (0.2-1.0); EOSINOPHILS # (AUTO) 0.5 x10^3/uL (0.0-0.2); HEMATOCRIT 22.1 % (42.0-54.0); HEMOGLOBIN 7.5 g/dL (13.5-18.0); LYMPHOCYTES # (AUTO) 0.7 X10^3/uL (1.3-2.9); LYMPHOCYTES % (AUTO) 14.1 % (21.0-51.0); MEAN CORPUSCULAR HEMOGLOBIN 30.1 pg (27.0-34.0); MEAN CORPUSCULAR HGB CONC 33.9 g/dL (33.0-35.0); MEAN CORPUSCULAR VOLUME 88.7 fL (80.0-100.0); MEAN PLATELET VOLUME 9.8 fL (7.4-11.0); MONOCYTES # (AUTO) 0.4 x10^3/uL (0.3-0.8); MONOCYTES % (AUTO) 7.7 % (0.0-13.0); NEUTROPHILS # (AUTO) 3.3 x10^3/uL (2.2-4.8); NEUTROPHILS % (AUTO) 66.9 % (42.0-75.0); PLATELET COUNT 115 X10^3/uL (150.0-450.0); RED BLOOD COUNT 2.49 X10^6/uL (4.7-6.0)
[2025-03-24 06:28] LABS: ALANINE AMINOTRANSFERASE 8 Units/L (12-78); ALBUMIN 2.8 g/dL (3.4-5.0); ALKALINE PHOSPHATASE 99 Units/L (46-116); ASPARTATE AMINO TRANSFERASE 9 Units/L (15-37); BLOOD UREA NITROGEN 51 mg/dL (7-18); CALCIUM 8.3 mg/dL (8.5-10.1); CARBON DIOXIDE 29.1 mmol/L (21-32); CHLORIDE 110 mmol/L (98-107); COR CA(FOR HYPOALB) 9.3 mg/dL (8.5-10.1); CREATININE 2.95 mg/dL (0.70-1.30); GLUCOSE 68 mg/dL (65-99); MAGNESIUM 1.6 mg/dL (2.0-2.9); POTASSIUM 4.2 mmol/L (3.5-5.1); SODIUM 144 mmol/L (136-145); TOTAL PROTEIN 5.8 g/dL (6.4-8.2); eGFR NON BLACK RACES 22 (>60)
[2025-03-24] MEDS: MILK OF MAGNESIA PO SCH (09:35)
--- NOTE | 2025-03-24 11:45 | PCM.PROG ---
Progress Note Progress Note for Day of Date of Exam: 03/24/25 Subjective Subjective: Patient seen at bedside, no acute events overnight. He is feeling better. He is currently on 2 L nasal cannula. He does use home oxygen. He is currently admitted for CHF exacerbation and weakness. He is on IV lasix. His hemoglobin is 7.5 this morning. Denies any bleeding. Labs/imaging reviewed: - WBC 5.0 hemoglobin 7.5 potassium 4.2 creatinine 2.95 magnesium 1.6 - Chest x-ray no acute changes Plan: Continue telemetry, continue diuresis with IV Lasix. Monitor daily weight, strict I's and O's. Will transfuse 2 units PRBCs. Monitor H&H. Continue home medications. Wean O2 as tolerated. Ambulate as tolerated. Replace electrolytes as per protocol. Monitor a.m. labs and imaging. Possible discharge tomorrow. Past Medical Family Social History Allergies: Allergies No Known Drug Allergies Allergy (Verified 03/12/25 13:48) Vital Signs and I&O's Vital Signs: Vital Signs Temperature 97.8 F Temperature 98.4 F Pulse Rate [Left Radial] 58 Pulse Rate [Left Radial] 71 Respiratory Rate 20 Respiratory Rate 19 Blood Pressure [Left Arm] 116/57 Blood Pressure [Left Arm] 170/110 O2 Sat by Pulse Oximetry 98 Intake and Output: Intake & Output 03/21/25 03/22/25 03/23/25 03/24/25 23:59 23:59 23:59 23:59 Intake Total 1017 / 1017 1765 / 1765 250 / 250 Output Total 400 / 400 2275 / 2275 1030 / 1030 200 / 200 Balance -380 / -380 -1258 / -1258 735 / 735 50 / 50 Physical Exam Oriented: Normal Eyes: Normal Ear: Normal Nose: Normal Throat: Normal Respiratory: Generalized and Rales Cardiovascular: Normal and Edema Auscultation: Bowel Sounds: Normal Palpation: Normal Tenderness: Normal Skin: Normal Musculoskeletal: Normal Psychiatric: Normal Mood Description: Calm and Appropriate Affect: Normal Speech Pattern: Clear and Appropriate Laboratory and Diagnostics 03/24/25 05:36 03/24/25 05:36 Labs: Laboratory WBC 5.0 X10^3/uL (3.6-10.0) 03/24/25 05:36 RBC 2.49 X10^6/uL (4.7-6.0) L 03/24/25 05:36 Hgb 7.5 g/dL (13.5-18.0) L 03/24/25 05:36 Hct 22.1 % (42.0-54.0) L 03/24/25 05:36 MCV 88.7 fL (80.0-100.0) 03/24/25 05:36 MCH 30.1 pg (27.0-34.0) 03/24/25 05:36 MCHC 33.9 g/dL (33.0-35.0) 03/24/25 05:36 RDW 19.0 % (11.6-16.5) H 03/24/25 05:36 Plt Count 115 X10^3/uL (150.0-450.0) L 03/24/25 05:36 Plt Count Comment Decreased (ADEQUATE) 03/23/25 04:11 MPV 9.8 fL (7.4-11.0) 03/24/25 05:36 Neut % (Auto) 66.9 % (42.0-75.0) 03/24/25 05:36 Lymph % (Auto) 14.1 % (21.0-51.0) L 03/24/25 05:36 [place] % (Auto) 7.7 % (0.0-13.0) 03/24/25 05:36 Eos % (Auto) 10.0 % (0.9-2.9) H 03/24/25 05:36 Baso % (Auto) 1.3 % (0.2-1.0) H 03/24/25 05:36 Neut # (Auto) 3.3 x10^3/uL (2.2-4.8) 03/24/25 05:36 Lymph # (Auto) 0.7 X10^3/uL (1.3-2.9) L 03/24/25 05:36 [place] # (Auto) 0.4 x10^3/uL (0.3-0.8) 03/24/25 05:36 Eos # (Auto) 0.5 x10^3/uL (0.0-0.2) H 03/24/25 05:36 Baso # (Auto) 0.1 X10^3/uL (0.0-0.1) 03/24/25 05:36 Absolute Nucleated RBC 0.0 /100WBC 03/24/25 05:36 Plt Morphology Comment Normal (NORMAL) 03/23/25 04:11 RBC Morphology Abnormal (NORMAL) 03/23/25 04:11 Anisocytosis Slight A 03/23/25 04:11 Acanthocytes (Spur) Present 03/23/25 04:11 Schistocytes Present 03/23/25 04:11 Sodium 144 mmol/L (136-145) 03/24/25 05:36 Corrected Sodium TNP 03/24/25 05:36 Potassium 4.2 mmol/L (3.5-5.1) 03/24/25 05:36 Chloride 110 mmol/L (98-107) H 03/24/25 05:36 Carbon Dioxide 29.1 mmol/L (21-32) 03/24/25 05:36 BUN 51 mg/dL (7-18) H 03/24/25 05:36 Creatinine 2.95 mg/dL (0.70-1.30) H 03/24/25 05:36 Est GFR (MDRD) Af Amer 27 (>60) L 03/24/25 05:36 Est GFR (MDRD) Non-Af 22 (>60) L 03/24/25 05:36 Glucose 68 mg/dL (65-99) 03/24/25 05:36 POC Glucose (mg/dL) 65 mg/dL (65-99) 03/24/25 05:16 Calcium 8.3 mg/dL (8.5-10.1) L 03/24/25 05:36 Corrected Calcium 9.3 mg/dL (8.5-10.1) 03/24/25 05:36 Magnesium 1.6 mg/dL (2.0-2.9) L 03/24/25 05:36 Total Bilirubin 0.80 mg/dL (0.2-1.0) 03/24/25 05:36 AST 9 Units/L (15-37) L 03/24/25 05:36 ALT 8 Units/L (12-78) L 03/24/25 05:36 Alkaline Phosphatase 99 Units/L (46-116) 03/24/25 05:36 Troponin I High Sens 21.3 ng/L (4.0-60.0) 03/21/25 16:41 B-Natriuretic Peptide 3580 pg/mL (0-79) H 03/21/25 16:41 Total Protein 5.8 g/dL (6.4-8.2) L 03/24/25 05:36 Albumin 2.8 g/dL (3.4-5.0) L 03/24/25 05:36 Globulin 3.0 g/dL (2.5-4.5) 03/24/25 05:36 Albumin/Globulin Ratio 0.9 Ratio (1.1-2.1) L 03/24/25 05:36 Triglycerides 70 mg/dL (0-150) 03/22/25 05:18 Cholesterol 93 mg/dL (0-200) 03/22/25 05:18 LDL Cholesterol, Calc 34 mg/dL (0-100) 03/22/25 05:18 HDL Cholesterol 45 mg/dL (40-60) 03/22/25 05:18 Cholesterol/HDL Ratio 2.1 (0.0-5.0) 03/22/25 05:18 Specimen Type Clean catch urine 03/21/25 16:38 Urine Color Yellow (YELLOW) 03/21/25 16:38 Urine Appearance Clear (CLEAR) 03/21/25 16:38 Urine pH 7.0 (5.0 - 8.0) 03/21/25 16:38 Ur Specific [place] 1.010 (1.000-1.030) 03/21/25 16:38 Urine Protein 2+ (NEGATIVE) 03/21/25 16:38 Urine Glucose (UA) Negative (NEGATIVE) 03/21/25 16:38 Urine Ketones Negative (NEGATIVE) 03/21/25 16:38 Urine Blood Negative (NEGATIVE) 03/21/25 16:38 Urine Nitrite Negative (NEGATIVE) 03/21/25 16:38 Urine Bilirubin Negative (NEGATIVE) 03/21/25 16:38 Urine Urobilinogen Normal (NORMAL) 03/21/25 16:38 Ur Leukocyte Esterase Negative (NEGATIVE) 03/21/25 16:38 Urine RBC None seen /HPF (0-3) 03/21/25 16:38 Urine WBC None seen /HPF (0-5) 03/21/25 16:38 Ur Squamous Epith Cells Rare /HPF (NEGATIVE) 03/21/25 16:38 Urine Bacteria Negative /HPF (NEGATIVE) 03/21/25 16:38 Ur Culture Indicated? No/not indicated 03/21/25 16:38 Plan (1) Chronic anemia: Status: Chronic (2) Acute exacerbation of CHF (congestive heart failure): Status: Acute Qualifiers: Heart failure type: systolic Qualified Code(s): I50.23 - Acute on chronic systolic (congestive) heart failure (3) Hypoxia: Status: Acute (4) CKD (chronic kidney disease): Status: Chronic Qualifiers: Chronic kidney disease stage: unspecified stage Qualified Code(s): N18.9 - Chronic kidney disease, unspecified (5) ZITA (obstructive sleep apnea): Status: Chronic (6) Hypomagnesemia: Status: Acute (7) Generalized weakness: Status: Acute
[2025-03-24] MEDS: MAG-OX TAB PO SCH (13:32)
[2025-03-24] MEDS: GLUTOSE 15 GEL ORAL PO PRN (14:08)
[2025-03-24] MEDS: COLACE CAP 100 MG PO SCH (21:10)
[2025-03-25 03:15] LABS: HEMATOCRIT 28.6 % (42.0-54.0)
[2025-03-25 03:17] LABS: HEMOGLOBIN 9.8 g/dL (13.5-18.0)
[2025-03-25] MEDS ORDERED: CATAPRES TAB 0.1 MG PO ONE (04:29)
[2025-03-25 04:39] LABS: BASOPHILS # (AUTO) 0.3 X10^3/uL (0.0-0.1); BASOPHILS % (AUTO) 4.9 % (0.2-1.0); EOSINOPHILS # (AUTO) 0.5 x10^3/uL (0.0-0.2); EOSINOPHILS % (AUTO) 9.7 % (0.9-2.9); HEMATOCRIT 28.9 % (42.0-54.0); LYMPHOCYTES # (AUTO) 0.4 X10^3/uL (1.3-2.9); LYMPHOCYTES % (AUTO) 8.5 % (21.0-51.0); MEAN CORPUSCULAR HEMOGLOBIN 29.7 pg (27.0-34.0); MEAN CORPUSCULAR VOLUME 87.5 fL (80.0-100.0); MEAN PLATELET VOLUME 9.7 fL (7.4-11.0); MONOCYTES # (AUTO) 0.3 x10^3/uL (0.3-0.8); MONOCYTES % (AUTO) 6.5 % (0.0-13.0); NEUTROPHILS # (AUTO) 3.7 x10^3/uL (2.2-4.8); NEUTROPHILS % (AUTO) 70.4 % (42.0-75.0); PLATELET COUNT 122 X10^3/uL (150.0-450.0); RED CELL DISTRIBUTION WIDTH 19.6 % (11.6-16.5); WHITE BLOOD COUNT 5.2 X10^3/uL (3.6-10.0)
[2025-03-25] MEDS: CATAPRES TAB 0.1 MG PO ONE (04:39)
[2025-03-25 04:47] LABS: ALANINE AMINOTRANSFERASE 8 Units/L (12-78); ALKALINE PHOSPHATASE 110 Units/L (46-116); ASPARTATE AMINO TRANSFERASE 11 Units/L (15-37); BLOOD UREA NITROGEN 51 mg/dL (7-18); CALCIUM 8.3 mg/dL (8.5-10.1); CARBON DIOXIDE 23.3 mmol/L (21-32); CHLORIDE 108 mmol/L (98-107); COR CA(FOR HYPOALB) 9.1 mg/dL (8.5-10.1); CREATININE 2.77 mg/dL (0.70-1.30); GLUCOSE 104 mg/dL (65-99); MAGNESIUM 1.7 mg/dL (2.0-2.9); POTASSIUM 4.6 mmol/L (3.5-5.1); SODIUM 141 mmol/L (136-145); TOTAL PROTEIN 6.3 g/dL (6.4-8.2); eGFR NON BLACK RACES 24 (>60)
[2025-03-25 04:50] LABS: HEMOGLOBIN 9.8 g/dL (13.5-18.0)
[2025-03-25] MEDS: APRESOLINE INJ 20 MG VIAL IVP ONE (06:14)
[2025-03-25] MEDS: CATAPRES TAB 0.1 MG ONE (07:35)
[2025-03-25] MEDS: NS 500 ML IV 500 ML IV ONE ×2 (07:35→07:36)
[2025-03-25 09:24] VITALS: RESP 18; TEMP 97.7
[2025-03-25 12:44] VITALS: BP 142/68; PULSE 59; O2SAT 97
--- NOTE | 2025-03-26 10:40 | W.DIS.FURT ---
Summary of Discharge Discharge Summary of Date Date of Exam: 03/25/25 Admission Date Date of Admission: 03/21/25 Admission Diagnosis Patient Problems (Updated 03/23/25 @ 11:01 by Cindy Ng MD) Acute exacerbation of CHF (congestive heart failure) (Acute) I50.9 Chronic anemia (Chronic) D64.9 CKD (chronic kidney disease) (Chronic) N18.9 Hospital Course: Patient is a 74-year-old male with a past medical history of CHF, COPD, type 2 diabetes mellitus, hypertension, presenting with weakness and shortness of breath. He does have a well-known history of CHF. Echo in 2024 shows ejection fraction of 30 to 35%. Labs/imaging: WBC 5.1, hemoglobin 7.7, platelets 111, sodium 144, potassium 4.3, creatinine 3.02, glucose 108, troponin negative, BNP 3580, chest x-ray negative, UA negative. Patient was admitted for CHF exacerbation. He was started on IV Lasix with daily weights and strict I's and O's. His labs are monitored daily and electrolytes replace as needed. He was noted to be anemic at 7.5. He was transfused 2 units of blood. He was feeling better. He was using his home oxygen 2 L. He was ambulating in the room with a walker. He was stable to be discharged home. He will follow-up with PCP and cardiology as scheduled. He does have home health services. Vital Signs: Vital Signs (72 hours) 03/22/25 12:00 03/22/25 16:00 03/22/25 20:00 Temperature 98.3 F 97.4 F L 97.7 F Pulse Rate [Left Radial] 65 64 60 Respiratory Rate 21 19 20 Blood Pressure [Left Arm] 142/92 142/71 143/71 O2 Sat by Pulse Oximetry 97 98 99 Oxygen Delivery Method Nasal Cannula Nasal Cannula Nasal Cannula Oxygen Flow Rate 2 2 2 FIO2% 03/22/25 20:19 03/22/25 23:35 03/22/25 19:00 Temperature 97.8 F Pulse Rate [Left Radial] 61 Respiratory Rate 16 Blood Pressure [Left Arm] 135/67 O2 Sat by Pulse Oximetry 98 Oxygen Delivery Method Nasal Cannula Nasal Cannula Nasal Cannula Oxygen Flow Rate 2 2 2 FIO2% 03/23/25 04:00 03/23/25 09:32 03/23/25 07:00 Temperature 97.4 F L Pulse Rate [Left Radial] 69 Respiratory Rate 17 Blood Pressure [Left Arm] 149/79 O2 Sat by Pulse Oximetry 97 Oxygen Delivery Method Nasal Cannula Nasal Cannula Room Air Oxygen Flow Rate 2 2 FIO2% 28 03/23/25 07:00 03/23/25 08:00 03/23/25 11:56 Temperature 97.7 F 97.8 F Pulse Rate [Left Radial] 70 56 L Respiratory Rate 20 20 20 Blood Pressure [Left Arm] 140/72 176/81 O2 Sat by Pulse Oximetry 98 98 Oxygen Delivery Method Room Air Room Air Oxygen Flow Rate FIO2% 03/23/25 16:00 03/23/25 19:55 03/23/25 20:24 Temperature 97.6 F 98.0 F Pulse Rate [Left Radial] 60 60 Respiratory Rate 21 20 Blood Pressure [Left Arm] 148/70 155/79 O2 Sat by Pulse Oximetry 98 99 Oxygen Delivery Method Nasal Cannula Nasal Cannula Nasal Cannula Oxygen Flow Rate 2 2 FIO2% 28 03/23/25 23:44 03/23/25 19:00 03/24/25 00:05 Temperature 97.9 F Pulse Rate [Left Radial] 71 Respiratory Rate 19 Blood Pressure [Left Arm] 162/79 185/95 O2 Sat by Pulse Oximetry 96 Oxygen Delivery Method Nasal Cannula Nasal Cannula Oxygen Flow Rate 2 FIO2% 03/24/25 00:15 03/24/25 00:25 03/24/25 00:35 Temperature Pulse Rate [Left Radial] Respiratory Rate Blood Pressure [Left Arm] 149/82 152/78 143/82 O2 Sat by Pulse Oximetry Oxygen Delivery Method Oxygen Flow Rate FIO2% 03/24/25 00:45 03/24/25 00:55 03/24/25 01:05 Temperature Pulse Rate [Left Radial] Respiratory Rate Blood Pressure [Left Arm] 153/77 140/73 160/90 O2 Sat by Pulse Oximetry Oxygen Delivery Method Oxygen Flow Rate FIO2% 03/24/25 01:10 03/24/25 01:20 03/24/25 01:30 Temperature Pulse Rate [Left Radial] Respiratory Rate Blood Pressure [Left Arm] 142/73 144/75 144/70 O2 Sat by Pulse Oximetry Oxygen Delivery Method Oxygen Flow Rate FIO2% 03/24/25 01:40 03/24/25 01:50 03/24/25 02:00 Temperature Pulse Rate [Left Radial] Respiratory Rate Blood Pressure [Left Arm] 142/71 139/73 134/74 O2 Sat by Pulse Oximetry Oxygen Delivery Method Oxygen Flow Rate FIO2% 03/24/25 02:10 03/24/25 02:20 03/24/25 04:00 Temperature 98.4 F Pulse Rate [Left Radial] 71 Respiratory Rate 19 Blood Pressure [Left Arm] 131/70 145/75 170/110 O2 Sat by Pulse Oximetry Oxygen Delivery Method Oxygen Flow Rate FIO2% 03/24/25 08:00 03/24/25 08:50 03/24/25 12:00 Temperature 97.8 F 97.7 F Pulse Rate [Left Radial] 58 L 58 L Respiratory Rate 20 20 Blood Pressure [Left Arm] 116/57 130/69 O2 Sat by Pulse Oximetry 98 99 Oxygen Delivery Method Room Air Nasal Cannula Room Air Oxygen Flow Rate 2 FIO2% 28 03/24/25 16:00 03/24/25 07:00 03/24/25 19:47 Temperature 97.7 F 97.7 F Pulse Rate [Left Radial] 54 L 65 Respiratory Rate 20 18 Blood Pressure [Left Arm] 141/74 149/66 O2 Sat by Pulse Oximetry 100 96 Oxygen Delivery Method Room Air Nasal Cannula Room Air Oxygen Flow Rate 2 FIO2% 03/24/25 20:15 03/24/25 19:00 03/25/25 04:00 Temperature 97.9 F Pulse Rate [Left Radial] 64 Respiratory Rate 20 Blood Pressure [Left Arm] 160/80 O2 Sat by Pulse Oximetry 98 Oxygen Delivery Method Nasal Cannula Nasal Cannula Room Air Oxygen Flow Rate 2 2 FIO2% 28 03/25/25 04:07 03/25/25 04:27 03/25/25 04:37 Temperature Pulse Rate [Left Radial] Respiratory Rate Blood Pressure [Left Arm] 180/100 153/72 150/72 O2 Sat by Pulse Oximetry Oxygen Delivery Method Oxygen Flow Rate FIO2% 03/25/25 04:47 03/25/25 04:57 03/25/25 05:07 Temperature Pulse Rate [Left Radial] Respiratory Rate Blood Pressure [Left Arm] 147/74 143/70 160/77 O2 Sat by Pulse Oximetry Oxygen Delivery Method Oxygen Flow Rate FIO2% 03/25/25 05:17 03/25/25 05:27 03/25/25 05:30 Temperature Pulse Rate [Left Radial] Respiratory Rate Blood Pressure [Left Arm] 162/83 156/73 180/80 O2 Sat by Pulse Oximetry Oxygen Delivery Method Oxygen Flow Rate FIO2% 03/25/25 05:58 03/25/25 06:08 03/25/25 06:18 Temperature Pulse Rate [Left Radial] Respiratory Rate Blood Pressure [Left Arm] 160/76 146/78 143/68 O2 Sat by Pulse Oximetry Oxygen Delivery Method Oxygen Flow Rate FIO2% 03/25/25 06:28 03/25/25 06:30 03/25/25 06:40 Temperature Pulse Rate [Left Radial] Respiratory Rate Blood Pressure [Left Arm] 133/62 136/64 124/62 O2 Sat by Pulse Oximetry Oxygen Delivery Method Oxygen Flow Rate FIO2% 03/25/25 06:50 03/25/25 07:00 03/25/25 09:22 Temperature Pulse Rate [Left Radial] Respiratory Rate Blood Pressure [Left Arm] 131/67 120/70 O2 Sat by Pulse Oximetry Oxygen Delivery Method Nasal Cannula Oxygen Flow Rate 2 FIO2% 03/25/25 08:00 Temperature 97.7 F Pulse Rate [Left Radial] 68 Respiratory Rate 18 Blood Pressure [Left Arm] 135/75 O2 Sat by Pulse Oximetry 94 L Oxygen Delivery Method Oxygen Flow Rate FIO2% Labs: Laboratory Last Values WBC 5.2 X10^3/uL (3.6-10.0) 03/25/25 02:58 RBC 3.30 X10^6/uL (4.7-6.0) L 03/25/25 02:58 Hgb 9.8 g/dL (13.5-18.0) L 03/25/25 02:58 Hgb 9.8 g/dL (13.5-18.0) L D 03/25/25 02:58 Hct 28.6 % (42.0-54.0) L 03/25/25 02:58 Hct 28.9 % (42.0-54.0) L 03/25/25 02:58 MCV 87.5 fL (80.0-100.0) 03/25/25 02:58 MCH 29.7 pg (27.0-34.0) 03/25/25 02:58 MCHC 34.0 g/dL (33.0-35.0) 03/25/25 02:58 RDW 19.6 % (11.6-16.5) H 03/25/25 02:58 Plt Count 122 X10^3/uL (150.0-450.0) L 03/25/25 02:58 Plt Count Comment Decreased (ADEQUATE) 03/23/25 04:11 MPV 9.7 fL (7.4-11.0) 03/25/25 02:58 Neut % (Auto) 70.4 % (42.0-75.0) 03/25/25 02:58 Lymph % (Auto) 8.5 % (21.0-51.0) L 03/25/25 02:58 [place] % (Auto) 6.5 % (0.0-13.0) 03/25/25 02:58 Eos % (Auto) 9.7 % (0.9-2.9) H 03/25/25 02:58 Baso % (Auto) 4.9 % (0.2-1.0) H 03/25/25 02:58 Neut # (Auto) 3.7 x10^3/uL (2.2-4.8) 03/25/25 02:58 Lymph # (Auto) 0.4 X10^3/uL (1.3-2.9) L 03/25/25 02:58 [place] # (Auto) 0.3 x10^3/uL (0.3-0.8) 03/25/25 02:58 Eos # (Auto) 0.5 x10^3/uL (0.0-0.2) H 03/25/25 02:58 Baso # (Auto) 0.3 X10^3/uL (0.0-0.1) H 03/25/25 02:58 Absolute Nucleated RBC 0.0 /100WBC 03/25/25 02:58 Plt Morphology Comment Normal (NORMAL) 03/23/25 04:11 RBC Morphology Abnormal (NORMAL) 03/23/25 04:11 Anisocytosis Slight A 03/23/25 04:11 Acanthocytes (Spur) Present 03/23/25 04:11 Schistocytes Present 03/23/25 04:11 Sodium 141 mmol/L (136-145) 03/25/25 02:58 Corrected Sodium TNP 03/25/25 02:58 Potassium 4.6 mmol/L (3.5-5.1) 03/25/25 02:58 Chloride 108 mmol/L (98-107) H 03/25/25 02:58 Carbon Dioxide 23.3 mmol/L (21-32) 03/25/25 02:58 BUN 51 mg/dL (7-18) H 03/25/25 02:58 Creatinine 2.77 mg/dL (0.70-1.30) H 03/25/25 02:58 Est GFR (MDRD) Af Amer 29 (>60) L 03/25/25 02:58 Est GFR (MDRD) Non-Af 24 (>60) L 03/25/25 02:58 Glucose 104 mg/dL (65-99) H 03/25/25 02:58 POC Glucose (mg/dL) 91 mg/dL (65-99) 03/25/25 05:04 Calcium 8.3 mg/dL (8.5-10.1) L 03/25/25 02:58 Corrected Calcium 9.1 mg/dL (8.5-10.1) 03/25/25 02:58 Magnesium 1.7 mg/dL (2.0-2.9) L 03/25/25 02:58 Total Bilirubin 1.00 mg/dL (0.2-1.0) 03/25/25 02:58 AST 11 Units/L (15-37) L 03/25/25 02:58 ALT 8 Units/L (12-78) L 03/25/25 02:58 Alkaline Phosphatase 110 Units/L (46-116) 03/25/25 02:58 Troponin I High Sens 21.3 ng/L (4.0-60.0) 03/21/25 16:41 B-Natriuretic Peptide 3580 pg/mL (0-79) H 03/21/25 16:41 Total Protein 6.3 g/dL (6.4-8.2) L 03/25/25 02:58 Albumin 3.0 g/dL (3.4-5.0) L 03/25/25 02:58 Globulin 3.3 g/dL (2.5-4.5) 03/25/25 02:58 Albumin/Globulin Ratio 0.9 Ratio (1.1-2.1) L 03/25/25 02:58 Triglycerides 70 mg/dL (0-150) 03/22/25 05:18 Cholesterol 93 mg/dL (0-200) 03/22/25 05:18 LDL Cholesterol, Calc 34 mg/dL (0-100) 03/22/25 05:18 HDL Cholesterol 45 mg/dL (40-60) 03/22/25 05:18 Cholesterol/HDL Ratio 2.1 (0.0-5.0) 03/22/25 05:18 Specimen Type Clean catch urine 03/21/25 16:38 Urine Color Yellow (YELLOW) 03/21/25 16:38 Urine Appearance Clear (CLEAR) 03/21/25 16:38 Urine pH 7.0 (5.0 - 8.0) 03/21/25 16:38 Ur Specific [place] 1.010 (1.000-1.030) 03/21/25 16:38 Urine Protein 2+ (NEGATIVE) 03/21/25 16:38 Urine Glucose (UA) Negative (NEGATIVE) 03/21/25 16:38 Urine Ketones Negative (NEGATIVE) 03/21/25 16:38 Urine Blood Negative (NEGATIVE) 03/21/25 16:38 Urine Nitrite Negative (NEGATIVE) 03/21/25 16:38 Urine Bilirubin Negative (NEGATIVE) 03/21/25 16:38 Urine Urobilinogen Normal (NORMAL) 03/21/25 16:38 Ur Leukocyte Esterase Negative (NEGATIVE) 03/21/25 16:38 Urine RBC None seen /HPF (0-3) 03/21/25 16:38 Urine WBC None seen /HPF (0-5) 03/21/25 16:38 Ur Squamous Epith Cells Rare /HPF (NEGATIVE) 03/21/25 16:38 Urine Bacteria Negative /HPF (NEGATIVE) 03/21/25 16:38 Ur Culture Indicated? No/not indicated 03/21/25 16:38 Blood Type O POSITIVE 03/24/25 11:35 Antibody Screen Negative 03/24/25 11:35 Crossmatch See Detail 03/24/25 11:35 Reason For Visit: CHF EXAC, CKD, CHRONIC ANEMIA Discharge Diagnosis All Active Problems (Updated 03/23/25 @ 11:01 by Cindy Ng MD) Acute exacerbation of CHF (congestive heart failure) (Acute) Pulmonary edema (Acute) Hypoxia (Acute) Chronic anemia (Chronic) Hypomagnesemia (Acute) CKD (chronic kidney disease) (Chronic) ZITA (obstructive sleep apnea) (Chronic) Physical deconditioning (Acute) Generalized weakness (Acute) Hypomagnesemia (Acute) Hypokalemia (Acute) Acute hyperkalemia (Acute) Hyperkalemia (Acute) CAD (coronary artery disease) (Chronic) Acute exacerbation of CHF (congestive heart failure) (Acute) Chest pain (Acute) Ventricular tachycardia (paroxysmal) (Acute) Acute exacerbation of CHF (congestive heart failure) (Acute) Fall (Acute) Closed rib fracture (Acute) Fracture of lumbar spine (Acute) Hematoma (Acute) Cardiomyopathy (Chronic) Syncope (Acute) Renal insufficiency (Acute) Left upper extremity swelling (Acute) Left upper limb pain (Acute) Edema (Acute) Elevated blood uric acid level (Acute) CHF (congestive heart failure) (Acute) HTN (hypertension) (Chronic) COPD (chronic obstructive pulmonary disease) (Chronic) Hypertension (Acute) COPD (chronic obstructive pulmonary disease) (Acute) Pre-syncope (Acute) GERD (gastroesophageal reflux disease) (Chronic) Type 2 diabetes mellitus (Chronic) History of cholecystectomy (Acute) Acute on chronic renal failure (Acute) Acute hypotension (Acute) Acute dehydration (Acute) Plan of Treatment: Continue with present treatment and follow up plan. Pt is to keep follow up appointment as instructed and take medications as ordered. Discharge Medications Discharge Medications: No Known Drug Allergies Allergy (Verified 03/12/25 13:48) Discharge Disposition Discharge Disposition: To home with home health Discharge Condition: Stable Discharge Plan Discharge Plan Hospital Course: Patient is a 74-year-old male with a past medical history of CHF, COPD, type 2 diabetes mellitus, hypertension, presenting with weakness and shortness of breath. He does have a well-known history of CHF. Echo in 2024 shows ejection fraction of 30 to 35%. Labs/imaging: WBC 5.1, hemoglobin 7.7, platelets 111, sodium 144, potassium 4.3, creatinine 3.02, glucose 108, troponin negative, BNP 3580, chest x-ray negative, UA negative. Patient was admitted for CHF exacerbation. He was started on IV Lasix with daily weights and strict I's and O's. His labs are monitored daily and electrolytes replace as needed. He was noted to be anemic at 7.5. He was transfused 2 units of blood. He was feeling better. He was using his home oxygen 2 L. He was ambulating in the room with a walker. He was stable to be discharged home. He will follow-up with PCP and c ardiology as scheduled. He does have home health services. Patient Disposition: HOME HEALTH SERVICE Condition: Stable Health Concerns: Post Hospitalization: new medications and changes needed to prevent readmission or further decline. Pt educated and given instructions on all concerns. Care Plan Goals: Problem: Pain/Alteration in Comfort Goal: Improve/ Resolve Pain; Achieve Pain Tolerance Instructions: Take pain medications as prescribed. Contact your primary care provider if your pain is unrelieved or worsens. Follow up with primary care provider as directed. Plan of Treatment: Continue with present treatment and follow up plan. Pt is to keep follow up appointment as instructed and take medications as ordered. Prescription drug monitoring program results: PDMP reviewed and no concerns identified Prescriptions: Continued isosorbide mononitrate 30 mg tablet extended release 24 hr 30 mg PO QAM torsemide 20 mg tablet 20 mg PO BID glimepiride 4 mg tablet 4 mg PO QDAY hydralazine 50 mg tablet 50 mg PO BID Entresto 49-51 mg tablet 1 tab PO BID Qty: 60 12RF omeprazole magnesium 20 mg tablet,delayed release (DR/EC) 20 mg PO QDAY saxagliptin 5 mg tablet 5 mg PO QDAY aspirin 81 mg Tablet,Delayed Release (Dr/Ec) 81 mg PO QPM atorvastatin 40 mg tablet 40 mg PO QPM carvedilol 25 mg tablet 25 mg PO BID famotidine 40 mg tablet 40 mg PO QDAY ergocalciferol (vitamin D2) [Vitamin D2] 1,250 mcg (50,000 unit) capsule 1,250 mcg PO 2XW Follow ups/Referrals Follow ups/Referrals: QUINTEN IBRAHIM [STAFF PHYSICIAN] - 1 WEEK CLARA HARDEN [Primary Care Provider] - 04/01/25 10:00 am Instructions Instructions: Anemia, Heart Failure: Self-Care, Heart Failure: Helping Someone Manage, Pulmonary Edema Stand Alone Forms: Excuse From Work or School, Find Help Web Site, Post Hospital Follow Up Care
== END 2025-03-25 13:30 | disposition home health service (06) | DRG 291 ==
LOC: MED/SURG 14:55 → ER 14:55 → OBSVTOIN 19:02 → MED/SURG 21:35
PROVIDERS: ADMIT Internal Medicine; ATTEND Internal Medicine

== ENCOUNTER 2025-05-27 12:51 | Inpatient (IN) ==
--- NOTE | 2025-05-27 12:57 | EKG ---
Test Reason : sob Blood Pressure : */* mmHG Vent. Rate : 70 BPM Atrial Rate : 70 BPM P-R Int : 166 ms QRS Dur : 174 ms QT Int : 488 ms P-R-T Axes : 29 -30 204 degrees QTc Int : 527 ms Normal sinus rhythm Left axis deviation Right bundle branch block Abnormal ECG When compared with ECG of 21-MAR-2025 15:14, Nonspecific T wave abnormality now evident in Inferior leads T wave inversion more evident in Lateral leads Confirmed by Luis Flaherty MD ([id number]) on 05/27/2025 1:05:37 PM Referred By: Confirmed By: Luis Flaherty MD
--- NOTE | 2025-05-27 13:09 | DR.GENAD ---
HPI Time Seen Time Seen by Provider: 05/27/25 13:08 PCP Primary Care Physician: ortiz crews HPI Comment HPI Comment: History as below. Complaint/Symptoms Chief Complaint:: [facility] of jim lower ext swelling x2 wks now he states dr alcazar increased his torsemide to 40 in the am and 20mg at night and he states he thought that would help but the swelling is increasing along with the sob and weakness. He states he had a cough that came up over the past 2 wks and over the weekend he had some chest pain but it had subsided before today. COVID-19 Coronavirus risk:travel/contact w/high risk person: No Has patient experienced Coronavirus symptoms: No Nurses notes reviewed Nurses Notes Review: Yes Source History Provided: Patient Mode of Arrival Mode of Arrival: EMS Timing Onset of Chief Complaint: 05/13/25 PMH PMH Past Medical History: Yes Past Medical History: Arthritis, CHF, COPD, Diabetes, Dyslipidemia, GERD, Gout, Hypertension, Kidney Stones and Renal Disease Past Surgical History: Yes Surgical History: Cholecystectomy and Ortho Surgery Family History History of Family Medical Conditions: Yes Family Medical History: Diabetes Mellitus, Cancer and [place] Social History Does patient currently use any type of tobacco product: No Have you used tobacco products in the last 12 months: No Type of Tobacco Use: None Does any household member use tobacco: No Alcohol Use: None Do you use any recreational Drugs:: No Lives With: Alone Lives Where: Home Travel Risk Coronavirus risk:travel/contact w/high risk person: No Has patient experienced Coronavirus symptoms: No Infectious screening In the last 2 months have you had wt loss of >10#?: NO Have you had fever, night sweats or hemotysis?: No Have you traveled outside the country in the last 6 months?: No Isolation: Standard PE Vital Signs Vitals: Vital Signs Temperature 97.8 F Pulse Rate 68 Pulse Rate 62 Pulse Rate 68 Pulse Rate 68 Pulse Rate 64 Pulse Rate 65 Pulse Rate 62 Pulse Rate 68 Pulse Rate 64 Pulse Rate 63 Pulse Rate 63 Pulse Rate 68 Pulse Rate 65 Pulse Rate 70 Pulse Rate 63 Pulse Rate 70 Pulse Rate 68 Pulse Rate 73 Pulse Rate 71 Respiratory Rate 18 Respiratory Rate 16 Respiratory Rate 16 Respiratory Rate 20 Respiratory Rate 13 Respiratory Rate 15 Respiratory Rate 15 Respiratory Rate 15 Respiratory Rate 13 Respiratory Rate 12 Respiratory Rate 14 Respiratory Rate 23 Respiratory Rate 17 Respiratory Rate 19 Respiratory Rate 16 Respiratory Rate 22 Respiratory Rate 18 Respiratory Rate 18 Respiratory Rate 15 Blood Pressure 149/90 Blood Pressure 156/94 Blood Pressure 156/94 Blood Pressure 155/89 Blood Pressure 150/84 Blood Pressure 150/84 Blood Pressure 150/84 Blood Pressure 147/87 Blood Pressure 153/87 Blood Pressure 157/80 Blood Pressure 157/80 Blood Pressure 157/88 Blood Pressure 151/85 O2 Sat by Pulse Oximetry 97 O2 Sat by Pulse Oximetry 97 O2 Sat by Pulse Oximetry 97 O2 Sat by Pulse Oximetry 100 O2 Sat by Pulse Oximetry 100 O2 Sat by Pulse Oximetry 100 O2 Sat by Pulse Oximetry 100 O2 Sat by Pulse Oximetry 100 O2 Sat by Pulse Oximetry 100 O2 Sat by Pulse Oximetry 100 O2 Sat by Pulse Oximetry 100 O2 Sat by Pulse Oximetry 100 O2 Sat by Pulse Oximetry 100 O2 Sat by Pulse Oximetry 100 O2 Sat by Pulse Oximetry 100 O2 Sat by Pulse Oximetry 100 O2 Sat by Pulse Oximetry 100 O2 Sat by Pulse Oximetry 100 O2 Sat by Pulse Oximetry 100 ROR Labs Reviewed 05/27/25 13:00 05/27/25 13:00 Laboratory: WBC 3.3 X10^3/uL (3.6-10.0) L 05/27/25 13:00 RBC 2.80 X10^6/uL (4.7-6.0) L 05/27/25 13:00 Hgb 8.4 g/dL (13.5-18.0) L 05/27/25 13:00 Hct 25.8 % (42.0-54.0) L 05/27/25 13:00 MCV 92.1 fL (80.0-100.0) 05/27/25 13:00 MCH 30.2 pg (27.0-34.0) 05/27/25 13:00 MCHC 32.8 g/dL (33.0-35.0) L 05/27/25 13:00 RDW 15.6 % (11.6-16.5) 05/27/25 13:00 Plt Count 80 X10^3/uL (150.0-450.0) L 05/27/25 13:00 MPV 10.5 fL (7.4-11.0) 05/27/25 13:00 Neut % (Auto) 70.0 % (42.0-75.0) 05/27/25 13:00 Lymph % (Auto) 17.1 % (21.0-51.0) L 05/27/25 13:00 [place] % (Auto) 7.7 % (0.0-13.0) 05/27/25 13:00 Eos % (Auto) 3.5 % (0.9-2.9) H 05/27/25 13:00 Baso % (Auto) 1.7 % (0.2-1.0) H 05/27/25 13:00 Neut # (Auto) 2.3 x10^3/uL (2.2-4.8) 05/27/25 13:00 Lymph # (Auto) 0.6 X10^3/uL (1.3-2.9) L 05/27/25 13:00 [place] # (Auto) 0.3 x10^3/uL (0.3-0.8) 05/27/25 13:00 Eos # (Auto) 0.1 x10^3/uL (0.0-0.2) 05/27/25 13:00 Baso # (Auto) 0.1 X10^3/uL (0.0-0.1) 05/27/25 13:00 Absolute Nucleated RBC 0.1 /100WBC 05/27/25 13:00 Sodium 140 mmol/L (136-145) 05/27/25 13:00 Corrected Sodium 142 mmol/L (136-145) 05/27/25 13:00 Potassium 4.8 mmol/L (3.5-5.1) 05/27/25 13:00 Chloride 104 mmol/L (98-107) 05/27/25 13:00 Carbon Dioxide 26.9 mmol/L (21-32) 05/27/25 13:00 BUN 66 mg/dL (7-18) H 05/27/25 13:00 Creatinine 3.13 mg/dL (0.70-1.30) H 05/27/25 13:00 Est GFR (MDRD) Af Amer 25 (>60) L 05/27/25 13:00 Est GFR (MDRD) Non-Af 21 (>60) L 05/27/25 13:00 Glucose 183 mg/dL (65-99) H 05/27/25 13:00 Calcium 8.3 mg/dL (8.5-10.1) L 05/27/25 13:00 Corrected Calcium TNP 05/27/25 13:00 Magnesium 1.5 mg/dL (2.0-2.9) L 05/27/25 13:00 Total Bilirubin 1.50 mg/dL (0.2-1.0) H 05/27/25 13:00 AST 13 Units/L (15-37) L 05/27/25 13:00 ALT 12 Units/L (12-78) 05/27/25 13:00 Alkaline Phosphatase 110 Units/L (46-116) 05/27/25 13:00 Creatine Kinase 47 Units/L (39-308) 05/27/25 13:00 Troponin I High Sens 26.9 ng/L (4.0-60.0) 05/27/25 13:00 B-Natriuretic Peptide > 5000 pg/mL (0-79) H 05/27/25 13:00 Total Protein 7.5 g/dL (6.4-8.2) 05/27/25 13:00 Albumin 3.7 g/dL (3.4-5.0) 05/27/25 13:00 Globulin 3.8 g/dL (2.5-4.5) 05/27/25 13:00 Albumin/Globulin Ratio 1.0 Ratio (1.1-2.1) L 05/27/25 13:00 Opioid Opioid Risk Tool Age (Petr box if 16-45): No History of Preadolescent Sexual Abuse: No Total: 0 Total Score Risk Category: Low Risk Copyright: Sujit SIM predicting aberrant behaviors Discharge Plan Diagnosis Discharge Problem: Acute CHF, Acute on chronic renal failure Discharge Plan Patient Disposition: ADMITTED INPATIENT Condition: Stable Orders to Discharge Patient Discharge Orders: Transfer (Routine); Ordered 05/27/25 Ordered By: FLOR LAGUNAS
[2025-05-27 13:13] LABS: MEAN PLATELET VOLUME 10.5 fL (7.4-11.0); RED CELL DISTRIBUTION WIDTH 15.6 % (11.6-16.5)
[2025-05-27 13:26] LABS: COR NA(FOR HYPERGLY) 142 mmol/L (136-145); CREATININE 3.13 mg/dL (0.70-1.30); eGFR NON BLACK RACES 21 (>60)
[2025-05-27] MEDS: LASIX IVP ONE (13:41)
[2025-05-27] MEDS: LASIX IVP SCH (17:37)
[2025-05-27] MEDS: NS 1,000 ML IV 1,000 ML IV SCH (17:37)
[2025-05-27] MEDS: LASIX ONE (17:41)
[2025-05-27 18:06] VITALS: BMI 34.0
[2025-05-27] MEDS ORDERED: CONSULT PHARMACY - POTASSIUM & MAGNESIUM XX SCH (22:00)
[2025-05-27] MEDS: MAG-OX TAB PO SCH (22:19)
[2025-05-28 05:52] LABS: MEAN PLATELET VOLUME 9.9 fL (7.4-11.0); RED CELL DISTRIBUTION WIDTH 15.6 % (11.6-16.5)
[2025-05-28 05:59] LABS: INR 1.31 (0.8-1.3)
[2025-05-28 06:19] LABS: CREATININE 3.06 mg/dL (0.70-1.30); eGFR NON BLACK RACES 21 (>60)
[2025-05-28] MEDS ORDERED: CONSULT PHARMACY - POTASSIUM & MAGNESIUM XX SCH (07:00)
--- NOTE | 2025-05-28 09:13 | RAD ---
EXAM: CHEST, 1 VIEW HISTORY: SOB, NAREN LOWER EXT SWELLING; COMPARISON: March 22 TECHNIQUE: Portable chest radiograph FINDINGS: The cardiac silhouette is enlarged with accentuation of the central pulmonary vasculature and mild interstitial prominence. No accumulating pleural fluid collections are identified by conventional portable radiography. There is no radiographic evidence of pneumothorax or free air beneath the diaphragm. Advanced DJD of the bilateral shoulders is noted. No acute bony abnormalities. IMPRESSION: Cardiomegaly with evolving central vascular congestion and interstitial prominence raising concern for early edema. THIS IS AN ELECTRONICALLY VERIFIED FINAL REPORT 05/28/2025 9:05 AM - Electronically signed by Oswaldo Lara MD
[2025-05-28] MEDS: MAG-OX TAB PO SCH ×2 (11:02→19:52)
[2025-05-28] MEDS: PEPCID TAB 20 MG PO SCH (11:02)
[2025-05-28] MEDS: APRESOLINE TAB 25 MG PO SCH (11:02)
[2025-05-28] MEDS: FERROUS GLUCONATE PO SCH (11:02)
[2025-05-28] MEDS: IMDUR PO SCH (11:02)
[2025-05-28] MEDS: COREG TAB 25 MG PO SCH (11:02)
--- NOTE | 2025-05-28 11:35 | DR.H&P ---
H&P History & Physical for Day of: H&P Date: 05/28/25 Chief Complaint Chief Complaint: worsening SOB and leg swelling History of Present Illness History of Present Illness: Patient is a 74-year-old male with a past medical history of CHF, COPD, hypertension, CKD, type 2 diabetes, hyperlipidemia, GERD and anemia presents with worsening shortness of breath and lower extremity edema. He was being treated outpatient with increased dose of torsemide but continued to get worse. ER workup showed elevated BNP greater than 5000, troponin negative, creatinine 3.13 and hemoglobin 8.4. He was started on IV Lasix and admitted for further management. Labs/imaging reviewed: - Hemoglobin 8.3 platelet 83 potassium 4.2 creatinine 3.06 magnesium 1.6 glucose 85 - BNP greater than 5000 troponin negative - Echocardiogram 02/28/2025 EF 30 to 35% Plan: Admit to [facility] with telemetry. Consult Dr. Flaherty. Continue IV diuresis, strict I's and O's and daily weight. Wean O2 as tolerated. Resume home medications. Patient does take PO iron but Hgb/hct continues to remain low. Will give irone infusion. Monitor H&H. Replace electrolytes as per protocol. Physical therapy as tolerated. Monitor a.m. labs and imaging. Time spent for clinical assessment, reviewing labs/imaging, physical exam, decision making and documentation greater than 45 mins. Past Medical History Past Medical History: Arthritis, CHF, COPD, Diabetes, Dyslipidemia, GERD, Gout, Hypertension, Kidney Stones and Renal Disease Past Surgical History Surgical History: Cholecystectomy and Ortho Surgery Family History Family Medical History: Diabetes Mellitus, Cancer and [place] Social History Does patient currently use any type of tobacco product: No Have you used tobacco products in the last 12 months: No Type of Tobacco Use: None Does any household member use tobacco: No Alcohol Use: None Drug Use: None Medications Home Medications: Home Medications Medication Instructions Recorded Confirmed Type aspirin 81 mg tablet,delayed 81 mg PO QPM 05/30/23 History release atorvastatin 40 mg tablet 40 mg PO QPM 09/29/23 History carvedilol 25 mg tablet 25 mg PO BID 09/29/23 History isosorbide mononitrate 30 mg 30 mg PO QAM 10/17/23 History tablet,extended release 24 hr glimepiride 4 mg tablet 4 mg PO QDAY 08/13/24 History hydralazine 50 mg tablet 50 mg PO BID 10/15/24 History omeprazole magnesium 20 mg 20 mg PO QDAY 02/25/2504/30 History tablet,delayed release saxagliptin 5 mg tablet 5 mg PO QDAY 02/25/25 History ergocalciferol (vitamin D2) 1,250 1,250 mcg PO 2XW 05/27/25 History mcg (50,000 unit) capsule (Vitamin D2) famotidine 40 mg tablet 40 mg PO QDAY 03/12/2505/27 History magnesium oxide 400 mg PO QDAY 04/09/2504/30 History tizanidine 4 mg tablet 4 mg PO QPM 05/02/25 5 History potassium chloride 10 mEq 10 meq PO QDAY 05/27/2504/30 History tablet,extended release torsemide 20 mg tablet 40 mg PO HS 05/27/25 5 History Allergies Allergies Allergy/AdvReac Type Severity Reaction Status Date / Time No Known Drug Allergies Allergy Verified 05/07/25 14:20 Labs 05/28/25 05:38 05/28/25 05:38 Labs: Laboratory WBC 3.8 X10^3/uL (3.6-10.0) 05/28/25 05:38 RBC 2.69 X10^6/uL (4.7-6.0) L 05/28/25 05:38 Hgb 8.3 g/dL (13.5-18.0) L 05/28/25 05:38 Hct 24.3 % (42.0-54.0) L 05/28/25 05:38 MCV 90.5 fL (80.0-100.0) 05/28/25 05:38 MCH 30.8 pg (27.0-34.0) 05/28/25 05:38 MCHC 34.0 g/dL (33.0-35.0) 05/28/25 05:38 RDW 15.6 % (11.6-16.5) 05/28/25 05:38 Plt Count 83 X10^3/uL (150.0-450.0) L 05/28/25 05:38 MPV 9.9 fL (7.4-11.0) 05/28/25 05:38 Neut % (Auto) 74.9 % (42.0-75.0) 05/28/25 05:38 Lymph % (Auto) 13.5 % (21.0-51.0) L 05/28/25 05:38 [place] % (Auto) 6.0 % (0.0-13.0) 05/28/25 05:38 Eos % (Auto) 4.4 % (0.9-2.9) H 05/28/25 05:38 Baso % (Auto) 1.2 % (0.2-1.0) H 05/28/25 05:38 Neut # (Auto) 2.8 x10^3/uL (2.2-4.8) 05/28/25 05:38 Lymph # (Auto) 0.5 X10^3/uL (1.3-2.9) L 05/28/25 05:38 [place] # (Auto) 0.2 x10^3/uL (0.3-0.8) L 05/28/25 05:38 Eos # (Auto) 0.2 x10^3/uL (0.0-0.2) 05/28/25 05:38 Baso # (Auto) 0.0 X10^3/uL (0.0-0.1) 05/28/25 05:38 Absolute Nucleated RBC 0.1 /100WBC 05/28/25 05:38 PT 16.4 SECONDS (11.8-14.3) 05/28/25 05:38 INR Target Range - 05/28/25 05:38 INR 1.31 (0.8-1.3) H 05/28/25 05:38 Sodium 143 mmol/L (136-145) 05/28/25 05:38 Corrected Sodium TNP 05/28/25 05:38 Potassium 4.2 mmol/L (3.5-5.1) 05/28/25 05:38 Chloride 106 mmol/L (98-107) 05/28/25 05:38 Carbon Dioxide 28.0 mmol/L (21-32) 05/28/25 05:38 BUN 64 mg/dL (7-18) H 05/28/25 05:38 Creatinine 3.06 mg/dL (0.70-1.30) H 05/28/25 05:38 Est GFR (MDRD) Af Amer 26 (>60) L 05/28/25 05:38 Est GFR (MDRD) Non-Af 21 (>60) L 05/28/25 05:38 Glucose 85 mg/dL (65-99) 05/28/25 05:38 Calcium 8.4 mg/dL (8.5-10.1) L 05/28/25 05:38 Corrected Calcium TNP 05/28/25 05:38 Magnesium 1.6 mg/dL (2.0-2.9) L 05/28/25 05:38 Total Bilirubin 1.30 mg/dL (0.2-1.0) H 05/28/25 05:38 AST 13 Units/L (15-37) L 05/28/25 05:38 ALT 12 Units/L (12-78) 05/28/25 05:38 Alkaline Phosphatase 96 Units/L (46-116) 05/28/25 05:38 Creatine Kinase 47 Units/L (39-308) 05/27/25 13:00 Troponin I High Sens 26.9 ng/L (4.0-60.0) 05/27/25 13:00 B-Natriuretic Peptide 4940 pg/mL (0-79) H 05/28/25 05:38 Total Protein 7.2 g/dL (6.4-8.2) 05/28/25 05:38 Albumin 3.4 g/dL (3.4-5.0) 05/28/25 05:38 Globulin 3.8 g/dL (2.5-4.5) 05/28/25 05:38 Albumin/Globulin Ratio 0.9 Ratio (1.1-2.1) L 05/28/25 05:38 Review of Systems Constitutional: Weakness Eyes: No Symptoms Reported Respiratory: Shortness of Breath Cardiovascular: Edema Gastrointestinal: No Symptoms Reported Genitourinary: No Symptoms Reported Musculoskeletal: Leg Pain Skin: No Symptoms Reported Neurological: No Symptoms Reported Physical Exam Vital Signs: Vital Signs Temperature 97.8 F Temperature 98.4 F Pulse Rate [Bilateral Radial] 71 Pulse Rate [Bilateral Radial] 66 Respiratory Rate 20 Respiratory Rate 20 Blood Pressure [Right Arm] 159/85 Blood Pressure [Right Arm] 143/80 O2 Sat by Pulse Oximetry 95 O2 Sat by Pulse Oximetry 96 Oriented: Normal Respiratory: Rales Throughout Cardiovascular: Normal and Edema Auscultation: Bowel Sounds: Normal Palpation: Normal Tenderness: Normal Skin: Normal Musculoskeletal: Leg Psychiatric: Normal Mood Description: Calm Affect: Normal Speech Pattern: Clear and Appropriate Assessment/Plan (1) Acute on chronic renal failure: Status: Acute (2) Acute exacerbation of CHF (congestive heart failure): Qualifiers: Heart failure type: systolic Qualified Code(s): I50.23 - Acute on chronic systolic (congestive) heart failure Status: Acute (3) Chronic anemia: Status: Chronic (4) Hypomagnesemia: Status: Acute (5) CKD (chronic kidney disease): Qualifiers: Chronic kidney disease stage: unspecified stage Qualified Code(s): N 18.9 - Chronic kidney disease, unspecified Status: Chronic (6) Physical deconditioning: Status: Acute (7) CAD (coronary artery disease): Qualifiers: Coronary Disease-Associated Artery/Lesion type: unspecified vessel or lesion type Associated angina: unspecified whether angina present Status: Chronic Review H&P Reviewed: Yes Patient was examined?: Yes
--- NOTE | 2025-05-28 13:01 | DR.CONSULT ---
CONSULT Consultation for Day of: Date: 05/28/25 Chief Complaint Chief Complaint: sob/edema Allergies Allergies Allergy/AdvReac Type Severity Reaction Status Date / Time No Known Drug Allergies Allergy Verified 05/07/25 14:20 History of Present Illness History of Present Illness: 74 yo male- no sign cad by cath 11/19- recent ef 35%- chronic chf- complicated by CRF/anemia- came to hosp for edema/wt gain/sob Past Medical History Past Medical History: Arthritis, CHF, COPD, Diabetes, Dyslipidemia, GERD, Gout, Hypertension, Kidney Stones and Renal Disease Past Surgical History Surgical History: Cholecystectomy and Ortho Surgery Family History Family Medical History: Diabetes Mellitus, Cancer and [place] Social History Does patient currently use any type of tobacco product: No Have you used tobacco products in the last 12 months: No Type of Tobacco Use: None Does any household member use tobacco: No Alcohol Use: None Drug Use: None Medications Home Medications: No Known Drug Allergies Allergy (Verified 05/07/25 14:20) CONTINUE taking the following medications potassium chloride 10 mEq tablet,extended release 10 meq PO QDAY 05/27/25 [History] torsemide 20 mg tablet 40 mg PO HS 05/27/25 [History] Physical Exam Vital Signs: Vital Signs Temperature 97.2 F Temperature 97.8 F Pulse Rate [Bilateral Radial] 68 Pulse Rate [Bilateral Radial] 71 Respiratory Rate 20 Respiratory Rate 20 Blood Pressure [Right Arm] 141/80 Blood Pressure [Right Arm] 159/85 O2 Sat by Pulse Oximetry 98 O2 Sat by Pulse Oximetry 95 alert ox3 nad elevated jvd crackles lungs rrr 1-2 plus B edema labs: hct 25.8 to 24.3, cr 3.06 k 4.2 alb 3.4 bnp > 5000 cxr: cm/chf ekg: nsr rbbb/lad Plan (1) Acute on chronic renal failure: Status: Acute (2) Acute exacerbation of CHF (congestive heart failure): Status: Acute Qualifiers: Heart failure type: systolic Qualified Code(s): I50.23 - Acute on chronic systolic (congestive) heart failure Plan: diuresis- resume all meds ( entresto/coreg/hydralazine/nitrates- try to get wt < 230 (3) Chronic anemia: Status: Chronic Narrative Support Text: complicating chf no doubt with no sign response to iron- ? procrit (4) Hypomagnesemia: Status: Acute (5) CKD (chronic kidney disease): Status: Chronic Qualifiers: Chronic kidney disease stage: unspecified stage Qualified Code(s): N18.9 - Chronic kidney disease, unspecified (6) Physical deconditioning: Status: Acute
[2025-05-28] MEDS: ENTRESTO 49/51 MG TABLET PO SCH (13:11)
[2025-05-28] MEDS: NS 100 ML IV 100 ML with VENOFER 400 MG IV ONE (13:12)
[2025-05-28] MEDS: PHARMACY CONSULT XX SCH (19:52)
[2025-05-28] MEDS: ZANAFLEX PO SCH (20:58)
[2025-05-28] MEDS: ASPIRIN EC 81 MG PO SCH (20:59)
[2025-05-28] MEDS: LIPITOR TAB 40 MG PO SCH (20:59)
[2025-05-29 05:53] LABS: MEAN PLATELET VOLUME 9.6 fL (7.4-11.0); RED CELL DISTRIBUTION WIDTH 15.6 % (11.6-16.5)
[2025-05-29 06:09] LABS: COR CA(FOR HYPOALB) 8.8 mg/dL (8.5-10.1); CREATININE 3.19 mg/dL (0.70-1.30); eGFR NON BLACK RACES 20 (>60)
[2025-05-29] MEDS ORDERED: CONSULT PHARMACY - POTASSIUM & MAGNESIUM XX SCH (07:00)
--- NOTE | 2025-05-29 10:54 | PCM.PROG ---
Progress Note Progress Note for Day of Date of Exam: 05/29/25 Subjective Subjective: Patient seen at bedside, no acute events overnight. He is currently admitted for CHF exacerbation, anemia and generalized weakness. He reports feeling better. He remains on 2 L nasal cannula. His weight is down to 236 pounds. He has been getting IV Lasix twice daily. Dr. Flaherty also following. He did get iron infusion yesterday. His hemoglobin is 8 this morning. He denies any active bleeding. Labs/imaging reviewed: - WBC 3.7 hemoglobin 8 potassium 4.1 creatinine 3.19 magnesium 1.6 Plan: Continue IV Lasix, monitor I's and O's, daily weight. Follow cardiology recommendations. Replace electrolytes as per protocol. Continue all home medications. Wean O2 as tolerated. Physical therapy as tolerated. Monitor H&H. Monitor a.m. labs and imaging. Time spent for clinical assessment, reviewing labs and imaging, physical exam, decision making and documentation greater than 45 minutes. Past Medical Family Social History Allergies: Allergies No Known Drug Allergies Allergy (Verified 05/07/25 14:20) Vital Signs and I&O's Vital Signs: Vital Signs Temperature 98.1 F Pulse Rate [Bilateral Radial] 71 Respiratory Rate 19 Blood Pressure [Right Arm] 157/84 O2 Sat by Pulse Oximetry 95 Intake and Output: Intake & Output 05/26/25 05/27/25 05/28/25 05/29/25 23:59 23:59 23:59 23:59 Intake Total 120 / 120 1500 / 1500 100 / 100 Output Total 1900 / 1900 3700 / 3700 900 / 900 Balance -1780 / -1780 -2200 / -2200 -800 / -800 Physical Exam Oriented: Normal Respiratory: Generalized and Diminished Cardiovascular: Normal and Edema Auscultation: Bowel Sounds: Normal Palpation: Normal Tenderness: Normal Skin: Normal Musculoskeletal: Leg Psychiatric: Normal Mood Description: Calm Affect: Normal Speech Pattern: Clear Laboratory and Diagnostics 05/29/25 05:37 05/29/25 05:37 Labs: Laboratory WBC 3.7 X10^3/uL (3.6-10.0) 05/29/25 05:37 RBC 2.55 X10^6/uL (4.7-6.0) L 05/29/25 05:37 Hgb 8.0 g/dL (13.5-18.0) L 05/29/25 05:37 Hct 23.1 % (42.0-54.0) L 05/29/25 05:37 MCV 90.5 fL (80.0-100.0) 05/29/25 05:37 MCH 31.2 pg (27.0-34.0) 05/29/25 05:37 MCHC 34.5 g/dL (33.0-35.0) 05/29/25 05:37 RDW 15.6 % (11.6-16.5) 05/29/25 05:37 Plt Count 81 X10^3/uL (150.0-450.0) L 05/29/25 05:37 MPV 9.6 fL (7.4-11.0) 05/29/25 05:37 Neut % (Auto) 75.1 % (42.0-75.0) H 05/29/25 05:37 Lymph % (Auto) 13.0 % (21.0-51.0) L 05/29/25 05:37 [place] % (Auto) 6.4 % (0.0-13.0) 05/29/25 05:37 Eos % (Auto) 4.3 % (0.9-2.9) H 05/29/25 05:37 Baso % (Auto) 1.2 % (0.2-1.0) H 05/29/25 05:37 Neut # (Auto) 2.7 x10^3/uL (2.2-4.8) 05/29/25 05:37 Lymph # (Auto) 0.5 X10^3/uL (1.3-2.9) L 05/29/25 05:37 [place] # (Auto) 0.2 x10^3/uL (0.3-0.8) L 05/29/25 05:37 Eos # (Auto) 0.2 x10^3/uL (0.0-0.2) 05/29/25 05:37 Baso # (Auto) 0.0 X10^3/uL (0.0-0.1) 05/29/25 05:37 Absolute Nucleated RBC 0.0 /100WBC 05/29/25 05:37 PT 16.4 SECONDS (11.8-14.3) 05/28/25 05:38 INR Target Range - 05/28/25 05:38 INR 1.31 (0.8-1.3) H 05/28/25 05:38 Sodium 146 mmol/L (136-145) H 05/29/25 05:37 Corrected Sodium TNP 05/29/25 05:37 Potassium 4.1 mmol/L (3.5-5.1) 05/29/25 05:37 Chloride 107 mmol/L (98-107) 05/29/25 05:37 Carbon Dioxide 30.1 mmol/L (21-32) 05/29/25 05:37 BUN 61 mg/dL (7-18) H 05/29/25 05:37 Creatinine 3.19 mg/dL (0.70-1.30) H 05/29/25 05:37 Est GFR (MDRD) Af Amer 25 (>60) L 05/29/25 05:37 Est GFR (MDRD) Non-Af 20 (>60) L 05/29/25 05:37 Glucose 94 mg/dL (65-99) 05/29/25 05:37 Calcium 8.1 mg/dL (8.5-10.1) L 05/29/25 05:37 Corrected Calcium 8.8 mg/dL (8.5-10.1) 05/29/25 05:37 Magnesium 1.6 mg/dL (2.0-2.9) L 05/29/25 05:37 Total Bilirubin 1.20 mg/dL (0.2-1.0) H 05/29/25 05:37 AST 10 Units/L (15-37) L 05/29/25 05:37 ALT 12 Units/L (12-78) 05/29/25 05:37 Alkaline Phosphatase 93 Units/L (46-116) 05/29/25 05:37 Creatine Kinase 47 Units/L (39-308) 05/27/25 13:00 Troponin I High Sens 26.9 ng/L (4.0-60.0) 05/27/25 13:00 B-Natriuretic Peptide 4940 pg/mL (0-79) H 05/28/25 05:38 Total Protein 6.6 g/dL (6.4-8.2) 05/29/25 05:37 Albumin 3.1 g/dL (3.4-5.0) L 05/29/25 05:37 Globulin 3.5 g/dL (2.5-4.5) 05/29/25 05:37 Albumin/Globulin Ratio 0.9 Ratio (1.1-2.1) L 05/29/25 05:37 Plan (1) Acute on chronic renal failure: Status: Acute (2) Acute exacerbation of CHF (congestive heart failure): Status: Acute Qualifiers: Heart failure type: systolic Qualified Code(s): I50.23 - Acute on chronic systolic (congestive) heart failure (3) Chronic anemia: Status: Chronic (4) Hypomagnesemia: Status: Acute (5) CKD (chronic kidney disease): Status: Chronic Qualifiers: Chronic kidney disease stage: unspecified stage Qualified Code(s): N 18.9 - Chronic kidney disease, unspecified (6) Physical deconditioning: Status: Acute
--- NOTE | 2025-05-29 12:58 | NOTE.SOAP ---
Soap Note Note for Day of Date of Exam: 05/29/25 Subjective Data Subjective Data: sob slowly improving/edema too- down 14 lbs since admission Objective Data Objective Data: cr 3.19 so stable- hct down to 23 lungs few crackles/much better- edema better but still significant Assessment Assessment: cardiomyopathy/chf/renal failure/anemia Plan Plan: cont diuresis- goal wt < 230- watch hct and give blood if any lower
[2025-05-29] MEDS: MAG-OX TAB PO SCH (13:50)
[2025-05-29] MEDS: SNACK - Diabetic Appropriate PO SCH (20:24)
[2025-05-30] MEDS: CATAPRES TAB 0.1 MG PO ONE (04:09)
[2025-05-30 05:52] LABS: MEAN PLATELET VOLUME 10.1 fL (7.4-11.0); RED CELL DISTRIBUTION WIDTH 15.2 % (11.6-16.5)
[2025-05-30 06:02] LABS: COR CA(FOR HYPOALB) 9.1 mg/dL (8.5-10.1); COR NA(FOR HYPERGLY) 144.0 mmol/L (136-145); CREATININE 2.98 mg/dL (0.70-1.30); eGFR NON BLACK RACES 22.0 (>60)
[2025-05-30] MEDS: MAGNESIUM SULFATE 1 GRAM/100 mL PREMIX 1 G/100 ML BAG IV SCH (07:33)
[2025-05-30] MEDS: PEPCID TAB 20 MG PO SCH (08:09)
[2025-05-30] MEDS: PATIENT'S HOME MEDICATION PO SCH (09:58)
[2025-05-30] MEDS: NS 250 ML IV 250 ML IV ONE (10:57)
--- NOTE | 2025-05-30 12:01 | PCM.PROG ---
Progress Note Progress Note for Day of Date of Exam: 05/30/25 Subjective Subjective: Patient is a 74-year-old male admitted for CHF exacerbation, anemia and generalized weakness. This morning he was working with physical therapy. He is currently sitting in recliner. No acute events overnight. He remains on 2 L nasal cannula. He has been getting IV Lasix twice daily. Cardiology- Dr. Flaherty also following. His hemoglobin is 8 this morning, will transfuse 1 unit packed red blood cells today. He denies any active bleeding. Labs/imaging reviewed: - WBC 3.7, hemoglobin 8, platelets 89, sodium 144, potassium 4.1, creatinine 2.98, glucose 114, magnesium 1.4, Plan: Continue IV Lasix, monitor I's and O's, daily weight. Follow cardiology recommendations. [place] weight goal would be less than 230 pounds. Replace electrolytes as per protocol. Continue all home medications. Wean O2 as tolerated. Physical therapy as tolerated. Monitor H&H. Monitor a.m. labs and imaging. Time spent for clinical assessment, reviewing labs and imaging, physical exam, decision making and documentation greater than 45 minutes. Past Medical Family Social History Allergies: Allergies No Known Drug Allergies Allergy (Verified 05/07/25 14:20) Review of Systems ROS changes noted: see HPI Vital Signs and I&O's Vital Signs: Vital Signs Temperature 98.5 F Temperature 97.5 F Pulse Rate [Bilateral Radial] 64 Pulse Rate [Bilateral Radial] 72 Respiratory Rate 21 Respiratory Rate 19 Blood Pressure [Left Arm] 175/77 Blood Pressure [Right Arm] 144/68 Blood Pressure [Right Arm] 145/69 Blood Pressure [Right Arm] 139/66 Blood Pressure [Right Arm] 143/70 Blood Pressure [Right Arm] 143/69 Blood Pressure [Right Arm] 162/88 Blood Pressure [Right Arm] 170/81 O2 Sat by Pulse Oximetry 99 O2 Sat by Pulse Oximetry 99 Intake and Output: Intake & Output 05/27/25 05/28/25 05/29/25 05/30/25 23:59 23:59 23:59 23:59 Intake Total 120 / 120 1500 / 1500 452 / 452 141 / 141 Output Total 1900 / 1900 3700 / 3700 2100 / 2100 1500 / 1500 Balance -1780 / -1780 -2200 / -2200 -1648 / -1648 -1359 / -1359 Physical Exam Oriented: Normal Respiratory: Generalized and Diminished Cardiovascular: Normal and Edema Auscultation: Bowel Sounds: Normal Tenderness: Normal Skin: Normal Musculoskeletal: Leg Psychiatric: Normal Mood Description: Calm Affect: Normal Speech Pattern: Clear Laboratory and Diagnostics 05/30/25 05:29 05/30/25 05:29 Labs: Laboratory WBC 3.7 X10^3/uL (3.6-10.0) 05/30/25 05:29 RBC 2.57 X10^6/uL (4.7-6.0) L 05/30/25 05:29 Hgb 8.0 g/dL (13.5-18.0) L 05/30/25 05:29 Hct 23.4 % (42.0-54.0) L 05/30/25 05:29 MCV 91.0 fL (80.0-100.0) 05/30/25 05:29 MCH 31.2 pg (27.0-34.0) 05/30/25 05:29 MCHC 34.3 g/dL (33.0-35.0) 05/30/25 05:29 RDW 15.2 % (11.6-16.5) 05/30/25 05:29 Plt Count 89 X10^3/uL (150.0-450.0) L 05/30/25 05:29 MPV 10.1 fL (7.4-11.0) 05/30/25 05:29 Neut % (Auto) 73.9 % (42.0-75.0) 05/30/25 05:29 Lymph % (Auto) 13.2 % (21.0-51.0) L 05/30/25 05:29 [place] % (Auto) 6.3 % (0.0-13.0) 05/30/25 05:29 Eos % (Auto) 5.3 % (0.9-2.9) H 05/30/25 05:29 Baso % (Auto) 1.3 % (0.2-1.0) H 05/30/25 05:29 Neut # (Auto) 2.7 x10^3/uL (2.2-4.8) 05/30/25 05:29 Lymph # (Auto) 0.5 X10^3/uL (1.3-2.9) L 05/30/25 05:29 [place] # (Auto) 0.2 x10^3/uL (0.3-0.8) L 05/30/25 05:29 Eos # (Auto) 0.2 x10^3/uL (0.0-0.2) 05/30/25 05:29 Baso # (Auto) 0.0 X10^3/uL (0.0-0.1) 05/30/25 05:29 Absolute Nucleated RBC 0.0 /100WBC 05/30/25 05:29 PT 16.4 SECONDS (11.8-14.3) 05/28/25 05:38 INR Target Range - 05/28/25 05:38 INR 1.31 (0.8-1.3) H 05/28/25 05:38 Sodium 144 mmol/L (136-145) 05/30/25 05:29 Corrected Sodium 144 mmol/L (136-145) 05/30/25 05:29 Potassium 4.1 mmol/L (3.5-5.1) 05/30/25 05:29 Chloride 106 mmol/L (98-107) 05/30/25 05:29 Carbon Dioxide 30.9 mmol/L (21-32) 05/30/25 05:29 BUN 65 mg/dL (7-18) H 05/30/25 05:29 Creatinine 2.98 mg/dL (0.70-1.30) H 05/30/25 05:29 Est GFR (MDRD) Af Amer 27 (>60) L 05/30/25 05:29 Est GFR (MDRD) Non-Af 22 (>60) L 05/30/25 05:29 Glucose 114 mg/dL (65-99) H 05/30/25 05:29 POC Glucose (mg/dL) 110 mg/dL (65-99) H 05/30/25 05:09 Calcium 8.3 mg/dL (8.5-10.1) L 05/30/25 05:29 Corrected Calcium 9.1 mg/dL (8.5-10.1) 05/30/25 05:29 Magnesium 1.4 mg/dL (2.0-2.9) L 05/30/25 05:29 Total Bilirubin 1.10 mg/dL (0.2-1.0) H 05/30/25 05:29 AST 8 Units/L (15-37) L 05/30/25 05:29 ALT 14 Units/L (12-78) 05/30/25 05:29 Alkaline Phosphatase 106 Units/L (46-116) 05/30/25 05:29 Creatine Kinase 47 Units/L (39-308) 05/27/25 13:00 Troponin I High Sens 26.9 ng/L (4.0-60.0) 05/27/25 13:00 B-Natriuretic Peptide 4940 pg/mL (0-79) H 05/28/25 05:38 Total Protein 6.6 g/dL (6.4-8.2) 05/30/25 05:29 Albumin 3.0 g/dL (3.4-5.0) L 05/30/25 05:29 Globulin 3.6 g/dL (2.5-4.5) 05/30/25 05:29 Albumin/Globulin Ratio 0.8 Ratio (1.1-2.1) L 05/30/25 05:29 Plan (1) Acute on chronic renal failure: Status: Acute (2) Acute exacerbation of CHF (congestive heart failure): Status: Acute Qualifiers: Heart failure type: systolic Qualified Code(s): I50.23 - Acute on chronic systolic (congestive) heart failure (3) Chronic anemia: Status: Chronic (4) Hypomagnesemia: Status: Acute (5) CKD (chronic kidney disease): Status: Chronic Qualifiers: Chronic kidney disease stage: unspecified stage Qualified Code(s): N 18.9 - Chronic kidney disease, unspecified (6) Physical deconditioning: Status: Acute
[2025-05-30] MEDS: APRESOLINE TAB 25 MG PO SCH (14:12)
[2025-05-30] MEDS: NovoLIN R (or HumuLIN R) SUBCUT PRN (16:16)
[2025-05-31 05:06] LABS: MEAN PLATELET VOLUME 10.1 fL (7.4-11.0); RED CELL DISTRIBUTION WIDTH 16.0 % (11.6-16.5)
[2025-05-31 05:28] LABS: COR CA(FOR HYPOALB) 9.0 mg/dL (8.5-10.1); COR NA(FOR HYPERGLY) 142.0 mmol/L (136-145); CREATININE 2.8 mg/dL (0.70-1.30); eGFR NON BLACK RACES 24.0 (>60)
[2025-05-31] MEDS ORDERED: CONSULT PHARMACY - POTASSIUM & MAGNESIUM XX SCH (07:00)
[2025-05-31] MEDS: MAG-OX TAB PO ONE (08:31)
[2025-05-31] MEDS: KLOR-CON 10 MEQ TAB PO ONE (08:31)
[2025-05-31] MEDS: TYLENOL 325 MG TAB PO PRN (08:51)
--- NOTE | 2025-05-31 14:03 | NOTE.SOAP ---
Soap Note Note for Day of Date of Exam: 05/31/25 Subjective Data Subjective Data: Patient received blood yesterday. [place] better overnight but still winded today. Leg swollen and tender. No overnight events per staff. Hemoglobin stable this morning. Serum creatinine improving. Objective Data Objective Data: Elderly male in no acute distress. Appears tired and chronically ill. Heart regular rate and rhythm. Lungs diminished with rales greater in the right base than in the left base. Belly soft with bowel sounds present. 2+ pitting edema bilateral lower extremities with tenderness to pressure. Mood and affect appropriate for situation. Assessment Assessment: Acute on chronic CHF exacerbation CKD 4 Anemia due to CKD Hypoalbuminemia Plan Plan: Replace albumin and then add a third dose of Lasix IV daily. Continue other medications. Goal weight is under 230.
[2025-05-31] MEDS: ALBUMIN HUMAN 25%- 100 ML 100 ML IV ONE (21:04)
[2025-05-31] MEDS: LASIX IVP SCH (21:04)
[2025-06-01 04:32] LABS: MEAN PLATELET VOLUME 9.8 fL (7.4-11.0); RED CELL DISTRIBUTION WIDTH 16.6 % (11.6-16.5)
[2025-06-01 04:40] LABS: COR CA(FOR HYPOALB) 8.8 mg/dL (8.5-10.1); COR NA(FOR HYPERGLY) 142.0 mmol/L (136-145); CREATININE 2.75 mg/dL (0.70-1.30); eGFR NON BLACK RACES 24.0 (>60)
--- NOTE | 2025-06-01 10:39 | NOTE.SOAP ---
Soap Note Note for Day of Date of Exam: 06/01/25 Subjective Data Subjective Data: Negative approximately 600 mL /1 pound. Tolerated Lasix 3 times daily. Denies any new complaints. Serum creatinine slightly improved. Objective Data Objective Data: Elderly, well-developed, well-nourished male in no acute distress. Bilateral crackles with the right greater than the left. Heart regular rate and rhythm. Belly is soft with bowel sounds present. Slightly improved but still 2+ pitting edema BLE. Mood and affect appropriate but down. Assessment Assessment: Acute on chronic CHF exacerbation CKD 4 Anemia due to CKD Hypoalbuminemia Plan Plan: Mobilize patient more. Add on metolazone 5 mg daily. May switch to Bumex tomorrow. Continue to monitor labs
[2025-06-01] MEDS: ZAROXOLYN PO SCH (11:09)
[2025-06-01] MEDS: MILK OF MAGNESIA PO PRN (21:06)
[2025-06-01] MEDS: COLACE CAP 100 MG PO SCH (21:06)
[2025-06-02 05:07] LABS: MEAN PLATELET VOLUME 9.6 fL (7.4-11.0); RED CELL DISTRIBUTION WIDTH 15.8 % (11.6-16.5)
[2025-06-02 05:20] LABS: COR CA(FOR HYPOALB) 8.9 mg/dL (8.5-10.1); CREATININE 2.84 mg/dL (0.70-1.30); eGFR NON BLACK RACES 23 (>60)
--- NOTE | 2025-06-02 16:49 | NOTE.SOAP ---
Soap Note Note for Day of Date of Exam: 06/02/25 Subjective Data Subjective Data: -1.6 L overnight. Weight up 13 pounds but suspect bed scale is inaccurate as nurse attempted to do it in the room and it read as 261. Patient reports he does continue to improve and breathe better. Did spend approximately 6 hours out of bed yesterday afternoon. Legs are less tender. Objective Data Objective Data: Elderly male in no acute distress. Reclined in bed. Hearing intact to conversation. Head NCAT. Heart regular rate and rhythm. Left base is clear but right lung base with faint or crackles today. Belly is soft and nontender with bowel sounds present. Legs are less tender to touch with more wrinkling of the skin. Assessment Assessment: Acute on chronic systolic heart failure Acute on chronic kidney disease 4 Anemia due to CKD Plan Plan: Continue metolazone p.o. daily and IV Lasix 40 3 times daily. Daily weights. Monitor labs.
[2025-06-03 05:51] LABS: MEAN PLATELET VOLUME 9.3 fL (7.4-11.0); RED CELL DISTRIBUTION WIDTH 15.9 % (11.6-16.5)
[2025-06-03 06:02] LABS: COR CA(FOR HYPOALB) 9.3 mg/dL (8.5-10.1); COR NA(FOR HYPERGLY) 140.0 mmol/L (136-145); CREATININE 2.91 mg/dL (0.70-1.30); eGFR NON BLACK RACES 23.0 (>60)
--- NOTE | 2025-06-03 09:45 | NOTE.SOAP ---
Soap Note Note for Day of Date of Exam: 06/03/25 Subjective Data Subjective Data: still with edema but better/has pneumatic device on- sob improved Objective Data Objective Data: bp 110-130 ( good) p 60-70 minimal fluid in lungs mild edema labs: hct 24 cr 2.9 bun 87 k 4.0 Assessment Assessment: chf-better- cardiomyopathy ef 35%- crf- anemia complicating heart failure Plan Plan: d/c home- hydralazine was increased, bp better- already on 40 bid torsemide at home- metalozone added( continue) f/u me in a week- needs procrit to get hct > 30!!! will refer to heme
[2025-06-03 12:14] VITALS: BP 128/70; PULSE 62; RESP 19; TEMP 97.7; O2SAT 98
== END 2025-06-03 12:50 | disposition home health service (06) | DRG 291 ==
LOC: MED/SURG 12:51 → ER 12:51 → MED/SURG 17:19
PROVIDERS: ADMIT Family Medicine; ATTEND Family Medicine
DX: E11.22 Type 2 diabetes mellitus with diabetic chronic kidney disease; R79.1 Abnormal coagulation profile; D63.1 Anemia in chronic kidney disease; N17.8 Other acute kidney failure; R06.02 Shortness of breath; I13.0 Hypertensive heart and chronic kidney disease with heart failure and stage 1 through stage 4 chronic kidney disease, or unspecified chronic kidney disease; E83.42 Hypomagnesemia; E83.51 Hypocalcemia; J44.9 Chronic obstructive pulmonary disease, unspecified; E78.5 Hyperlipidemia, unspecified; R53.81 Other malaise; I25.10 Atherosclerotic heart disease of native coronary artery without angina pectoris; E11.65 Type 2 diabetes mellitus with hyperglycemia; Z87.442 Personal history of urinary calculi; I50.23 Acute on chronic systolic (congestive) heart failure; R60.0 Localized edema; E80.6 Other disorders of bilirubin metabolism; K21.9 Gastro-esophageal reflux disease without esophagitis; R94.31 Abnormal electrocardiogram [ECG] [EKG]; R26.89 Other abnormalities of gait and mobility; N18.4 Chronic kidney disease, stage 4 (severe)

== ENCOUNTER 2025-09-14 10:06 | Inpatient (IN) ==
[2025-09-14 10:31] VITALS: BMI 34.7
--- NOTE | 2025-09-14 10:43 | DR.DIZZY ---
HPI Time seen Time Seen by Provider: 09/14/25 10:42 PCP Primary Care Physician: Kelly Wong HPI Comment HPI Comment: Patient is a poor historian Patient is a 74-year-old maleWith history of type 2 diabetes, CHF, CAD, and HTN who presents to the ED with complaint of generalized weakness. Patient states the weakness started about 3 days ago. He has not fallen or had any spells of syncope. Patient states that his blood sugar is low. Lowest recorded reading was 48 within that was 3 days ago. He does take his diabetic medications as prescribed. He is on glipizide.He also states that he has CHF and has been gaining weight for the past couple days. He thinks he might be in heart failure. He does state that he eats 3 meals a day. He denies any fever, chills, NVD, chest pain, shortness of breath, abdominal pain, dysuria, hematuria, melena, or hematochezia. Complaint Chief Complaint:: weakness x2 days, FSBS noted to be 48 yesterday, Patient states his blood sugar was 75 today Self Treatment fo Chief Complaint: EMS gave oral glucose, patient ate snack COVID-19 Coronavirus risk:travel/contact w/high risk person: No Has patient experienced Coronavirus symptoms: No Source History Provided: Patient Mode of Arrival Mode of Arrival: EMS Timing Onset of Chief Complaint: 09/12/25 Context Stroke Symptoms: None PMH PMH Past Medical History: Yes Past Medical History: Arthritis, CHF, COPD, Diabetes, Dyslipidemia, GERD, Gout, Hypertension, Kidney Stones and Renal Disease Past Surgical History: Yes Surgical History: Cholecystectomy and Ortho Surgery Past Surgical History Comment: B TKAs, B CTR, B cataracts, Back surgery Family History History of Family Medical Conditions: Yes Family Medical History: Diabetes Mellitus, Cancer and PR Social History Does patient currently use any type of tobacco product: No Have you used tobacco products in the last 12 months: No Type of Tobacco Use: None Does any household member use tobacco: No Alcohol Use: None Do you use any recreational Drugs:: No Lives With: Alone Lives Where: Home Travel Risk Coronavirus risk:travel/contact w/high risk person: No Has patient experienced Coronavirus symptoms: No Infectious screening In the last 2 months have you had wt loss of >10#?: NO Have you had fever, night sweats or hemotysis?: No Have you traveled outside the country in the last 6 months?: No Isolation: Standard ROS Review of Systems All Other Systems: Reviewed and Negative PE Vital Signs Vitals: Vital Signs Temperature 97.6 F Pulse Rate 80 Pulse Rate 82 Pulse Rate 76 Pulse Rate 79 Pulse Rate 81 Pulse Rate 80 Pulse Rate 82 Respiratory Rate 18 Blood Pressure 176/84 Blood Pressure 168/80 Blood Pressure 163/72 O2 Sat by Pulse Oximetry 98 O2 Sat by Pulse Oximetry 99 O2 Sat by Pulse Oximetry 96 O2 Sat by Pulse Oximetry 97 O2 Sat by Pulse Oximetry 98 O2 Sat by Pulse Oximetry 97 O2 Sat by Pulse Oximetry 97 Other Exam Other Exam: GEN: Lying comfortably on exam bed in NADBut does appear weak HEART: RRR LUNGS: CTABL ABD: Soft, non tender, non distended, BS normal MSK: Full range of motion of bilateral upper and lower extremities Skin: Warm and dry, no skin tenting Neuro: Alert and orient x 3, cranial nerves II through XII grossly intact, muscle strength bilateral upper and lower extremities 5/5 COURSE Treatment Treatment: CBC and CMP were ordered. ROR Labs Reviewed 09/14/25 10:38 09/14/25 10:38 Laboratory: WBC 6.4 X10^3/uL (3.6-10.0) 09/14/25 10:38 RBC 3.28 X10^6/uL (4.7-6.0) L 09/14/25 10:38 Hgb 9.8 g/dL (13.5-18.0) L 09/14/25 10:38 Hct 29.2 % (42.0-54.0) L 09/14/25 10:38 MCV 88.9 fL (80.0-100.0) 09/14/25 10:38 MCH 29.8 pg (27.0-34.0) 09/14/25 10:38 MCHC 33.5 g/dL (33.0-35.0) 09/14/25 10:38 RDW 16.0 % (11.6-16.5) 09/14/25 10:38 Plt Count 122 X10^3/uL (150.0-450.0) L 09/14/25 10:38 MPV 8.4 fL (7.4-11.0) 09/14/25 10:38 Neut % (Auto) 79.2 % (42.0-75.0) H 09/14/25 10:38 Lymph % (Auto) 9.0 % (21.0-51.0) L 09/14/25 10:38 [place] % (Auto) 9.1 % (0.0-13.0) 09/14/25 10:38 Eos % (Auto) 0.8 % (0.9-2.9) L 09/14/25 10:38 Baso % (Auto) 1.9 % (0.2-1.0) H 09/14/25 10:38 Neut # (Auto) 5.1 x10^3/uL (2.2-4.8) H 09/14/25 10:38 Lymph # (Auto) 0.6 X10^3/uL (1.3-2.9) L 09/14/25 10:38 [place] # (Auto) 0.6 x10^3/uL (0.3-0.8) 09/14/25 10:38 Eos # (Auto) 0.0 x10^3/uL (0.0-0.2) 09/14/25 10:38 Baso # (Auto) 0.1 X10^3/uL (0.0-0.1) 09/14/25 10:38 Absolute Nucleated RBC 0.1 /100WBC 09/14/25 10:38 Sodium 141 mmol/L (136-145) 09/14/25 10:38 Corrected Sodium TNP 09/14/25 10:38 Potassium 3.9 mmol/L (3.5-5.1) 09/14/25 10:38 Chloride 108 mmol/L (98-107) H 09/14/25 10:38 Carbon Dioxide 26.7 mmol/L (21-32) 09/14/25 10:38 BUN 36 mg/dL (7-18) H 09/14/25 10:38 Creatinine 2.92 mg/dL (0.70-1.30) H 09/14/25 10:38 Est GFR (MDRD) Af Amer 27 (>60) L 09/14/25 10:38 Est GFR (MDRD) Non-Af 22 (>60) L 09/14/25 10:38 Glucose 58 mg/dL (65-99) L 09/14/25 10:38 Calcium 7.9 mg/dL (8.5-10.1) L 09/14/25 10:38 Corrected Calcium 8.8 mg/dL (8.5-10.1) 09/14/25 10:38 Total Bilirubin 0.40 mg/dL (0.2-1.0) 09/14/25 10:38 AST 14 Units/L (15-37) L 09/14/25 10:38 ALT 18 Units/L (12-78) 09/14/25 10:38 Alkaline Phosphatase 121 Units/L (46-116) H 09/14/25 10:38 Troponin I High Sens 29.8 ng/L (4.0-60.0) 09/14/25 10:38 B-Natriuretic Peptide 1010 pg/mL (0-79) H 09/14/25 10:38 Total Protein 6.4 g/dL (6.4-8.2) 09/14/25 10:38 Albumin 2.9 g/dL (3.4-5.0) L 09/14/25 10:38 Globulin 3.5 g/dL (2.5-4.5) 09/14/25 10:38 Albumin/Globulin Ratio 0.8 Ratio (1.1-2.1) L 09/14/25 10:38 Opioid Opioid Risk Tool Age (Petr box if 16-45): No History of Preadolescent Sexual Abuse: No Total: 0 Total Score Risk Category: Low Risk Copyright: [facility] predicting aberrant behaviors Discharge Plan Diagnosis Discharge Problem: CHF (congestive heart failure) Discharge Plan Patient Disposition: 09 ADMITTED INPATIENT Condition: Stable Prescriptions: No Action isosorbide mononitrate 30 mg tablet extended release 24 hr 30 mg PO QAM glimepiride 4 mg tablet 4 mg PO QDAY tizanidine 4 mg tablet 4 mg PO QPM metolazone 5 mg tablet 5 mg PO Q OTHER DAY Qty: 45 3RF saxagliptin 5 mg tablet 5 mg PO QDAY magnesium oxide 400 mg magnesium tablet 400 mg PO QDAY omeprazole 20 mg capsule,delayed release(DR/EC) 20 mg PO QDAY torsemide 20 mg tablet 40 mg PO Patient Comments: [NO ORIGINAL SIG] hydralazine 100 mg tablet 100 mg PO BID aspirin 81 mg Tablet,Delayed Release (Dr/Ec) 81 mg PO QPM atorvastatin 40 mg tablet 40 mg PO QPM carvedilol 25 mg tablet 25 mg PO BID famotidine 40 mg tablet 40 mg PO QDAY ergocalciferol (vitamin D2) [Vitamin D2] 1,250 mcg (50,000 unit) capsule 1,250 mcg PO 2XW azelastine 0.05 % drops OPHTHALMIC (EYE) Patient Comments: [NO ORIGINAL SIG] levofloxacin 500 mg tablet 500 mg PO QDAY ergocalciferol (vitamin D2) 1,250 mcg (50,000 unit) capsule PO hydroxychloroquine 200 mg tablet 200 mg PO 2XD Patient Comments: [NO ORIGINAL SIG] Health Concerns: Post Hospitalization: new medications and changes needed to prevent readmission or further decline. Pt educated and given instructions on all concerns. Plan of Treatment: Continue with present treatment and follow up plan. Pt is to keep follow up appointment as instructed and take medications as ordered. Orders to Discharge Patient Discharge Orders: Transfer (Routine); Ordered 09/14/25 Ordered By: Vipul Pulliam Follow ups/Referrals Follow ups/Referrals: MDMisc [Primary Care Provider] - 3 days Instructions Stand Alone Forms: Find Help Web Site, Post Hospital Follow Up Care Print Language: [place] Provider Note Additional Notes Patient is a 74-year-old male who presented with generalized weakness. Physical exam was unremarkable. Blood work revealed anemia, hypoglycemia, and Elevated BNP. Patient was given 40 mg IV Lasix. He did urinate but did not have much improvement in his symptoms. Spoke with Dr. Jenkins about admitting for observation and diuresis. He agreed and and recommended that I give Venofer, IV albumin, and Lasix patient admitted. At time of transfer patient was afebrile and hemodynamically stable. He was in no acute respiratory distress.
[2025-09-14 10:46] LABS: RED CELL DISTRIBUTION WIDTH 16.0 % (11.6-16.5)
[2025-09-14 10:50] LABS: MEAN PLATELET VOLUME 8.4 fL (7.4-11.0)
[2025-09-14 10:54] LABS: COR CA(FOR HYPOALB) 8.8 mg/dL (8.5-10.1); CREATININE 2.92 mg/dL (0.70-1.30); eGFR NON BLACK RACES 22 (>60)
[2025-09-14] MEDS: LASIX IVP ONE (11:31)
[2025-09-14] MEDS ORDERED: NORCO 5/325 MG TAB PO PRN (15:25)
[2025-09-14] MEDS ORDERED: ULTRAM PO PRN (15:25)
[2025-09-14] MEDS: NS 100 ML IV 100 ML with VENOFER 300 MG IV ONE (16:00)
[2025-09-14] MEDS: MAG-OX TAB PO SCH (19:09)
[2025-09-14] MEDS: D50W ABBOJECT SYR IV ONE ×3 (20:46→23:13)
[2025-09-14] MEDS: COREG TAB 25 MG PO SCH (21:15)
[2025-09-14] MEDS: ENTRESTO 49/51 MG TABLET PO SCH (21:15)
[2025-09-14] MEDS: ASPIRIN EC 81 MG PO SCH (21:16)
[2025-09-14] MEDS: PLAQUENIL PO SCH (21:16)
[2025-09-14] MEDS: PATIENT'S HOME MEDICATION (Hydralazine 100 mg tablet) PO SCH (21:39)
[2025-09-14] MEDS: OPTIVAR OP SCH (21:39)
[2025-09-14] MEDS: D5 NS 1,000 ML IV 1,000 ML IV SCH (22:51)
[2025-09-15] MEDS ORDERED: D5W 1,000 ML IV 1,000 ML IV ONE (00:17)
[2025-09-15] MEDS: D5W 1,000 ML IV 1,000 ML IV SCH (00:27)
[2025-09-15] MEDS: D50W ABBOJECT SYR IV ONE ×4 (00:27→06:31)
[2025-09-15 05:01] LABS: MEAN PLATELET VOLUME 8.4 fL (7.4-11.0); RED CELL DISTRIBUTION WIDTH 15.8 % (11.6-16.5)
[2025-09-15 05:08] LABS: COR CA(FOR HYPOALB) 8.9 mg/dL (8.5-10.1); CREATININE 2.84 mg/dL (0.70-1.30); eGFR NON BLACK RACES 23 (>60)
[2025-09-15] MEDS: CONSULT PHARMACY - POTASSIUM & MAGNESIUM XX SCH ×2 (07:23)
[2025-09-15] MEDS: LASIX ONE (07:23)
[2025-09-15] MEDS: ALBUMIN HUMAN 25%- 100 ML 100 ML IV SCH (08:57)
[2025-09-15] MEDS: IMDUR PO SCH (08:57)
[2025-09-15] MEDS: LASIX IVP SCH (08:58)
[2025-09-15] MEDS: K-DUR TAB 20 MEQ PO SCH (08:58)
[2025-09-15] MEDS: MAG-OX TAB PO SCH (08:58)
[2025-09-15] MEDS ORDERED: BUTT CREAM (COMPOUND) ONE (09:38)
[2025-09-15] MEDS ORDERED: NS 100 ML IV 100 ML with VENOFER 100 MG IV ONE (09:45)
[2025-09-15] MEDS: D50W ABBOJECT SYR IV PRN (10:05)
[2025-09-15] MEDS: D5 LR 1,000 ML 1,000 ML IV SCH (11:07)
[2025-09-15] MEDS: ENTRESTO 49/51 MG TABLET PO SCH (11:08)
[2025-09-15] MEDS: PROCRIT or EPOGEN VIAL 10,000 UNITS SC ONE (11:09)
[2025-09-15] MEDS: BUTT CREAM (COMPOUND) TOP PRN (11:13)
[2025-09-15] MEDS ORDERED: SNACK - Diabetic Appropriate PO SCH (20:00)
[2025-09-15] MEDS: APRESOLINE TAB 25 MG PO SCH (20:42)
[2025-09-16] MEDS: TYLENOL 325 MG TAB PO PRN (03:51)
[2025-09-16 06:27] LABS: MEAN PLATELET VOLUME 8.5 fL (7.4-11.0); RED CELL DISTRIBUTION WIDTH 15.9 % (11.6-16.5)
[2025-09-16 06:45] LABS: COR CA(FOR HYPOALB) 8.7 mg/dL (8.5-10.1); COR NA(FOR HYPERGLY) 144.0 mmol/L (136-145); CREATININE 3.0 mg/dL (0.70-1.30); eGFR NON BLACK RACES 22.0 (>60)
[2025-09-16] MEDS ORDERED: CONSULT PHARMACY - POTASSIUM & MAGNESIUM XX SCH (07:00)
[2025-09-16] MEDS ORDERED: PHARMACY CONSULT - LOVENOX XX SCH (09:00)
[2025-09-16] MEDS: MAG-OX TAB PO SCH (09:02)
[2025-09-16] MEDS: RHINOCORT ALLERGY NASAL SPRAY ENOSTRIL SCH (09:03)
[2025-09-16] MEDS: NS 1,000 ML IV 1,000 ML IV SCH (09:04)
[2025-09-16] MEDS: CORTEF PO SCH (10:14)
[2025-09-16] MEDS: PROCRIT or EPOGEN VIAL 10,000 UNITS SC ONE (10:14)
[2025-09-16] MEDS ORDERED: CORTEF ONE (13:28)
[2025-09-16] MEDS: CORTEF ONE (13:46)
[2025-09-16] MEDS: NovoLIN R (or HumuLIN R) SUBCUT PRN (17:19)
[2025-09-17] MEDS ORDERED: CORTEF ONE ×2 (05:14→11:50)
[2025-09-17 06:22] LABS: MEAN PLATELET VOLUME 8.5 fL (7.4-11.0); RED CELL DISTRIBUTION WIDTH 15.6 % (11.6-16.5)
[2025-09-17 06:26] LABS: COR CA(FOR HYPOALB) 8.9 mg/dL (8.5-10.1); COR NA(FOR HYPERGLY) 138.0 mmol/L (136-145); CREATININE 3.07 mg/dL (0.70-1.30); eGFR NON BLACK RACES 21.0 (>60)
[2025-09-17] MEDS ORDERED: CONSULT PHARMACY - POTASSIUM & MAGNESIUM XX SCH (07:00)
[2025-09-17 07:54] VITALS: PULSE 90; O2SAT 96
[2025-09-17] MEDS: MAG-OX TAB PO SCH (08:19)
[2025-09-17 12:06] VITALS: BP 146/73; RESP 19; TEMP 98.2
== END 2025-09-17 13:35 | DRG 293 ==
LOC: ER 10:06 → MED/SURG 10:06 → OBSVTOIN 13:51 → MED/SURG 14:22
PROVIDERS: ADMIT Obstetrics & Gynecology Obstetrics; ATTEND Obstetrics & Gynecology Obstetrics
DX: E83.42 Hypomagnesemia; I50.9 Heart failure, unspecified; I25.10 Atherosclerotic heart disease of native coronary artery without angina pectoris; I11.0 Hypertensive heart disease with heart failure; D64.89 Other specified anemias; R94.4 Abnormal results of kidney function studies; R53.1 Weakness; E11.649 Type 2 diabetes mellitus with hypoglycemia without coma; M19.90 Unspecified osteoarthritis, unspecified site; R06.02 Shortness of breath; R26.89 Other abnormalities of gait and mobility; J44.9 Chronic obstructive pulmonary disease, unspecified; E83.51 Hypocalcemia; K21.9 Gastro-esophageal reflux disease without esophagitis; E78.5 Hyperlipidemia, unspecified